=== PATIENT | male | born 1955 | race Caucasian/White ===

== ENCOUNTER 2025-07-25 21:00 | Inpatient (IN) | payer MEDICARE, OTHER, SELFPAY ==
[2025-07-25 21:04] VITALS: BP 123/77
[2025-07-25 21:05] VITALS: BMI 39.0
[2025-07-25 21:11] VITALS: BP 135/66
[2025-07-25 21:14] VITALS: BP 136/77
[2025-07-25 21:27] LABS: Hematocrit 45.7 % (39.0-52.0); Hemoglobin 15.5 g/dL (13.0-18.0); Mean Corp Hgb Conc. 33.9 g/dL (33.0-37.0); Mean Corpuscular Volume 82.6 fL (80.0-94.0); Platelet Count 151 10^3/uL (130-400); Red Cell Dist. Width 13.0 % (11.5-14.5)
[2025-07-25 21:40] LABS: APTT 65.7 Sec (23.4-35.0)
[2025-07-25 21:47] LABS: Blood Urea Nitrogen 17 mg/dl (9-20); Calcium 9.0 mg/dl (8.4-10.2); Carbon Dioxide 25 mmol/L (22-30); Chloride 108 mmol/L (98-107); Estimated Creatinine Clearance 87 ml/min; Glucose 95 mg/dl (70-99); Magnesium 1.8 mg/dl (1.6-2.3); Potassium 3.9 mmol/L (3.5-5.1); Sodium 139 mmol/L (135-145); eGFR > 60.00
--- NOTE | 2025-07-25 22:12 | PTCARENOTE ---
received patient from [facility] via transport. pleasant. oriented x3. Slovak speaking. stenciler line used for communication. Bartolo BOYLE CREDIT COLLECTIONS ANALYST at the bedside. labs sent. awaiting new orders.
patient complains of left side chest pain- 12/09. non radiating. improved at the end of conversation. Bartolo MCINTYRE aware- will give tylenol for now per CREDIT COLLECTIONS ANALYST. Afib on tele- 40s-60s. denies any palps. bp stable. history of stroke- L facial droop/LUE weakness
noted. steady on his feet oob. educated patient to inform RN with any changes. oriented to room/call breen. IS provided per respiratory. answered all questions.
--- NOTE | 2025-07-25 22:13 | HPS.HSE ---
Family Physician
-
Family Physician: Jose G Curry
Chief Complaint
-
Chest pain
History of Present Illness
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
the morning of presentation. He reported the chest pain was a 'tightness' that was substernal and developed suddenly but then resolved after a nitro patch was applied. His HsTnl returned at 29 ng/L and EKG showing non-specific ST-T wave changes in
the lateral leads. PCXR report states there was no acute cardiopulmonary process. He was placed on a heparin infusion and ultimately went for a LHC which showed eccentric distal left main lesion, significant ostial and proximal LAD lesion,
significant OM1, OM2, and OM3 lesions, significant proximal RCA and 2 proximal RPL lesions. He was then transferred to [facility] for consideration of CABG. At the time of his arrival he is in a slow afib with rates between 30 and 60 b/min
with BP in the 130/70s without supplemental oxygen. He was interviewed with Gambian electric motors salesperson [id number]. He currently reports 2/10 pain across his back and to his chest which was worse after he laid on the union laborer table and is reproducible to
palpation. He denies any SOB, FIELDS, orthopnea, or weight gain but reports increased lower extremity edema. He reports being a ~10 pack/yr smoker but quit 35 years ago and stopped drinking alcohol 3 years ago after his stroke. He is not aware of
any family history of cardiac disease.
Medical History
Past Medical History
Past Medical History: Reports Arrhythmia, CAD, CVA, GERD, HTN and Hypercholesterolemia
Past Surgical History: Reports Cholecystectomy
Social History
Tobacco: Former Smoker
Alcohol: Former
Drug: None
Personal:
Living: With Family
Employment: Retired ( )
Family History
Family History: Other
Allergies / Home Medications
Allergies reflects when Allergies were last updated in [employer].
Home Medications with original date entered in [employer]
Allergy/Medication List:
Amlodpine 10 mg daily
Apixaban 5 mg BID
ASA 81 mg daily
clopidogrel 75 mg daily
doxazosin 2 mg BID
furosemide 20 mg daily
losartan 100 mg daily
nortriptyline 10 mg bedtime
pantoprazole 40 mg daily
Review of Systems
-
History Source: Patient
A 12 point ROS was completed and negative except as noted: Yes
Physical Exam
Vital Signs
Vital Signs
Pulse BP
48 135/66
07/25/25 21:11 07/25/25 21:11
Physical Exam
General: Well Developed, Well Nourished, Comfortable, Conversant and Slurred Speech
HEENT: Moist mucous membranes, PERRLA, Nose Appears Normal, Ears Appear Normal and Neck Nontender
Respiratory: Clear and Non Labored Respirations
Cardiac: Irregular Rhythm, Bradycardia and Peripheral Edema
Breast: Deferred by me
GI: Soft, Non Tender, Distended and No Hepatosplenomegaly
Rectal: Deferred by Provider
Genito-urinary: Deferred by me
Musculoskeletal: Edema, Left Lower Extremity and Edema, Right Lower Extremity
Skin: Warm and Dry
Neuro: Awake, Alert, Oriented, AO x 3, Slurred Speech, Facial Droop and Other (LUE 4+/5, LLE 5/5, RUE 5/5, RLE 5/5)
Hematologic/Lymphatic: No Lymphadenopathy
Psych: Intact Judgment/Insight
Laboratory Results
-
07/25/25 21:18
07/25/25 21:18
Laboratory Results
APTT 65.7 Sec (23.4-35.0) H 07/25/25 21:18
Data Reviewed
-
Medical Tests (Nuc Med, Echo, EKG etc): Report Reviewed by me (NST 04/30/25: negative for ischemia, TTE 09/2022: LVEF 70-75%, G1DD, mild LVH, normal RV with RVSP 13 mmHg, normal LA/RA size, calcified AV with MG 7 mmHg)
Impression/Plan
-
IMPRESSION/PLAN:
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
have a NSTEMI. He was placed on a heparin infusion and ultimately went for a LHC which showed eccentric distal left main lesion, significant ostial and proximal LAD lesion, significant OM1, OM2, and OM3 lesions, significant proximal RCA and 2
proximal RPL lesions. He was then transferred to [facility] for consideration of CABG.
# NSTEMI
# MVCAD
# HLD
-CABG evaluation
-Heparin infusion
-Continue ASA/statin
-Plavix washout, last dose was ~9am on 07/25
-If he develops worsening CP will start nitro drip, will try APAP first, current pain may be musculoskeletal
-Holding Lasix for now s/p C, on RA, follow renal function
-Unsure he had an echo while at [facility], will need to verify but may need one here
# Permanent Afib on Eliquis
# Bradycardia
# HTN
-Hold BB with afib and slow ventricular response, currently 38-60 b/min, no emergent need for pacing, rate reported to be worse after sedation during C
-Heparin infusion, holding Eliquis
-Hold losartan for now, BP currently at goal, will need to hold ARB 2 days before surgery regardless
# GERD
# Hx CVA
-Continue nortriptyline and PPI
Case to be evaluated and discussed further with attending surgeon Dr. Merritt
[2025-07-25] MEDS: HEPARIN 25000 UNITS/250 ML IV (22:29)
[2025-07-25] MEDS: TYLENOL 650 MG PO (22:30)
[2025-07-25 22:40] VITALS: BMI 39.0
[2025-07-25] MEDS: KCL 40 MEQ PO (23:27)
[2025-07-26 04:27] VITALS: BP 117/97
[2025-07-26 04:48] LABS: Hematocrit 43.5 % (39.0-52.0); Hemoglobin 14.7 g/dL (13.0-18.0); Mean Corp Hgb Conc. 33.8 g/dL (33.0-37.0); Mean Corpuscular Volume 82.5 fL (80.0-94.0); Nucleated Red Blood Cells % 0 % (-); Platelet Count 143 10^3/uL (130-400); Red Cell Dist. Width 12.9 % (11.5-14.5)
[2025-07-26 05:03] LABS: INR 1.09; PT 14.4 Sec (11.4-14.6)
[2025-07-26 05:04] LABS: APTT 48.7 Sec (23.4-35.0)
[2025-07-26 05:13] LABS: ALT (SGPT) 29 U/L (0-50); AST (SGOT) 22 U/L (17-59); Albumin 3.6 g/dl (3.5-5.0); Alkaline Phosphatase 84 U/L (38-126); Blood Urea Nitrogen 14 mg/dl (9-20); Calcium 8.6 mg/dl (8.4-10.2); Carbon Dioxide 25 mmol/L (22-30); Chloride 110 mmol/L (98-107); Estimated Creatinine Clearance 98 ml/min; Glucose 95 mg/dl (70-99); HDL Cholesterol 44 mg/dl; LDL Cholesterol, Calculated 66 mg/dl; Magnesium 1.7 mg/dl (1.6-2.3); Potassium 4.2 mmol/L (3.5-5.1); Sodium 139 mmol/L (135-145); Total Protein 6.1 g/dl (6.3-8.2); Very Low Density Lipoprotein 21 mg/dl (0-30); eGFR > 60.00
--- NOTE | 2025-07-26 05:29 | W.PN.CT ---
Today's Communication / Plan
-
-plavix washout, continue heparin gtt
-follow BP off losartan
-restart lasix?
-holding BB with slow afib
Assessment / Plan
-
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
have a NSTEMI. He was placed on a heparin infusion and ultimately went for a [facility] which showed eccentric distal left main lesion, significant ostial and proximal LAD lesion, significant OM1, OM2, and OM3 lesions, significant proximal RCA and 2
proximal RPL lesions. He was then transferred to [facility] for consideration of CABG.
# NSTEMI
# MVCAD
# HLD
-CABG evaluation
-Heparin infusion
-Continue ASA/statin
-Plavix washout, last dose was ~9am on 07/25
-Holding Lasix for now s/p [facility], on RA, follow renal function
-Unsure he had an echo while at [facility], will need to verify but may need one here
# Permanent Afib on Eliquis
# Bradycardia
# HTN
-Hold BB with afib and slow ventricular response, currently 38-60 b/min, no emergent need for pacing, rate reported to be worse after sedation during LHC
-Heparin infusion, holding Eliquis
-Hold losartan for now, BP currently at goal, will need to hold ARB 2 days before surgery regardless
# GERD
# Hx CVA
-Continue nortriptyline and PPI
Subjective
-
Date of Service: July 26, 2025
Objective Data
-
Lab Results
07/26/25 04:39
07/26/25 04:39
PT 14.4 Sec (11.4-14.6) 07/26/25 04:39
INR 1.09 07/26/25 04:39
APTT 48.7 Sec (23.4-35.0) H 07/26/25 04:39
Vital Signs
Vital Signs
Temp Pulse Resp BP Pulse Ox
98.4 F 48 18 135/66 98
07/26/25 04:54 07/25/25 21:11 07/26/25 04:54 07/25/25 21:11 07/26/25 04:54
SaO2: 98
Physical Exam
-
General: Awake and Oriented
Cardiovascular: Irregular rate & rhythm and No Murmurs
Respiratory: Clear and Equal
Extremities: Edema +1
Data Reviewed
-
Lab Results: Results Reviewed
Medications: Active Meds Reviewed
Chest X-Ray: Report Reviewed
ECG: Report Reviewed
--- NOTE | 2025-07-26 08:26 | CON.CAR ---
Addendum entered and electronically signed by Ketan Wasserman MD 07/26/25 10:52:
I saw and evaluated the patient, and I provided the substantive portion of the medical decision making.
I reviewed and agree with the note by DARRIUS and it accurately reflects our care.
I personally performed the medical decision making of the this encounter and my assessment and plan is below:
70-year-old man with hypertension, hyperlipidemia, stroke, atrial fibrillation on Eliquis who presented to [facility] with chest discomfort on , found to have severe obstructive coronary artery disease as described below. He is
transferred to [facility] for consideration of CABG. He is currently asymptomatic.
Physical exam: Irregular rhythm, no murmurs, clear lungs, no lower extremity edema
NSTEMI with multivessel CAD: Plan for CABG after Plavix washout. Continue heparin drip and aspirin. He is currently chest pain-free. May need echo here pending [facility] records.
Bradycardia: Hold beta-joseluis.
AF: Rate controlled. Heparin drip.
Original Note:
Consultation
Consultation Request
Date/Time Consultation Requested: 07/25/251916
Date/Time Consultation Performed: 07/25/25826
Requesting Provider: Madonna Woodruff
Performing Provider: Miriam RIZO for Dr. Johnson
Reason for Consultation: CAD
Medical History
-
Chief Complaint: chest pain
History of Present Illness:
70 y/o male with HTN, HLD, CVA, AFIB on qu (type not clear), GERD, and obesity who presented to [facility] with chest discomfort.He reports it started AM around 7 and was a chest pressure. In [facility], High sensitivity troponin
was 29ng/L. LHC showed eccentric distal left main lesion, significant ostial and proximal LAD lesion, significant OM1, OM2, and OM3 lesions, significant proximal RCA and 2 proximal RPL lesions (per CT surgery note- I do not have access to the report
at this time). He was transferred to evaluate for CABG. He is Citizen [place]-speaking and I used the geological engineer IPAD to communicate with him effectively. He has no CP at present. He denies any SOB or dizziness. He is in no distress at the time of my
assessment.
Past Medical History
Past Medical History: Arrhythmias, CAD, CVA, GERD, HTN, Hypercholesterolemia and Other (as above)
Social History
Tobacco: Former Smoker (quit 36 years ago)
Family History
Family History: Reviewed & Not Pertinent (patient denies)
Allergies / Home Medications
Allergy/AdvReac Type Severity Reaction Status Date / Time
bee venom protein (honey bee) Allergy Unknown Verified 07/25/25 22:47
diphenhydramine Allergy Unknown Verified 07/25/25 22:[address] surgery note:
Amlodipine 10 mg daily
Apixaban 5 mg BID
ASA 81 mg daily
clopidogrel 75 mg daily
doxazosin 2 mg BID
furosemide 20 mg daily
losartan 100 mg daily
nortriptyline 10 mg bedtime
pantoprazole 40 mg daily
Review of Systems
-
History Source: Patient
All other systems: Negative unless noted
Cardiac: Chest Pain
Physical Exam
Vital Signs
Temp Pulse Resp BP Pulse Ox
98.4 F 51 18 117/97 98
07/26/25 04:54 07/26/25 06:30 07/26/25 04:54 07/26/25 04:27 07/26/25 05:32
Lab Results
07/26/25 04:39
07/26/25 04:39
Physical Exam
General: Well Developed, Well Nourished and No Apparent Distress
HEENT: Normocephalic and Anicteric
Respiratory: Clear and Non Labored Respirations
Cardiac: Irregular Rhythm
Musculoskeletal: Edema (mild BLE edema)
Skin: Warm and Dry
Neuro: AO x 3
Psych: Calm
Impression / Plan
-
NSTEMI, Multivessel CAD:
-this diagnosis is threat to life. Continue heparin drip, which requires intensive monitoring.
-CP free at present
-continue ASA and statin. Per report he received Plavix AM of 07/25. He is now on Plavix washout.
-CT surgery evaluation for CABG
-needs echo if didn't have one at [facility]
-ASA, statin. Was on metoprolol 12.5 mg PO BID at [facility] per report, now off due to bradycardia.
AFIB, type unknown:
-rate-controlled off meds (see below)
-on Eliquis as OP, currently on heparin gtt
Bradycardia:
-Monitor tele, remain off metoprolol
-no dizziness
-should be evaluated for NICOLAS eventually
HTN:
-on meds
-monitor
Hx CVA:
-on Eliquis as OP (heparin drip now) and statin
Data Reviewed
-
EKG: Tracing Personally Visualized and interpreted (AFIB 50 BPM, ST/T abnormality- ST/T abnormalities )
Labs: Labs Reviewed by me
Old Records: Reviewed ([facility] records and CTS note)
[2025-07-26 08:56] VITALS: BP 135/93
[2025-07-26] MEDS: PROTONIX 40 MG PO (08:57)
[2025-07-26] MEDS: LOW STRENGTH ASPIRIN 81 MG PO (08:57)
[2025-07-26] MEDS: NORVASC 10 MG PO (08:57)
[2025-07-26 09:29] LABS: Glycohemoglobin (HgbA1c) 5.9 % (4.0-5.6)
--- NOTE | 2025-07-26 09:46 | PTCARENOTE ---
Received patient at 0700. Assessment performed using construction electrician. Patient AO x3, left facial droop, slight left upper extremity weakness, speaks Micronesian. A-fib, PVC and pauses HR in the 40-50's, trace lower extremity edema, denies pain or shortness
of breath. Right radial dressing dry and soft. Using call breen for bathroom assistance. Heparin gtt at 1220 units/hr. Call breen in reach
[2025-07-26 11:04] VITALS: BP 112/63
[2025-07-26 12:31] LABS: APTT 59.6 Sec (23.4-35.0)
[2025-07-26] MEDS: HEPARIN 25000 UNITS/250 ML IV (16:37)
[2025-07-26 17:24] VITALS: BP 114/64
[2025-07-26] MEDS: LIPITOR 40 MG PO (17:25)
[2025-07-26 18:42] LABS: APTT 60.0 Sec (23.4-35.0)
[2025-07-26 20:18] VITALS: BP 110/59
--- NOTE | 2025-07-26 20:33 | PTCARENOTE ---
assumed care of patient at the change of shift. district branch manager line used for communication-Australian speaking. L facial droop/Left sided weakness-baseline/history of stroke. denies any cp/sob. Afib on tele- 50s-70s. bp 110/59. heparin gtt infusing per
protocol. reviewed plan of care with patient and verbalized understanding. educated patient on the importance of calling Rn with any changes overnight. call breen within reach.
[2025-07-26] MEDS: PAMELOR 10 MG PO (22:10)
[2025-07-26 22:13] VITALS: BP 99/52
[2025-07-27 01:43] LABS: Hematocrit 43.4 % (39.0-52.0); Hemoglobin 14.8 g/dL (13.0-18.0); Mean Corp Hgb Conc. 34.1 g/dL (33.0-37.0); Mean Corpuscular Volume 82.4 fL (80.0-94.0); Platelet Count 140 10^3/uL (130-400); Red Cell Dist. Width 12.9 % (11.5-14.5)
[2025-07-27 01:51] LABS: Blood Urea Nitrogen 12 mg/dl (9-20); Calcium 8.7 mg/dl (8.4-10.2); Carbon Dioxide 21 mmol/L (22-30); Chloride 110 mmol/L (98-107); Estimated Creatinine Clearance 98 ml/min; Glucose 109 mg/dl (70-99); Potassium 4.0 mmol/L (3.5-5.1); Sodium 138 mmol/L (135-145); eGFR > 60.00
[2025-07-27 02:07] LABS: APTT 156.1 Sec (23.4-35.0)
[2025-07-27 04:25] VITALS: BP 95/61
[2025-07-27 04:30] VITALS: BMI 38.4
--- NOTE | 2025-07-27 05:12 | W.PN.CT ---
Today's Communication / Plan
-
-plavix washout, continue heparin gtt, pending discussion with attending surgeon
-follow BP off losartan
-restart lasix today
-holding BB with slow afib
Assessment / Plan
-
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
have a NSTEMI. He was placed on a heparin infusion and ultimately went for a [facility] which showed eccentric distal left main lesion, significant ostial and proximal LAD lesion, significant OM1, OM2, and OM3 lesions, significant proximal RCA and 2
proximal RPL lesions. He was then transferred to [facility] 07/25/25 for consideration of CABG.
# NSTEMI
# MVCAD
# HLD
-CABG evaluation
-Heparin infusion
-Continue ASA/statin
-Plavix washout, last dose was ~9am on 07/25
-restart home lasix
-Unsure he had an echo while at [facility], will need to verify but may need one here
# Permanent Afib on Eliquis
# Bradycardia
# HTN
-Hold BB with afib and slow ventricular response, currently 36-60 b/min, no emergent need for pacing, rate reported to be worse after sedation during LHC
-Heparin infusion, holding Eliquis
-Hold losartan for now, BP currently at goal, will need to hold ARB 2 days before surgery regardless
# GERD
# Hx CVA
-Continue nortriptyline and PPI
-PT/OT
Subjective
-
Date of Service: July 27, 2025
Objective Data
-
Lab Results
07/27/25 01:27
07/27/25 01:27
PT 14.4 Sec (11.4-14.6) 07/26/25 04:39
INR 1.09 07/26/25 04:39
APTT 156.1 Sec (23.4-35.0) H* 07/27/25 01:27
Vital Signs
Vital Signs
Temp Pulse Resp BP Pulse Ox
98.1 F 52 22 95/61 97
07/27/25 04:29 07/27/25 04:30 07/27/25 04:29 07/27/25 04:25 07/27/25 04:[address]
CT Intake/Output/Weight
07/26/25 07/26/25 07/27/25
06:59 18:59 06:59
Intake Total 480 / 480
Output Total 400 / 900 500 / 900
Balance 80 / -420 -500 / -420
SaO2: 97
Physical Exam
-
General: Awake and Oriented
Cardiovascular: Irregular rate & rhythm, No Murmurs and No Rub
Respiratory: Clear and Equal
Extremities: Edema +1 and No Erythema
Data Reviewed
-
Lab Results: Results Reviewed
Medications: Active Meds Reviewed
Chest X-Ray: Report Reviewed
ECG: Report Reviewed
[2025-07-27 07:47] VITALS: BP 116/58
[2025-07-27] MEDS: NORVASC 10 MG PO (08:27)
[2025-07-27] MEDS: LOW STRENGTH ASPIRIN 81 MG PO (08:27)
[2025-07-27] MEDS: LASIX 20 MG PO (08:27)
[2025-07-27] MEDS: PROTONIX 40 MG PO (08:27)
[2025-07-27] MEDS: HEPARIN 25000 UNITS/250 ML IV (09:54)
[2025-07-27 10:14] LABS: APTT 122.7 Sec (23.4-35.0)
[2025-07-27 12:42] VITALS: BP 106/62
[2025-07-27 15:50] VITALS: BP 124/83
--- NOTE | 2025-07-27 15:58 | PTCARENOTE ---
Assumed care at 0700. patient resting comfortable, Lao speaking, using car detailer services for communication, left upper extremity slightly weaker than right and left facial droop from old CVA. A-fib in the 50's with pauses. Denies pain or
shortness of breath, VSS. Walking to the bathroom assisted, gait steady. Heparin per DEC, call breen in reach
[2025-07-27 16:59] LABS: APTT 85.7 Sec (23.4-35.0)
[2025-07-27] MEDS: LIPITOR 40 MG PO (18:03)
[2025-07-27] MEDS: PAMELOR 10 MG PO (21:36)
[2025-07-27 22:55] VITALS: BP 114/62
[2025-07-27 23:06] LABS: APTT 94.2 Sec (23.4-35.0)
[2025-07-28] VITALS (8 sets, daily range): BP systolic 85–120; BP diastolic 64–79; PULSE 44; BMI 38.2
--- NOTE | 2025-07-28 00:09 | PTCARENOTE ---
Received patient at change of shift. Afib on the monitor, HR in the 50s, occaisional 4 second pauses. Heparin running as per protocol, see documentation. Talent Development Director device in room. No complaints from pt at this time, call breen within reach.
[2025-07-28] MEDS: HEPARIN 25000 UNITS/250 ML IV ×2 (04:40→21:38)
[2025-07-28 05:10] LABS: APTT 92.5 Sec (23.4-35.0)
[2025-07-28 06:05] LABS: Blood Urea Nitrogen 8 mg/dl (9-20); Calcium 8.5 mg/dl (8.4-10.2); Carbon Dioxide 21 mmol/L (22-30); Chloride 110 mmol/L (98-107); Estimated Creatinine Clearance 98 ml/min; Glucose 100 mg/dl (70-99); Potassium 3.9 mmol/L (3.5-5.1); Sodium 137 mmol/L (135-145); eGFR > 60.00
--- NOTE | 2025-07-28 08:20 | PTCARENOTE ---
Assumed care of pt from prev nsg shift; Pt is AAOx3, drowsy but easily arousable. Pt is Guyanese speaking but able to communicate easily via debt recovery officer. Pt w/no c/o CP or SOB. Pt's VSS w/HR in the 50's & BP 112/72 this AM. Pt is Afib w/occas 2-3 sec
pauses, which MDs are aware of. Pt w/Heparin IV infusing through patent IV line as ordered. Pt w/call breen within reach & plan of care ongoing.
--- NOTE | 2025-07-28 08:45 | W.PN.CD ---
Today's Communication / Plan
-
Continue heparin and aspirin
CABG this week
Impression / Plan
-
NSTEMI, Multivessel CAD:
-this diagnosis is threat to life. Continue heparin drip, which requires intensive monitoring.
-CP free at present
-continue ASA and statin. Per report he received Plavix AM of 07/25. He is now on Plavix washout.
-CT surgery evaluation for CABG
-follow-up echo
-ASA, statin. Was on metoprolol 12.5 mg PO BID at [facility] per report, now off due to bradycardia.
AFIB, type unknown:
-rate-controlled off meds (see below)
-on Eliquis as OP, currently on heparin gtt
Bradycardia:
-Monitor tele, remain off metoprolol
-should be evaluated for NICOLAS eventually
HTN:
-on meds
-monitor
Hx CVA:
-on Eliquis as OP (heparin drip now) and statin
Subjective: He denies chest pain and shortness of breath. Mild lightheadedness when he sits up.
Physical Exam
Vital Signs/Labs
Vital Signs
Temp Pulse Resp BP Pulse Ox
98.3 F 51 20 112/72 96
07/28/25 06:51 07/28/25 07:45 07/28/25 06:51 07/28/25 06:56 07/28/25 06:51
07/27/25 07/28/25 07/29/25
06:59 06:59 06:59
Actual Weight 238 lb 1.588 oz 236 lb 5.369 oz
07/27/25 01:27
07/28/25 04:48
PT 14.4 Sec (11.4-14.6) 07/26/25 04:39
INR 1.09 07/26/25 04:39
APTT 92.5 Sec (23.4-35.0) H 07/28/25 04:49
Magnesium 1.7 mg/dl (1.6-2.3) 07/26/25 04:39
Triglycerides 105 mg/dl (10-149) 07/26/25 04:39
LDL Cholesterol, Calc 66 mg/dl 07/26/25 04:39
VLDL Cholesterol, Calc 21 mg/dl (0-30) 07/26/25 04:39
HDL Cholesterol 44 mg/dl 07/26/25 04:39
Physical Exam
Constitutional: No acute distress and Comfortable
Cardiovascular: Rhythm & rate is regular, Pedal edema is absent, S1S2 is normal and Murmur/rub/gallop absent
Respiratory: Respiratory effort normal and Lungs clear to auscul.
Neuro/Psych: AO x 3
Data Reviewed
-
Date of Service: July 28, 2025
Medical Decision Making: Reviewed Test Results, Test Interpretation and Review of Case with other Provider
EKG: Tracing Personally Visualized and interpreted
Labs: Labs Reviewed by me
--- NOTE | 2025-07-28 10:05 | CARDSERVLU ---
Echocardiogram with Lumason completed after protocol screening completed. Allergies verified.
Patent IV site: _L hand____
IV site flushed with 0.9% NaCl pre and post administration.
Diluted bolus method utilized to enhance visualization of ventricular jackson.
Total volume given: _2.5___ mL
Patient tolerated all procedures well without complications.
[2025-07-28] MEDS: NORVASC 10 MG PO (10:55)
[2025-07-28] MEDS: PROTONIX 40 MG PO (10:56)
[2025-07-28] MEDS: LASIX 20 MG PO (10:56)
[2025-07-28] MEDS: LOW STRENGTH ASPIRIN 81 MG PO (10:56)
--- NOTE | 2025-07-28 12:09 | CM ---
Chart reviewed. Patient is Ghanaian speaking independent of ADLS, lives with his in a 2nd floor apartment, [address], uses a RW and also has a wheelchair. Patient has a RN come to the house 1x [facility]. Pt will need PT
evaluation after surgery to see functional assessment. Plan is for the patient to return home vs SNF. CM to follow
[2025-07-28] MEDS: LIPITOR 40 MG PO (18:25)
[2025-07-28] MEDS: PAMELOR 10 MG PO (21:38)
--- NOTE | 2025-07-28 23:41 | PTCARENOTE ---
Received patient at change of shift. Aflutter on the monitor, HR in the 50s. Heparin running as per protocol, see documentation. HR dropping to low 30s, with a four second pause, CT surgery PA notified. CPAP ordered. No complaints from pt at this
time, call breen within reach.
[2025-07-29] VITALS (9 sets, daily range): BP systolic 118–138; BP diastolic 64–85; PULSE 57–59
--- NOTE | 2025-07-29 04:36 | PTCARENOTE ---
Pt converted to SB, EKG obtained. CT surgery PA notified.
[2025-07-29 04:45] LABS: Hematocrit 42.9 % (39.0-52.0); Hemoglobin 14.7 g/dL (13.0-18.0); Mean Corp Hgb Conc. 34.3 g/dL (33.0-37.0); Mean Corpuscular Volume 82.2 fL (80.0-94.0); Platelet Count 150 10^3/uL (130-400); Red Cell Dist. Width 13.0 % (11.5-14.5)
[2025-07-29 04:57] LABS: APTT 97.4 Sec (23.4-35.0)
[2025-07-29 05:08] LABS: Blood Urea Nitrogen 10 mg/dl (9-20); Calcium 8.5 mg/dl (8.4-10.2); Carbon Dioxide 25 mmol/L (22-30); Chloride 109 mmol/L (98-107); Estimated Creatinine Clearance 86 ml/min; Glucose 103 mg/dl (70-99); Magnesium 1.9 mg/dl (1.6-2.3); Potassium 3.6 mmol/L (3.5-5.1); Sodium 138 mmol/L (135-145); eGFR > 60.00
--- NOTE | 2025-07-29 06:10 | W.PN.CT ---
Today's Communication / Plan
-
Plan:
-No major issues overnight. Hemodynamically and neurologically intact
-On heparin gtt
-Was noted to be in rate controlled a-fib/flutter last night with pauses, placed on CPAP for suspected NICOLAS, converted to NSR overnight
-Ongoing preop workup
-Cont. current meds (heparin gtt, ASA, Protonix, Nortriptyline
-Hold FADI-I/ARBs/CCB (Losartan on hold, will place Norvasc on hold)
-Plavix washout
-For CABG +/- MAZE +/- ELAA by Dr. Merritt on vs Monday after Plavix washout
Assessment / Plan
-
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
have a NSTEMI. He was placed on a heparin infusion and ultimately went for a LHC which showed eccentric distal left main lesion, significant ostial and proximal LAD lesion, significant OM1, OM2, and OM3 lesions, significant proximal RCA and 2
proximal RPL lesions. He was then transferred to [facility] 07/25/25 for consideration of CABG.
# NSTEMI
# MVCAD
# HLD
# LVEF 60% without significant valvular disease per echo 07/28/25
# A-fib/a-flutter on chronic Eliquis
# Suspected NICOLAS
# Class 2 obesity (BMI 38.1)
# Bradycardia
# HTN
# GERD
# Hx CVA with residual left sided weakness
Discussed patient care with: Cardiology, Nursing, Respiratory Therapy, Pharmacy and Care Team
Subjective
-
Date of Service: July 29, 2025
No issues overnight. Denies CP/SOB
Objective Data
-
Lab Results
07/29/25 04:31
07/29/25 04:31
PT 14.4 Sec (11.4-14.6) 07/26/25 04:39
INR 1.09 07/26/25 04:39
APTT 97.4 Sec (23.4-35.0) H 07/29/25 04:31
Vital Signs
Vital Signs
Temp Pulse Resp BP Pulse Ox
97.8 F 58 18 130/78 98
07/29/25 04:00 07/29/25 04:30 07/29/25 04:00 07/29/25 04:04 07/29/25 04:30
CT Intake/Output/Weight
07/28/25 07/28/25 07/29/25
06:59 18:59 06:59
Intake Total 720 / 720
Output Total 200 / 1175 500 / 500
Balance -200 / -1052 220 / 220
SaO2: 98 (CPAP)
Physical Exam
-
General: Awake, Oriented and AOx3
Cardiovascular: Regular rate & rhythm, No Murmurs, No Rub and No Gallop
Respiratory: Clear
Extremities: No Edema and Other
Data Reviewed
-
Lab Results: Results Reviewed
Medications: Active Meds Reviewed
Chest X-Ray: Report Reviewed and Image Reviewed
ECG: Report Reviewed and Image Reviewed
[2025-07-29] MEDS: KCL 40 MEQ PO (06:23)
--- NOTE | 2025-07-29 08:00 | PTCARENOTE ---
Assumed care of pt from prev nsg shift; Pt is AAOx3, drowsy but easily arousable. Pt is Tristanian speaking but able to communicate easily via armored truck driver. Pt w/no c/o CP or SOB. Pt's VSS w/HR in the 60's & BP 128/75 this AM. Pt is now SR w/occas 2-3
sec pauses, which MDs are aware of. Pt w/Heparin IV infusing through patent IV line as ordered. Pt w/call breen within reach & plan of care ongoing.
--- NOTE | 2025-07-29 08:33 | W.PN.CD ---
Today's Communication / Plan
-
CABG versus Monday
Continue heparin, aspirin, statin, and p.o. Lasix
Impression / Plan
-
NSTEMI, Multivessel CAD:
-this diagnosis is threat to life. Continue heparin drip, which requires intensive monitoring.
-CP free at present
-continue ASA and statin. Per report he received Plavix AM of 07/25. He is now on Plavix washout.
-CT surgery evaluation for CABG; vs Mon
-Was on metoprolol 12.5 mg PO BID at [facility] per report, now off due to bradycardia.
AFIB, type unknown:
-rate-controlled off meds (see below). Back in NSR as of 07/29 AM
-on Eliquis as OP, currently on heparin gtt
Bradycardia:
-Monitor tele, remain off metoprolol
-should be evaluated for NICOLAS eventually
HTN:
-Amlodipine and losartan on hold for surgery
-monitor
Hx CVA:
-on Eliquis as OP (heparin drip now) and statin
Subjective: He has mild SOB today. No chest pain.
Physical Exam
Vital Signs/Labs
Vital Signs
Temp Pulse Resp BP Pulse Ox
98.0 F 62 20 128/75 98
07/29/25 07:03 07/29/25 07:45 07/29/25 07:03 07/29/25 07:05 07/29/25 07:03
07/28/25 07/29/25 07/30/25
06:59 06:59 06:59
Actual Weight 236 lb 5.369 oz
07/29/25 04:31
07/29/25 04:31
PT 14.4 Sec (11.4-14.6) 07/26/25 04:39
INR 1.09 07/26/25 04:39
APTT 97.4 Sec (23.4-35.0) H 07/29/25 04:31
Magnesium 1.9 mg/dl (1.6-2.3) 07/29/25 04:31
Triglycerides 105 mg/dl (10-149) 07/26/25 04:39
LDL Cholesterol, Calc 66 mg/dl 07/26/25 04:39
VLDL Cholesterol, Calc 21 mg/dl (0-30) 07/26/25 04:39
HDL Cholesterol 44 mg/dl 07/26/25 04:39
Physical Exam
Constitutional: No acute distress and Comfortable
Cardiovascular: Rhythm & rate is regular, Pedal edema is absent, S1S2 is normal and Murmur/rub/gallop absent
Respiratory: Respiratory effort normal and Lungs clear to auscul.
Neuro/Psych: AO x 3
Data Reviewed
-
Date of Service: July 29, 2025
Medical Decision Making: Reviewed Test Results, Test Interpretation and Review of Case with other Provider
EKG: Tracing Personally Visualized and interpreted
Echo: Report Reviewed by me
Labs: Labs Reviewed by me
[2025-07-29] MEDS: LASIX 20 MG PO (10:00)
[2025-07-29] MEDS: PROTONIX 40 MG PO (10:00)
[2025-07-29] MEDS: LOW STRENGTH ASPIRIN 81 MG PO (10:00)
--- NOTE | 2025-07-29 14:12 | CM ---
Preoperative and postoperative instructions and restrictions, along with showering guidelines. Gave patient Cardiac Surgery Book. Patient is independent of ADLS, lives with his in a apartment, 2nd floor, [address], ambulates with a RW and also
has a wheelchair. Patient may be outside of the driving radius, plan is for the patient to return home with CT Transitional RN vs VN. CM to follow
--- NOTE | 2025-07-29 14:45 | W.PN.UPDATE ---
Update Note
Progress Note Update
I met with Mr. Goodman and his partner at the bedside. I used a certified [place] Petroleum Refining Firer and reviewed the plan of care and described surgery in detail. All questions were answered to the best of my ability. He understands and wishes to proceed.
Given his outpt plavix use, we plan to give him 7 days of washout, surgery is tentatively on Monday in the morning. He understands that he needs to let us know if he develops angina and that this might expedite his surgery even with the risk of
bleeding.
Petroleum Refining Firer number [id number].
--- NOTE | 2025-07-29 15:51 | W.PN.UPDATE ---
Update Note
Progress Note Update
STS RISK SCORE
Procedure Type:�Isolated CABG
Perioperative Outcome Estimate %
Operative Mortality 2.69%
Morbidity & Mortality 11.2%
Stroke 1.85%
Renal Failure 1.76%
Reoperation 2.07%
Prolonged Ventilation 6.92%
Deep Sternal Wound Infection 0.242%
Long Hospital Stay (>14 days) 6.14%
Short Hospital Stay (<6 days)* 31.1%
Clinical Summary
Planned Surgery: Isolated CABG, Urgent, First cardiovascular surgery
Demographics: 70 year old, male, 110kg, 168cm, BMI: 39 kg/m�
Lab Values: Creatinine: 0.8 mg/dL, Hematocrit: 43.5%, WBC Count: 6.3 10�/�L, Platelet Count: 908526 cells/�L
Substance Abuse: Former smoker
Risk Factors / Comorbidities: Hypertension
Vascular RF: Cerebrovascular Disease: CVA > 30 days
Cardiac Status: NYHA Class II, Ejection Fraction = 60%
Coronary Artery Disease: 3 vessels diseased, Left Main Stenosis >=50%, Proximal LAD Stenosis >=70%, Non-ST Elevation NV, NV: 1 to 7 Days
Valve Disease: Mild AR, Trivial/Trace MR, Trivial/Trace TR
Arrhythmia: Recent A-fib, Persistent
--- NOTE | 2025-07-29 15:57 | PTCARENOTE ---
Report given to Kandace in CVICU; Pt transported to room 2262 w/personal belongings via wheelchair, including cell phone.
--- NOTE | 2025-07-29 16:00 | PTCARENOTE ---
pt received from IVU KESHAWN Ortiz, oriented, Burkinan speaking, structural steel ironworker used. no c/o pain. SB/SR on the monitor, HR 50-60s. SBP 130s. pt on RA, no c/o SOB or cough. pt abdomen s/n, diet tolerated. +BS. pt aware to use urinal to void. R radial site
MARGARITA. PIV x2. heparin gtt running as ordered.
[2025-07-29] MEDS: HEPARIN 25000 UNITS/250 ML IV (16:49)
[2025-07-29] MEDS: LIPITOR 40 MG PO (16:57)
[2025-07-29] MEDS: MAGNESIUM OXIDE 400 MG PO (20:27)
--- NOTE | 2025-07-29 20:53 | PTCARENOTE ---
Patient received form RN @1900. Patient sitting in chair comfortably. AOX3 and Haitian speaking. Chief Investment Officer application utilized. SR w/ first degree block on monitor. BP 126/64 HR 60. Heart sounds audible. Radial and pedal pulses present. +1
bilateral ankle edema noted. Lungs clear bilaterally. POX 95% RA. Ambulates w/ no SOB or cough. Bowel sounds normoactive and tolerating diet. Voids clear yellow urine. Right radial puncture well approximated SOCCER BALL ASSEMBLER. 2x PIV patent and intact.
Patient states he has no chest pain. See worklist for more details.
[2025-07-29] MEDS: PAMELOR 10 MG PO (21:31)
[2025-07-30] VITALS (9 sets, daily range): BP systolic 112–155; BP diastolic 54–81; PULSE 52–58; BMI 38.4
--- NOTE | 2025-07-30 01:31 | PTCARENOTE ---
Patient reassessed. Sinus bradycardia w/ first degree and PAC's on monitor. Patient sleeping and tolerating CPAP mask.
[2025-07-30 03:58] LABS: APTT 87.9 Sec (23.4-35.0)
[2025-07-30 05:04] LABS: Blood Urea Nitrogen 11 mg/dl (9-20); Calcium 8.8 mg/dl (8.4-10.2); Carbon Dioxide 25 mmol/L (22-30); Chloride 107 mmol/L (98-107); Estimated Creatinine Clearance 86 ml/min; Glucose 101 mg/dl (70-99); Magnesium 1.8 mg/dl (1.6-2.3); Potassium 4.0 mmol/L (3.5-5.1); Sodium 137 mmol/L (135-145); eGFR > 60.00
--- NOTE | 2025-07-30 05:06 | W.PN.CT ---
Today's Communication / Plan
-
Plan:
-No major issues overnight. Hemodynamically and neurologically intact
-Denies CP/SOB
-On heparin gtt
-Remains in sinus rhythm since converting the AM of 07/29
-Suspected NICOLAS, cont. CPAP during sleep. Will need workup as an outpt.
-Ongoing preop workup
-Cont. current meds (heparin gtt, ASA, Protonix, Nortriptyline)
-Hold FADI-I/ARBs/CCB (Losartan and Norvasc are on hold)
-Plavix washout
-For CABG +/- MAZE +/- ELAA by Dr. Merritt on Wednesday 08/01 after Plavix washout
Assessment / Plan
-
Brian Goodman is a 70 year old South African speaking (needs educational sign language interpreter) gentleman with a history of HTN, HLD, CVA with residual L sided deficits, permanent AF on Eliquis, GERD, obesity who presented to [facility] with chest pain and found to
have a NSTEMI. He was placed on a heparin infusion and ultimately went for a LHC which showed eccentric distal left main lesion, significant ostial and proximal LAD lesion, significant OM1, OM2, and OM3 lesions, significant proximal RCA and 2
proximal RPL lesions. He was then transferred to [facility] 07/25/25 for consideration of CABG.
# NSTEMI
# MVCAD
# HLD
# LVEF 60% without significant valvular disease per echo 07/28/25
# A-fib/a-flutter on chronic Eliquis
# Suspected NICOLAS
# Class 2 obesity (BMI 38.1)
# Bradycardia
# HTN
# GERD
# Hx CVA with residual left sided weakness
Discussed patient care with: Cardiology, Nursing, Respiratory Therapy, Pharmacy and Care Team
Subjective
-
Date of Service: July 30, 2025
No issues overnight. Denies CP/SOB
Objective Data
-
Lab Results
07/29/25 04:31
07/30/25 03:31
PT 14.4 Sec (11.4-14.6) 07/26/25 04:39
INR 1.09 07/26/25 04:39
APTT 87.9 Sec (23.4-35.0) H 07/30/25 03:31
Vital Signs
Vital Signs
Temp Pulse Resp BP Pulse Ox
99 F 54 16 131/77 99
07/30/25 01:30 07/30/25 02:35 07/30/25 01:30 07/30/25 02:35 07/30/25 02:35
CT Intake/Output/Weight
07/29/25 07/29/25 07/30/25
06:59 18:59 06:59
Intake Total 759 / 759
Output Total 400 / 550 150 / 550
Balance 359 / 209 -150 / 209
SaO2: 99 (CPAP)
Physical Exam
-
General: Awake, Oriented and AOx3
Cardiovascular: Regular rate & rhythm, No Murmurs, No Rub and No Gallop
Respiratory: Clear
Extremities: Other (+trace edema)
Data Reviewed
-
Lab Results: Results Reviewed
Medications: Active Meds Reviewed
Chest X-Ray: Report Reviewed and Image Reviewed
ECG: Report Reviewed and Image Reviewed
--- NOTE | 2025-07-30 06:11 | PTCARENOTE ---
Patient reassessed. Patient standing to use urinal. Labs obtained. Sinus bradycardia w/ first degree block. VSS.
--- NOTE | 2025-07-30 08:00 | PTCARENOTE ---
pt received from previous RN, oriented, [place]inean speaking, research investigator used. pt denies CP. SB w/ 1st degree AVB on the monitor, HR 50s. SBP 120s. palpable pulses. pt on RA, 97% POX. lungs clear. pt abdomen round, s/n, denies n/v. diet tolerated well.
voids in urinal. RW in room for use. R radial site RN SCHOOL. PIV x2. heparin gtt running as ordered. see worklist for VS, I&O, and assessment.
--- NOTE | 2025-07-30 08:14 | CM ---
Reviewed chart. Mr. Goodman is in the operating room today. Prior to admission he resides with his spouse in a second floor walk-up apartment with thirteen steps to enter. Prior to admission he ambulates with a walker and independent with ambulation.
He has a walker and wheelchair at home. Will need to see his current functional level to see if he will have any skilled care needs. Medical work-up in progress. The discharge plan is undetermined at this time.
--- NOTE | 2025-07-30 08:42 | W.PN.CD ---
Today's Communication / Plan
-
continue ASA 81mg and heparin drip
CABG Monday
Impression / Plan
-
NSTEMI, Multivessel CAD:
-this diagnosis is threat to life. Continue heparin drip, which requires intensive monitoring.
-echo: EF 60%, mild AR
-CP free today
-continue ASA and statin. Per report he received Plavix AM of 07/25. He is now on Plavix washout.
-CT surgery evaluation for CABG: plan for Monday
-Was on metoprolol 12.5 mg PO BID at [facility] per report, now off due to bradycardia.
AFIB, paroxysmal
-rate-controlled off meds (see below). Back in NSR as of 07/29 AM
-on Eliquis as OP, currently on heparin gtt
Bradycardia:
-Monitor tele, remain off metoprolol
-should be evaluated for NICOLAS eventually
HTN:
-losartan on hold for surgery
-continue amlodipine
Hx CVA:
-on Eliquis as OP (heparin drip now) and statin
Physical Exam
Vital Signs/Labs
Vital Signs
Temp Pulse Resp BP Pulse Ox
98 F 49 18 128/72 97
07/30/25 08:00 07/30/25 08:00 07/30/25 08:00 07/30/25 07:53 07/30/25 08:00
07/29/25 07/30/25 07/31/25
06:59 06:59 06:59
Actual Weight 107.2 kg 107.8 kg
07/29/25 04:31
07/30/25 03:31
PT 14.4 Sec (11.4-14.6) 07/26/25 04:39
INR 1.09 07/26/25 04:39
APTT 87.9 Sec (23.4-35.0) H 07/30/25 03:31
Magnesium 1.8 mg/dl (1.6-2.3) 07/30/25 03:31
Triglycerides 105 mg/dl (10-149) 07/26/25 04:39
LDL Cholesterol, Calc 66 mg/dl 07/26/25 04:39
VLDL Cholesterol, Calc 21 mg/dl (0-30) 07/26/25 04:39
HDL Cholesterol 44 mg/dl 07/26/25 04:39
Physical Exam
Constitutional: No acute distress and Comfortable
EENT: Moist mucous membranes
Cardiovascular: Rhythm & rate is regular, Pedal edema is absent, JVD pressure is normal and Systolic murmur absent
Respiratory: Respiratory effort normal and Lungs clear to auscul.
Neuro/Psych: AO x 3
Data Reviewed
-
Date of Service: July 30, 2025
EKG: Other (Tele: SB 50s, PAC's)
Echo: Report Reviewed by me
Labs: Labs Reviewed by me
[2025-07-30] MEDS: LOW STRENGTH ASPIRIN 81 MG PO (08:47)
[2025-07-30] MEDS: HEPARIN 25000 UNITS/250 ML IV (08:47)
[2025-07-30] MEDS: LASIX 20 MG PO (08:47)
[2025-07-30] MEDS: PROTONIX 40 MG PO (08:47)
[2025-07-30] MEDS: MAGNESIUM OXIDE 400 MG PO ×2 (08:47→21:29)
--- NOTE | 2025-07-30 12:00 | PTCARENOTE ---
pt VSS, no changes in assessment. at bedside. pt voiding in bathroom/urinal. no c/o CP. ambulating in hallway w/ .
--- NOTE | 2025-07-30 15:37 | CM ---
Reviewed chart. Met with and Mrs. Goodman to review discharge plans. He states he is schedule to go to the operating room on Monday. He states prior to admission he resides with his spouse in a second floor walk-up apartment with thirteen steps
to enter. He states prior to admission he was independent with adls and uses a rolling walker for ambulation He has a rolling walker and wheelchair at home. His spouse states she will be home to assist in his care if needed when he goes home. Will
need to see his current functional level to see if he will have any skilled care needs. Medical work-up in progress. The discharge plan is undetermined at this time.
--- NOTE | 2025-07-30 16:00 | PTCARENOTE ---
pt VSS, no changes in assessment. no c/o CP or SOB. OOB in chair. heparin running as ordered.
[2025-07-30] MEDS: LIPITOR 40 MG PO (16:15)
--- NOTE | 2025-07-30 20:00 | PTCARENOTE ---
Patient received form RN @1900. Patient sitting in chair comfortably. AOX3 and Moldovan speaking. Bone Worker used to discuss plan of care and patient goals. Sinus bradycardia w/ first degree block on monitor. BP 155/70 HR 58. Heart sounds
audible. Radial and pedal pulses present. +1 pitting bilateral ankle edema noted. Lungs clear bilaterally. POX 95% RA. Ambulates w/ no SOB or cough. Bowel sounds normoactive and tolerating diet. Confirms BM today. Voids clear yellow urine.
Right radial puncture well approximated STEAM PRESS TENDER. 2x PIV patent and intact. Patient states he has no chest pain. See worklist for more details
--- NOTE | 2025-07-30 20:24 | PTCARENOTE ---
Patient received form RN @ 1900. Patient lying in bed w/ call breen in reach. AOx3. Ambulates independently. A. Flutter on monitor. BP 124/91 HR 97. Heart sounds audible. Radial and pedal pulses present. No edema noted. POX 96% RA. No cough
or SOB noted. Bowel sounds normoactive. Voiding clear yellow urine. PIV patent and intact. Baltazar angioma on chest noted, CT PA aware. Heparin infusing per protocol. See worklist for details.
[2025-07-30] MEDS: PAMELOR 10 MG PO (21:29)
--- NOTE | 2025-07-30 21:54 | PTCARENOTE ---
Patient clipped and washed w/ 4% CHG soap. ABO drawn.
[2025-07-31] VITALS (8 sets, daily range): BP systolic 105–144; BP diastolic 62–77; PULSE 88–95; BMI 38.4
--- NOTE | 2025-07-31 00:19 | PTCARENOTE ---
Patient reassessed. Patient placed on CPAP machine. Sinus bradycardia w/ first degree on monitor. VSS.
[2025-07-31 03:21] LABS: Hematocrit 41.8 % (39.0-52.0); Hemoglobin 14.2 g/dL (13.0-18.0); Mean Corp Hgb Conc. 34.0 g/dL (33.0-37.0); Mean Corpuscular Volume 84.4 fL (80.0-94.0); Platelet Count 143 10^3/uL (130-400); Red Cell Dist. Width 13.1 % (11.5-14.5)
[2025-07-31 03:27] LABS: APTT 98.2 Sec (23.4-35.0)
[2025-07-31] MEDS: HEPARIN 25000 UNITS/250 ML IV (03:50)
[2025-07-31 04:52] LABS: Blood Urea Nitrogen 12 mg/dl (9-20); Calcium 8.5 mg/dl (8.4-10.2); Carbon Dioxide 24 mmol/L (22-30); Chloride 108 mmol/L (98-107); Estimated Creatinine Clearance 98 ml/min; Glucose 102 mg/dl (70-99); Magnesium 1.8 mg/dl (1.6-2.3); Potassium 3.9 mmol/L (3.5-5.1); Sodium 138 mmol/L (135-145); eGFR > 60.00
--- NOTE | 2025-07-31 06:00 | PTCARENOTE ---
Addendum entered by Mic Cha RN 07/31/25 06:49:
Heparin drip stopped upon call from [facility].
Original Note:
Patient washed w/ CHG wipes. Patient medications administered. Vital signs and labs obtained. Awaiting [facility].
[2025-07-31] MEDS: PROTONIX 40 MG PO (06:11)
[2025-07-31] MEDS: MAGNESIUM OXIDE 400 MG PO (06:11)
[2025-07-31] MEDS: KCL 20 MEQ PO (06:11)
[2025-07-31] MEDS: BACTROBAN 2% OINTMENT 1 APPLIC NASAL ×2 (06:11→21:13)
--- NOTE | 2025-07-31 06:18 | W.PN.UPDATE ---
Update Note
Progress Note Update
-Sinus riri high 40s-50s overnight. Preop BB is contraindicated d/t bradycardia (hr <60). Reviewed with Dr. Merritt
--- NOTE | 2025-07-31 06:18 | W.CVOR.SURPR ---
[facility] Surgeon Immed Pre Op
-
I have examined this patient prior to performance of the scheduled procedure.
The patient's condition is unchanged from the time of the dictated/written History and
Physical and the patient is able to undergo the scheduled procedure.
CABG MAZE LAAE
[2025-07-31 07:37] LABS: Urine Character Clear (Clear)
[2025-07-31 07:44] LABS: ACT+ - POC 129 Seconds (82-134)
[2025-07-31 08:21] LABS: Urine Red Blood Cell 0-2 /HPF (0-2); Urine Squamous Cell 0-2 /LPF (Few)
[2025-07-31 08:24] LABS: Urine White Cell 0-2 /HPF (0-5)
--- NOTE | 2025-07-31 08:31 | CON.INTV ---
Consultation
Consultation Request
Date/Time Consultation Requested: 07/31/2025
Date/Time Consultation Performed: 07/31/2025
Medical History
-
Chief Complaint: Chest pain
History of Present Illness:
Patient is a 70-year-old Anguillan-speaking gentleman. He is currently intubated, sedated and mechanically ventilated. History obtained primarily from chart review and discussion with other healthcare providers.
In brief, patient had presented to [facility] with chest pain and noted to have non-ST elevation HI. Patient was taken to [facility] Super[facility] and was noted to have multivessel coronary artery disease. Patient was then transferred to [facility] for consideration of coronary artery bypass graft. He was evaluated by cardiology and CT surgery service and was taken to the OR for surgical revascularization. Postprocedure, patient was admitted to CVICU and women's studies lecturer consultation was
requested for further input.
Past Medical History
Past Medical History: Reports Arrhythmia, CAD, CVA, GERD, HTN and Hypercholesterolemia
Past Surgical History: Reports Cholecystectomy
Social History
Tobacco: Former Smoker
Alcohol: Former
Drug: None
Personal:
Living: With Family
Employment: Retired ( )
Family History
Family History: Other
Allergies / Home Medications
Allergies / Home Medications
Allergies
Allergy/AdvReac Type Severity Reaction Status Date / Time
bee venom protein (honey bee) Allergy Unknown Verified 07/25/25 22:47
diphenhydramine Allergy Unknown Verified 07/25/25 22:47
Home Medications
�Medication �Instructions �Recorded �Confirmed �Last Taken �Type
amlodipine 10 mg tablet (Norvasc) 10 mg PO DAILY 07/26/25 07/26/25 Unknown History
apixaban 5 mg tablet (Eliquis) 5 mg PO BID 07/26/25 07/26/25 Unknown History
aspirin 81 mg tablet 81 mg PO DAILY 07/26/25 07/26/25 Unknown History
clopidogrel 75 mg tablet (Plavix) 75 mg PO DAILY 07/26/25 07/26/25 07/25/25 08:00 History
doxazosin 2 mg tablet 2 mg PO BID 07/26/25 07/26/25 Unknown History
furosemide 20 mg tablet (Lasix) 20 mg PO DAILY 07/26/25 07/26/25 Unknown History
losartan 100 mg tablet 100 mg PO DAILY 07/26/25 07/26/25 Unknown History
nortriptyline 10 mg capsule 10 mg PO HS 07/26/25 07/26/25 Unknown History
pantoprazole 40 mg tablet,delayed 40 mg PO DAILY 07/26/25 07/26/25 Unknown History
release (Protonix)
Review of Systems
-
Unable to Obtain full review of systems at this time due to: Patient Intubation
Vitals / Labs / Diagnostic Testing
Vital Signs
Temp Pulse Resp BP Pulse Ox
98.5 F 48 16 133/74 98
07/31/25 04:55 07/31/25 04:30 07/31/25 04:55 07/31/25 03:49 07/31/25 04:55
Lab Data
07/31/25 02:59
07/31/25 03:44
Laboratory Results
07/31/25
02:59
APTT 98.2 H
Diagnostic Testing:
Physical Exam
-
HEENT: Normocephalic
Cardiovascular: S1/S2
Respiratory: Clear and Non-Labored Respirations
GI: Soft and Non Distended
Neurology: Other (Sedated)
Skin: Warm
General: Comfortable
Assessment
-
70-year-old gentleman with non-ST elevation HI, noted to have coronary artery disease, s/p POD # 0
Titrate off pressors per protocol, currently Dobutamine @ 2, MAP 89
ECHO reviewed with normal function
Management of chest tubes per primary service
Intubated/sedated, initiate SAT when able, Precedex infusing
Pain control
RASS goal of 0 to -1
Intubated for procedure, SBT trial when patient able to spontaneously breath
Current vent settings: SIMV 600/12/60%/5. Switch to 550/14/50%/8. PS 5
AB.37/44/76
CXR with bibasilar atelectatic changes, low lung volumes, ETT in good position, lines/tubes in place (PEEP increased to 8)
Extubate per protocol
Maintain supplement oxygen as needed
No prior known history of pulmonary disease
No prior PFTs reviewed
Can add nebulizers if needed
Aspiration precautions
Encourage incentive spirometry, OOB/ambulation/early mobility
Advance diet as tolerated following extubation
GI prophylaxis: Protonix
Monitor critical I/O's
Aguilar/chest tube output
Hb/platelets postoperatively, mild drift
Trend CBC for now
Can transfuse if indicated for Hb <7, plt <50 in surgical patients
DVT prophylaxis including SCDs
Insulin protocol initiated and ongoing
Transition to SQ/off as indicated per team
Other medical diagnoses:
- Minimal basilar pulmonary interstitial changes. Suspect scarring or minimal fibrotic changes. Out patient PFTs including DLCO assessment, avelino volumes and 6 min walk test. F/u information added to the d/c section.
- HTN
- HLD
- H/o CVA with residual left hemiparesis
- Chronic A Fib on Eliquis
- GERD
- Obesity, BMI 38.4. At high risk of underlying sleep disordered breathing. Out patient Pulmonary/Sleep follow up.
Critical Care time [61] mins -- The patient is admitted for acute critical illness for the treatment of vital organ failure and/or prevention of further life-threatening conditions. Total care includes time spent in review of history, physical exam,
medications, hemodynamic/ventilator parameters, laboratory data, imaging and discussion with house staff, pharmacy, respiratory therapy, carder blankets, and nursing
Data:
EKG 06/2025: Sinus bradycardia with first degree heart block
ECHO 06/2025: 1. Normal left ventricular size, normal systolic function, and no wall motion abnormalities.
2. Moderate concentric LVH.
3. Dilated right ventricle with normal systolic function.
4. Aortic valve sclerosis with mild aortic regurgitation. No significant aortic stenosis.
5. Trace TR, PA pressure could not be calculated
CT Chest 06/2025: Mild to moderate calcification of the aortic arch. No evidence for thoracic aortic aneurysm.
Coronary artery calcifications are present.
Moderate calcification in the region of the aortic valve.
Increased interstitial markings within both lung bases, which is likely mild interstitial fibrosis.
Status post cholecystectomy. Fatty infiltration of the liver.
[facility] 06/2025: Eccentric distal left main lesion, significant ostial and proximal LAD lesion, significant OM1, OM2, and OM3 lesions, significant proximal RCA and 2 proximal RPL lesions.
--- NOTE | 2025-07-31 08:43 | W.PN.CD ---
Today's Communication / Plan
-
CABG today
Impression / Plan
-
NSTEMI, Multivessel CAD:
-echo: EF 60%, mild AR
-plan for CABG today
AFIB, paroxysmal
-rate-controlled off meds (see below). Back in NSR as of 07/29 AM
-on Eliquis as OP, currently on heparin gtt
Bradycardia:
-Monitor tele, remain off metoprolol
-should be evaluated for NICOLAS eventually
HTN:
-home losartan and amlodipine held for OR
Hx CVA:
-on Eliquis as OP and statin
Physical Exam
Vital Signs/Labs
Vital Signs
Temp Pulse Resp BP Pulse Ox
98.5 F 48 16 133/74 98
07/31/25 04:55 07/31/25 04:30 07/31/25 04:55 07/31/25 03:49 07/31/25 04:55
07/30/25 07/31/25 08/01/25
06:59 06:59 06:59
Actual Weight 107.8 kg 107.8 kg
07/31/25 02:59
07/31/25 03:44
PT 14.4 Sec (11.4-14.6) 07/26/25 04:39
INR 1.09 07/26/25 04:39
APTT 98.2 Sec (23.4-35.0) H 07/31/25 02:59
Magnesium 1.8 mg/dl (1.6-2.3) 07/31/25 03:44
Triglycerides 105 mg/dl (10-149) 07/26/25 04:39
LDL Cholesterol, Calc 66 mg/dl 07/26/25 04:39
VLDL Cholesterol, Calc 21 mg/dl (0-30) 07/26/25 04:39
HDL Cholesterol 44 mg/dl 07/26/25 04:39
Physical Exam
Constitutional: No acute distress
Cardiovascular: Rhythm & rate is regular
Data Reviewed
-
Date of Service: July 31, 2025
Labs: Labs Reviewed by me
[2025-07-31 09:34] LABS: ACT+ - POC 564 Seconds (82-134)
[2025-07-31 09:52] LABS: B.E. - POC 0.7 mmol/L; Glucose - POC 105 mg/dl (70-99); HCO3 - POC 25 mmol/L (21-28); Hematocrit - POC 34 % PCV (42-52); Hemodilution- POC No; Hemoglobin Calculated - POC 11.5; Ionized Calcium - POC 1.13 mmol/L (1.15-1.33); Lactate - POC 0.71 mmol/L (0.36-0.75); O2 Saturation %Calculated-POC 99.8 % (94-98); PCO2 - POC 40 mmHg (35-48); PO2 - POC 246 mmHg (83-108); Potassium - POC 3.5 mmol/L (3.5-5.1); Sodium - POC 137 mmol/L (136-145); Specimen Type - POC Arterial; pH - POC 7.41 (7.35-7.45)
[2025-07-31 10:03] LABS: ACT+ - POC 560 Seconds (82-134)
[2025-07-31 10:44] LABS: ACT+ - POC 506 Seconds (82-134)
[2025-07-31 11:20] LABS: ACT+ - POC 431 Seconds (82-134)
--- NOTE | 2025-07-31 11:26 | CM ---
Reviewed chart. Mr. Goodman is in the operating room today. Prior to admission he resides with his spouse in a second floor walk-up apartment with thirteen steps to enter. Prior to admission he was independent with adls and uses a rolling walker for
ambulation He has a rolling walker and wheelchair at home. His spouse will be home to assist in his care if needed when he goes home. Will need to see his current functional level to see if he will have any skilled care needs. Medical work-up in
progress. The discharge plan is to return home with his spouse and a home visit by the Transitional Care Nurse when medically stable.
[2025-07-31 11:39] LABS: ACT+ - POC 529 Seconds (82-134)
[2025-07-31 12:12] LABS: B.E. - POC 3.2 mmol/L; Glucose - POC 152 mg/dl (70-99); HCO3 - POC 28 mmol/L (21-28); Hematocrit - POC 32 % PCV (42-52); Hemodilution- POC Yes; Hemoglobin Calculated - POC 10.7; Ionized Calcium - POC 1.07 mmol/L (1.15-1.33); Lactate - POC 0.75 mmol/L (0.36-0.75); O2 Saturation %Calculated-POC 99.9 % (94-98); PCO2 - POC 40 mmHg (35-48); PO2 - POC 300 mmHg (83-108); Potassium - POC 4.2 mmol/L (3.5-5.1); Sodium - POC 141 mmol/L (136-145); Specimen Type - POC Arterial; pH - POC 7.45 (7.35-7.45)
[2025-07-31 12:21] LABS: ACT+ - POC 443 Seconds (82-134)
[2025-07-31] MEDS: LOW STRENGTH ASPIRIN PO (12:41)
[2025-07-31] MEDS: MAGNESIUM OXIDE PO (12:41)
[2025-07-31] MEDS: PROTONIX PO (12:41)
[2025-07-31] MEDS: LASIX PO (12:41)
[2025-07-31 12:44] LABS: B.E. - POC 4.5 mmol/L; Glucose - POC 106 mg/dl (70-99); HCO3 - POC 29 mmol/L (21-28); Hematocrit - POC 32 % PCV (42-52); Hemodilution- POC Yes; Hemoglobin Calculated - POC 10.7; Ionized Calcium - POC 1.09 mmol/L (1.15-1.33); Lactate - POC < 0.30 mmol/L (0.36-0.75); O2 Saturation %Calculated-POC 100.0 % (94-98); PCO2 - POC 39 mmHg (35-48); PO2 - POC 441 mmHg (83-108); Potassium - POC 4.0 mmol/L (3.5-5.1); Sodium - POC 141 mmol/L (136-145); Specimen Type - POC Arterial; pH - POC 7.47 (7.35-7.45)
[2025-07-31 12:44] LABS: B.E. - POC 3.0 mmol/L; Glucose - POC 132 mg/dl (70-99); HCO3 - POC 26 mmol/L (21-28); Hematocrit - POC 32 % PCV (42-52); Hemodilution- POC Yes; Hemoglobin Calculated - POC 10.8; Ionized Calcium - POC 1.03 mmol/L (1.15-1.33); Lactate - POC < 0.30 mmol/L (0.36-0.75); O2 Saturation %Calculated-POC 99.9 % (94-98); PCO2 - POC 35 mmHg (35-48); PO2 - POC 295 mmHg (83-108); Potassium - POC 4.3 mmol/L (3.5-5.1); Sodium - POC 139 mmol/L (136-145); Specimen Type - POC Arterial; pH - POC 7.48 (7.35-7.45)
[2025-07-31] MEDS: ANCEF 10 IV ×2 (12:50→15:59)
[2025-07-31 12:57] LABS: B.E. - POC 2.0 mmol/L; Glucose - POC 131 mg/dl (70-99); HCO3 - POC 27 mmol/L (21-28); Hematocrit - POC 30 % PCV (42-52); Hemodilution- POC Yes; Hemoglobin Calculated - POC 10.3; Ionized Calcium - POC 1.09 mmol/L (1.15-1.33); Lactate - POC 1.23 mmol/L (0.36-0.75); O2 Saturation %Calculated-POC 99.9 % (94-98); PCO2 - POC 43 mmHg (35-48); PO2 - POC 256 mmHg (83-108); Potassium - POC 4.2 mmol/L (3.5-5.1); Sodium - POC 144 mmol/L (136-145); Specimen Type - POC Arterial; pH - POC 7.41 (7.35-7.45)
[2025-07-31 13:00] LABS: ACT+ - POC 145 Seconds (82-134)
[2025-07-31 13:50] LABS: B.E. - POC -0.9 mmol/L; Glucose - POC 103 mg/dl (70-99); HCO3 - POC 24 mmol/L (21-28); Hematocrit - POC 26 % PCV (42-52); Hemodilution- POC Yes; Hemoglobin Calculated - POC 8.7; Ionized Calcium - POC 1.10 mmol/L (1.15-1.33); Lactate - POC 1.95 mmol/L (0.36-0.75); O2 Saturation %Calculated-POC 99.9 % (94-98); PCO2 - POC 37 mmHg (35-48); PO2 - POC 268 mmHg (83-108); Potassium - POC 3.7 mmol/L (3.5-5.1); Sodium - POC 140 mmol/L (136-145); Specimen Type - POC Arterial; pH - POC 7.41 (7.35-7.45)
[2025-07-31] MEDS: NEURONTIN PO ×2 (14:11→14:12)
[2025-07-31] MEDS: PACERONE PO (14:12)
--- NOTE | 2025-07-31 14:17 | W.PN.CT.SURG ---
CT Surgery Operative Note
-
CARDIAC SURGERY OPERATIVE REPORT
Preoperative Diagnosis: Multivessel Coronary Artery Disease with NSTEMI, normal EF and paroxysmal A-fib rate controlled. History of prior CVA with left-sided weakness
Postoperative Diagnosis: Same
Procedure(s) Performed:
1. Standard Sternotomy with Aortic and Right Atrial Cannulation
2. Internal Mammary Artery Harvesting, Left
3. Coronary artery bypass grafting x 4 (In situ DAMON to LAD, Ao to RSVG to OM 1 and OM 3 in sequence, Ao to RSVG to RPDA)
4. Endoscopic vein harvesting of left saphenous vein
5. Transesophageal echocardiography
6. Placement of Temporary Ventricular Pacing Wires
7. Left atrial appendage ligation with 40 mm Atriclip
8. Modified left atrial maze procedure with Atricure Encompass device
Date of Surgery: 07/31/2025
Comorbidities:
1. Hypertension
2. Hyperlipidemia
3. Paroxysmal A-fib
4. History of CVA
Attending Surgeon: America Sanchez MD, MPH
Assistants: Daniel Roberts PA-C (present and necessary to cutting table operator first, endoscopic vein harvest, retraction, suction, exposure, suture management, and wound closure under my direction), Jimmy Hein PA-C, Daniel Merritt MD, MS assisted with
identification and dissection of distal targets, was readily available throughout the duration of the case.
Anesthesiology: Justo Bishop MD and Addis Talavera CRNA
Scrub and Circulating RNs: Trip Clifford, RN, Jordi Gonzalez, KESHAWN
Labor Relations Teacher: Dot Hawkins CCP
Anesthesia: GETA
EBL: per perfusion records
Products: 2 units of platelets and 450 cc Cell Saver. 1 unit FFP started in OR with plans to transfuse an additional 1 unit once in ICU.
CPB Time: 180 minutes
Aortic Cross Clamp Time: 139 minutes
Indication(s) for Procedures: Mr. Goodman is a 70-year-old male with HTN, HLD, CVA with residual left-sided deficits and A-fib on Eliquis who presented to [facility] with chest pain and NSTEMI. A left heart cath was performed which showed significant
multivessel coronary disease including distal left main disease, ostial and proximal LAD lesion, lesions in multiple OM branches, and proximal RCA lesion. He was started on heparin drip and transferred to [facility] for CABG evaluation. Given his
history of CVA related to A-fib he will additionally have left atrial appendage ligation and modified left-sided maze procedure.
Conduit(s) Quality:
DAMON -excellent vessel of good caliber and robust flow.
RSVG -this is very good vessel though notably diminished in size towards the lower leg, no significant sclerosis or varicosities noted.
Target(s) Quality:
PDA -this was a good-sized vessel, easily passes 1.5 mm probe. Unfortunately we could not find RPL branch that appeared of decent size on cath. Flow probe evaluation did note good flow 19 cc a minute with a pulse index of 6.7.
OM -we were able to find an intramyocardial large OM on the lateral wall likely coincides with OM 3 territory, there is also a large quite proximal OM1 that we decided to anastomose in sequence using vein. Both OM branches were of good size and
could easily pass and 1.5 mm probe. Flow probe of the sequential graft indicates 22 cc/min with pulse index of 1.9.
LAD -this was a challenging vessel with fine as it was intramyocardial through much of its course. However, we were able to identify the vessel quite distally near the apex. We had plenty of mammary length to reach at this site so opted to open
here as the vessel is of good caliber. Could easily pass 1.5mm probe proximally, and not surprisingly the very distal end would pass a 1 mm probe. Flow probe evaluation noted 21 cc/min with pulse index of 4.4.
Findings: In preoperative MARILEE was performed showing normal EF greater than 50% without significant regional wall motion abnormalities though left ventricle is notably moderately hypertrophied. There is some sclerosis/calcification of the
noncoronary cusp of the aortic valve without significant stenosis and very mild AI. There is additionally trace to mild MR consistent with functional etiology. Postoperatively his echo is largely stable and he is noted to be in sinus rhythm though
notably slow rate in the 40s to 50s. Throughout the case we noticed tissue to be incredibly friable with multiple areas over the fatty tissue of the heart easily tearing with manipulation, there is additionally a few areas along the LAD that we
attempted to dissect and uncover the LAD resulting in significant bleeding at the end of the case. We were able to control all the fragile tissue that was bleeding using a combination of Evarrest and CoSeal in addition to multiple areas ligated or
tissue reapproximated using Prolene and vein pledgeted sutures. Were ultimately able to obtain good hemostasis of all areas of the heart. The DAMON was harvested in a skeletonized fashion. Following bypass grafting, test dose cardioplegia was given
down each distal and confirmed patency and hemostasis. Each distal was probed both proximally and distally to confirm disease and patency, respectively.
Description of Procedure: The patient was taken to the operating room. Their identity and procedure to be performed were verified and they were positioned supine on the operating table. Induction via general anesthesia with endotracheal intubation
was performed and central venous access and arterial monitoring were inserted. A preoperative transesophageal echocardiogram was performed to assess cardiac function and valvular function. The patient was then prepped and draped from chin to feet in
a sterile fashion. A preoperative time-out was performed with all members of the team present. A midline chest incision was performed along with median sternotomy. Simultaneous endoscopic access of the left lower extremity for saphenous vein harvest
was obtained along with administration of an initial 5,000 units of IV heparin. A RulTract sternal retractor was positioned to exposure the left internal mammary bed. The mammary was harvested and found to have good flow. A bulldog clamp was applied
to the distal end of the mammary after dividing it. It was wrapped in a papaverine soaked RayTec and replaced back into the left hemithorax. The RulTract was exchanged for a median sternal retractor. The innominate vein was isolated. Full
heparinization was given (a total of 55,000 units). We created a pericardial well. The aortic cannulation site was chosen where it was soft, pliable, and free of calcium. Cannulation was performed with an arterial cannula in the ascending aorta and
a triple-stage venous cannula through the right atrial appendage. The arterial cannula line had an appropriate bounce and correlating pressures with test dosing. Next, a root vent/antegrade cannula was inserted into the ascending aorta. The ACT was
confirmed to be over 400 and retrograde autologous priming was performed before commencing cardiopulmonary bypass. The pulmonary artery was away from the aorta to facilitate a clamp site. We then proceeded to dissect out the oblique sinus
and separate the SVC from right pulmonary artery to create connection and passage through transverse sinus. The red rubber for the AtriCure Encompass device was passed under the SVC through the transverse sinus behind the left atrium and around the
apex of the heart, then passed through the oblique sinus. The encompass device was then attached to the magnetic ends and carefully passed behind the heart to the oblique and transverse sinuses to fully surround the pulmonary veins. There was a
significant amount of bulky left atrial tissue, however we were able to successfully clamp the device and satisfactorily burn 3 times releasing and reclamping in between each burn to complete modified maze with pulmonary vein isolation and posterior
box lesion. The aortic cross-clamp was placed after decreasing the flow on the bypass and mean arterial pressure. A total of 1.2L initial dose of antegrade Del-Nido cardioplegia solution was given and planned for re-dosing every 75 minutes as
necessary. There was rapid electro-mechanical arrest of the heart at 300 cc of cardioplegia. The left ventricle was observed for distention on echocardiogram and manual palpation. Cold slush was placed into a sponge and topically on the RV while we
systemically cooled to 34 degrees centigrade.
After completion of antegrade cardioplegia while the was nicely empty, we proceeded to expose left atrial appendage and place a 40 mm AtriClip across the base of the left atrial appendage. I positioned the heart to expose the lateral wall for OM
branches. We were easily able to identify a high/proximal OM1 branch in addition an intramyocardial OM 3 on the more lateral wall. These were positioned in such way that a sequential graft would be favorable so we proceeded with this plan. We
began with the distal anastomosis at OM3. A angoon blade was used to expose the coronary and perform the arteriotomy. Coronary Diaz scissors were used to enlarge the incision. The saphenous vein was trimmed and beveled to an appropriate size. The
distal anastomosis was performed using 7-0 prolene in an end-to-side fashion. Antegrade cardioplegia was administered into the graft. Appropriate hemostasis and flow were confirmed. We then measured the graft for appropriate site for the sequential
to OM1. We dissected and prepared the distal target for OM1 in similar fashion. A mkyd-ce-kgjy anastomosis was created with a 7-0 Prolene. Antegrade cardioplegia was administered into the graft. Appropriate hemostasis and flow were confirmed.
The graft was measured for length to the aorta and cut. A suitable site on the right PDA was chosen. We dissected and prepared the distal target in a similar fashion. An end-to-side anastomosis was created with a 7-0 prolene. Antegrade cardioplegia
was administered into the graft. Appropriate hemostasis and flow were confirmed. The graft was measured for length to the aorta and cut. A suitable target on the distal left anterior descending was identified. This was quite challenging, and we
attempted exposure in various sites though were unable to expose given deep intramyocardial course. Ultimately, a very distal portion of the LAD was confirmed so we dissected and prepared the distal target in a similar fashion.We retrieved the DAMON
from the chest and created a pericardial opening while being cognizant of the phrenic nerve to facilitate the course of the mammary. The distal end of the mammary was prepped and beveled to size. We verified orientation and length of the YARI and
found brisk flow. An end-to-side anastomosis was created with a 7-0 prolene. We temporarily released the bulldog clamp on the mammary to inspect flow. Perfusion to the LAD territory was visualized and hemostasis was confirmed. There was significant
bleeding from sites where we dissected attempting to find the LAD so we took the time to try and ligate and oversew these areas then covered with Evarrest to achieve hemostasis. The bull clamp was replaced on the mammary. The heart was filled and
the root was distended with antegrade cardioplegia to make final assessment of graft length and orientation. We created 2 aortotomies using a #11 blade then a 4.0mm aortic punch. The proximal anastomoses were created in an end-to-side fashion using
6-0 prolene. At the the same time, we re-warmed to 36.5 degrees centigrade. The bulldog clamp was removed from the mammary. Temporary bipolar ventricular pacing wires were placed on the base of the right ventricle. The patient was placed in a
Trendelenburg position and flows on bypass were lowered. The aortic cross clamp was removed and flows were slowly brought back up. All bypass grafts were inspected and were free from kinking or twisting. The distal and proximal anastomoses appeared
hemostatic. Once transesophageal echocardiography appeared satisfactory for de-airing, the flows were temporarily lowered for root vent removal. After verifying acceptable parameters, we initiated weaning from cardiopulmonary bypass. Once we were
off cardiopulmonary bypass, the venous cannula was clamped and removed. A test dose of protamine was administered and the patient was monitored for any adverse reaction before resuming protamine. Once half of the protamine dose was delivered, pump
suckers were turned off and the systolic blood pressure was lowered for aortic decannulation. The aortic cannula was removed and pursestrings were tied down. All cannulation sites were oversewn with a 4-0 prolene. The mammary bed was inspected and
hemostasis was confirmed. Once the mediastinum was hemostatic, 19Fr Grady drain was placed in the left pleural cavity and two 24Fr Grady drains were placed within the pericardium. The sternum was approximated with 4 #7 single and 3 #8 double
stainless steel wires. Fascia was approximated with #1 vicryl suture. The subcutaneous, dermis and epidermis were closed in layers in a running fashion. The skin wound was cleansed and dressed.
All instrument, sponge, and needle counts were confirmed to be correct x 2 at the end of the operation. The patient was transferred to the cardiac intensive care unit in critical but stable condition.
I, Dr. America Sanchez, was present, scrubbed for, and performed all critical elements of this procedure.
America Sanchez MD, MPH
Cardiothoracic Surgeon
[facility]
This operative dictation was created using the [employer] dictation system. Please excuse any grammatical, typographical, or 'sound alike' errors
[2025-07-31 14:48] LABS: Glucose - Point of Care 126 mg/dl (70-99)
[2025-07-31 14:59] LABS: B.E. -0.1 mmol/L; HCO3 25.4 mmol/L (21-28); O2 Saturation % 95.2 % (94-98); PCO2 44 mmHg (35-48); PO2 76 mmHg (83-108); Potassium 4.0 mMOL/L (3.5-5.1); Sodium 137 mMOL/L (136-145)
--- NOTE | 2025-07-31 15:00 | PTCARENOTE ---
out from cvor with usual lines, no swan. CTx3 placed to -20 wall suction. no air leaks/crepitus. draining red. plt infusing and additional unit brought over to infuse afterwards. NSR HR 70s. temp pacer with V wire present and set to 40/20.#8 ETT @23
R lip. SIMV 14/550/5/+8 50%. Pulse ox 96%. Blood tinged secretions suctioned. pulses palpable. trace edema. 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 approximated. L groin puncture and left leg with FADI. Abd round obese and belly breathing. seo draining clear yellow urine. out on
levo insulin and precedex. to keep sys 90-120. will continue ot monitor.
--- NOTE | 2025-07-31 15:01 | W.PN.UPDATE ---
Update Note
Progress Note Update
70 year old Afghan speaking male initially admitted to [facility] with substernal chest pain, R/I for NSTEMI. [facility] reported left main/3VCAD. Transferred to [facility] on 07/25/25 for consideration of CABG. At the time of his arrival he is in
a slow afib with rates between 30-60 b/min with BP in the 130/70s without supplemental oxygen. Surgery scheduled for 07/31 due to need for Plavix washout.
IV fluids: 1300
U.O.:� 800
Cell Saver:� 300
Blood:� 2plts +2FFP on arrival to CVICU
Wires:� Bipolar V wire
Drips: Dobut @ 2, Precedex @ 0.5, Insulin
�
NEURO: sedated, pupils +2mm B/L
RESP: #8OT @24cm> 500/60%//5. Lungs clear B/L. 2 mediastinal (120cc on arrival) and L pleural (45cc on arrival) chest tubes to -20cm suction. Sanguineous drainage
CV: RRR +S1, S2, no S3, no�rub, no murmur. Dermabond to median sternotomy. RIJ w/Slik
ABD: obese, round, soft, no BS
EXT: no edema, +2/4 DP pulses B/L, no femoral bruit, LLE FADI wrap intact; left radial A-line intact
: Aguilar with clear yellow urine
�
A/P: POD #0 s/p CABG x 4 DAMON-LAD, SVG-OM1 & OM3, SVG-RPL, MAZE, Left atrial appendage #40mm clip
MARILEE: report pending
- wean and extubate
- goal SBP: 90-120mmHg
# NSTEMI/CAD
- will require ASA, Plavix, statin
- resume beta-joseluis when off Dobutamine
# AF/Hx CVA
- currently SR w/first degree AV block
- on Eliquis @ home>timing to resume to be determined
�
# acute surgical blood loss anemia-expected
- trend CBC
�
# PreDM (A1C 5.9)
- insulin infusion x 24h
- may benefit from SGLT2i
# Class II Obesity (BMI 38.4)
- cardiac, calorie/carb controlled diet
�
# Hypertension
- resume�losartan, amlodipine, doxazosin as BP warrants
[2025-07-31 15:06] LABS: Hematocrit 35.9 % (39.0-52.0); Hemoglobin 12.4 g/dL (13.0-18.0); Platelet Count 111 10^3/uL (130-400)
[2025-07-31 15:09] LABS: INR 1.33; PT 17.0 Sec (11.4-14.6)
[2025-07-31 15:10] LABS: APTT 29.8 Sec (23.4-35.0)
[2025-07-31 15:20] LABS: Blood Urea Nitrogen 9 mg/dl (9-20); Estimated Creatinine Clearance 98 ml/min; Glucose 117 mg/dl (70-99); Magnesium 2.5 mg/dl (1.6-2.3)
[2025-07-31] MEDS: CALCIUM GLUCONATE 100 IV ×2 (15:56→18:38)
[2025-07-31] MEDS: NSS 500 IV (15:56)
[2025-07-31 16:17] LABS: Glucose - Point of Care 171 mg/dl (70-99)
[2025-07-31 17:20] LABS: Glucose - Point of Care 173 mg/dl (70-99)
[2025-07-31 18:22] LABS: B.E. -1.7 mmol/L; HCO3 23.7 mmol/L (21-28); O2 Saturation % 97.6 % (94-98); PCO2 42 mmHg (35-48); PO2 99 mmHg (83-108); Potassium 3.7 mMOL/L (3.5-5.1)
[2025-07-31 18:33] LABS: Hematocrit 31.9 % (39.0-52.0); Hemoglobin 10.9 g/dL (13.0-18.0); Platelet Count 116 10^3/uL (130-400)
[2025-07-31] MEDS: KCL 50 IV ×2 (18:36→22:10)
--- NOTE | 2025-07-31 18:40 | PTCARENOTE ---
extubated to 6L nc. pulse ox dropping to 85%. placed on BiPap per orders. pulse ox 92%. will continue to monitor.
[2025-07-31 19:01] LABS: Glucose - Point of Care 131 mg/dl (70-99)
[2025-07-31] MEDS: LIPITOR PO (19:07)
--- NOTE | 2025-07-31 20:00 | PTCARENOTE ---
Assumed care of the patient at 1900. Patient in bed, drowsy, AOx3, answering questions appropriately. SR with a 1st deg AVB on CM, rates 80-90's, pulses palpable, rub heard on auscultation, +1 LE edema. Lungs coarse, IS encouraged, 6LNC and switched
to BiPAP for desatting, productive cough intermittently. Abdomen round, obese/distended, hypoactive BS. Aguilar draining clear, yellow urine. All surgical sites CDI, stable. RIJ Cordis with slic, L radial melissa, PIV x2; all applicable lines leveled,
zeroed and flushed. On Dobutamine, cardene, and insulin. Call breen within reach, assessment of needs ongoing.
[2025-07-31 21:06] LABS: Glucose - Point of Care 112 mg/dl (70-99)
[2025-07-31] MEDS: LOW STRENGTH ASPIRIN 81 MG PO (21:13)
[2025-07-31] MEDS: SENOKOT 8.6 MG PO (21:13)
[2025-07-31] MEDS: ANCEF 5 IV (21:13)
[2025-07-31 22:08] LABS: Glucose - Point of Care 120 mg/dl (70-99)
[2025-07-31] MEDS: CARDENE 200 IV (22:54)
[2025-07-31] MEDS: TYLENOL 975 MG PO (22:55)
[2025-07-31] MEDS: PAMELOR 10 MG PO (22:55)
[2025-07-31] MEDS: PACERONE 200 MG PO (22:55)
[2025-07-31] MEDS: NEURONTIN 100 MG PO (22:55)
[2025-07-31 23:07] LABS: Glucose - Point of Care 114 mg/dl (70-99)
[2025-08-01] VITALS (29 sets, daily range): BP systolic 95–160; BP diastolic 50–75; PULSE 89–98; BMI 40.0
[2025-08-01] LABS: Glucose - Point of Care 123 mg/dl (70-99)
--- NOTE | 2025-08-01 | PTCARENOTE ---
Pt started on nitro concurrently for BP outside of desired parameters on max Cardene. See work list. Patient denies pain at this time. Tolerating sips of water. O2 sat 94% on 6LNC. Sleeping between care, awake to voice.
[2025-08-01 01:15] LABS: Glucose - Point of Care 106 mg/dl (70-99)
[2025-08-01 03:21] LABS: Glucose - Point of Care 121 mg/dl (70-99)
[2025-08-01] MEDS: LR 250 ML IV (03:30)
[2025-08-01 03:36] LABS: Hematocrit 31.1 % (39.0-52.0); Hemoglobin 10.8 g/dL (13.0-18.0); Mean Corp Hgb Conc. 34.7 g/dL (33.0-37.0); Mean Corpuscular Volume 83.8 fL (80.0-94.0); Platelet Count 124 10^3/uL (130-400); Red Cell Dist. Width 13.1 % (11.5-14.5)
[2025-08-01 03:51] LABS: Blood Urea Nitrogen 12 mg/dl (9-20); Calcium 8.4 mg/dl (8.4-10.2); Carbon Dioxide 23 mmol/L (22-30); Chloride 112 mmol/L (98-107); Estimated Creatinine Clearance 87 ml/min; Glucose 127 mg/dl (70-99); Magnesium 2.0 mg/dl (1.6-2.3); Potassium 4.5 mmol/L (3.5-5.1); Sodium 139 mmol/L (135-145); eGFR > 60.00
--- NOTE | 2025-08-01 03:59 | W.PN.CT ---
Today's Communication / Plan
-
-pod #1
-no issues overnight
-CI 57.8 this am. Drips: Dobut increased to 3, Nitro 40, Cardene 2.5, Insulin
-CT outputs: 2 meds 180/475, L pleur 55/225 in 12/24 hrs
-maintain Cordis, pw, CTs, Aguilar
-current meds (ASA, Plavix, Lipitor, Amio, Protonix, Mg, Pamelor). Holding BB while on Dobut
-encourage IS, OOB
Assessment / Plan
-
# s/p CABG x4 (In situ DAMON to LAD, Ao to RSVG to OM 1 and OM 3 in sequence, Ao to RSVG to RPDA); Left atrial appendage ligation with 40 mm Atriclip; Modified left atrial maze procedure with Atricure Encompass device by Dr. Sanchez on 07/31/25, pod #1
# Intraop MARILEE: In preoperative MARILEE was performed showing normal EF greater than 50% without significant regional wall motion abnormalities though left ventricle is notably moderately hypertrophied. There is some sclerosis/calcification of the
noncoronary cusp of the aortic valve without significant stenosis and very mild AI. There is additionally trace to mild MR consistent with functional etiology. Postoperatively his echo is largely stable and he is noted to be in sinus rhythm though
notably slow rate in the 40s to 50s.
# Transferred from [facility] on 07/25/25 for CABG eval
# NSTEMI
# MVCAD
# HLD
# LVEF 60% without significant valvular disease per echo 07/28/25
# Paroxysmal A-fib/a-flutter on chronic Eliquis
# Chronic 1st degree AVB
# Suspected NICOLAS
# Class 2 obesity (BMI 38.1)
# HTN
# GERD
# Hx CVA with residual left sided weakness
# Bradycardia preop high 40s-mid 50s
# Acute postop blood loss anemia -s/p 450 cc Cell Saver
# Acute postop coagulopathy/ thrombocytopenia - s/p 2 FFPs, 2 unit platelets
# Acute postop atelectasis
# Acute postop hypovolemia with subsequent hypervolemia
Discussed patient care with: Nursing and Care Team
Subjective
-
Date of Service: August 01, 2025
Objective Data
-
Lab Results
08/01/25 03:17
08/01/25 03:17
PT 17.0 Sec (11.4-14.6) H 07/31/25 14:46
INR 1.33 07/31/25 14:46
APTT 29.8 Sec (23.4-35.0) 07/31/25 14:46
Vital Signs
Vital Signs
Temp Pulse Resp BP Pulse Ox
97.5 F 88 15 101/63 92
08/01/25 03:00 08/01/25 03:15 08/01/25 03:15 08/01/25 03:00 08/01/25 03:15
CT Intake/Output/Weight
07/31/25 07/31/25 08/01/25
06:59 18:59 06:59
Intake Total 13 / 143 921.3 / 1753.9 832.6 / 1753.9
Output Total 450 / 1050 1365 / 2105 740 / 2105
Balance -437 / -907 -443.7 / -351.1 92.6 / -351.1
SaO2: 92
Physical Exam
-
General: Awake and AOx3
Cardiovascular: Regular rate & rhythm, No Murmurs and Rub
Respiratory: Decreased Breath Sounds
Sternum: Stable
Incision: Clean, Dry and Intact
Extremities: Other (trace edema, 2+ DPs b/l)
Abdomen: soft, nondistended, + decreased bowel sounds
Data Reviewed
-
Lab Results: Results Reviewed
Medications: Active Meds Reviewed
Chest X-Ray: Report Reviewed and Image Reviewed
ECG: Report Reviewed and Image Reviewed
--- NOTE | 2025-08-01 04:00 | PTCARENOTE ---
VSS, patient denies pain, sleeping between care, on nitro, dobut, cardene, and insulin. See work list. Patient to remain lined.
[2025-08-01 05:01] LABS: Glucose - Point of Care 121 mg/dl (70-99)
[2025-08-01] MEDS: TYLENOL 975 MG PO ×3 (05:12→21:05)
[2025-08-01] MEDS: ANCEF 5 IV ×2 (05:12→13:21)
[2025-08-01] MEDS: NOVOLIN R INSULIN INFUSION 100 IV (05:44)
[2025-08-01] MEDS: ROXICODONE 5 MG PO (05:44)
[2025-08-01 07:16] LABS: Glucose - Point of Care 150 mg/dl (70-99)
[2025-08-01] MEDS: CARDENE 200 IV (07:45)
--- NOTE | 2025-08-01 08:52 | W.PN.INTV ---
Today's Communication / Plan
Recommendations
- Incentive spirometry, sit as tolerated
- Wean supplemental oxygen and dobutamine as tolerated
Assessment
-
70-year-old gentleman with non-ST elevation RI, noted to have coronary artery disease, s/p coronary artery bypass graft, left atrial appendage ligation and modified left atrial maze procedure, POD # 1
Titrate off pressors per protocol, currently Dobutamine @ 2, Cardene infusion at 5, MAP of 71. CVP around 5.
ECHO reviewed with normal function
Management of chest tubes per primary service
Patient extubated now, currently on 6 L nasal cannula, saturating 94%. No respiratory distress noted.
CXR improving atelectasis, particularly in the right lower lobe, improved lung volumes
Maintain supplement oxygen as needed
No prior known history of pulmonary disease
No prior PFTs reviewed
Can add nebulizers if needed
Aspiration precautions
Encourage incentive spirometry, OOB/ambulation/early mobility
Advance diet as tolerated following extubation
GI prophylaxis: Protonix
Monitor critical I/O's
Aguilar/chest tube output
Hb/platelets postoperatively, mild drift
Trend CBC for now
Can transfuse if indicated for Hb <7, plt <50 in surgical patients
DVT prophylaxis including SCDs
Insulin protocol initiated and ongoing
Transition to SQ/off as indicated per team
Other medical diagnoses:
- Minimal basilar pulmonary interstitial changes. Suspect scarring or minimal fibrotic changes. Out patient PFTs including DLCO assessment, avelino volumes and 6 min walk test. F/u information added to the d/c section.
- HTN
- HLD
- H/o CVA with residual left hemiparesis
- Chronic A Fib on Eliquis
- GERD
- Obesity, BMI 38.4. At high risk of underlying sleep disordered breathing. Out patient Pulmonary/Sleep follow up.
Critical Care time [41] mins -- The patient is admitted for acute critical illness for the treatment of vital organ failure and/or prevention of further life-threatening conditions. Total care includes time spent in review of history, physical exam,
medications, hemodynamic/ventilator parameters, laboratory data, imaging and discussion with house staff, pharmacy, respiratory therapy, picked edge sewing machine operator, and nursing
Data:
EKG 06/2025: Sinus bradycardia with first degree heart block
ECHO 06/2025: 1. Normal left ventricular size, normal systolic function, and no wall motion abnormalities.
2. Moderate concentric LVH.
3. Dilated right ventricle with normal systolic function.
4. Aortic valve sclerosis with mild aortic regurgitation. No significant aortic stenosis.
5. Trace TR, PA pressure could not be calculated
CT Chest 06/2025: Mild to moderate calcification of the aortic arch. No evidence for thoracic aortic aneurysm.
Coronary artery calcifications are present.
Moderate calcification in the region of the aortic valve.
Increased interstitial markings within both lung bases, which is likely mild interstitial fibrosis.
Status post cholecystectomy. Fatty infiltration of the liver.
LHC 06/2025: Eccentric distal left main lesion, significant ostial and proximal LAD lesion, significant OM1, OM2, and OM3 lesions, significant proximal RCA and 2 proximal RPL lesions.
Subjective Dataa
Subjective Data
Date of Service:
Date of Service: August 01, 2025
Subjective:
Patient comfortably lying in bed in no acute distress.
Review of Systems
Genitourinary: Other (Appears comfortable, no acute distress.)
Objective Data
Data Reviewed
Vital Signs / I&O / Oxygen:
Vital Signs
Temp Pulse Resp BP Pulse Ox
97.7 F 92 13 97/53 94
08/01/25 07:00 08/01/25 07:15 08/01/25 07:15 08/01/25 07:00 08/01/25 07:15
Intake and Output
07/31/25 08/01/25 08/02/25
06:59 06:59 06:59
Intake Total 143 / 143 2210.9 / 2293.4 82.5 / 82.5
Output Total 1050 / 1050 2230 / 2265 35 / 35
Balance -907 / -907 -19.1 / 28.4 47.5 / 47.5
SaO2 [P-SIMV] 93
SaO2 94
Nasal Cannula flow liters per 6
minute
Physical Exam
General: Comfortable
HEENT: Normocephalic
Cardiovascular: S1-S2 and Peripheral Edema
Respiratory: Clear and Non-Labored Respirations
GI: Soft and Non Distended
Neurology: Awake and Alert
Skin: Warm
Labs/Micro/Reports
Lab Data
08/01/25 03:17
08/01/25 03:17
Laboratory Results
07/31/25 07/31/25
14:46 18:09
PT 17.0 H
INR 1.33
APTT 29.8
pH 7.37 7.36
pCO2 44 42
pO2 76 L 99
HCO3 25.4 23.7
O2 Delivery Level
[2025-08-01 09:11] LABS: Glucose - Point of Care 129 mg/dl (70-99)
--- NOTE | 2025-08-01 09:41 | PTCARENOTE ---
assumed care of pt from previous shift RN, sinus rhythm on tele w HR 80's, + peripheral pulses, epicardial pacing wire insulated. Lungs diminished, pox 96% on 4L NC. Coughing and deep breathing encouraged. +bs, tolerating PO intake. Aguilar draining
kiki urine. CTx3 draining red. Right IJ cordis w slick, PIV flushes easily. Surgical sites stable. Pt denies pain. Plan of care reviewed w the pt using language line, questions encouraged.
[2025-08-01] MEDS: NORVASC 10 MG PO (10:18)
[2025-08-01] MEDS: MAGNESIUM OXIDE 400 MG PO ×2 (10:18→21:05)
[2025-08-01] MEDS: PACERONE 200 MG PO ×3 (10:18→21:05)
[2025-08-01] MEDS: LIDOCAINE 4% PATCH 1 PATCH TOPICAL (10:18)
[2025-08-01] MEDS: PROTONIX 40 MG PO (10:18)
[2025-08-01] MEDS: NEURONTIN 100 MG PO ×3 (10:18→21:05)
[2025-08-01] MEDS: COZAAR 50 MG PO ×2 (10:18→11:16)
[2025-08-01] MEDS: PLAVIX 75 MG PO (10:18)
[2025-08-01] MEDS: SENOKOT 8.6 MG PO ×2 (10:18→21:05)
[2025-08-01] MEDS: LOW STRENGTH ASPIRIN 81 MG PO (10:18)
[2025-08-01] MEDS: BACTROBAN 2% OINTMENT 1 APPLIC NASAL ×2 (10:19→21:05)
[2025-08-01 11:04] LABS: Glucose - Point of Care 122 mg/dl (70-99)
--- NOTE | 2025-08-01 11:28 | PTCARENOTE ---
LP CT removed, pt assisted OOB to chair, tolerated well.
[2025-08-01 12:21] LABS: Glucose - Point of Care 129 mg/dl (70-99)
[2025-08-01 13:14] LABS: Glucose - Point of Care 116 mg/dl (70-99)
[2025-08-01] MEDS: NSS IV (13:22)
--- NOTE | 2025-08-01 14:24 | W.PN.ANS.POP ---
Anesthesia Post Operative
- Anesthesia Post Op Note
Vital Signs Stable-See Nursing Note: Yes
Airway Patent: Yes
Adequate Pain Control: Yes
Change in Mental Status: No
Current Postoperative Nausea & Vomiting: No
Anesthesia Complications: No
General Anesthetic Recall: No
Unplanned Admission: No
Post Op Hydration Adequate: Yes
- -
Pt awake and alert, resting comfortably with no anesthesia related c/o at time of post op visit. VSS
[2025-08-01] MEDS: FERRLECIT 110 MG IV (14:33)
[2025-08-01 14:56] LABS: Glucose - Point of Care 125 mg/dl (70-99)
--- NOTE | 2025-08-01 15:36 | CM ---
Reviewed chart. Met with and Mrs. Goodman to review discharge plans. Mr. Goodman was asleep. Mrs. Goodman states he is doing well. Prior to admission he resides with his spouse in a second floor walk-up apartment with thirteen steps to enter. Prior to
admission he was independent with adls and uses a rolling walker for ambulation He has a rolling walker and wheelchair at home. His spouse will be home to assist in his care if needed when he goes home. Will need to see his current functional level
to see if he will have any skilled care needs. Medical work-up in progress. The discharge plan is to return home with his spouse and a home visit by the Transitional Care Nurse when medically stable.
--- NOTE | 2025-08-01 16:13 | PTCARENOTE ---
VSS, cardene weaned off, dobutamine decreased from 2-1mcg. Minimal output from mediastinal CTs.
[2025-08-01] MEDS: LIPITOR 40 MG PO (16:18)
[2025-08-01 16:22] LABS: Glucose - Point of Care 106 mg/dl (70-99)
--- NOTE | 2025-08-01 16:25 | W.PN.CD ---
Today's Communication / Plan
-
DAPT, plan for eventual OAC+SAPT
wean dobutamine
incentive spirometry
Impression / Plan
-
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 Sanchez).
Did well overnight
Off pressors, dobutamine at 1
mild pulmonary edema on CXR
CAD s/p CABG
-echo: EF 60%, mild AR
-DAPT + AC currently; likely does not need triple therapy, consider Plavix + AC
-statin
-BB once of dobutamine
AFIB, paroxysmal
-rate-controlled off meds (see below). Back in NSR as of 07/29 AM
-on Eliquis as OP, s/p heparin, when able to restart AC would drop to single antiplatelet
-amio per CTS
Bradycardia:
-Monitor tele, remain off metoprolol
-should be evaluated for NICOLAS eventually
HTN:
-home losartan and amlodipine held for OR, restart as able
Hx CVA:
-on Eliquis as OP and statin
Physical Exam
Vital Signs/Labs
Vital Signs
Temp Pulse Resp BP Pulse Ox
36.8 C 68 17 98/61 99
08/01/25 09:00 08/01/25 16:00 08/01/25 16:00 08/01/25 16:00 08/01/25 16:00
07/31/25 08/01/25 08/02/25
06:59 06:59 06:59
Actual Weight 107.8 kg 112.3 kg
08/01/25 03:17
08/01/25 03:17
PT 17.0 Sec (11.4-14.6) H 07/31/25 14:46
INR 1.33 07/31/25 14:46
APTT 29.8 Sec (23.4-35.0) 07/31/25 14:46
Magnesium 2.0 mg/dl (1.6-2.3) 08/01/25 03:17
Triglycerides 105 mg/dl (10-149) 07/26/25 04:39
LDL Cholesterol, Calc 66 mg/dl 07/26/25 04:39
VLDL Cholesterol, Calc 21 mg/dl (0-30) 07/26/25 04:39
HDL Cholesterol 44 mg/dl 07/26/25 04:39
Physical Exam
Constitutional: Comfortable
Cardiovascular: Rhythm & rate is regular
Respiratory: Respiratory effort normal
Neuro/Psych: AO x 3
Data Reviewed
-
Date of Service: August 01, 2025
Medical Decision Making: Reviewed Test Results
EKG: Tracing Personally Visualized and interpreted
Labs: Labs Reviewed by me
[2025-08-01 18:09] LABS: Glucose - Point of Care 103 mg/dl (70-99)
--- NOTE | 2025-08-01 20:00 | PTCARENOTE ---
Resumed care of the patient at 1900. Patient still drowsy, AOx3, primarily Swazi speaking. SR 1st deg AVB on CM, rates 70-80's, pulses palpable, heart tones audible, +1 LE edema, v wire insulated. Lungs dim at the bases, on 4LNC, IS encouraged.
Abdomen obese/distended, hypoactive BS, no n/v. Aguilar draining clear, yellow urine. All surgical sites stable. RIJ Cordis positional, L radial melissa, PIV x2; melissa leveled, zeroed and flushed. On Dobutamine and insulin. See nursing work list for
additional intervention details.
--- NOTE | 2025-08-01 20:00 | PTCARENOTE ---
Resumed care of the patient at 1900. Patient still drowsy, AOx3, primarily [place] African speaking. SR 1st deg AVB on CM, rates 70-80's, pulses palpable, hear tones audible, +1 LE edema. Lungs dim at the bases, on 4LNC, IS encouraged. Abdomen
obese/distended, hypoactive BS, no n/v. Aguilar draining clear, yellow urine. All surgical sites stable. RIJ Cordis positional, L radial melissa, PIV x2; melissa leveled, zeroed and flushed. On Dobutamine and insulin. See nursing work list for additional
intervention details.
[2025-08-01 20:07] LABS: Glucose - Point of Care 108 mg/dl (70-99)
[2025-08-01] MEDS: PAMELOR 10 MG PO (21:05)
[2025-08-01] MEDS: REMOVE LIDOCAINE PATCH REMOVE (21:06)
[2025-08-01] MEDS: APRESOLINE 5 MG IV (21:53)
[2025-08-01 22:03] LABS: Glucose - Point of Care 108 mg/dl (70-99)
[2025-08-02] VITALS (28 sets, daily range): BP systolic 86–160; BP diastolic 60–77; PULSE 84–99; O2SAT 95; BMI 40.8
--- NOTE | 2025-08-02 | PTCARENOTE ---
Patient hypertensive, CVPA aware, given Hydralazine IV. Pt subsequently still systolic 130-140's on melissa and cuff pressures, no additional orders at this time, advised to continue to monitor BPs. Patient sleeping between care.
[2025-08-02 00:01] LABS: Glucose - Point of Care 98 mg/dl (70-99)
[2025-08-02 02:05] LABS: Glucose - Point of Care 105 mg/dl (70-99)
[2025-08-02 03:10] LABS: Glucose - Point of Care 106 mg/dl (70-99)
[2025-08-02 04:10] LABS: Glucose - Point of Care 104 mg/dl (70-99)
--- NOTE | 2025-08-02 04:11 | PTCARENOTE ---
No acute changes. See VS flow sheet for current data. Patient continues sleeping between care. No needs assessed at this time, call breen within reach.
[2025-08-02 04:44] LABS: Hematocrit 29.9 % (39.0-52.0); Hemoglobin 10.1 g/dL (13.0-18.0); Mean Corp Hgb Conc. 33.8 g/dL (33.0-37.0); Mean Corpuscular Volume 83.8 fL (80.0-94.0); Platelet Count 128 10^3/uL (130-400); Red Cell Dist. Width 14.0 % (11.5-14.5)
[2025-08-02 05:01] LABS: Glucose - Point of Care 95 mg/dl (70-99)
[2025-08-02 05:04] LABS: Blood Urea Nitrogen 17 mg/dl (9-20); Calcium 8.2 mg/dl (8.4-10.2); Carbon Dioxide 27 mmol/L (22-30); Chloride 107 mmol/L (98-107); Estimated Creatinine Clearance 100 ml/min; Glucose 101 mg/dl (70-99); Magnesium 2.1 mg/dl (1.6-2.3); Potassium 4.2 mmol/L (3.5-5.1); Sodium 137 mmol/L (135-145); eGFR > 60.00
[2025-08-02] MEDS: TYLENOL 975 MG PO ×2 (06:40→21:05)
[2025-08-02 07:06] LABS: Glucose - Point of Care 101 mg/dl (70-99)
--- NOTE | 2025-08-02 09:12 | PTCARENOTE ---
assumed care of pt from previous shift RN, sinus rhythm on tele w HR 80's, + peripheral pulses, epicardial pacing wire pulled by CT ADRIEN. Lungs diminished, pox 96% on 4L NC. Coughing and deep breathing encouraged. +bs, tolerating PO intake. Aguilar
draining kiki urine. CTx2 draining red. Right IJ cordis w KVO infusing, PIV flushes easily. Surgical sites stable. Pt denies pain. Plan of care reviewed w the pt using language line, questions encouraged.
--- NOTE | 2025-08-02 09:37 | W.PN.INTV ---
Addendum entered and electronically signed by Jadon Pierre MD 08/03/25 09:47:
08/03
Patient transferred to Telemetry service
Computer System Specialist service will sign off, please call as needed.
Original Note:
Today's Communication / Plan
Recommendations
- Incentive spirometry
- Wean oxygen as tolerated
- Outpatient follow-up with [facility] pulmonary clinic for PFTs and sleep study
- Computer System Specialist service will sign off once patient is transferred out of CVICU
Assessment
-
70-year-old gentleman with non-ST elevation CT, noted to have coronary artery disease, s/p coronary artery bypass graft, left atrial appendage ligation and modified left atrial maze procedure, POD # 2
Titrated off pressors per protocol, currently Cardene infusion at 5/h, MAP of 82. Heart rate 80/min.
ECHO reviewed with normal function
Management of chest tubes per primary service
Patient extubated now, currently on 4 L nasal cannula, saturating 95%. No respiratory distress noted.
CXR improving atelectasis, particularly in the right lower lobe, improved lung volumes. Left lower lobe atelectasis persists
Maintain supplement oxygen as needed
No prior known history of pulmonary disease
No prior PFTs available for review
Can add nebulizers if needed
Aspiration precautions
Encourage incentive spirometry, OOB/ambulation/early mobility
Advance diet as tolerated following extubation
GI prophylaxis: Protonix
Monitor critical I/O's
Aguilar/chest tube output
Hb/platelets postoperatively, mild drift
Trend CBC for now
Can transfuse if indicated for Hb <7, plt <50 in surgical patients
DVT prophylaxis including SCDs
Insulin protocol initiated and ongoing
Transition to SQ/off as indicated per team
Other medical diagnoses:
- Minimal basilar pulmonary interstitial changes. Suspect scarring or minimal fibrotic changes. Out patient PFTs including DLCO assessment, avelino volumes and 6 min walk test. F/u information added to the d/c section.
- HTN
- HLD
- H/o CVA with residual left hemiparesis
- Chronic A Fib on Eliquis
- GERD
- Obesity, BMI 38.4. At high risk of underlying sleep disordered breathing. Out patient Pulmonary/Sleep follow up.
Critical Care time [38] mins -- The patient is admitted for acute critical illness for the treatment of vital organ failure and/or prevention of further life-threatening conditions. Total care includes time spent in review of history, physical exam,
medications, hemodynamic/ventilator parameters, laboratory data, imaging and discussion with house staff, pharmacy, respiratory therapy, public address system installer, and nursing
Data:
EKG 06/2025: Sinus bradycardia with first degree heart block
ECHO 06/2025: 1. Normal left ventricular size, normal systolic function, and no wall motion abnormalities.
2. Moderate concentric LVH.
3. Dilated right ventricle with normal systolic function.
4. Aortic valve sclerosis with mild aortic regurgitation. No significant aortic stenosis.
5. Trace TR, PA pressure could not be calculated
CT Chest 06/2025: Mild to moderate calcification of the aortic arch. No evidence for thoracic aortic aneurysm.
Coronary artery calcifications are present.
Moderate calcification in the region of the aortic valve.
Increased interstitial markings within both lung bases, which is likely mild interstitial fibrosis.
Status post cholecystectomy. Fatty infiltration of the liver.
LHC 06/2025: Eccentric distal left main lesion, significant ostial and proximal LAD lesion, significant OM1, OM2, and OM3 lesions, significant proximal RCA and 2 proximal RPL lesions.
Subjective Dataa
Subjective Data
Date of Service:
Date of Service: August 02, 2025
Subjective:
Patient comfortably sitting in bed in no acute distress.
Review of Systems
Genitourinary: Other (Comfortable, no new symptoms reported)
Objective Data
Data Reviewed
Vital Signs / I&O / Oxygen:
Vital Signs
Temp Pulse Resp BP Pulse Ox
99 F 80 18 130/61 95
08/02/25 09:00 08/02/25 09:00 08/02/25 09:00 08/02/25 09:00 08/02/25 09:00
Intake and Output
08/01/25 08/02/25 08/03/25
06:59 06:59 06:59
Intake Total 2210.9 / 2293.4 1062.7 / 1090.6 64.5 / 64.5
Output Total 2230 / 2265 1115 / 1175 140 / 140
Balance -19.1 / 28.4 -52.3 / -84.4 -75.5 / -75.5
SaO2 [P-SIMV] 93
SaO2 95
Nasal Cannula flow liters per 4
minute
Physical Exam
General: Comfortable
HEENT: Normocephalic
Cardiovascular: S1-S2 and Peripheral Edema
Respiratory: Clear and Non-Labored Respirations
GI: Soft and Non Distended
Neurology: Awake and Alert
Skin: Warm
Labs/Micro/Reports
Lab Data
08/02/25 04:08
08/02/25 04:08
--- NOTE | 2025-08-02 09:43 | W.PN.CT ---
Today's Communication / Plan
-
-pod #2
-no significant issues overnight. Gave iv Hydralazine x1 for HTN last night
-drips: Dobut 1, Cardene 2.5
-CT output: 2 meds 185/270 in 12/24 hrs
-wean off Dobut as tolerated
-d/c Aguilar
-started on Norvasc and Losartan for BP control. Holding BB while on Dobut
-encourage IS, OOB, ambulate
Assessment / Plan
-
# s/p CABG x4 (In situ DAMON to LAD, Ao to RSVG to OM 1 and OM 3 in sequence, Ao to RSVG to RPDA); Left atrial appendage ligation with 40 mm Atriclip; Modified left atrial maze procedure with Atricure Encompass device by Dr. Sanchez on 07/31/25, pod #2
# Intraop MARILEE: In preoperative MARILEE was performed showing normal EF greater than 50% without significant regional wall motion abnormalities though left ventricle is notably moderately hypertrophied. There is some sclerosis/calcification of the
noncoronary cusp of the aortic valve without significant stenosis and very mild AI. There is additionally trace to mild MR consistent with functional etiology. Postoperatively his echo is largely stable and he is noted to be in sinus rhythm though
notably slow rate in the 40s to 50s.
# Transferred from [facility] on 07/25/25 for CABG eval
# NSTEMI
# MVCAD
# HLD
# LVEF 60% without significant valvular disease per echo 07/28/25
# Paroxysmal A-fib/a-flutter on chronic Eliquis
# Chronic 1st degree AVB
# Suspected NICOLAS
# Class 2 obesity (BMI 38.1)
# HTN
# GERD
# Hx CVA with residual left sided weakness
# Bradycardia preop high 40s-mid 50s
# Acute postop blood loss anemia -s/p 450 cc Cell Saver
# Acute postop coagulopathy/ thrombocytopenia - s/p 2 FFPs, 2 unit platelets
# Acute postop atelectasis
# Acute postop hypovolemia with subsequent hypervolemia
Discussed patient care with: Nursing and Care Team
Subjective
-
Date of Service: August 02, 2025
Objective Data
-
Lab Results
08/02/25 04:08
08/02/25 04:08
PT 17.0 Sec (11.4-14.6) H 07/31/25 14:46
INR 1.33 07/31/25 14:46
APTT 29.8 Sec (23.4-35.0) 07/31/25 14:46
Vital Signs
Vital Signs
Temp Pulse Resp BP Pulse Ox
99 F 80 18 130/61 95
08/02/25 09:00 08/02/25 09:00 08/02/25 09:00 08/02/25 09:00 08/02/25 09:00
CT Intake/Output/Weight
08/01/25 08/02/25 08/02/25
18:59 06:59 18:59
Intake Total 568.5 / 1090.6 494.2 / 1090.6 64.5 / 64.5
Output Total 410 / 1175 705 / 1175 140 / 140
Balance 158.5 / -84.4 -210.8 / -84.4 -75.5 / -75.5
SaO2: 95
Physical Exam
-
General: Awake and AOx3
Cardiovascular: Regular rate & rhythm, No Murmurs and Rub
Respiratory: Decreased Breath Sounds
Sternum: Stable
Incision: Clean, Dry and Intact
Abdomen: soft, nondistended, + decreased bowel sounds
Extremities: Other (trace edema, 2+ DPs b/l)
Data Reviewed
-
Lab Results: Results Reviewed
Medications: Active Meds Reviewed
Chest X-Ray: Report Reviewed and Image Reviewed
ECG: Report Reviewed and Image Reviewed
[2025-08-02 09:56] LABS: Glucose - Point of Care 102 mg/dl (70-99)
[2025-08-02] MEDS: NEURONTIN 100 MG PO ×3 (10:07→21:05)
[2025-08-02] MEDS: MAGNESIUM OXIDE 400 MG PO ×2 (10:07→21:05)
[2025-08-02] MEDS: COZAAR 100 MG PO (10:07)
[2025-08-02] MEDS: LOW STRENGTH ASPIRIN 81 MG PO (10:07)
[2025-08-02] MEDS: BACTROBAN 2% OINTMENT 1 APPLIC NASAL ×2 (10:08→21:06)
[2025-08-02] MEDS: NORVASC 10 MG PO (10:08)
[2025-08-02] MEDS: PLAVIX 75 MG PO (10:08)
[2025-08-02] MEDS: PROTONIX 40 MG PO (10:08)
[2025-08-02] MEDS: LIDOCAINE 4% PATCH 1 PATCH TOPICAL (10:08)
[2025-08-02] MEDS: SENOKOT 8.6 MG PO ×2 (10:08→21:05)
[2025-08-02] MEDS: PACERONE 200 MG PO ×3 (10:08→21:05)
[2025-08-02] MEDS: NSS 500 IV (10:09)
[2025-08-02] MEDS: LASIX 40 MG IV ×2 (10:53→15:59)
--- NOTE | 2025-08-02 11:04 | PTCARENOTE ---
CTs removed as ordered. MV02 result reported to CT ADRIEN. Pt assisted oob to chair. Tolerated PT/OT.
[2025-08-02 11:59] LABS: Glucose - Point of Care 141 mg/dl (70-99)
--- NOTE | 2025-08-02 13:21 | W.PN.CD ---
Today's Communication / Plan
-
- Continue ASA / Plavix.
- Continue diuresis.
Impression / Plan
-
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 Sanchez).
Did well overnight
Off pressors, dobutamine at 1
mild pulmonary edema on CXR
CAD s/p CABG
-echo: EF 60%, mild AR
-DAPT + AC currently; likely does not need triple therapy, consider Plavix + AC
-statin
-BB once of dobutamine
AFIB, paroxysmal
-rate-controlled off meds (see below). Back in NSR as of 930 AM
-on Eliquis as OP, s/p heparin, when able to restart AC would drop to single antiplatelet
-amio per CTS
Bradycardia:
-Monitor tele, remain off metoprolol
-should be evaluated for NICOLAS eventually
HTN:
-home losartan and amlodipine held for OR, restart as able
Hx CVA:
-on Eliquis as OP and statin
Physical Exam
Vital Signs/Labs
Vital Signs
Temp Pulse Resp BP Pulse Ox
99 F 82 18 109/68 94
08/02/25 12:00 08/02/25 12:00 08/02/25 12:00 08/02/25 12:00 08/02/25 12:00
08/01/25 08/02/25 08/03/25
06:59 06:59 06:59
Actual Weight 112.3 kg 114.6 kg
08/02/25 04:08
08/02/25 04:08
PT 17.0 Sec (11.4-14.6) H 07/31/25 14:46
INR 1.33 07/31/25 14:46
APTT 29.8 Sec (23.4-35.0) 07/31/25 14:46
Magnesium 2.1 mg/dl (1.6-2.3) 08/02/25 04:08
Triglycerides 105 mg/dl (10-149) 07/26/25 04:39
LDL Cholesterol, Calc 66 mg/dl 07/26/25 04:39
VLDL Cholesterol, Calc 21 mg/dl (0-30) 07/26/25 04:39
HDL Cholesterol 44 mg/dl 07/26/25 04:39
Physical Exam
Constitutional: No acute distress and Comfortable
EENT: Anicteric and Moist mucous membranes
Cardiovascular: Rhythm & rate is regular, Pedal edema is absent and JVD pressure is normal
Respiratory: Respiratory effort normal, Lungs clear to auscul. and Wheeze Absent
GI: Soft, Non tender and Normal bowel sounds
Neuro/Psych: Alert, Oriented, AO x 3 and Motor deficits absent
Data Reviewed
-
Date of Service: August 02, 2025
Medical Decision Making: Reviewed Test Results, Test Interpretation and Review of Case with other Provider
EKG: Tracing Personally Visualized and interpreted
Echo: Report Reviewed by me
Labs: Labs Reviewed by me
Old Records: Reviewed
[2025-08-02] MEDS: FERRLECIT 110 MG IV (14:13)
[2025-08-02] MEDS: TYLENOL PO (14:14)
[2025-08-02] MEDS: LIPITOR 40 MG PO (15:58)
[2025-08-02 16:05] LABS: Glucose - Point of Care 137 mg/dl (70-99)
[2025-08-02] MEDS: NOVOLOG FLEXPEN-LOW RESISTANCE SC (16:05)
[2025-08-02] MEDS: MILK OF MAGNESIA 30 ML PO (16:08)
--- NOTE | 2025-08-02 16:44 | PTCARENOTE ---
VSS, sinus rhythm maintained on tele.
--- NOTE | 2025-08-02 18:34 | PTCARENOTE ---
pt bladder scanned for 68ml
--- NOTE | 2025-08-02 20:00 | PTCARENOTE ---
Assume care of patient at 1900. Patient found resting in bed at time of assessment. Patient is AOx4, primarily mongolian speaking, follows all commands appropriately, moves all extremities. Lung sounds are diminished at the bases, saO2 97% on 2L.
Heart sounds are audible, patient is in first deg AV block with occasional PACs. Normal palpable pulses throughout and +1 BLE. Patient has hyperactive BS throughout round obese abdomen and is voiding in urinal. There is a sternal incision approx
with surg adhesive ELEMENTARY SCHOOL LIBRARIAN, L groin puncture approx with surg adhesive ELEMENTARY SCHOOL LIBRARIAN, and LLE incision approx with surg adhesive ELEMENTARY SCHOOL LIBRARIAN. Patient has R IJ corids receiving KVO and 20G R AC as well as L hand PIV. VSS. Call breen within reach.
[2025-08-02] MEDS: PAMELOR 10 MG PO (21:05)
[2025-08-02] MEDS: REMOVE LIDOCAINE PATCH REMOVE (21:06)
[2025-08-02 23:07] LABS: Glucose - Point of Care 149 mg/dl (70-99)
[2025-08-03] VITALS (17 sets, daily range): BP systolic 73–147; BP diastolic 52–82; PULSE 88; BMI 40.0
--- NOTE | 2025-08-03 | PTCARENOTE ---
Patient reassessed. VSS. Remains 1st deg AV block with PACs on the monitor. Patient refused CPAP when offered by RT will remain on 2L via NC. Call breen within reach.
[2025-08-03] MEDS: ZOFRAN 4 MG IV ×2 (02:16→20:14)
[2025-08-03] MEDS: TYLENOL 650 MG PO (02:30)
[2025-08-03 03:23] LABS: Hematocrit 33.9 % (39.0-52.0); Hemoglobin 11.2 g/dL (13.0-18.0); Mean Corp Hgb Conc. 33.0 g/dL (33.0-37.0); Mean Corpuscular Volume 85.2 fL (80.0-94.0); Platelet Count 181 10^3/uL (130-400); Red Cell Dist. Width 14.3 % (11.5-14.5)
--- NOTE | 2025-08-03 03:27 | PTCARENOTE ---
At ~0210 patient rang call breen c/o nausea. Produced 5mL of dark green emesis. Given zofran. Patient moved oob to chair was incontinent of urine and stool during transfer. Utilized validation specialist to assess patient. On assessment, patient's nausea had
resolved, reports headache, and some remaining constipation pain. Patient given tylenol for headache. All patient questions answered. AM hygiene care provided. Linens exchanged. Patient returned to bed.
[2025-08-03 03:30] LABS: Blood Urea Nitrogen 31 mg/dl (9-20); Calcium 7.9 mg/dl (8.4-10.2); Carbon Dioxide 27 mmol/L (22-30); Chloride 103 mmol/L (98-107); Estimated Creatinine Clearance 73 ml/min; Glucose 175 mg/dl (70-99); Magnesium 2.2 mg/dl (1.6-2.3); Potassium 4.2 mmol/L (3.5-5.1); Sodium 136 mmol/L (135-145); eGFR > 60.00
--- NOTE | 2025-08-03 05:28 | W.PN.CT ---
Addendum entered and electronically signed by Daniel Merritt MD 08/03/25 08:58:
I saw and examined the patient.
The PA's note was reviewed and I agree with the note.
Comment:
Continues in sinus rhythm looks fine sitting in chair, still complains of some lightheadedness when standing. Blood pressures have been appropriate. Continue gentle diuresis. Continue aspirin and Plavix for now, will transition to Eliquis and
Plavix once closer to discharge. Mobilize as best we can.
Original Note:
Today's Communication / Plan
-
-pod #3
-no significant issues overnight
-off dobutamine and cardene
-CTs DCd
-started on Norvasc and Losartan for BP control
-tolerating 12.5 mg BB so far
-encourage IS, OOB, ambulate
Assessment / Plan
-
# s/p CABG x4 (In situ DAMON to LAD, Ao to RSVG to OM 1 and OM 3 in sequence, Ao to RSVG to RPDA); Left atrial appendage ligation with 40 mm Atriclip; Modified left atrial maze procedure with Atricure Encompass device by Dr. Sanchez on 07/31/25, pod #3
# Intraop MARILEE: In preoperative MARILEE was performed showing normal EF greater than 50% without significant regional wall motion abnormalities though left ventricle is notably moderately hypertrophied. There is some sclerosis/calcification of the
noncoronary cusp of the aortic valve without significant stenosis and very mild AI. There is additionally trace to mild MR consistent with functional etiology. Postoperatively his echo is largely stable and he is noted to be in sinus rhythm though
notably slow rate in the 40s to 50s.
# Transferred from [facility] on 07/25/25 for CABG eval
# NSTEMI
# MVCAD
# HLD
# LVEF 60% without significant valvular disease per echo 07/28/25
# Paroxysmal A-fib/a-flutter on chronic Eliquis
# Chronic 1st degree AVB
# Suspected NICOLAS
# Class 2 obesity (BMI 38.1)
# HTN
# GERD
# Hx CVA with residual left sided weakness
# Bradycardia preop high 40s-mid 50s
# Acute postop blood loss anemia -s/p 450 cc Cell Saver
# Acute postop coagulopathy/ thrombocytopenia - s/p 2 FFPs, 2 unit platelets
# Acute postop atelectasis
# Acute postop hypovolemia with subsequent hypervolemia
Subjective
-
Date of Service: August 03, 2025
Objective Data
-
Lab Results
08/03/25 02:59
08/03/25 02:59
PT 17.0 Sec (11.4-14.6) H 07/31/25 14:46
INR 1.33 07/31/25 14:46
APTT 29.8 Sec (23.4-35.0) 07/31/25 14:46
Vital Signs
Vital Signs
Temp Pulse Resp BP Pulse Ox
98.8 F 85 20 112/71 93
08/03/25 03:00 08/03/25 03:00 08/03/25 03:00 08/03/25 03:00 08/03/25 03:00
CT Intake/Output/Weight
08/02/25 08/02/25 08/03/25
06:59 18:59 06:59
Intake Total 494.2 / 1090.6 95.8 / 175.8 80 / 175.8
Output Total 705 / 1175 440 / 440
Balance -210.8 / -84.4 -344.2 / -264.2 80 / -264.2
SaO2: 93
Physical Exam
-
General: Awake and Oriented
Cardiovascular: Regular rate & rhythm
Respiratory: Clear and Equal
Sternum: Stable
Incision: Clean, Dry and Intact
Extremities: No Edema and No Erythema
Data Reviewed
-
Lab Results: Results Reviewed
Medications: Active Meds Reviewed
Chest X-Ray: Report Reviewed
ECG: Report Reviewed
--- NOTE | 2025-08-03 05:41 | PTCARENOTE ---
Cordis appears kinked unable to flush. CT GRANULATING MACHINE OPERATOR notified. Advised to discontinue cordis.
[2025-08-03] MEDS: TYLENOL 975 MG PO ×3 (06:42→21:42)
--- NOTE | 2025-08-03 08:00 | PTCARENOTE ---
assumed care of pt from previous shift RN, oob in chair at time of assessment. SR on monitor. HR 80's, + pulses +2 lower extrem edema. Lungs diminished on 2L NC. Pulse ox 95%. IS encouraged. +bs, BM in toilet. reports nausea. minimal appetite.
urinal and BRP. PIV patent. Surgical sites stable. will continue to monitor.
[2025-08-03] MEDS: LOPRESSOR 12.5 MG PO ×2 (08:33→21:43)
[2025-08-03] MEDS: LIDOCAINE 4% PATCH 1 PATCH TOPICAL (08:33)
[2025-08-03] MEDS: MAGNESIUM OXIDE 400 MG PO ×2 (08:33→21:44)
[2025-08-03] MEDS: COZAAR 100 MG PO (08:33)
[2025-08-03] MEDS: PROTONIX 40 MG PO (08:33)
[2025-08-03] MEDS: NEURONTIN 100 MG PO ×2 (08:33→21:43)
[2025-08-03] MEDS: PACERONE 200 MG PO ×2 (08:34→15:00)
[2025-08-03] MEDS: NORVASC 10 MG PO (08:34)
[2025-08-03] MEDS: LOW STRENGTH ASPIRIN 81 MG PO (08:34)
[2025-08-03] MEDS: LASIX 40 MG IV ×2 (08:34→15:00)
[2025-08-03] MEDS: SENOKOT 8.6 MG PO (08:34)
[2025-08-03] MEDS: BACTROBAN 2% OINTMENT 1 APPLIC NASAL ×2 (08:35→21:53)
[2025-08-03] MEDS: NSS IV (08:35)
[2025-08-03] MEDS: PLAVIX 75 MG PO (08:53)
[2025-08-03 08:58] LABS: Glucose - Point of Care 164 mg/dl (70-99)
[2025-08-03] MEDS: NOVOLOG FLEXPEN-LOW RESISTANCE SC ×3 (11:07→18:14)
[2025-08-03] MEDS: FERRLECIT 110 MG IV (13:25)
--- NOTE | 2025-08-03 14:13 | PTCARENOTE ---
bladder scanned for 445. Patient then urinated in toilet but also all over the ground. unable to measure. will reassess
[2025-08-03 14:57] LABS: Glucose - Point of Care 134 mg/dl (70-99)
[2025-08-03] MEDS: NEURONTIN PO (14:57)
--- NOTE | 2025-08-03 16:12 | PTCARENOTE ---
Patient reassessed. VSS. When laying down pt requires 3Lnc. Call breen within reach. will continue to monitor.
[2025-08-03] MEDS: LIPITOR 40 MG PO (16:47)
[2025-08-03] MEDS: ROXICODONE 5 MG PO (16:51)
[2025-08-03 20:01] LABS: Glucose - Point of Care 131 mg/dl (70-99)
[2025-08-03] MEDS: SENOKOT PO (20:07)
[2025-08-03] MEDS: REMOVE LIDOCAINE PATCH 1 PATCH REMOVE (20:07)
[2025-08-03] MEDS: PAMELOR 10 MG PO (21:48)
[2025-08-03 22:13] LABS: Glucose - Point of Care 127 mg/dl (70-99)
--- NOTE | 2025-08-03 23:32 | PTCARENOTE ---
Assumed care at 1900. Patient B[place]an speaking only. Process Checker used for assessment. Upon assessment patient noted to be diaphoretic. Patient's blood sugar taken and noted to be 131. Blood pressure 98/66. Patient denies any chest pain. Reports
dizziness that patient states has been ongoing all day. Also reports ongoing hiccups. Abdomen noted to be distended. Bartolo Granados N.P. made aware. Metoprolol dose decreased to 12.5. Abdominal xray ordered to be done in AM. Repeat blood pressure at
2312 75/55. Repeat blood pressure 83/65 (map of 71). Bartolo Granados made aware. Instructed to hold off on Amiodarone dose for now and continue to monitor.
[2025-08-04] VITALS (62 sets, daily range): BP systolic 69–116; BP diastolic 42–66; PULSE 76–78; O2SAT 94; BMI 40.8
[2025-08-04] MEDS: ALBUMIN 5% 250 IV ×3 (00:35→03:45)
--- NOTE | 2025-08-04 00:44 | PTCARENOTE ---
Systolic blood pressure continues to be in the 70s-80s. Bartolo Granados made aware. Albumin ordered and started. Patient sleeping. Appears comfortable.
[2025-08-04 01:45] LABS: Hematocrit 31.3 % (39.0-52.0); Hemoglobin 10.5 g/dL (13.0-18.0); Mean Corp Hgb Conc. 33.5 g/dL (33.0-37.0); Mean Corpuscular Volume 84.8 fL (80.0-94.0); Platelet Count 207 10^3/uL (130-400); Red Cell Dist. Width 14.4 % (11.5-14.5)
[2025-08-04 02:06] LABS: Blood Urea Nitrogen 53 mg/dl (9-20); Calcium 8.3 mg/dl (8.4-10.2); Carbon Dioxide 27 mmol/L (22-30); Chloride 99 mmol/L (98-107); Estimated Creatinine Clearance 32 ml/min; Glucose 134 mg/dl (70-99); Magnesium 2.9 mg/dl (1.6-2.3); Potassium 4.8 mmol/L (3.5-5.1); Sodium 132 mmol/L (135-145); eGFR 26.80
--- NOTE | 2025-08-04 02:23 | PTCARENOTE ---
Pt. has not voided since he was transferred to unit at beginning of shift. Bladder scan at 2130 showing 290 ml. CV-TOOL ROOM LATHE OPERATOR Bartolo notified and order to st. cath prn > 350 ml obtained. Still no spontaneous void, pt. states he doesn't have to go; bladder
scan at 0220 showing 323 ml. Bartolo notified; instructed to hold on st. cath for now. 2 new peripheral IV sites started and labs drawn. BMP results reported to Bartolo. Second bag albumin infusing, SBP 80's. Pt. resting sleeping, awakens without
difficulty and answers questions appropriately.
[2025-08-04] MEDS: PACERONE PO ×3 (03:39→22:43)
--- NOTE | 2025-08-04 04:08 | PTCARENOTE ---
Patient with no urine output this shift. Patient bladder scanned last at 0220 for 323ml. Patient bladder scanned again at 0400 showing 317 ml. Patient denies the urge to void. Denies any bladder discomfort. Bartolo RIZO aware that patient with
no urine output this shift. Ordered to straight cath for bladder scan of >350ml.
--- NOTE | 2025-08-04 05:51 | W.PN.CT ---
Addendum entered and electronically signed by Ebony Wakefield PA-C 08/04/25 12:46:
Response to query: post operative CAROL
Original Note:
Today's Communication / Plan
-
-pod #4, needs [place] call center professional
-BP soft yesterday with increased BB and diuresis, reported ongoing dizziness x2 days, intermittent orthostasis
-low UOP, not recorded but reported less frequent urination with bladder scans <350 cc. Jump in SCr to 2.5 today from 1.1 yesterday
-given 500 cc of albumin last night, BP responded and improved, may need midodrine if BP remains low and may need additional intravascular expansion
-holding BB, Lasix, losartan, amlodipine. can continue amio for now
-check abd xr for ileus this morning, having BMs yesterday, reporting frequent belching. need to mobilize and may advance bowel regimen
-continue atorvastatin, nortriptyline, ASA, Plavix, PPI, insulin. Tentative plan for Eliquis and Plavix on DC
-encourage IS, OOB, ambulate
Assessment / Plan
-
# s/p CABG x4 (In situ DAMON to LAD, Ao to RSVG to OM 1 and OM 3 in sequence, Ao to RSVG to RPDA); Left atrial appendage ligation with 40 mm Atriclip; Modified left atrial maze procedure with Atricure Encompass device by Dr. Sanchez on 07/31/25, pod #4
# Intraop MARILEE: In preoperative MARILEE was performed showing normal EF greater than 50% without significant regional wall motion abnormalities though left ventricle is notably moderately hypertrophied. There is some sclerosis/calcification of the
noncoronary cusp of the aortic valve without significant stenosis and very mild AI. There is additionally trace to mild MR consistent with functional etiology. Postoperatively his echo is largely stable and he is noted to be in sinus rhythm though
notably slow rate in the 40s to 50s.
# Transferred from [facility] on 07/25/25 for CABG eval
# NSTEMI
# MVCAD
# HLD
# LVEF 60% without significant valvular disease per echo 07/28/25
# Paroxysmal A-fib/a-flutter on chronic Eliquis
# Chronic 1st degree AVB
# Suspected NICOLAS
# Class 2 obesity (BMI 38.1)
# HTN
# GERD
# Hx CVA with residual left sided weakness
# Bradycardia preop high 40s-mid 50s
# Acute postop blood loss anemia -s/p 450 cc Cell Saver
# Acute postop coagulopathy/ thrombocytopenia - s/p 2 FFPs, 2 unit platelets
# Acute postop atelectasis
# Acute postop hypovolemia with subsequent hypervolemia
Subjective
-
Date of Service: August 04, 2025
Objective Data
-
Lab Results
08/04/25 01:20
08/04/25 01:20
PT 17.0 Sec (11.4-14.6) H 07/31/25 14:46
INR 1.33 07/31/25 14:46
APTT 29.8 Sec (23.4-35.0) 07/31/25 14:46
Vital Signs
Vital Signs
Temp Pulse Resp BP Pulse Ox
97.6 F 72 20 90/54 95
08/03/25 22:09 08/04/25 05:15 08/03/25 22:09 08/04/25 05:15 08/03/25 23:30
CT Intake/Output/Weight
08/03/25 08/03/25 08/04/25
06:59 18:59 06:59
Intake Total 120 / 215.8 240 / 1110 870 / 1110
Output Total 5 / 445
Balance 115 / -229.2 240 / 1110 870 / 1110
SaO2: 95
Physical Exam
-
General: Awake and Oriented
Cardiovascular: Regular rate & rhythm, No Murmurs and No Rub
Respiratory: Equal and Decreased Breath Sounds
Sternum: Stable
Incision: Clean, Dry and Intact
Extremities: No Edema and No Erythema
Abdomen distended, soft, non-tender, loudly tympanic
Data Reviewed
-
Lab Results: Results Reviewed
Medications: Active Meds Reviewed
Chest X-Ray: Report Reviewed and Image Reviewed
CT Scan: Report Reviewed
ECG: Report Reviewed
[2025-08-04] MEDS: ZOFRAN 4 MG IV (06:25)
[2025-08-04] MEDS: TYLENOL PO ×3 (07:15→22:43)
--- NOTE | 2025-08-04 07:15 | PTCARENOTE ---
While turning pt. to change linens beneath him after straight cathing (drained 475 ml kiki urine) , he complained of nausea then started to spit up brown emesis that become increasingly voluminous. Suctioned with Efren Myles given. Dr. Sanchez
and Bartolo Granados notified and came to bedside, NGT ordered. 18F [place] Sump NGT inserted into left nare without difficulty, immediately drained 1300 ml brown fluid; placed to low intermittent suction. Abdominal Xray completed. Pt. expressed relief.
[place] catering truck driver used to explain procedure to patient during insertion. Report given to effie RN.
[2025-08-04 07:44] LABS: Glucose - Point of Care 134 mg/dl (70-99)
[2025-08-04] MEDS: NOVOLOG FLEXPEN-LOW RESISTANCE SC ×3 (07:50→17:03)
[2025-08-04 08:07] LABS: INR 1.10; PT 14.5 Sec (11.4-14.6)
[2025-08-04 08:18] LABS: ALT (SGPT) 44 U/L (0-50); AST (SGOT) 42 U/L (17-59); Albumin 3.5 g/dl (3.5-5.0); Alkaline Phosphatase 86 U/L (38-126); Total Protein 6.1 g/dl (6.3-8.2)
[2025-08-04] MEDS: PROTONIX PO (09:45)
[2025-08-04] MEDS: SENOKOT PO ×2 (09:46→20:39)
[2025-08-04] MEDS: NSS (PRESERVATIVE FREE) 10 ML IV (09:50)
[2025-08-04] MEDS: PROTONIX IV 40 MG IV (09:50)
[2025-08-04] MEDS: PACERONE 200 MG PO (10:04)
[2025-08-04] MEDS: MAGNESIUM OXIDE PO ×2 (10:06→20:39)
[2025-08-04] MEDS: TYLENOL 650 MG PO (10:06)
[2025-08-04] MEDS: LOW STRENGTH ASPIRIN 81 MG PO (10:06)
[2025-08-04] MEDS: NEURONTIN PO ×3 (10:06→22:43)
[2025-08-04] MEDS: PLAVIX 75 MG PO (10:06)
[2025-08-04] MEDS: BACTROBAN 2% OINTMENT 1 APPLIC NASAL (10:09)
--- NOTE | 2025-08-04 10:20 | PTCARENOTE ---
Assumed care of pt from night RN. Pt primarily Gambian speaking, brazer resistance service used at bedside to complete assessment. AAOx3. NSR on tele, HR 70s. Spo2 93% on 4L. BP 98/66 MAP 76. NGT remains at 60cm in L nare. Brown/green fluid in collection
container. NGT currently clamped for med administration, will resume low intermittent suction one hour post meds. Procedural sites CDI. Continuing bladder scans per protocol. Repeat CMP ordered for 1200. Assessment documented. Pt resting in bed,
call breen in reach. at bedside.
--- NOTE | 2025-08-04 11:22 | PTCARENOTE ---
NGT returned to low intermittent suction per order. Assessment unchanged.
--- NOTE | 2025-08-04 12:09 | PN.CDI ---
CDI
- -
CDI:
Physician Documentation Request
Admit Date: 07/25/25 21:00
Dear Doctor Merritt
08/04 cardiothoracic progress note states 'Jump in SCr to 2.5 today from 1.1 yesterday '
Could you please provide a diagnosis that supports the above lab abnormalities and additional evaluation/ monitoring :
CAROL
abnormal lab value clinically insignificant
Other
Criteria for CAROL*
1 Increase in serum creatinine by > or = to 0.3 mg/dL (> or = to 26.5 micromol/L) within 48 hours, OR
2 Increase in serum creatinine to > or = to 1.5 times baseline, which is known or presumed to have occurred within 7 days, OR
3 Urine volume < 0.5 nL/kg/hour for six hours
Use of terms such as suspected, likely, concern for, or probable (associated with a specific diagnosis that is being evaluated, monitored, or treated as if it exists) are acceptable and can be coded in the inpatient setting, when documented at the
time of discharge.
Thank you,
Elena Andrea RN, BSN
CDI Specialist
tiger text
Please use your independent medical judgment in providing your response.
--- NOTE | 2025-08-04 12:09 | W.PN.CD ---
Addendum entered and electronically signed by Miles Roper MD 08/04/25 17:06:
Creatinine continues to uptrend despite fluid resuscitation. Consider nephrology consult. Consider RHC if creatinine not improving tomorrow though have low suspicion for low output given exam and echo findings.
Original Note:
Today's Communication / Plan
-
hold diuresis and antihypertensives
trend CMP s/p fluids
Impression / Plan
-
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 Sanchez).
Significant CAROL overnight in setting of decreased UOP. Given fluids. TTE checked and unchanged with normal EF.
CAROL
-suspect hypovolemia rather than low output
-TTE stable
-examines warm
-trend repeat labs this afternoon
-hold diuresis and HTN meds for today
CAD s/p CABG
-echo: EF 60%, mild AR
-DAPT currently, consider Plavix+Eliquis on discharge
-statin
-BB once BP recovers and CAROL resolves
AFIB, paroxysmal
-rate-controlled off meds (see below). Back in NSR as of 930 AM
-on Eliquis as OP, s/p heparin, when able to restart AC would drop to single antiplatelet
-amio per CTS
Bradycardia:
-metop once able
-should be evaluated for NICOLAS eventually
HTN:
-home losartan and amlodipine held for CAROL, restart as able
Hx CVA:
-on Eliquis as OP and statin
Physical Exam
Vital Signs/Labs
Vital Signs
Temp Pulse Resp BP Pulse Ox
36.4 C 77 16 103/62 94
08/04/25 07:52 08/04/25 11:23 08/04/25 11:23 08/04/25 11:00 08/04/25 11:23
08/03/25 08/04/25 08/05/25
06:59 06:59 06:59
Actual Weight 112.3 kg 114.6 kg
08/04/25 01:20
PT 14.5 Sec (11.4-14.6) 08/04/25 07:36
INR 1.10 08/04/25 07:36
APTT 29.8 Sec (23.4-35.0) 07/31/25 14:46
Magnesium 2.9 mg/dl (1.6-2.3) H 08/04/25 01:20
Triglycerides 105 mg/dl (10-149) 07/26/25 04:39
LDL Cholesterol, Calc 66 mg/dl 07/26/25 04:39
VLDL Cholesterol, Calc 21 mg/dl (0-30) 07/26/25 04:39
HDL Cholesterol 44 mg/dl 07/26/25 04:39
Physical Exam
Constitutional: Comfortable
Cardiovascular: Rhythm & rate is regular and Other (radial pulses 2+)
Respiratory: Respiratory effort normal
Other: Skin (warm)
Data Reviewed
-
Date of Service: August 04, 2025
Medical Decision Making: Reviewed Test Results
Echo: Tracing Personally Visualized and interpreted
Labs: Labs Reviewed by me
[2025-08-04 12:11] LABS: Glucose - Point of Care 92 mg/dl (70-99)
[2025-08-04] MEDS: NSS IV (12:22)
[2025-08-04] MEDS: LIDOCAINE 4% PATCH TOPICAL (12:24)
[2025-08-04] MEDS: FLEXBUMIN 100 IV ×2 (12:24→20:46)
[2025-08-04] MEDS: CALCIUM GLUCONATE 100 IV (15:33)
[2025-08-04 15:44] LABS: ALT (SGPT) 41 U/L (0-50); AST (SGOT) 38 U/L (17-59); Albumin 4.0 g/dl (3.5-5.0); Alkaline Phosphatase 105 U/L (38-126); Blood Urea Nitrogen 65 mg/dl (9-20); Calcium 8.0 mg/dl (8.4-10.2); Carbon Dioxide 26 mmol/L (22-30); Chloride 96 mmol/L (98-107); Estimated Creatinine Clearance 26 ml/min; Glucose 121 mg/dl (70-99); Potassium 4.4 mmol/L (3.5-5.1); Sodium 134 mmol/L (135-145); Total Protein 6.3 g/dl (6.3-8.2); eGFR 20.70
--- NOTE | 2025-08-04 15:45 | PTCARENOTE ---
16 Fr seo placed for acute retention per order. 125mL of kiki urine for initial output. Repeat CMP drawn and sent to lab. Creat now 3.[address] surgery LANDFILL GRADER aware. Pt BPs have been labile. Current BP 87/52 MAP 63. Started on midodrine 10mg.
Midodrine administered via NGT and NGT clamped s/p administration. Pt for transfer to CVICU when bed available. 1600 amio dose held per order. remains at bedside.
[2025-08-04 17:03] LABS: Glucose - Point of Care 123 mg/dl (70-99)
--- NOTE | 2025-08-04 17:30 | PTCARENOTE ---
Pt transferred from IVU to CVICU. Received patient. Pt assessed while in bed. Pt alert and oriented x4. Denies pain. C/o intermittent shortness of breath and nausea. Slight left facial droop noted from previous CVA. Hand grasps equal. NSR on tele
with 1st degree AVB with rates in the 70s. BP 106/53. Bilateral radial and DP pulses palpable. Bilateral lower extremity with +1 edema. POX 92% on 6L NC. Lungs diminished throughout. No cough noted. Abdomen round, obese, distended, soft. Hypoactive
BS. NGT intact to LIS draining brown liquid. Aguilar catheter intact draining clear kiki urine, CT MEAT MANAGER notified of output. Sternal incision approximated, PRECISION LATHE OPERATOR. old chest tube sites approximated, MARGARITA. Left groin puncture site approximated, PRECISION LATHE OPERATOR. Left SVG
harvest approximated with skin glue, MARGARITA. PIV x3 intact. VAT team at bedside to place PICC. Pt's at bedside and updated on plan of care. Pt in agreement.
[2025-08-04] MEDS: LIPITOR 40 MG PO (18:10)
[2025-08-04] MEDS: REMOVE LIDOCAINE PATCH REMOVE (20:39)
[2025-08-04 21:42] LABS: Blood Urea Nitrogen 76 mg/dl (9-20); Calcium 8.2 mg/dl (8.4-10.2); Carbon Dioxide 28 mmol/L (22-30); Chloride 95 mmol/L (98-107); Estimated Creatinine Clearance 25 ml/min; Glucose 117 mg/dl (70-99); Magnesium 3.3 mg/dl (1.6-2.3); Potassium 4.3 mmol/L (3.5-5.1); Sodium 132 mmol/L (135-145); eGFR 19.93
--- NOTE | 2025-08-04 22:40 | PTCARENOTE ---
Patient received from RN @ 1900. Patient lying in bed comfortable w/ call breen in reach. [place] speaking. Community Service Manager used. Patient states he has no pain or discomfort. Patient denies indigestion. AOx3 SR on monitor. BP 110/57 HR 73. Radial
and pedal pulses present. Heart sounds audible but distant. +1 bilateral lower leg edema. POX 92% 10L midflow. No cough noted. Shallow respirations and diminished in bases bilaterally. Bowel sounds hypoactive. Abdomen distended but soft. NG
tube in left nare @ 60cm set to low intermittent suction draining greenish brown gastric content. Aguilar draining kiki urine. Right hand and Right AC PIV removed per IV team. Right PICC line patent and intact. Left wrist PIV patent and intact.
Sternal incision well approximated INSTALLATION AND REPAIR TECHNICIAN. Left knee incision and left groin puncture well approximated INSTALLATION AND REPAIR TECHNICIAN. Hold all PO medications per CT PA Ed. Patient washed w/ CHG and gown changed. See worklist for more details.
[2025-08-04] MEDS: PAMELOR PO (22:43)
[2025-08-04] MEDS: CALCIUM GLUCONATE 130 MG IV (23:34)
[2025-08-05] VITALS (24 sets, daily range): BP systolic 88–134; BP diastolic 46–87; BMI 39.9
--- NOTE | 2025-08-05 00:14 | PTCARENOTE ---
Patient POX 88-90% on 15L midflow. CT PA Ed aware. Patient went into A. Fib @ 2351 and had 3 second pause @ 2354. CT PA Ed aware. Patient AOx3 and comfortable. BP 113/57. Temp 98.1.
--- NOTE | 2025-08-05 00:51 | PTCARENOTE ---
Addendum entered by Mic Cha RN 08/05/25 01:00:
A. Flutter on EKG, CT PA Ed aware.
Original Note:
Patient POX 92% on high flow 55L 100% FiO2.
[2025-08-05] MEDS: PROTONIX IV 40 MG IV ×2 (01:34→08:28)
[2025-08-05] MEDS: NSS (PRESERVATIVE FREE) 10 ML IV ×2 (01:48→08:27)
[2025-08-05] MEDS: FLEXBUMIN 100 IV (03:54)
[2025-08-05 04:09] LABS: B.E. 3.0 mmol/L; HCO3 27.1 mmol/L (21-28); O2 Saturation % 94.2 % (94-98); PCO2 39 mmHg (35-48); PO2 69 mmHg (83-108)
[2025-08-05 04:13] LABS: Hematocrit 26.2 % (39.0-52.0); Hemoglobin 8.9 g/dL (13.0-18.0); Mean Corp Hgb Conc. 34.0 g/dL (33.0-37.0); Mean Corpuscular Volume 86.2 fL (80.0-94.0); Platelet Count 160 10^3/uL (130-400); Red Cell Dist. Width 14.4 % (11.5-14.5)
--- NOTE | 2025-08-05 04:26 | PTCARENOTE ---
Patient reassessed. A. Flutter on monitor. BP 134/62 HR 77 POX 93% on high flow 55L FIO2 100%. Labs obtained.
[2025-08-05 04:28] LABS: Blood Urea Nitrogen 84 mg/dl (9-20); Calcium 8.5 mg/dl (8.4-10.2); Carbon Dioxide 29 mmol/L (22-30); Chloride 96 mmol/L (98-107); Estimated Creatinine Clearance 26 ml/min; Glucose 116 mg/dl (70-99); Magnesium 3.4 mg/dl (1.6-2.3); Potassium 4.4 mmol/L (3.5-5.1); Sodium 134 mmol/L (135-145); eGFR 20.70
--- NOTE | 2025-08-05 05:29 | W.PN.CT ---
Today's Communication / Plan
-
Plan:
-Pt's O2 sats noted to be dropping, and back in rate controlled afib/flutter overnight
-Required increased O2 to High Flow of 55L, 100% FiO2; ABG on current settin.45/39/69%/27.1/94.2%
-CXR this AM concerning for aspiration pneumonia and left pleural effusion on my assessment. F/U official report
-Consider chest CT, assessment for left thoracentesis, sputum culture. TM 99.5, wbc 8.0. R/O PE
-Encourage use of IS (max 1250 mL, mostly 1L overnight), had productive cough but swallowed
-Abdomen: mildly distended, NG tube to intermittent suction, diminished BS, N/T, questionable +BM 2 days ago
-Has NG tube to intermittent suction with 3.5L of gastric content drained/24hrs. Maintain NPO
-Monitor creatinine, 3.1 today, 2.5/3.2 yesterday, was 0.8-0.9 preop. Consider Nephrology consult
-Hypotensive postop after resumption of antihypertensive meds, currently on hold and receiving fluid resuscitation. On Midodrine
-Required seo reinsertion for CAROL/oliguria. U/O 450 mL
-Will discuss Eliquis given hx afib/flutter
-OOB into chair/Ambulate as tolerated
Assessment / Plan
-
# s/p CABG x4 (In situ DAMON to LAD, Ao to RSVG to OM 1 and OM 3 in sequence, Ao to RSVG to RPDA); Left atrial appendage ligation with 40 mm Atriclip; Modified left atrial maze procedure with Atricure Encompass device by Dr. Sanchez on 07/31/25, pod #5
# Intraop MARILEE: In preoperative MARILEE was performed showing normal EF greater than 50% without significant regional wall motion abnormalities though left ventricle is notably moderately hypertrophied. There is some sclerosis/calcification of the
noncoronary cusp of the aortic valve without significant stenosis and very mild AI. There is additionally trace to mild MR consistent with functional etiology. Postoperatively his echo is largely stable and he is noted to be in sinus rhythm though
notably slow rate in the 40s to 50s.
# Transferred from [facility] on 07/25/25 for CABG eval
# NSTEMI
# MVCAD
# HLD
# LVEF 60% without significant valvular disease per echo 07/28/25
# Paroxysmal A-fib/a-flutter on chronic Eliquis
# Chronic 1st degree AVB
# Suspected NICOLAS
# Class 2 obesity (BMI 38.1)
# HTN
# GERD
# Hx CVA with residual left sided weakness
# Bradycardia preop high 40s-mid 50s
# Acute postop blood loss anemia -s/p 450 cc Cell Saver
# Acute postop coagulopathy/ thrombocytopenia - s/p 2 FFPs, 2 unit platelets
# Acute postop atelectasis/Left pleural effusion
# Acute postop hypovolemia with subsequent hypervolemia
-Acute postop ileus
-Acute postop pulmonary insufficiency
-Acute postop hypoxemia
-Acute postop CAROL
-Acute postop urinary retention
Discussed patient care with: Cardiology, Nursing, Respiratory Therapy, Pharmacy and Care Team
Subjective
-
Date of Service: August 05, 2025
Pt c/o indigestion
Objective Data
-
Lab Results
08/05/25 03:45
08/05/25 03:45
PT 14.5 Sec (11.4-14.6) 08/04/25 07:36
INR 1.10 08/04/25 07:36
APTT 29.8 Sec (23.4-35.0) 07/31/25 14:46
Vital Signs
Vital Signs
Temp Pulse Resp BP Pulse Ox
98.7 F 77 22 114/54 94
08/05/25 04:00 08/05/25 03:40 08/05/25 04:00 08/05/25 03:00 08/05/25 04:05
CT Intake/Output/Weight
08/04/25 08/04/25 08/05/25
06:59 18:59 06:59
Intake Total 870 / 1110 100 / 100
Output Total 1775 / 1775 1665 / 2600 935 / 2600
Balance -905 / -665 -1565 / -2500 -935 / -2500
SaO2: 94 (high flow O2, 55L, 100% fio2)
Physical Exam
-
General: Awake, Oriented and AOx3
Cardiovascular: Regular rate & rhythm, No Murmurs and No Gallop
Respiratory: Decreased Breath Sounds (at bases, otherwise clear)
Sternum: Stable
Incision: Clean, Dry, Intact and Dressing Intact
Extremities: Other (+trace edema)
Abdomen: mildly distended, NG tube to intermittent suction, diminished BS, N/T
Data Reviewed
-
Lab Results: Results Reviewed
Medications: Active Meds Reviewed
Chest X-Ray: Report Reviewed and Image Reviewed
ECG: Report Reviewed and Image Reviewed
[2025-08-05] MEDS: CALCIUM GLUCONATE 130 MG IV (05:42)
[2025-08-05] MEDS: TYLENOL PO (05:53)
--- NOTE | 2025-08-05 06:39 | PTCARENOTE ---
Patient desat. to 86%. CT PA Ed aware. Patient placed on non rebreather mask POX 89-90%.
--- NOTE | 2025-08-05 08:00 | PTCARENOTE ---
Assumed care of patient from evening or night nurse supervisor RN. AAO x 3, Laying in the bed. Pt very distraught over 'not getting better', Using the care management assistant line, pt c/o nausea, headache, and 'pain all over'. Plan discussed with CT team. Dulcolax supp
administered and scopolamine patch applied. Assist x 2 oob to chair. Afib on monitor. Received on high flow and 15 L NRB, once sitting able to remove NRB mask. Lungs decreased bilaterally t/o left greater than right. Abdomen very distended and
tympanic with hypoactive bowel sounds noted in 4/4 quadrants. Aguilar draining kiki urine. Plus 2 lower extremity edema appreciated. Pulses palpable. Family at bedside.
[2025-08-05] MEDS: SENOKOT PO ×2 (08:03→20:47)
[2025-08-05] MEDS: PROTONIX PO (08:03)
[2025-08-05] MEDS: PLAVIX PO (08:04)
[2025-08-05] MEDS: LOW STRENGTH ASPIRIN PO (08:05)
[2025-08-05] MEDS: PACERONE PO ×3 (08:05→22:23)
[2025-08-05] MEDS: NSS IV (08:05)
[2025-08-05] MEDS: MAGNESIUM OXIDE PO (08:05)
[2025-08-05] MEDS: LIDOCAINE 4% PATCH TOPICAL (08:05)
[2025-08-05] MEDS: NEURONTIN PO ×3 (08:05→22:24)
--- NOTE | 2025-08-05 08:26 | W.PN.CD ---
Today's Communication / Plan
-
Concerning increasein O2 requirements and now on high flow
- would favor addtional diuresis and input form pulmonary
- would also consider RHC.will review with interventional andCt surgery
transient asymptomatic riri - monitor on telemetry
- Creatinine trended up to 3.2. may be at plateau, today 3.1
- patient with lower BPs 08/04/24. Now improved. Continue to optimize hemodynamics
Impression / Plan
-
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 Sanchez).
Significant CAROL overnight in setting of decreased UOP. Given fluids. TTE checked and unchanged with normal EF.
assessed with neonatal nurse practitioner
resp insuff.
=- patientt with increased O2 requirements ovenight and on high flow O2. CXR with increased opacityon right, pneumonia vs pseudotumor and patient with left effusion.
- would favor diuresis and additional input from pulmonary
- possible RHC will review with interventional cardiololgy
CAROL
- trended up to 3.2. may be at plateau, today 3.1
- patient with lower BPs 08/04/24. Now improved. Contineueto optimize hemodynamics
-TTE stable
- continue to monitor closley
CAD s/p CABG
-echo: EF 60%, mild AR
-DAPT currently, consider Plavix+Eliquis on discharge
-statin
-BB once BP recovers and CAROL resolves
AFIB, paroxysmal
-rate-controlled off meds (see below). Back in NSR as of 9/30 AM
-on Eliquis as OP, s/p heparin, when able to restart AC would drop to single antiplatelet
-amio per CTS
Bradycardia:
- trasnient bradycardai afib to junctional for 6 beats. Continue to montior
post op anemia
HTN:
-home losartan and amlodipine held for CAROL, restart as able
Hx CVA:
-on Eliquis as OP and statin
echo 08/04/25
1. Normal left ventricular size and systolic function without regional wall motion abnormality. LVEF 60-65%.
2. No pericardial effusion.
3. No change compared to prior echocardiogram on 07/28/2025.
Physical Exam
Vital Signs/Labs
Vital Signs
Temp Pulse Resp BP Pulse Ox
98.9 F 68 27 114/54 90
08/05/25 08:00 08/05/25 08:00 08/05/25 08:00 08/05/25 03:00 08/05/25 08:19
08/04/25 08/05/25 08/06/25
06:59 06:59 06:59
Actual Weight 114.6 kg 112 kg
08/05/25 03:45
08/05/25 03:45
PT 14.5 Sec (11.4-14.6) 08/04/25 07:36
INR 1.10 08/04/25 07:36
APTT 29.8 Sec (23.4-35.0) 07/31/25 14:46
Magnesium 3.4 mg/dl (1.6-2.3) H 08/05/25 03:45
Triglycerides 105 mg/dl (10-149) 07/26/25 04:39
LDL Cholesterol, Calc 66 mg/dl 07/26/25 04:39
VLDL Cholesterol, Calc 21 mg/dl (0-30) 07/26/25 04:39
HDL Cholesterol 44 mg/dl 07/26/25 04:39
08/04/25
21:10
Nbf-H-Sndlgwwodei Pept 4070
Physical Exam
Constitutional: No acute distress
Cardiovascular: Rhythm/rate is irregular
Respiratory: Wheeze Absent and Rhonchi Absent
GI: Soft and Non tender
Neuro/Psych: Alert
Data Reviewed
-
Date of Service: August 05, 2025
Medical Decision Making: Reviewed Test Results
X-Ray/CT/US/MRI/NUC/PET: Discussed with Physician
Medical Tests (PFT, Pathology etc): Discussed with Physician
Labs: Labs Reviewed by me
[2025-08-05] MEDS: DULCOLAX 10 MG RECTAL (08:27)
[2025-08-05] MEDS: TRANSDERM-SCOP 1 PATCH TRANSDERM (09:04)
[2025-08-05] MEDS: LASIX 40 MG IV ×2 (09:06→15:21)
[2025-08-05] MEDS: NOVOLOG FLEXPEN-LOW RESISTANCE SC ×3 (09:11→17:12)
[2025-08-05 09:12] LABS: Glucose - Point of Care 123 mg/dl (70-99)
--- NOTE | 2025-08-05 09:23 | W.PN.PUL3 ---
Today's Communication / Plan
-
Aspiration suspected following vomiting, obtain CT Chest
HFNC noted, can wean as tolerated
Encourage IS/PT, rehab
Diuresis per team, CAROL noted-renal consulted
Outpatient pulmonary FU recommended
Assessment
-
70-year-old gentleman with non-ST elevation NM, noted to have coronary artery disease, s/p coronary artery bypass graft, left atrial appendage ligation and modified left atrial maze procedure, POD # 2
CAD s/p Cabg
Acute pulmonary insufficiency, postop
Minimal basilar pulmonary interstitial changes--suspect scarring or minimal fibrotic changes
CAROL, baseline creat 1.1 now 3.1
New RUL opacity, suspect aspiration PNA given vomiting episode
Bibasilar atelectasis noted L>R
Minimal bilateral pleural effusions
Other medical diagnoses:
- HTN
- HLD
- H/o CVA with residual left hemiparesis
- Chronic A Fib on Eliquis
- GERD
- Obesity, BMI 38.4
Plan
Patient extubated to 4 L nasal cannula, saturating 95%. No respiratory distress was noted.
Progressive hypoxemia noted, now on HFNC
No prior known history of lung disease, former smoker quit >40 years ago
Titrated off pressors per protocol, currently Cardene infusion at 5/h, MAP of 82. Heart rate 80/min.
ECHO reviewed with normal function
Lasix is recommended given some volume overload
CXR improving atelectasis, particularly in the right lower lobe, improved lung volumes.
Left lower lobe atelectasis persists--needs aggressive IS/PT/rehab
BMI likely contributing
CT chest today--aspiration likely
No prior known history of pulmonary disease--will need OP FU, suspect underlying NICOLAS
Son states he snores/gasps
No prior PFTs available for review
Can add nebulizers if needed
Aspiration precautions
Encourage incentive spirometry, OOB/ambulation/early mobility
Advance diet as tolerated following extubation
GI prophylaxis: Protonix
Monitor critical I/O's
Aguilar/chest tube output
Hb/platelets postoperatively, mild drift
Trend CBC for now
Can transfuse if indicated for Hb <7, plt <50 in surgical patients
DVT prophylaxis including SCDs
Insulin protocol initiated and ongoing
Transition to SQ/off as indicated per team
Data:
EKG 06/2025: Sinus bradycardia with first degree heart block
ECHO 06/2025: 1. Normal left ventricular size, normal systolic function, and no wall motion abnormalities.
2. Moderate concentric LVH.
3. Dilated right ventricle with normal systolic function.
4. Aortic valve sclerosis with mild aortic regurgitation. No significant aortic stenosis.
5. Trace TR, PA pressure could not be calculated
CT Chest 06/2025: Mild to moderate calcification of the aortic arch. No evidence for thoracic aortic aneurysm.
Coronary artery calcifications are present.
Moderate calcification in the region of the aortic valve.
Increased interstitial markings within both lung bases, which is likely mild interstitial fibrosis.
Status post cholecystectomy. Fatty infiltration of the liver.
[facility] 06/2025: Eccentric distal left main lesion, significant ostial and proximal LAD lesion, significant OM1, OM2, and OM3 lesions, significant proximal RCA and 2 proximal RPL lesions.
Total time spent on this consultation/encounter __51__ minutes which includes review of history, physical exam, medications, laboratory data, personal review of imaging, extensive review of outpatient records, discussion with care team and
respiratory therapy.
Subjective Data
-
Date of Service:
Date of Service: August 05, 2025
Chief Complaint: Pulmonary Follow Up
Subjective:
Asked for re-eval due to worsening hypoxemia
Son at bedside to translate
Had episode of vomiting which preceeded hypoxemia
Sitting in chair, no new complaints
Objective Data
Data Reviewed
Vital Signs / I&O / Oxygen:
Vital Signs
Temp Pulse Resp BP Pulse Ox
98.9 F 68 27 114/54 90
08/05/25 08:00 08/05/25 08:00 08/05/25 08:00 08/05/25 03:00 08/05/25 08:19
Intake and Output
08/04/25 08/05/25 08/06/25
06:59 06:59 06:59
Intake Total 1110 / 1110 100 / 100 0 / 0
Output Total 1775 / 1775 2600 / 2600 150 / 150
Balance -665 / -665 -2500 / -2500 -150 / -150
SaO2 [P-SIMV] 93
SaO2 90
Nasal Cannula flow liters per 55
minute
Physical Exam
General: Comfortable and Other (NAD)
HEENT: Normocephalic, Anicteric and Moist Mucous Membranes
Cardiovascular: S1-S2 and Regular Rhythm
Respiratory: Clear (overall diminished) and Non-Labored Respirations
GI: Soft, Non Distended and Non Tender
Neurology: Awake, Alert, Oriented and No Motor Deficits
Skin: Warm and Dry
Labs/Micro/Reports
Lab Data
08/05/25 03:45
08/05/25 03:45
Laboratory Results
08/05/25
03:56
pH 7.45
pCO2 39
pO2 69 L
HCO3 27.1
O2 Delivery Level
Microbiology
08/05/25 06:30 Sputum Gram Stain - Preliminary
[2025-08-05] MEDS: OFIRMEV 100 IV ×2 (09:40→20:38)
--- NOTE | 2025-08-05 10:30 | PTCARENOTE ---
Pt incontinent of a very very large amount of unmeasurable liquid BM. Full CHG bath given. Pt states nausea some what improved after BM.
--- NOTE | 2025-08-05 10:57 | W.CON.NEPH ---
Consultation
-
Date/Time Consultation Requested: 08/05/2025 9 AM
Date/Time Consultation Performed: 08/05/2025 10 AM
Requesting Provider: Dr. Merritt
Performing Provider: Dr. Callahan
Reason for Consultation: CAROL
Medical History
-
Chief Complaint: CAROL
History of Present Illness:
This is a 70-year-old [place]ander-speaking gentleman. History was taken from the son who translates. Patient has atrial fibrillation on anticoagulation therapy. He also has hypertension on a multidrug regimen. He also has reflux on proton pump and
never therapy. He was admitted at [facility] with chest pain and a non-ST elevation MD. He was taken to the [facility] and noted to have multivessel disease and subsequently transferred to [facility] for bypass surgery. He
underwent bypass grafting x4 on July 31, 2025. Postprocedure was complicated by developed ileus and CAROL. On August 04 postvoid residual was greater than 400 cc and given rising creatinine a Aguilar catheter was placed. He then had episodes of
vomiting and a subsequent large diarrhea episode. He is not wearing high flow oxygen to maintain oxygen saturations. We are asked to assist in management of the CAROL.
Past Medical History
A-fib
CAD
GERD
CVA
Hypertension
Hyperlipidemia
Cholecystectomy
CABG x 4
Social History
Tobacco: Former Smoker
Alcohol: Former
Family History
Family History: Not Pertinent
Allergies / Home Medications
Allergy/AdvReac Type Severity Reaction Status Date / Time
bee venom protein (honey bee) Allergy Unknown Verified 07/25/25 22:47
diphenhydramine Allergy Unknown Verified 07/25/25 22:47
�Medication �Instructions �Recorded �Confirmed �Type
amlodipine 10 mg tablet (Norvasc) 10 mg PO DAILY Blood Pressure 07/26/25 07/26/25 History
apixaban 5 mg tablet (Eliquis) 5 mg PO BID Blood Clot 07/26/25 07/26/25 History
Prevention/Tx
aspirin 81 mg tablet 81 mg PO DAILY Blood Clot 07/26/25 07/26/25 History
Prevention/Tx
clopidogrel 75 mg tablet (Plavix) 75 mg PO DAILY Blood Clot 07/26/25 07/26/25 History
Prevention/Tx
doxazosin 2 mg tablet 2 mg PO BID Blood Pressure 07/26/25 07/26/25 History
furosemide 20 mg tablet (Lasix) 20 mg PO DAILY Fluid 07/26/25 07/26/25 History
Retention/Swelling
losartan 100 mg tablet 100 mg PO DAILY Blood Pressure 07/26/25 07/26/25 History
nortriptyline 10 mg capsule 10 mg PO HS Mental Health/Anxiety 07/26/25 07/26/25 History
pantoprazole 40 mg tablet,delayed 40 mg PO DAILY Gastrointestinal 07/26/25 07/26/25 History
release (Protonix) Issue
Review of Systems
-
No chest pain
Mild shortness of breath
diarrhea
All other systems: Negative unless noted
Physical Exam
Vital Signs
Vital Signs
Temp Pulse Resp BP Pulse Ox
98.9 F 68 27 114/54 90
08/05/25 08:00 08/05/25 08:00 08/05/25 08:00 08/05/25 03:00 08/05/25 08:19
Lab Results
WBC 8.0 10^3/uL (4.8-10.8) 08/05/25 03:45
RBC 3.04 10^6/uL (4.70-6.10) L 08/05/25 03:45
Hgb 8.9 g/dL (13.0-18.0) L 08/05/25 03:45
Hct 26.2 % (39.0-52.0) L 08/05/25 03:45
Plt Count 160 10^3/uL (130-400) D 08/05/25 03:45
Sodium 134 mmol/L (135-145) L 08/05/25 03:45
Potassium 4.4 mmol/L (3.5-5.1) 08/05/25 03:45
Chloride 96 mmol/L (98-107) L 08/05/25 03:45
Carbon Dioxide 29 mmol/L (22-30) 08/05/25 03:45
BUN 84 mg/dl (9-20) H 08/05/25 03:45
Creatinine 3.1 mg/dL (0.7-1.3) H 08/05/25 03:45
eGFR 20.70 08/05/25 03:45
Glucose 116 mg/dl (70-99) H 08/05/25 03:45
Calcium 8.5 mg/dl (8.4-10.2) 08/05/25 03:45
Cxt-K-Dewcvuampdi Pept 4070 pg/ml 08/04/25 21:10
Albumin 4.0 g/dl (3.5-5.0) 08/04/25 14:36
Laboratory Tests
07/25/25
21:18
Creatinine 0.9
Physical Exam
Patient is awake alert oriented and in no distress. Mood and affect were pleasant, insight and judgment were good. Pupils are equal round and reactive to light, extraocular movements are intact, sclera were anicteric. Hearing was normal, ears and
nose are intact. Oropharynx was clear. Neck was supple with trachea midline and no thyromegaly. Heart was regular rate and rhythm without rubs. Lower extremities with trace edema. Lungs were rales on the left and decreased on the right to
auscultation and with normal excursion. Abdomen was soft, nontender, with normal active bowel sounds, and no hepatosplenomegaly. Skin was without rash and with normal turgor.
Data Reviewed
-
Radiology: Image Personally Visualized and interpreted (Chest x-ray 08/05/2025 by my reading right side opacity)
Medical Tests (Nuc Med, Echo etc): Image Personally Visualized and interpreted (EKG 08/05/2025 by my reading a flutter nonspecific T wave abnormality) and Report Reviewed by me (Echocardiogram 08/04/2025 EF 60%, LVH)
Labs: Labs Reviewed by me
Old Records: Reviewed
Assessment/Plan
-
Assessment
CAD status post CABG x 4
CAROL
Urinary retention
Ileus
Respiratory insufficiency
Paroxysmal atrial fibrillation
Hypotension
History of stroke
Plan
Maintain Aguilar
Check urine studies
Check renal ultrasound
Follow BMP I suspect the curve is improving
I suspect CAROL is likely related mostly to retention issues with minor contribution from ARB now held
Okay for additional Lasix if desired though he may not have significant volume given right-sided opacity and vomiting with likely aspiration
Further workup will be ordered if creatinine does not begin to improve further
Continue midodrine, maintain mean arterial pressure greater than 65 given CAROL
Discussed with son
--- NOTE | 2025-08-05 11:40 | PTCARENOTE ---
Transported to CT scan in bed on 15 L midflow, pulse ox 92%. Once laid flat in CT scan pt pulse ox quickly dropped to 75%, Head elevated and NRB applied at 15 L along with Midflow to obtain pulse ox of 93%. Pt then tolerated CT scan w/o issue.
However after transferring back into the bed, with laying flat again pt pulse ox abruptly dropped back down to 70%. Respiratory therapist called to assist with transport. Pt transported back to unit on 15 L NRB along with 15 L midflow. Once back
in CVICU pt placed back on his high flow oxygen while sitting in the chair. Pulse ox 100 % at present. Family at bedside.
[2025-08-05 12:24] LABS: Glucose - Point of Care 125 mg/dl (70-99)
--- NOTE | 2025-08-05 12:50 | W.PN.INTV ---
Today's Communication / Plan
Recommendations
Start antibiotics for possible aspiration pneumonia/pneumonitis.
Continue high flow oxygen
Incentive spirometer
N.p.o. for now
Follow renal function
Assessment
-
70-year-old gentleman with non-ST elevation [place], noted to have coronary artery disease, s/p coronary artery bypass graft, left atrial appendage ligation and modified left atrial maze procedure, POD # 5
Critical care reconsulted 08/05/2025 as the patient has developed worsening hypoxemic respiratory failure-possibly due to aspiration.
Developed postoperative ileus.
Acute hypoxemic respiratory failure: Likely due to aspiration.
Vomiting due to postoperative adynamic ileus.
CT chest: Reviewed 08/05/2025-left lower lobe dense consolidation. Small pleural effusion.
Right upper lobe consolidation with air bronchograms.
Above suggest aspiration pneumonia/pneumonitis
Will start antibiotics Unasyn
Sputum culture
-
Continue oxygen supplementation: Currently on high flow oxygen
Maintain pulse ox above 90%
Incentive spirometry
Acapella device if able
Not bronchospastic on exam-nebulizers as needed
-
Adynamic ileus,
Abdominal exam remains distended: NG tube in place to intermittent suction
N.p.o.
Head of the bed elevation.
-
Postoperative anemia: Likely blood loss
Continue to follow
Transfuse as necessary.
-
Acute kidney injury
Nephrology will follow
Patient did had urinary retention-Aguilar in
Workup ongoing, kidney ultrasound has been ordered.
-
No prior known history of pulmonary disease
Former smoker
No prior PFTs available for review
Advance diet as tolerated following extubation
GI prophylaxis: Protonix
DVT prophylaxis including SCDs
DVT prophy-SCD
Other medical diagnoses:
- Minimal basilar pulmonary interstitial changes. Suspect scarring or minimal fibrotic changes. Out patient PFTs including DLCO assessment, avelino volumes and 6 min walk test. F/u information added to the d/c section.
- HTN
- HLD
- H/o CVA with residual left hemiparesis
- Chronic A Fib on Eliquis
- GERD
- Obesity, BMI 38.4. At high risk of underlying sleep disordered breathing. Out patient Pulmonary/Sleep follow up.
Critical Care time [38] mins -- The patient is admitted for acute critical illness for the treatment of vital organ failure and/or prevention of further life-threatening conditions. Total care includes time spent in review of history, physical exam,
medications, hemodynamic/ventilator parameters, laboratory data, imaging and discussion with house staff, pharmacy, respiratory therapy, inspector rubber stamp die, and nursing
Data:
EKG 06/2025: Sinus bradycardia with first degree heart block
ECHO 06/2025: 1. Normal left ventricular size, normal systolic function, and no wall motion abnormalities.
2. Moderate concentric LVH.
3. Dilated right ventricle with normal systolic function.
4. Aortic valve sclerosis with mild aortic regurgitation. No significant aortic stenosis.
5. Trace TR, PA pressure could not be calculated
CT Chest 06/2025: Mild to moderate calcification of the aortic arch. No evidence for thoracic aortic aneurysm.
Coronary artery calcifications are present.
Moderate calcification in the region of the aortic valve.
Increased interstitial markings within both lung bases, which is likely mild interstitial fibrosis.
Status post cholecystectomy. Fatty infiltration of the liver.
LHC 06/2025: Eccentric distal left main lesion, significant ostial and proximal LAD lesion, significant OM1, OM2, and OM3 lesions, significant proximal RCA and 2 proximal RPL lesions.
Subjective Dataa
Subjective Data
Date of Service:
Date of Service: August 05, 2025
Chief Complaint: Enrichment Director Follow Up (Hypoxemic respiratory failure)
Subjective:
Back on ICU level due to will hypoxemia on high flow oxygen
Vomiting due to ileus
Review of Systems
Cardiopulmonary: Dyspnea and Dyspnea on Exertion
GI: Nausea
Objective Data
Data Reviewed
Vital Signs / I&O / Oxygen:
Vital Signs
Temp Pulse Resp BP Pulse Ox
99.1 F 62 21 97/49 98
08/05/25 11:49 08/05/25 11:49 08/05/25 11:49 08/05/25 11:02 08/05/25 11:59
Intake and Output
08/04/25 08/05/25 08/06/25
06:59 06:59 06:59
Intake Total 1110 / 1110 100 / 100 0 / 0
Output Total 1775 / 1775 2600 / 2600 250 / 250
Balance -665 / -665 -2500 / -2500 -250 / -250
SaO2 [P-SIMV] 93
SaO2 98
Nasal Cannula flow liters per 55
minute
Physical Exam
General: Comfortable
HEENT: Normocephalic
Cardiovascular: S1-S2 and Peripheral Edema
Respiratory: Clear and Non-Labored Respirations
GI: Soft and Distended (Tympanic)
Neurology: Awake and Alert
Skin: Warm
Labs/Micro/Reports
Lab Data
08/05/25 03:45
08/05/25 03:45
Laboratory Results
08/05/25
03:56
pH 7.45
pCO2 39
pO2 69 L
HCO3 27.1
O2 Delivery Level
Microbiology
08/05/25 06:30 Sputum Gram Stain - Preliminary
--- NOTE | 2025-08-05 13:47 | CM ---
Reviewed chart. Mr. Goodman was transferred to CVICU. Met with Mr. Goodman and his son to review discharge plans. We reviewed inpatient rehab. prior to going home. We reviewed acute Rehab. at [facility]. [facility] to
review when therapies restart. Prior to admission he was independent with adls and uses a rolling walker for ambulation He has a rolling walker and wheelchair at home. His spouse will be home to assist in his care if needed when he goes home. Will
need to see his current functional level to see if he will have any skilled care needs. Medical work-up in progress. The discharge plan is to go to some level [facility]hab[facility] when medically [facility]. .
[2025-08-05] MEDS: UNASYN IV (13:56)
[2025-08-05 14:00] LABS: Urine Character Slightly Cloudy (Clear)
[2025-08-05 15:55] LABS: Blood Urea Nitrogen 93 mg/dl (9-20); Calcium 8.7 mg/dl (8.4-10.2); Carbon Dioxide 27 mmol/L (22-30); Chloride 96 mmol/L (98-107); Estimated Creatinine Clearance 29 ml/min; Glucose 116 mg/dl (70-99); Potassium 4.1 mmol/L (3.5-5.1); Sodium 135 mmol/L (135-145); eGFR 24.43
[2025-08-05] MEDS: LIPITOR PO (16:13)
--- NOTE | 2025-08-05 16:25 | PTCARENOTE ---
Oxygen weaned by Respiratory therapist as tolerated. Pt incontinent of liquid brown BM. NGT flushed and patient. VSS. Assessment otherwise unchanged from prior
[2025-08-05 17:04] LABS: Glucose - Point of Care 117 mg/dl (70-99)
--- NOTE | 2025-08-05 20:00 | PTCARENOTE ---
Assumed care of patient at 1900 from prior shift RN after report given. Patient Alert and oriented, Uzbek speaking, assessment completed with aid of bike mechanic #[id number], Vital sign s stable, OOB in chair, denies chest pain,4/10 headache resolved IV
Tylenol. sinus rhythm and afib on monitor, BP stable, pulses pressent, +1 edema in lower extremities, Dual lumen PICC line in Right upper arm, patent, PIV #22 in L hand. Lung sounds diminished course on left.On hiFlow NC, 50L 75%, 97% o2 sat, NG
tube in Left nare, resecured @ 60 cc, on LIS minimal output, light green. Abdomen rounds, and distended, mild nausea noted at start of shift, but resolved.
[2025-08-05] MEDS: REMOVE LIDOCAINE PATCH REMOVE (20:47)
[2025-08-05] MEDS: PAMELOR PO (22:23)
--- NOTE | 2025-08-05 22:26 | PTCARENOTE ---
Assumed care of patient at 1900.
[2025-08-06] VITALS (28 sets, daily range): BP systolic 106–157; BP diastolic 60–81; PULSE 72–88; O2SAT 95–99; BMI 38.6
[2025-08-06] MEDS: UNASYN IV ×4 (01:54→22:58)
--- NOTE | 2025-08-06 03:06 | W.PN.CT ---
Today's Communication / Plan
-
-pod #6
-no significant issues overnight
-pOx 91-94% on high flow NC @ 75% fiO2, 50L -wean as tolerated
-on Unasyn for suspected PNA. Follow CXRs
-Chest CT on 08/05 with new small L pleural effusion, new opacification with air bronchograms in the right upper lobe and right lower lobes most likely representing pneumonia with tiny right pleural effusion. Mild pericardial thickening and/for tiny
pericardial effusion.
-postop ileus- currently NPO.
-Renal US on 08/06 pending
-diuresed with 40 iv bid Lasix on 08/05 - UO 800/1550 in 1224 hrs- continue
-Cr is improving - peak Cr 3.2 on 08/04 and 2.0 today (0.9 preop)
-maintain Aguilar
-encourage OOB
-encourage IS, acapella
-appreciate everyone's input
Assessment / Plan
-
# s/p CABG x4 (In situ DAMON to LAD, Ao to RSVG to OM 1 and OM 3 in sequence, Ao to RSVG to RPDA); Left atrial appendage ligation with 40 mm Atriclip; Modified left atrial maze procedure with Atricure Encompass device by Dr. Sanchez on 07/31/25, pod #6
# Intraop MARILEE: In preoperative MARILEE was performed showing normal EF greater than 50% without significant regional wall motion abnormalities though left ventricle is notably moderately hypertrophied. There is some sclerosis/calcification of the
noncoronary cusp of the aortic valve without significant stenosis and very mild AI. There is additionally trace to mild MR consistent with functional etiology. Postoperatively his echo is largely stable and he is noted to be in sinus rhythm though
notably slow rate in the 40s to 50s.
# Transferred from [facility] on 07/25/25 for CABG eval
# NSTEMI
# MVCAD
# HLD
# LVEF 60% without significant valvular disease per echo 07/28/25
# Paroxysmal A-fib/a-flutter on chronic Eliquis
# Chronic 1st degree AVB
# Suspected NICOLAS
# Class 2 obesity (BMI 38.1)
# HTN
# GERD
# Hx CVA with residual left sided weakness
# Bradycardia preop high 40s-mid 50s
# Acute postop blood loss anemia -s/p 450 cc Cell Saver
# Acute postop coagulopathy/ thrombocytopenia - s/p 2 FFPs, 2 unit platelets
# Acute postop atelectasis/Left pleural effusion
# Acute postop hypovolemia with subsequent hypervolemia
-Acute postop ileus
-Acute postop pulmonary insufficiency
-Acute postop hypoxemia
-Acute postop CAROL- Aguilar was reinserted
-Acute postop urinary retention
-Acute postop ileus causing emesis and likely aspiration
-Acute postop respiratory failure, suspected PNA/pneumonitis- started on Unasyn 08/05
Echo 08/04:
1. Normal left ventricular size and systolic function without regional wall motion abnormality. LVEF 60-65%.
2. No pericardial effusion.
3. No change compared to prior echocardiogram on 07/28/2025.
Chest CT 08/05:
-There is a new dense left lower lobe consolidation with air bronchograms and new small left pleural effusion.
-There is no opacification in the right upper lobe with air bronchograms and also the right lower lobe with air bronchograms suspicious for pneumonia. Tiny right pleural effusion is seen.
-Evaluation of the taz are markedly limited without intravenous contrast and with extension of opacification in the lungs centrally. There is no significant mediastinal or bilateral axillary lymphadenopathy. --There is mild pericardial thickening
and/for tiny pericardial effusion. Coronary artery calcifications are noted. There is a left atrial appendage closure device. Sternal wires are new in the interval since prior study.
-There is no pneumothorax.
-Nasogastric tube extends through the thoracic esophagus into the stomach.
-Degenerative changes are seen within the thoracic spine.
Discussed patient care with: Nursing and Care Team
Subjective
-
Date of Service: August 06, 2025
Objective Data
-
PT 14.5 Sec (11.4-14.6) 08/04/25 07:36
INR 1.10 08/04/25 07:36
APTT 29.8 Sec (23.4-35.0) 07/31/25 14:46
Vital Signs
Vital Signs
Temp Pulse Resp BP Pulse Ox
97.6 F 68 19 140/70 91
08/05/25 19:59 08/06/25 02:00 08/06/25 02:00 08/06/25 02:00 08/06/25 02:00
CT Intake/Output/Weight
08/05/25 08/05/25 08/06/25
06:59 18:59 06:59
Intake Total 210 / 310 100 / 310
Output Total 935 / 2600 1050 / 1410 360 / 1410
Balance -935 / -2500 -840 / -1100 -260 / -1100
SaO2: 91
Data Reviewed
-
Lab Results: Results Reviewed
Medications: Active Meds Reviewed
Chest X-Ray: Report Reviewed and Image Reviewed
ECG: Report Reviewed and Image Reviewed
[2025-08-06 03:11] LABS: Hematocrit 27.5 % (39.0-52.0); Hemoglobin 9.3 g/dL (13.0-18.0); Mean Corp Hgb Conc. 33.8 g/dL (33.0-37.0); Mean Corpuscular Volume 85.9 fL (80.0-94.0); Platelet Count 191 10^3/uL (130-400); Red Cell Dist. Width 14.5 % (11.5-14.5)
[2025-08-06 03:34] LABS: Blood Urea Nitrogen 91 mg/dl (9-20); Calcium 8.6 mg/dl (8.4-10.2); Carbon Dioxide 27 mmol/L (22-30); Chloride 99 mmol/L (98-107); Estimated Creatinine Clearance 40 ml/min; Glucose 111 mg/dl (70-99); Magnesium 3.5 mg/dl (1.6-2.3); Potassium 3.8 mmol/L (3.5-5.1); Sodium 137 mmol/L (135-145); eGFR 35.02
[2025-08-06] MEDS: ZOFRAN 4 MG IV (06:15)
--- NOTE | 2025-08-06 08:00 | PTCARENOTE ---
report received from previous RN at change of shift. science interpreter used for assessment. pt AAOX3- denies pain at this time. resting OOB in chair. SR with 1st degree block vs afib heart rate 60-70s. pulses palpable. +1 pitting edema in lower
extremities. Pt on high flow nasal cannula 50L, 70%. lung sounds diminished. pt educated on use of IS. active bowel sounds, abdomen obese round. NG tube left nare, 60 cm with green bilious output. seo draining yellow urine. surgical sites intact
TONAL REGULATOR. see worklist for full nursing assessment and interventions.
--- NOTE | 2025-08-06 08:17 | W.PN.CD ---
Today's Communication / Plan
-
- NPO for now
- Aspiration precautions
- Ileus and CAROL treatment
- Lasix and antibiotics.
Impression / Plan
-
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 Sanchez).
- CAROL - peaked Cr at 3.2 on 08/04. Now 2.0. TTE checked and unchanged with normal EF.
- OOB and IS
- Complicated post op course due to aspiration, CAROL and ileus.
Acute hypoxic resp failure
- patientt with increased O2 requirements ovenight and on high flow O2. CXR with increased opacity on right, pneumonia vs pseudotumor and patient with left effusion.
- Possible aspiration.
- Difficult to assess diuresis vs fluid for pulm edema v aspiration. Lasix for pulm edema and Antibiotics for now for PNA.
CAROL
- trended up to 3.2. may be at plateau, today 3.1
- patient with lower BPs 08/04/24. Now improved. Contineueto optimize hemodynamics
-TTE stable
- continue to monitor closley
Post Op Ileus
- OOB to chair.
- NPO for now.
CAD s/p CABG
-echo: EF 60%, mild AR
-DAPT currently, consider Plavix+Eliquis on discharge
-statin
-BB once BP recovers and CAROL resolves
AFIB, paroxysmal
-rate-controlled off meds (see below). Back in NSR as of 9/30 AM
-on Eliquis as OP, s/p heparin, when able to restart AC would drop to single antiplatelet
-amio per CTS
Bradycardia:
- trasnient bradycardai afib to junctional for 6 beats. Continue to montior
post op anemia
HTN:
-home losartan and amlodipine held for CAROL, restart as able
Hx CVA:
-on Eliquis as OP and statin
echo 08/04/25
1. Normal left ventricular size and systolic function without regional wall motion abnormality. LVEF 60-65%.
2. No pericardial effusion.
3. No change compared to prior echocardiogram on 07/28/2025.
Physical Exam
Vital Signs/Labs
Vital Signs
Temp Pulse Resp BP Pulse Ox
97.4 F 76 20 145/74 97
08/06/25 06:30 08/06/25 08:00 08/06/25 06:00 08/06/25 08:00 08/06/25 08:00
08/05/25 08/06/25 08/07/25
06:59 06:59 06:59
Actual Weight 112 kg 108.3 kg
08/06/25 03:01
08/06/25 02:56
PT 14.5 Sec (11.4-14.6) 08/04/25 07:36
INR 1.10 08/04/25 07:36
APTT 29.8 Sec (23.4-35.0) 07/31/25 14:46
Magnesium 3.5 mg/dl (1.6-2.3) H 08/06/25 02:56
Triglycerides 105 mg/dl (10-149) 07/26/25 04:39
LDL Cholesterol, Calc 66 mg/dl 07/26/25 04:39
VLDL Cholesterol, Calc 21 mg/dl (0-30) 07/26/25 04:39
HDL Cholesterol 44 mg/dl 07/26/25 04:39
08/04/25
21:10
Lqb-W-Sqmggxqotum Pept 4070
Physical Exam
Constitutional: No acute distress and Comfortable
EENT: Anicteric and Moist mucous membranes
Cardiovascular: Rhythm/rate is irregular, Pedal edema present, JVD present and Systolic murmur present
Respiratory: Respiratory effort normal and Crackles Present
GI: Soft, Non tender and Normal bowel sounds
Data Reviewed
-
Date of Service: August 06, 2025
Medical Decision Making: Reviewed Test Results, Test Interpretation and Review of Case with other Provider
EKG: Tracing Personally Visualized and interpreted
Echo: Report Reviewed by me
X-Ray/CT/US/MRI/NUC/PET: Report Reviewed by me
Medical Tests (PFT, Pathology etc): Discussed with Physician and Discussed with Nurse
Labs: Labs Reviewed by me
Old Records: Reviewed
Critical Care Time (in minutes): 35
[2025-08-06] MEDS: LIDOCAINE 4% PATCH TOPICAL (08:31)
[2025-08-06] MEDS: PROTONIX PO (08:32)
[2025-08-06] MEDS: SENOKOT PO ×2 (08:32→21:14)
[2025-08-06] MEDS: NEURONTIN PO ×2 (08:49→22:59)
[2025-08-06] MEDS: PLAVIX 75 MG PO (08:50)
[2025-08-06] MEDS: LOW STRENGTH ASPIRIN 81 MG PO (08:50)
[2025-08-06] MEDS: PACERONE PO (08:50)
[2025-08-06] MEDS: PROTONIX IV 40 MG IV (08:50)
[2025-08-06] MEDS: NSS (PRESERVATIVE FREE) 10 ML IV (08:50)
[2025-08-06 09:03] LABS: Glucose - Point of Care 103 mg/dl (70-99)
[2025-08-06] MEDS: NOVOLOG FLEXPEN-LOW RESISTANCE SC ×3 (09:09→18:08)
--- NOTE | 2025-08-06 09:21 | W.PN.PUL3 ---
Today's Communication / Plan
-
Remains on HFNC but weaning down, transition to midflow as tolerated
Encouraged OOB, IS--reviewed with son/team
Agree with IV abx, no need for thora, diurese as tolerated
Repeat CXR improving
Outpatient FU to be recommended for sleep study, but can hold off on PAP while inpatient due to Ileus and vomiting
PT/OT
Assessment
-
70-year-old gentleman with non-ST elevation VA, noted to have coronary artery disease, s/p coronary artery bypass graft, left atrial appendage ligation and modified left atrial maze procedure, POD # 2
CAD s/p Cabg
Acute pulmonary insufficiency, postop
Minimal basilar pulmonary interstitial changes--suspect scarring or minimal fibrotic changes
CAROL, baseline creat 1.1 now 3.1
New RUL opacity, suspect aspiration PNA given vomiting episode
Bibasilar atelectasis noted L>R
Minimal bilateral pleural effusions
Ileus s/p NGT placement
Other medical diagnoses:
- HTN
- HLD
- H/o CVA with residual left hemiparesis
- Chronic A Fib on Eliquis
- GERD
- Obesity, BMI 38.4
Plan
Patient extubated to 4 L nasal cannula, saturating 95%. No respiratory distress was noted.
Progressive hypoxemia noted, now on HFNC --transition back to midflow as able today
No prior known history of lung disease, former smoker quit >40 years ago
Reviewed with son importance of IS
Titrated off pressors per protocol
ECHO reviewed with normal function
Lasix is recommended given some volume overload
CXR improving atelectasis, particularly in the right lower lobe, improved lung volumes.
Left lower lobe atelectasis persists--needs aggressive IS/PT/rehab
BMI likely contributing
CT chest today--aspiration and atelectasis, no need for thoracentesis as fluid is very minimal
Lasix, IS and adding IV abx
Repeat CXR this AM improving
No prior known history of pulmonary disease--will need OP FU, suspect underlying NICOLAS
Son states he snores/gasps--using CPAP while inpatient but can hold for ileus and vomiting
No prior PFTs available for review
Can add nebulizers if needed
Aspiration precautions
Encourage incentive spirometry, OOB/ambulation/early mobility
Advance diet as tolerated following extubation
GI prophylaxis: Protonix
Monitor critical I/O's
Aguilar/chest tube output
Hb/platelets postoperatively, mild drift
Trend CBC for now
Can transfuse if indicated for Hb <7, plt <50 in surgical patients
DVT prophylaxis including SCDs
Insulin protocol initiated and ongoing
Transition to SQ/off as indicated per team
Outpatient FU for sleep study recommended
Data:
EKG 06/2025: Sinus bradycardia with first degree heart block
ECHO 06/2025: 1. Normal left ventricular size, normal systolic function, and no wall motion abnormalities.
2. Moderate concentric LVH.
3. Dilated right ventricle with normal systolic function.
4. Aortic valve sclerosis with mild aortic regurgitation. No significant aortic stenosis.
5. Trace TR, PA pressure could not be calculated
CT Chest 06/2025: Mild to moderate calcification of the aortic arch. No evidence for thoracic aortic aneurysm.
Coronary artery calcifications are present.
Moderate calcification in the region of the aortic valve.
Increased interstitial markings within both lung bases, which is likely mild interstitial fibrosis.
Status post cholecystectomy. Fatty infiltration of the liver.
LHC 06/2025: Eccentric distal left main lesion, significant ostial and proximal LAD lesion, significant OM1, OM2, and OM3 lesions, significant proximal RCA and 2 proximal RPL lesions.
Total time spent on this consultation/encounter __51__ minutes which includes review of history, physical exam, medications, laboratory data, personal review of imaging, extensive review of outpatient records, discussion with care team and
respiratory therapy.
Subjective Data
-
Date of Service:
Date of Service: August 06, 2025
Chief Complaint: Pulmonary Follow Up
Subjective:
Doing well, remains on HFNC but weaning down
No new complaints
Objective Data
Data Reviewed
Vital Signs / I&O / Oxygen:
Vital Signs
Temp Pulse Resp BP Pulse Ox
97.5 F 79 20 145/74 97
08/06/25 08:00 08/06/25 08:40 08/06/25 06:00 08/06/25 08:00 08/06/25 08:40
Intake and Output
08/05/25 08/06/25 08/07/25
06:59 06:59 06:59
Intake Total 100 / 100 600 / 600 220 / 220
Output Total 2600 / 2600 2235 / 2235 550 / 550
Balance -2500 / -2500 -1635 / -1635 -330 / -330
SaO2 [P-SIMV] 93
SaO2 97
Nasal Cannula flow liters per 50
minute
Physical Exam
General: Comfortable and Other (NAD)
HEENT: Normocephalic, Anicteric and Moist Mucous Membranes
Cardiovascular: S1-S2 and Regular Rhythm
Respiratory: Clear (overall diminished) and Non-Labored Respirations
GI: Soft, Non Distended and Non Tender
Neurology: Awake, Alert, Oriented and No Motor Deficits
Skin: Warm and Dry
Labs/Micro/Reports
Lab Data
08/06/25 03:01
08/06/25 02:56
Microbiology
08/05/25 06:30 Sputum Respiratory Culture - Preliminary
Gram negative bacilli
08/05/25 06:30 Sputum Gram Stain - Preliminary
[2025-08-06] MEDS: DULCOLAX 10 MG RECTAL (10:05)
--- NOTE | 2025-08-06 11:57 | W.PN.NEPH.PH ---
Today's Communication / Plan
-
keep seo and follow labs
Assessment/Plan
-
Assessment
CAD status post CABG x 4
CAROL
Urinary retention
Ileus
Respiratory insufficiency
Paroxysmal atrial fibrillation
Hypotension
History of stroke
Plan
CAROL-suspect retention and prerenal U na low
keep seo for now , UA microhematuria but seo sample
cr improving, pending renal US
holding ARB and avoid nephrotoxins
BP improving with out midodrine
while NPO lasix prn only, CXR noted and weaning O2
Discussed with son
-
-
Date of Service: August 06, 2025
CC / HPI / ROS
-
Chief Complaint:
CAROL
History of Present Illness:
cr improving to 2, k normal
wt is down
BP stable
Review of Systems:
remains NPO on NGT
no sob at rest
abd remains distended
Labs
-
Labs:
WBC 9.4 10^3/uL (4.8-10.8) 08/06/25 03:01
RBC 3.20 10^6/uL (4.70-6.10) L 08/06/25 03:01
Hgb 9.3 g/dL (13.0-18.0) L 08/06/25 03:01
Hct 27.5 % (39.0-52.0) L 08/06/25 03:01
Plt Count 191 10^3/uL (130-400) 08/06/25 03:01
Sodium 137 mmol/L (135-145) 08/06/25 02:56
Potassium 3.8 mmol/L (3.5-5.1) 08/06/25 02:56
Chloride 99 mmol/L (98-107) 08/06/25 02:56
Carbon Dioxide 27 mmol/L (22-30) 08/06/25 02:56
BUN 91 mg/dl (9-20) H 08/06/25 02:56
Creatinine 2.0 mg/dL (0.7-1.3) H 08/06/25 02:56
eGFR 35.02 08/06/25 02:56
Glucose 111 mg/dl (70-99) H 08/06/25 02:56
Calcium 8.6 mg/dl (8.4-10.2) 08/06/25 02:56
Evl-J-Snlncodaubf Pept 4070 pg/ml 08/04/25 21:10
Albumin 4.0 g/dl (3.5-5.0) 08/04/25 14:36
Physical Exam
-
Vital Signs:
Vital Signs
Temp Pulse Resp BP Pulse Ox
97.5 F 78 20 148/73 97
08/06/25 08:00 08/06/25 10:40 08/06/25 06:00 08/06/25 10:00 08/06/25 10:55
Cardiovascular:: Regular rate and rhythm
Respiratory:: Bilateral: CTA (decreased BS)
Lung Excursion:: Normal
Abdomen:: Distended, Nontender and Soft
Extremity Edema:: +1: Bilateral:
Seo Catheter: Yes
--- NOTE | 2025-08-06 12:00 | PTCARENOTE ---
pt resting comfortably OOB in chair. weaned off high flow to midflow nasal cannula. pt tolerating well. no further changes in assessment noted.
--- NOTE | 2025-08-06 13:37 | VATNOTE ---
PCN contacted via [employer] to assess clinical indication for PICC line, requesting D/C order if no needs. Awaiting response, will continue to follow.
[2025-08-06] MEDS: NSS IV (13:45)
[2025-08-06 13:50] LABS: Glucose - Point of Care 121 mg/dl (70-99)
--- NOTE | 2025-08-06 15:40 | CM ---
Reviewed chart. Met with Mr. Goodman and his son to review discharge plans. He states he spoke with his spouse and Mr. Goodman and they have selected to go to [facility] at [place] if approved for admission. Telephone call to [facility] Liaison
to make the referral. Referral sent to [facility] Prior to admission he was independent with adls and uses a rolling walker for ambulation He has a rolling walker and wheelchair at home. His spouse will be home to assist in his care if needed
when he goes home. Will need to see his current functional level to see if he will have any skilled care needs. Medical work-up in progress. The discharge plan is to go to some level of rehab. hopefully [facility] when medically stable. .
--- NOTE | 2025-08-06 16:00 | PTCARENOTE ---
vitals stable. pt ambulated in room with 1 assist and rolling walker. 6L midflow nasal cannula, sat 94%. NG tube currently clamped for clamp trial.
[2025-08-06] MEDS: PACERONE 200 MG PO ×2 (16:15→22:58)
[2025-08-06] MEDS: NEURONTIN 100 MG PO (16:15)
[2025-08-06] MEDS: LIPITOR 40 MG PO (16:15)
[2025-08-06] MEDS: TYLENOL 650 MG PO (16:50)
[2025-08-06 18:07] LABS: Glucose - Point of Care 104 mg/dl (70-99)
--- NOTE | 2025-08-06 18:25 | PTCARENOTE ---
minimal output (about 50 ml) from NG after clamp trial- order received to dc NG tube
[2025-08-06] MEDS: LOPRESSOR 12.5 MG PO (21:14)
[2025-08-06] MEDS: FLEXERIL 5 MG PO (21:14)
[2025-08-06] MEDS: REMOVE LIDOCAINE PATCH REMOVE (21:14)
--- NOTE | 2025-08-06 21:25 | PTCARENOTE ---
Assumed care of pt from effie RN. Pt Thai speaking. Strike Off Machine Operator Ipad used at bedside. Pt oriented to person, place, and time. A-fib on the tele monitor. HR 70s. BP stable. Palpable pulses throughout. +1 B/L LE edema. Trace B/L UE edema. Pt on
8L midflow NC. POX 94-96%. Lung sounds diminished in B/L bases. Deep breathing and IS encouraged. Denies SOB or trouble breathing. Abdomen round/obese/slightly distended. Pt denies nausea at this time. Pt NPO s/p NG tube removal. Per CT ADRIEN - okay
to give ice chips and beta joseluis/amiodarone w/ small sip of water. +BS x4. Aguilar catheter intact and draining yellow urine. All surgical sites stable. L hand 22 intact. Pt updated w/ plan of care for night. Questions encouraged and answered via
country director. See worklist for full nursing assessment and interventions. Call breen within reach.
[2025-08-06] MEDS: PAMELOR PO (22:58)
[2025-08-07] VITALS (27 sets, daily range): BP systolic 107–160; BP diastolic 51–119; PULSE 77–78; O2SAT 95–97; BMI 37.6
--- NOTE | 2025-08-07 00:33 | PTCARENOTE ---
No acute changes in assessment. Pt remains a-fib on the tele monitor. HR 70s. BP stable. 95% on 8 L midflow NC. Aguilar catheter intact and draining yellow urine. Pt denies nausea at this time. No c/o pain. Call breen within reach.
--- NOTE | 2025-08-07 04:00 | PTCARENOTE ---
Pt reassessed. A-fib on the tele monitor. HR 70-80s. BP stable. 8 L midflow. POX 93-94%. Pt w/ productive cough. Thick bloody sputum. PA aware. Mucinex ordered. Denies SOB or trouble breathing. Aguilar catheter intact and draining yellow urine. No
nausea at this time. Labs drawn and sent. Repositioned as needed. Tolerating ice chips. Call breen within reach.
[2025-08-07 04:07] LABS: Hematocrit 32.7 % (39.0-52.0); Hemoglobin 10.9 g/dL (13.0-18.0); Mean Corp Hgb Conc. 33.3 g/dL (33.0-37.0); Mean Corpuscular Volume 86.7 fL (80.0-94.0); Platelet Count 234 10^3/uL (130-400); Red Cell Dist. Width 14.6 % (11.5-14.5)
[2025-08-07 04:25] LABS: Blood Urea Nitrogen 65 mg/dl (9-20); Calcium 8.0 mg/dl (8.4-10.2); Carbon Dioxide 29 mmol/L (22-30); Chloride 106 mmol/L (98-107); Estimated Creatinine Clearance 65 ml/min; Glucose 110 mg/dl (70-99); Magnesium 3.2 mg/dl (1.6-2.3); Potassium 3.9 mmol/L (3.5-5.1); Sodium 141 mmol/L (135-145); eGFR > 60.00
[2025-08-07] MEDS: UNASYN IV ×4 (04:29→21:32)
--- NOTE | 2025-08-07 07:43 | W.PN.CT ---
Today's Communication / Plan
-
-pod #7
-no significant issues overnight, improving
-pOx 95% on 8L mid-flow
-had several BMs, NG tube was dcd 08/06
-on Unasyn for suspected PNA. Follow CXRs
-Cr is improving- peak Cr 3.2 on 08/04 and 1.2 today (0.9 preop)
-maintain Aguilar
-encourage OOB
-encourage IS (upto 1500 so far), acapella, chest PT, started Robitussin for thick secretions
-appreciate everyone's input
Assessment / Plan
-
# s/p CABG x4 (In situ DAMON to LAD, Ao to RSVG to OM 1 and OM 3 in sequence, Ao to RSVG to RPDA); Left atrial appendage ligation with 40 mm Atriclip; Modified left atrial maze procedure with Atricure Encompass device by Dr. Sanchez on 07/31/25, pod #7
# Intraop MARILEE: In preoperative MARILEE was performed showing normal EF greater than 50% without significant regional wall motion abnormalities though left ventricle is notably moderately hypertrophied. There is some sclerosis/calcification of the
noncoronary cusp of the aortic valve without significant stenosis and very mild AI. There is additionally trace to mild MR consistent with functional etiology. Postoperatively his echo is largely stable and he is noted to be in sinus rhythm though
notably slow rate in the 40s to 50s.
# Transferred from [facility] on 07/25/25 for CABG eval
# NSTEMI
# MVCAD
# HLD
# LVEF 60% without significant valvular disease per echo 07/28/25
# Paroxysmal A-fib/a-flutter on chronic Eliquis
# Chronic 1st degree AVB
# Suspected NICOLAS
# Class 2 obesity (BMI 38.1)
# HTN
# GERD
# Hx CVA with residual left sided weakness
# Bradycardia preop high 40s-mid 50s
# Acute postop blood loss anemia -s/p 450 cc Cell Saver
# Acute postop coagulopathy/ thrombocytopenia - s/p 2 FFPs, 2 unit platelets
# Acute postop atelectasis/Left pleural effusion
# Acute postop hypovolemia with subsequent hypervolemia
-Acute postop ileus
-Acute postop pulmonary insufficiency
-Acute postop hypoxemia
-Acute postop CAROL- Aguilar was reinserted
-Acute postop urinary retention
-Acute postop ileus causing emesis and likely aspiration
-Acute postop respiratory failure, suspected PNA/pneumonitis- started on Unasyn 08/05
Echo 08/04:
1. Normal left ventricular size and systolic function without regional wall motion abnormality. LVEF 60-65%.
2. No pericardial effusion.
3. No change compared to prior echocardiogram on 07/28/2025.
Chest CT 08/05:
-There is a new dense left lower lobe consolidation with air bronchograms and new small left pleural effusion.
-There is no opacification in the right upper lobe with air bronchograms and also the right lower lobe with air bronchograms suspicious for pneumonia. Tiny right pleural effusion is seen.
-Evaluation of the taz are markedly limited without intravenous contrast and with extension of opacification in the lungs centrally. There is no significant mediastinal or bilateral axillary lymphadenopathy. --There is mild pericardial thickening
and/for tiny pericardial effusion. Coronary artery calcifications are noted. There is a left atrial appendage closure device. Sternal wires are new in the interval since prior study.
-There is no pneumothorax.
-Nasogastric tube extends through the thoracic esophagus into the stomach.
-Degenerative changes are seen within the thoracic spine.
Discussed patient care with: Nursing and Care Team
Subjective
-
Date of Service: August 07, 2025
Objective Data
-
Lab Results
08/07/25 03:49
08/07/25 03:49
PT 14.5 Sec (11.4-14.6) 08/04/25 07:36
INR 1.10 08/04/25 07:36
APTT 29.8 Sec (23.4-35.0) 07/31/25 14:46
Vital Signs
Vital Signs
Temp Pulse Resp BP Pulse Ox
98.3 F 86 18 135/76 96
08/07/25 04:02 08/07/25 07:00 08/07/25 04:02 08/07/25 06:00 08/07/25 06:20
CT Intake/Output/Weight
08/06/25 08/07/25 08/07/25
18:59 06:59 18:59
Intake Total 620 / 620
Output Total 1750 / 2900 1150 / 2900
Balance -1130 / -2280 -1150 / -2280
SaO2: 96
Physical Exam
-
General: Awake and AOx3
Cardiovascular: Irregular rate & rhythm, No Murmurs and No Rub
Respiratory: Decreased Breath Sounds
Sternum: Stable
Incision: Clean, Dry and Intact
Extremities: Edema +1
Abdomen: softer, mildly distended, + bowel sounds, nontender
Data Reviewed
-
Lab Results: Results Reviewed
Medications: Active Meds Reviewed
Chest X-Ray: Report Reviewed and Image Reviewed
ECG: Report Reviewed and Image Reviewed
[2025-08-07 08:30] LABS: Glucose - Point of Care 118 mg/dl (70-99)
[2025-08-07] MEDS: NOVOLOG FLEXPEN-LOW RESISTANCE SC ×2 (08:31→15:40)
[2025-08-07] MEDS: PROTONIX 40 MG PO (08:44)
[2025-08-07] MEDS: SENOKOT 8.6 MG PO ×2 (08:44→19:17)
[2025-08-07] MEDS: LIDOCAINE 4% PATCH 1 PATCH TOPICAL (08:44)
[2025-08-07] MEDS: PACERONE 200 MG PO ×3 (08:44→21:26)
[2025-08-07] MEDS: LOW STRENGTH ASPIRIN 81 MG PO (08:44)
[2025-08-07] MEDS: ROBITUSSIN 200 MG PO ×3 (08:45→21:26)
[2025-08-07] MEDS: LOPRESSOR 12.5 MG PO ×2 (08:45→19:17)
[2025-08-07] MEDS: NEURONTIN 100 MG PO ×3 (08:45→21:26)
[2025-08-07] MEDS: PLAVIX 75 MG PO (08:45)
[2025-08-07] MEDS: FLUSH (NSS) 1 FLUSH IV (08:48)
[2025-08-07] MEDS: PROTONIX IV IV (08:58)
[2025-08-07] MEDS: NSS (PRESERVATIVE FREE) IV (08:58)
--- NOTE | 2025-08-07 09:31 | W.PN.PUL3 ---
Today's Communication / Plan
-
Doing well, off HFNC now on 8L NC
Continue OOB, PT, IS
Continue IV diuresis
Can stop abx after total of 5 days, reviewed with team
Update at bedside (and son on phone)
Assessment
-
70-year-old gentleman with non-ST elevation [place], noted to have coronary artery disease, s/p coronary artery bypass graft, left atrial appendage ligation and modified left atrial maze procedure, POD # 2
CAD s/p Cabg
Acute pulmonary insufficiency, postop
Minimal basilar pulmonary interstitial changes--suspect scarring or minimal fibrotic changes
CAROL, baseline creat 1.1 now 3.1
New RUL opacity, suspect aspiration PNA given vomiting episode
Bibasilar atelectasis noted L>R
Minimal bilateral pleural effusions
Ileus s/p NGT placement
Other medical diagnoses:
- HTN
- HLD
- H/o CVA with residual left hemiparesis
- Chronic A Fib on Eliquis
- GERD
- Obesity, BMI 38.4
Plan
Patient extubated to 4 L nasal cannula, saturating 95%. No respiratory distress was noted.
Progressive hypoxemia noted, now on HFNC --transitioned back to midflow, now on 8L
Wean further as tolerated
No prior known history of lung disease, former smoker quit >40 years ago
Reviewed with son importance of IS
Titrated off pressors per protocol
ECHO reviewed with normal function
Lasix is recommended given some volume overload
CXR improving atelectasis, particularly in the right lower lobe, improved lung volumes.
Left lower lobe atelectasis persists--needs aggressive IS/PT/rehab
BMI likely contributing
CT chest today--aspiration and atelectasis, no need for thoracentesis as fluid is very minimal
Lasix, IS and adding IV abx
Repeat CXR this AM improving
Can complete abx x 5 days
No prior known history of pulmonary disease--will need OP FU, suspect underlying NICOLAS
Son states he snores/gasps--using CPAP while inpatient but can hold for ileus and vomiting
No prior PFTs available for review
Can add nebulizers if needed
Aspiration precautions
Encourage incentive spirometry, OOB/ambulation/early mobility
Advance diet as tolerated following extubation
GI prophylaxis: Protonix
Monitor critical I/O's
Aguilar/chest tube output
Hb/platelets postoperatively, mild drift
Trend CBC for now
Can transfuse if indicated for Hb <7, plt <50 in surgical patients
DVT prophylaxis including SCDs
Outpatient FU for sleep study recommended
Data:
EKG 06/2025: Sinus bradycardia with first degree heart block
ECHO 06/2025: 1. Normal left ventricular size, normal systolic function, and no wall motion abnormalities.
2. Moderate concentric LVH.
3. Dilated right ventricle with normal systolic function.
4. Aortic valve sclerosis with mild aortic regurgitation. No significant aortic stenosis.
5. Trace TR, PA pressure could not be calculated
CT Chest 06/2025: Mild to moderate calcification of the aortic arch. No evidence for thoracic aortic aneurysm.
Coronary artery calcifications are present.
Moderate calcification in the region of the aortic valve.
Increased interstitial markings within both lung bases, which is likely mild interstitial fibrosis.
Status post cholecystectomy. Fatty infiltration of the liver.
C 06/2025: Eccentric distal left main lesion, significant ostial and proximal LAD lesion, significant OM1, OM2, and OM3 lesions, significant proximal RCA and 2 proximal RPL lesions.
Total time spent on this consultation/encounter __51__ minutes which includes review of history, physical exam, medications, laboratory data, personal review of imaging, extensive review of outpatient records, discussion with care team and
respiratory therapy.
Subjective Data
-
Date of Service:
Date of Service: August 07, 2025
Chief Complaint: Pulmonary Follow Up
Subjective:
No new complaints
Transitioned to midflow 8L
at bedside
Objective Data
Data Reviewed
Vital Signs / I&O / Oxygen:
Vital Signs
Temp Pulse Resp BP Pulse Ox
98.3 F 85 20 152/81 98
08/07/25 08:00 08/07/25 08:44 08/07/25 08:00 08/07/25 08:44 08/07/25 08:20
Intake and Output
08/06/25 08/07/25 08/08/25
06:59 06:59 06:59
Intake Total 600 / 600 620 / 620
Output Total 2235 / 2235 2900 / 2900
Balance -1635 / -1635 -2280 / -2280
SaO2 [P-SIMV] 93
SaO2 98
Nasal Cannula flow liters per 8
minute
Physical Exam
General: Comfortable and Other (NAD)
HEENT: Normocephalic, Anicteric and Moist Mucous Membranes
Cardiovascular: S1-S2 and Regular Rhythm
Respiratory: Clear (overall diminished) and Non-Labored Respirations
GI: Soft, Non Distended and Non Tender
Neurology: Awake, Alert, Oriented and No Motor Deficits
Skin: Warm and Dry
Labs/Micro/Reports
Lab Data
08/07/25 03:49
08/07/25 03:49
Microbiology
08/05/25 06:30 Sputum Respiratory Culture - Final
Escherichia coli
08/05/25 06:30 Sputum Gram Stain - Final
[2025-08-07] MEDS: KCL 10 MEQ PO (10:01)
[2025-08-07] MEDS: LASIX 40 MG IV (10:02)
--- NOTE | 2025-08-07 10:11 | PTCARENOTE ---
Pt AAOx3 pt was a x2 assist to chair he moved great, worked with PT OT, X2 BM's
[2025-08-07 11:13] LABS: Glucose - Point of Care 171 mg/dl (70-99)
[2025-08-07] MEDS: NOVOLOG FLEXPEN-LOW RESISTANCE 1 UNITS SC (11:16)
--- NOTE | 2025-08-07 12:00 | PTCARENOTE ---
Pt AAOx3 in chair, Aguilar out, 4LNC vital signs stable
--- NOTE | 2025-08-07 12:01 | W.PN.NEPH.PH ---
Today's Communication / Plan
-
VT and cont lasix
labs in am
Assessment/Plan
-
Assessment
CAD status post CABG x 4
CAROL
Urinary retention
Ileus
Respiratory insufficiency
Paroxysmal atrial fibrillation
Hypotension
History of stroke
Plan
CAROL-suspect retention and prerenal U na low
UA microhematuria but seo sample
cr improving to 1.2, non acute renal US, ok for VT
holding ARB and avoid nephrotoxins
BP improving with out midodrine
cont lasix , wean O2 as able
Discussed with son on phone
-
-
Date of Service: August 07, 2025
CC / HPI / ROS
-
Chief Complaint:
CAROL
History of Present Illness:
cr improving to 1.2, k normal
wt is down
BP stable
Review of Systems:
eating today
no sob at rest
on 8lit mid flow O2
Labs
-
Labs:
WBC 12.2 10^3/uL (4.8-10.8) H 08/07/25 03:49
RBC 3.77 10^6/uL (4.70-6.10) L 08/07/25 03:49
Hgb 10.9 g/dL (13.0-18.0) L 08/07/25 03:49
Hct 32.7 % (39.0-52.0) L 08/07/25 03:49
Plt Count 234 10^3/uL (130-400) D 08/07/25 03:49
Sodium 141 mmol/L (135-145) 08/07/25 03:49
Potassium 3.9 mmol/L (3.5-5.1) 08/07/25 03:49
Chloride 106 mmol/L (98-107) 08/07/25 03:49
Carbon Dioxide 29 mmol/L (22-30) 08/07/25 03:49
BUN 65 mg/dl (9-20) H 08/07/25 03:49
Creatinine 1.2 mg/dL (0.7-1.3) 08/07/25 03:49
eGFR > 60.00 08/07/25 03:49
Glucose 110 mg/dl (70-99) H 08/07/25 03:49
Calcium 8.0 mg/dl (8.4-10.2) L 08/07/25 03:49
Qka-W-Qkyaoiyxpvr Pept 4070 pg/ml 08/04/25 21:10
Albumin 4.0 g/dl (3.5-5.0) 08/04/25 14:36
Physical Exam
-
Vital Signs:
Vital Signs
Temp Pulse Resp BP Pulse Ox
98.2 F 73 20 116/81 97
08/07/25 11:24 08/07/25 11:20 08/07/25 08:00 08/07/25 11:00 08/07/25 11:20
Cardiovascular:: Regular rate and rhythm
Respiratory:: Bilateral: Coarse
Lung Excursion:: Normal
Abdomen:: Distended, Nontender and Soft
Extremity Edema:: +1: Bilateral:
Seo Catheter: Yes
[2025-08-07] MEDS: NSS IV (13:17)
[2025-08-07] MEDS: ROBITUSSIN PO (13:17)
--- NOTE | 2025-08-07 14:58 | CM ---
Reviewed chart. Met with and Mrs. Goodamn to review discharge plans. We reviewed rehab at [facility], at [place]. [facility] to updated her with tentative discharge date. Prior to admission he was independent with
adls and uses a rolling walker for ambulation He has a rolling walker and wheelchair at home. His spouse will be home to assist in his care if needed when he goes home. Will need to see his current functional level to see if he will have any
skilled care needs. Medical work-up in progress. The discharge plan is [facility] some level [facility] [place] [facility] medically [facility]. .
Initialized on 08/06/25 15:40 - END OF NOTE
--- NOTE | 2025-08-07 15:09 | W.PN.CD ---
Today's Communication / Plan
-
- ADAT
- Aspiration precautions
- Ileus and CAROL treatment
- Lasix and antibiotics.
Impression / Plan
-
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 Sanchez).
- CAROL - peaked Cr at 3.2 on 08/04. Now normalized. TTE checked and unchanged with normal EF.
- OOB and IS
- Complicated post op course due to aspiration, CAROL and ileus.
Acute hypoxic resp failure, imporved
- patient with increased O2 requirements ovenight and on high flow O2. CXR with increased opacity on right, pneumonia vs pseudotumor and patient with left effusion.
- Possible aspiration.
- Difficult to assess diuresis vs fluid for pulm edema v aspiration. Lasix for pulm edema and Antibiotics for now for PNA.
CAROL, resolved
- trended up to 3.2. may be at plateau, now normalized
- patient with lower BPs 08/04/24, possible what caused CAROL.
- TTE stable
- continue to monitor closley
Post Op Ileus
- OOB to chair.
- ADAT
CAD s/p CABG
-echo: EF 60%, mild AR
-DAPT currently, consider Plavix+Eliquis on discharge
-statin
-BB once BP recovers and CAROL resolves
AFIB, paroxysmal
-rate-controlled off meds (see below). Back in NSR as of 9/30 AM
-on Eliquis as OP, s/p heparin, when able to restart AC would drop to single antiplatelet
-amio per CTS
Bradycardia:
- trasnient bradycardai afib to junctional for 6 beats. Continue to montior
post op anemia
HTN:
-home losartan and amlodipine held for CAROL, restart as able
Hx CVA:
-on Eliquis as OP and statin
echo 08/04/25
1. Normal left ventricular size and systolic function without regional wall motion abnormality. LVEF 60-65%.
2. No pericardial effusion.
3. No change compared to prior echocardiogram on 07/28/2025.
Physical Exam
Vital Signs/Labs
Vital Signs
Temp Pulse Resp BP Pulse Ox
36.8 C 75 20 128/79 94
08/07/25 11:24 08/07/25 15:00 08/07/25 08:00 08/07/25 15:00 08/07/25 15:00
08/06/25 08/07/25 08/08/25
06:59 06:59 06:59
Actual Weight 108.3 kg 105.6 kg
08/07/25 03:49
08/07/25 03:49
PT 14.5 Sec (11.4-14.6) 08/04/25 07:36
INR 1.10 08/04/25 07:36
APTT 29.8 Sec (23.4-35.0) 07/31/25 14:46
Magnesium 3.2 mg/dl (1.6-2.3) H 08/07/25 03:49
Triglycerides 105 mg/dl (10-149) 07/26/25 04:39
LDL Cholesterol, Calc 66 mg/dl 07/26/25 04:39
VLDL Cholesterol, Calc 21 mg/dl (0-30) 07/26/25 04:39
HDL Cholesterol 44 mg/dl 07/26/25 04:39
08/04/25
21:10
Dsa-R-Vjrytsdbefr Pept 4070
Physical Exam
Constitutional: Comfortable
Cardiovascular: Rhythm & rate is regular
Respiratory: Respiratory effort normal
Neuro/Psych: AO x 3
Data Reviewed
-
Date of Service: August 07, 2025
Medical Decision Making: Reviewed Test Results
Labs: Labs Reviewed by me
[2025-08-07 15:39] LABS: Glucose - Point of Care 134 mg/dl (70-99)
--- NOTE | 2025-08-07 16:13 | PTCARENOTE ---
Pt was OOB to Chair most of today just now went back to bed, Pt recent bladder scan was 343ml not complaining of discomfort or pain, Pt Now on 2LNC Vital signs are stable.
[2025-08-07] MEDS: LIPITOR 40 MG PO (17:04)
[2025-08-07] MEDS: REMOVE LIDOCAINE PATCH REMOVE (19:17)
[2025-08-07 20:58] LABS: Glucose - Point of Care 116 mg/dl (70-99)
[2025-08-07] MEDS: PAMELOR 10 MG PO ×2 (21:26)
--- NOTE | 2025-08-07 23:05 | PTCARENOTE ---
ax4 lungs diminsihed0 4 liters to maintain sats- voiding urine both urinal and incontinent. afib afebrile bp wnl. all incisions intact see worklist
[2025-08-08] VITALS (25 sets, daily range): BP systolic 102–153; BP diastolic 61–128; PULSE 63; O2SAT 94; BMI 38.0
--- NOTE | 2025-08-08 00:43 | PTCARENOTE ---
weaned to 2 liters- ambulated to br w as of one. pt had large bm and voiding 250 urine- was dyspneic on exertion to br with desats to 80's but recovered quickly
--- NOTE | 2025-08-08 01:10 | W.PN.CT ---
Today's Communication / Plan
-
No issues�overnight�
Ileus�and aspiration PNA�(resolving)�=�weaned o2�for O2 sat > 90; Held CPAP overnight for�mild�epistaxis from�NGT�tube,� continue Unasyn��
Current meds�(Amiodarone, ASA, Lipitor, Plavix, Lasix, Gabapentin, metoprolol,�protonix)�
Continue�Diuresis�/ (Lasix 40 mg)�
Encourage IS, OOB�
Assessment / Plan
-
# s/p CABG x4 (In situ DAMON to LAD, Ao to RSVG to OM 1 and OM 3 in sequence, Ao to RSVG to RPDA); Left atrial appendage ligation with 40 mm Atriclip; Modified left atrial maze procedure with Atricure Encompass device by Dr. Sanchez on 07/31/25, pod #8
# Intraop MARILEE: In preoperative MARILEE was performed showing normal EF greater than 50% without significant regional wall motion abnormalities though left ventricle is notably moderately hypertrophied. There is some sclerosis/calcification of the
noncoronary cusp of the aortic valve without significant stenosis and very mild AI. There is additionally trace to mild MR consistent with functional etiology. Postoperatively his echo is largely stable and he is noted to be in sinus rhythm though
notably slow rate in the 40s to 50s.
# Transferred from [facility] on 07/25/25 for CABG eval
# NSTEMI
# MVCAD
# HLD
# LVEF 60% without significant valvular disease per echo 07/28/25
# Paroxysmal A-fib/a-flutter on chronic Eliquis
# Chronic 1st degree AVB
# Suspected NICOLAS
# Class 2 obesity (BMI 38.1)
# HTN
# GERD
# Hx CVA with residual left sided weakness
# Bradycardia preop high 40s-mid 50s
# Acute postop blood loss anemia -s/p 450 cc Cell Saver
# Acute postop coagulopathy/ thrombocytopenia - s/p 2 FFPs, 2 unit platelets
# Acute postop atelectasis/Left pleural effusion
# Acute postop hypovolemia with subsequent hypervolemia
-Acute postop ileus
-Acute postop pulmonary insufficiency
-Acute postop hypoxemia
-Acute postop CAROL- Aguilar was reinserted
-Acute postop urinary retention
-Acute postop ileus causing emesis and likely aspiration
-Acute postop respiratory failure, suspected PNA/pneumonitis- started on Unasyn 08/05
Echo 08/04:
1. Normal left ventricular size and systolic function without regional wall motion abnormality. LVEF 60-65%.
2. No pericardial effusion.
3. No change compared to prior echocardiogram on 07/28/2025.
Chest CT 08/05:
-There is a new dense left lower lobe consolidation with air bronchograms and new small left pleural effusion.
-There is no opacification in the right upper lobe with air bronchograms and also the right lower lobe with air bronchograms suspicious for pneumonia. Tiny right pleural effusion is seen.
-Evaluation of the taz are markedly limited without intravenous contrast and with extension of opacification in the lungs centrally. There is no significant mediastinal or bilateral axillary lymphadenopathy. --There is mild pericardial thickening
and/for tiny pericardial effusion. Coronary artery calcifications are noted. There is a left atrial appendage closure device. Sternal wires are new in the interval since prior study.
-There is no pneumothorax.
-Nasogastric tube extends through the thoracic esophagus into the stomach.
-Degenerative changes are seen within the thoracic spine.
Subjective
-
Date of Service: August 08, 2025
Objective Data
-
Lab Results
08/07/25 03:49
PT 14.5 Sec (11.4-14.6) 08/04/25 07:36
INR 1.10 08/04/25 07:36
APTT 29.8 Sec (23.4-35.0) 07/31/25 14:46
Vital Signs
Vital Signs
Temp Pulse Resp BP Pulse Ox
98.1 F 69 20 112/78 95
08/07/25 23:16 08/08/25 00:00 08/07/25 08:00 08/08/25 00:00 08/08/25 00:00
CT Intake/Output/Weight
08/07/25 08/07/25 08/08/25
06:59 18:59 06:59
Intake Total 10 / 470 460 / 470
Output Total 1150 / 2900 550 / 1000 450 / 1000
Balance -1150 / -2280 -540 / -530 10 / -530
SaO2: 95
Physical Exam
-
General: Awake
Cardiovascular: Regular rate & rhythm
Respiratory: Clear and Equal
Sternum: Stable
Incision: Clean, Dry and Intact
Extremities: Edema +1
[2025-08-08] MEDS: UNASYN IV ×4 (03:13→22:09)
[2025-08-08 04:41] LABS: Blood Urea Nitrogen 51 mg/dl (9-20); Calcium 8.0 mg/dl (8.4-10.2); Carbon Dioxide 30 mmol/L (22-30); Chloride 101 mmol/L (98-107); Estimated Creatinine Clearance 71 ml/min; Glucose 122 mg/dl (70-99); Magnesium 2.7 mg/dl (1.6-2.3); Potassium 3.9 mmol/L (3.5-5.1); Sodium 139 mmol/L (135-145); eGFR > 60.00
--- NOTE | 2025-08-08 08:00 | PTCARENOTE ---
pt received from previous RN, oriented, Turkish speaking. Afib on the monitor, HR 70s. SBP 120s. weakly palpable pulses, +1 generalized edema. pt on RA, 95-98% POX. lungs diminished. FIELDS. pt abdomen round, +BS, +flatus. poor appetite, encouraged to
eat breakfast. voids/incontinent at times. pt ambulates w/ RW and assist. surgical sites intact. PIV x2. see worklist for VS, I&O, and assessment.
--- NOTE | 2025-08-08 08:50 | W.PN.NEPH.PH ---
Today's Communication / Plan
-
diurese
Assessment/Plan
-
Assessment
CAD status post CABG x 4
CAROL
Urinary retention
Ileus
Respiratory insufficiency
Paroxysmal atrial fibrillation
Hypotension
History of stroke
Plan
follow BMP
follow bladder scan
diurese
can restart ARB when desired
will sign off, call with questions
-
-
Date of Service: August 08, 2025
CC / HPI / ROS
-
Chief Complaint:
CAROL
History of Present Illness:
cr improving to 1.1
k normal
Aguilar out
BP stable
Review of Systems:
eating today
no sob at rest
on supplemental O2
Labs
-
Labs:
WBC 12.2 10^3/uL (4.8-10.8) H 08/07/25 03:49
RBC 3.77 10^6/uL (4.70-6.10) L 08/07/25 03:49
Hgb 10.9 g/dL (13.0-18.0) L 08/07/25 03:49
Hct 32.7 % (39.0-52.0) L 08/07/25 03:49
Plt Count 234 10^3/uL (130-400) D 08/07/25 03:49
Sodium 139 mmol/L (135-145) 08/08/25 03:56
Potassium 3.9 mmol/L (3.5-5.1) 08/08/25 03:56
Chloride 101 mmol/L (98-107) 08/08/25 03:56
Carbon Dioxide 30 mmol/L (22-30) 08/08/25 03:56
BUN 51 mg/dl (9-20) H 08/08/25 03:56
Creatinine 1.1 mg/dL (0.7-1.3) 08/08/25 03:56
eGFR > 60.00 08/08/25 03:56
Glucose 122 mg/dl (70-99) H 08/08/25 03:56
Calcium 8.0 mg/dl (8.4-10.2) L 08/08/25 03:56
Ueg-B-Jzyzomlqgea Pept 4070 pg/ml 08/04/25 21:10
Albumin 4.0 g/dl (3.5-5.0) 08/04/25 14:36
Physical Exam
-
Vital Signs:
Vital Signs
Temp Pulse Resp BP Pulse Ox
98.8 F 68 20 133/70 95
08/08/25 07:32 08/08/25 06:00 08/08/25 07:32 08/08/25 04:00 08/08/25 07:32
Cardiovascular:: Regular rate and rhythm
Respiratory:: Bilateral: Coarse
Lung Excursion:: Normal
Abdomen:: Nontender and Soft
Bowel Sounds:: Normal
Extremity Edema:: +3: Bilateral:
[2025-08-08] MEDS: LOPRESSOR 12.5 MG PO ×2 (08:57→20:16)
[2025-08-08] MEDS: ROBITUSSIN 200 MG PO ×4 (08:57→22:10)
[2025-08-08] MEDS: LOW STRENGTH ASPIRIN 81 MG PO (08:57)
[2025-08-08] MEDS: SENOKOT 8.6 MG PO ×2 (08:57→20:16)
[2025-08-08] MEDS: PACERONE 200 MG PO ×3 (08:58→22:11)
[2025-08-08] MEDS: NSS (PRESERVATIVE FREE) 10 ML IV (08:58)
[2025-08-08] MEDS: NEURONTIN 100 MG PO ×3 (08:58→22:11)
[2025-08-08] MEDS: KCL 20 MEQ PO ×2 (08:58→20:16)
[2025-08-08] MEDS: PLAVIX 75 MG PO (08:58)
[2025-08-08] MEDS: TYLENOL 650 MG PO ×3 (08:58→20:16)
[2025-08-08] MEDS: PROTONIX IV 40 MG IV (08:59)
--- NOTE | 2025-08-08 09:04 | W.PN.PUL3 ---
Today's Communication / Plan
-
Doing well, now down to 2L which can likely be discontinued
Continue IV diuresis, abx x 5 days
CXRs improving
Continue rehab per team
He is transferred to IVU, OP FU recommended for sleep study
We will sign off at this time, please call with questions
Assessment
-
70-year-old gentleman with non-ST elevation [place], noted to have coronary artery disease, s/p coronary artery bypass graft, left atrial appendage ligation and modified left atrial maze procedure, POD # 2
CAD s/p Cabg
Acute pulmonary insufficiency, postop
Minimal basilar pulmonary interstitial changes--suspect scarring or minimal fibrotic changes
CAROL, baseline creat 1.1 now 3.1
New RUL opacity, suspect aspiration PNA given vomiting episode
Bibasilar atelectasis noted L>R
Minimal bilateral pleural effusions
Ileus s/p NGT placement
Other medical diagnoses:
- HTN
- HLD
- H/o CVA with residual left hemiparesis
- Chronic A Fib on Eliquis
- GERD
- Obesity, BMI 38.4
Plan
Patient extubated to 4 L nasal cannula, saturating 95%. No respiratory distress was noted.
Progressive hypoxemia noted, now on HFNC --transitioned back to midflow, now on 2L--can likely wean to off
Wean further as tolerated
No prior known history of lung disease, former smoker quit >40 years ago
Reviewed with son importance of IS
Titrated off pressors per protocol
ECHO reviewed with normal function
Lasix is recommended given some volume overload
CXR improving atelectasis, particularly in the right lower lobe, improved lung volumes.
Left lower lobe atelectasis persists--needs aggressive IS/PT/rehab
BMI likely contributing
CT chest today--aspiration and atelectasis, no need for thoracentesis as fluid is very minimal
Lasix, IS and IV abx
Repeat CXR this AM improving
Can complete abx x 5 days
No prior known history of pulmonary disease--will need OP FU, suspect underlying NICOLAS
Son states he snores/gasps--using CPAP while inpatient but can hold for ileus and vomiting
No prior PFTs available for review
Can add nebulizers if needed
Aspiration precautions
Encourage incentive spirometry, OOB/ambulation/early mobility
Advance diet as tolerated following extubation
GI prophylaxis: Protonix
Monitor critical I/O's
Aguilar/chest tube output
Hb/platelets postoperatively, mild drift
Trend CBC for now
Can transfuse if indicated for Hb <7, plt <50 in surgical patients
DVT prophylaxis including SCDs
Outpatient FU for sleep study recommended
Data:
EKG 06/2025: Sinus bradycardia with first degree heart block
ECHO 06/2025: 1. Normal left ventricular size, normal systolic function, and no wall motion abnormalities.
2. Moderate concentric LVH.
3. Dilated right ventricle with normal systolic function.
4. Aortic valve sclerosis with mild aortic regurgitation. No significant aortic stenosis.
5. Trace TR, PA pressure could not be calculated
CT Chest 06/2025: Mild to moderate calcification of the aortic arch. No evidence for thoracic aortic aneurysm.
Coronary artery calcifications are present.
Moderate calcification in the region of the aortic valve.
Increased interstitial markings within both lung bases, which is likely mild interstitial fibrosis.
Status post cholecystectomy. Fatty infiltration of the liver.
LHC 06/2025: Eccentric distal left main lesion, significant ostial and proximal LAD lesion, significant OM1, OM2, and OM3 lesions, significant proximal RCA and 2 proximal RPL lesions.
Total time spent on this consultation/encounter __45__ minutes which includes review of history, physical exam, medications, laboratory data, personal review of imaging, extensive review of outpatient records, discussion with care team and
respiratory therapy.
Subjective Data
-
Date of Service:
Date of Service: August 08, 2025
Chief Complaint: Pulmonary Follow Up
Subjective:
Significantly improved following rehab/diuresis
Now on 2L NC
Objective Data
Data Reviewed
Vital Signs / I&O / Oxygen:
Vital Signs
Temp Pulse Resp BP Pulse Ox
98.8 F 75 20 124/86 95
08/08/25 07:32 08/08/25 08:57 08/08/25 07:32 08/08/25 08:57 08/08/25 07:32
Intake and Output
08/07/25 08/08/25 08/09/25
06:59 06:59 06:59
Intake Total 620 / 620 650 / 650
Output Total 2900 / 2900 1000 / 1000
Balance -2280 / -2280 -350 / -350
SaO2 [P-SIMV] 93
SaO2 95
Nasal Cannula flow liters per 4
minute
Physical Exam
General: Comfortable and Other (NAD)
HEENT: Normocephalic, Anicteric and Moist Mucous Membranes
Cardiovascular: S1-S2 and Regular Rhythm
Respiratory: Clear (overall diminished) and Non-Labored Respirations
GI: Soft, Non Distended and Non Tender
Neurology: Awake, Alert, Oriented and No Motor Deficits
Skin: Warm and Dry
Labs/Micro/Reports
Lab Data
08/07/25 03:49
08/08/25 03:56
Microbiology
08/05/25 06:30 Sputum Respiratory Culture - Final
Escherichia coli
08/05/25 06:30 Sputum Gram Stain - Final
[2025-08-08] MEDS: LIDOCAINE 4% PATCH 1 PATCH TOPICAL (09:11)
[2025-08-08] MEDS: NOVOLOG FLEXPEN-LOW RESISTANCE SC ×2 (09:19→18:37)
[2025-08-08 09:20] LABS: Glucose - Point of Care 132 mg/dl (70-99)
[2025-08-08] MEDS: LASIX 40 MG IV (09:36)
--- NOTE | 2025-08-08 11:55 | PTCARENOTE ---
Pt received to IVU. Tristanian speaking. Pt assessed with aid of bilingual interpreter. Denying pain at this point. Residual left sided weakness with history of CVA. SaO2 94 - 98% on room air. Diminished bases. Incentive spirometer and acapella use reviewed with
patient. 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 +2 LE edema. Lasix 40mg IV X1 administered. Voiding into urinal with assistance. 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 Legs appear mottled. Round obese abdomen. (+) bowel movement. Pt upgraded to low
residue diet. Small breakfast of water ice and tea. Denying nausea. Assist x1 with rolling walker.
--- NOTE | 2025-08-08 12:09 | PTCARENOTE ---
pt VSS, no changes in assessment. ECHO completed, JANET chiu dc'd. pt completed stairs w/ CR and ambulated in hallway. 2VCXR completed. no c/o pain or SOB.
[2025-08-08 13:09] LABS: Glucose - Point of Care 154 mg/dl (70-99)
[2025-08-08] MEDS: NOVOLOG FLEXPEN-LOW RESISTANCE 1 UNITS SC (13:55)
--- NOTE | 2025-08-08 14:38 | CM ---
Addendum entered by Debbie Briceno RN 08/08/25 15:34:
Patient to go to room 311 at [facility]
Original Note:
Reviewed chat. [facility] [place] [facility] and they will have a bed tomorrow if medically stable. Met with Mr. and Mrs. Goodman and telephone his son to review
discharge plans. They are agreeable to [facility] to [facility] [place]. The telephone number for reprot is [phone]. [facility] chart copy, just the discharge instructions and continuum of care. Updated medical team.
Medical work-up in progress. The [facility] [place] when medically [facility].
[2025-08-08] MEDS: NSS IV (15:01)
[2025-08-08] MEDS: LASIX 40 MG PO (15:17)
--- NOTE | 2025-08-08 17:15 | W.PN.CD ---
Today's Communication / Plan
-
cont. to wean O2
diuresis
restart home BP meds as needed now that CAROL resolved
transition to eliquis/SAPT on discharge
Impression / Plan
-
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 Sanchez).
- Complicated post op course due to aspiration, CAROL and ileus.
- no further chest pain, EF normal on post-op echo
Acute hypoxic resp failure, improved
- patient with increased O2 requirements overnight and on high flow O2. CXR with increased opacity on right, pneumonia vs pseudotumor and patient with left effusion.
- Possible aspiration in combination with volume overload
- cont. abx and diuresis, pulm toilet
- wean O2
CAROL, resolved
Post Op Ileus
- OOB to chair.
- ADAT
CAD s/p CABG
-echo: EF 60%, mild AR
-DAPT currently, consider Plavix+Eliquis on discharge give Afib
-statin
-cont. beta joseluis
AFIB, paroxysmal
-rate-controlled off meds (see below). Back in NSR as of 07/29 AM
-on Eliquis as OP, s/p heparin, when able to restart AC would drop to single antiplatelet
-amio per CTS
Bradycardia:
- transient bradycardia afib to junctional for 6 beats. Continue to monitor with BB
HTN:
-home losartan and amlodipine held for CAROL, restart as able
Hx CVA:
-on Eliquis as OP and statin
echo 08/04/25
1. Normal left ventricular size and systolic function without regional wall motion abnormality. LVEF 60-65%.
2. No pericardial effusion.
3. No change compared to prior echocardiogram on 07/28/2025.
Physical Exam
Vital Signs/Labs
Vital Signs
Temp Pulse Resp BP Pulse Ox
36.9 C 65 24 107/78 95
08/08/25 15:24 08/08/25 12:00 08/08/25 15:24 08/08/25 12:00 08/08/25 15:24
08/07/25 08/08/25 08/09/25
06:59 06:59 06:59
Actual Weight 106.8 kg
08/07/25 03:49
08/08/25 03:56
PT 14.5 Sec (11.4-14.6) 08/04/25 07:36
INR 1.10 08/04/25 07:36
APTT 29.8 Sec (23.4-35.0) 07/31/25 14:46
Magnesium 2.7 mg/dl (1.6-2.3) H 08/08/25 03:56
Triglycerides 105 mg/dl (10-149) 07/26/25 04:39
LDL Cholesterol, Calc 66 mg/dl 07/26/25 04:39
VLDL Cholesterol, Calc 21 mg/dl (0-30) 07/26/25 04:39
HDL Cholesterol 44 mg/dl 07/26/25 04:39
08/04/25
21:10
Kmr-W-Daakcjojazt Pept 4070
Physical Exam
Constitutional: Comfortable
Cardiovascular: Rhythm & rate is regular
Respiratory: Respiratory effort normal
Neuro/Psych: AO x 3
Data Reviewed
-
Date of Service: August 08, 2025
Medical Decision Making: Reviewed Test Results
Labs: Labs Reviewed by me
[2025-08-08] MEDS: LIPITOR 40 MG PO (18:31)
[2025-08-08 18:37] LABS: Glucose - Point of Care 120 mg/dl (70-99)
[2025-08-08] MEDS: ELIQUIS 5 MG PO (20:16)
[2025-08-08] MEDS: REMOVE LIDOCAINE PATCH 1 PATCH REMOVE (21:08)
[2025-08-08 22:15] LABS: Glucose - Point of Care 125 mg/dl (70-99)
--- NOTE | 2025-08-09 00:44 | PTCARENOTE ---
assumed care of patient at the change of shift. Peruvian speaking. neuro urologist line used for communication/assessment. Afib on tele, controlled [id number]. bp stable. patient states having shortness of breath. patient states it is the same and it
not getting worse. tachypneic. RR 30s-40s with activity. lungs clear/diminished at the bases. patient requested 2L NC for comfort- 96%. previously on RA 93-95%. + moist cough. patient states poor appetite. +1 LE edema noted, L>R. LLE red/warm to
touch. updated Laurence ZHENG on assessment. 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 educated patient to inform RN with any changes/assistance overnight. incontinent at times. yellow urine in the urinal as well. call breen within reach. makes needs known.
[2025-08-09 02:28] VITALS: BP 148/80
[2025-08-09 03:22] LABS: Hematocrit 27.5 % (39.0-52.0); Hemoglobin 9.5 g/dL (13.0-18.0); Mean Corp Hgb Conc. 34.5 g/dL (33.0-37.0); Mean Corpuscular Volume 84.9 fL (80.0-94.0); Platelet Count 280 10^3/uL (130-400); Red Cell Dist. Width 14.2 % (11.5-14.5)
--- NOTE | 2025-08-09 03:34 | PTCARENOTE ---
patient ambulated to the bathroom this morning. when he got back into bed, sp02 low 80s on RA. tachypneic. oxygen level did not cover on RA. placed patient back on 2L NC- 98%. updated Laurence CV PA. per PA- completed oxygen level with sitting and
walking. will obtain next time patient get up. okay with PA.
[2025-08-09 03:44] LABS: Blood Urea Nitrogen 42 mg/dl (9-20); Calcium 7.9 mg/dl (8.4-10.2); Carbon Dioxide 27 mmol/L (22-30); Chloride 101 mmol/L (98-107); Estimated Creatinine Clearance 71 ml/min; Glucose 131 mg/dl (70-99); Magnesium 2.3 mg/dl (1.6-2.3); Potassium 4.1 mmol/L (3.5-5.1); Sodium 137 mmol/L (135-145); eGFR > 60.00
[2025-08-09] MEDS: UNASYN IV ×2 (06:00→09:58)
--- NOTE | 2025-08-09 06:08 | PTCARENOTE ---
patient tells RN this AM that he feels like he has to pee but cannot. bladder scan 820cc. updated Laurence ZHENG. UA being ordered. straight cath for 800 cc, yellow urine. tolerated.
[2025-08-09 06:38] LABS: Urine Character Clear (Clear)
[2025-08-09 06:59] LABS: Urine Squamous Cell 0-2 /LPF (Few)
[2025-08-09 07:00] LABS: Urine Red Blood Cell 0-2 /HPF (0-2); Urine White Cell 0-2 /HPF (0-5)
[2025-08-09 07:03] VITALS: BP 136/72
[2025-08-09 07:07] LABS: Glucose - Point of Care 110 mg/dl (70-99)
[2025-08-09] MEDS: NOVOLOG FLEXPEN-LOW RESISTANCE SC ×2 (07:31→13:13)
[2025-08-09 08:33] VITALS: BP 125/65
[2025-08-09 08:43] VITALS: BP 135/62
[2025-08-09 08:45] VITALS: BP 125/65; BP 135/62; PULSE 66; PULSE 67; O2SAT 95
[2025-08-09] MEDS: KCL 20 MEQ PO (08:48)
[2025-08-09] MEDS: LASIX 40 MG PO (08:48)
[2025-08-09] MEDS: NEURONTIN 100 MG PO (08:48)
[2025-08-09] MEDS: TOPROL XL 25 MG PO (08:48)
[2025-08-09] MEDS: ROBITUSSIN 200 MG PO ×2 (08:48→13:13)
[2025-08-09] MEDS: ELIQUIS 5 MG PO (08:48)
[2025-08-09] MEDS: NSS (PRESERVATIVE FREE) 10 ML IV (08:49)
[2025-08-09] MEDS: LIDOCAINE 4% PATCH 1 PATCH TOPICAL (08:49)
[2025-08-09] MEDS: PACERONE 200 MG PO (08:49)
[2025-08-09] MEDS: PROTONIX IV 40 MG IV (08:49)
[2025-08-09] MEDS: LOW STRENGTH ASPIRIN 81 MG PO (08:49)
[2025-08-09] MEDS: FLUSH (NSS) 1 FLUSH IV (08:50)
[2025-08-09] MEDS: SENOKOT PO (08:54)
[2025-08-09] MEDS: FLOMAX 0.8 MG PO (09:57)
--- NOTE | 2025-08-09 09:59 | W.PN.CT ---
Today's Communication / Plan
-
-pod#9
-pt had some incontinence yesterday and was straight cathed for 800 cc this am. Elevated wbc although afebrile. Will check UA
-Eliquis restarted on 08/08 for a-fib
-CXR 08/08: Improving right upper lobe pneumonia. Small left basilar opacity compatible with small effusion and adjacent airspace consolidation/atelectasis.
-noted Pulmonary recommendation to continue ABX and diuresis x 5 days
-pt's weight is actually 2 lbs lower than preop weight
-wean off O2 as tolerated
-plans for possible d/c to [facility] (bed available today)
-encourage IS, ambulate
-appreciate everyone's input
Assessment / Plan
-
# s/p CABG x4 (In situ DAMON to LAD, Ao to RSVG to OM 1 and OM 3 in sequence, Ao to RSVG to RPDA); Left atrial appendage ligation with 40 mm Atriclip; Modified left atrial maze procedure with Atricure Encompass device by Dr. Sanchez on 07/31/25, pod #9
# Intraop MARILEE: In preoperative MARILEE was performed showing normal EF greater than 50% without significant regional wall motion abnormalities though left ventricle is notably moderately hypertrophied. There is some sclerosis/calcification of the
noncoronary cusp of the aortic valve without significant stenosis and very mild AI. There is additionally trace to mild MR consistent with functional etiology. Postoperatively his echo is largely stable and he is noted to be in sinus rhythm though
notably slow rate in the 40s to 50s.
# Transferred from [facility] on 07/25/25 for CABG eval
# NSTEMI
# MVCAD
# HLD
# LVEF 60% without significant valvular disease per echo 07/28/25
# Paroxysmal A-fib/a-flutter on chronic Eliquis
# Chronic 1st degree AVB
# Suspected NICOLAS
# Class 2 obesity (BMI 38.1)
# HTN
# GERD
# Hx CVA with residual left sided weakness
# Bradycardia preop high 40s-mid 50s
# Acute postop blood loss anemia -s/p 450 cc Cell Saver
# Acute postop coagulopathy/ thrombocytopenia - s/p 2 FFPs, 2 unit platelets
# Acute postop atelectasis/Left pleural effusion
# Acute postop hypovolemia with subsequent hypervolemia
-Acute postop ileus
-Acute postop pulmonary insufficiency
-Acute postop hypoxemia
-Acute postop CAROL- Aguilar was reinserted
-Acute postop urinary retention
-Acute postop ileus causing emesis and likely aspiration
-Acute postop respiratory failure, suspected PNA/pneumonitis- started on Unasyn 08/05
Echo 08/04:
1. Normal left ventricular size and systolic function without regional wall motion abnormality. LVEF 60-65%.
2. No pericardial effusion.
3. No change compared to prior echocardiogram on 07/28/2025.
Chest CT 08/05:
-There is a new dense left lower lobe consolidation with air bronchograms and new small left pleural effusion.
-There is no opacification in the right upper lobe with air bronchograms and also the right lower lobe with air bronchograms suspicious for pneumonia. Tiny right pleural effusion is seen.
-Evaluation of the taz are markedly limited without intravenous contrast and with extension of opacification in the lungs centrally. There is no significant mediastinal or bilateral axillary lymphadenopathy. --There is mild pericardial thickening
and/for tiny pericardial effusion. Coronary artery calcifications are noted. There is a left atrial appendage closure device. Sternal wires are new in the interval since prior study.
-There is no pneumothorax.
-Nasogastric tube extends through the thoracic esophagus into the stomach.
-Degenerative changes are seen within the thoracic spine.
Discussed patient care with: Nursing and Care Team
Subjective
-
Date of Service: August 09, 2025
Objective Data
-
Lab Results
08/09/25 02:45
08/09/25 02:45
PT 14.5 Sec (11.4-14.6) 08/04/25 07:36
INR 1.10 08/04/25 07:36
APTT 29.8 Sec (23.4-35.0) 07/31/25 14:46
Vital Signs
Vital Signs
Temp Pulse Resp BP Pulse Ox
97.7 F 71 20 136/72 93
08/09/25 08:00 08/09/25 08:48 08/09/25 07:12 08/09/25 08:48 08/09/25 09:50
CT Intake/Output/Weight
08/08/25 08/09/25 08/09/25
18:59 06:59 18:59
Intake Total 480 / 1080 600 / 1080 240 / 240
Output Total 725 / 1775 1050 / 1775
Balance -245 / -695 -450 / -695 240 / 240
SaO2: 93
--- NOTE | 2025-08-09 10:06 | PTCARENOTE ---
Assumed care of patient at the change of shift. Pt AAOX3. Pox: 93% 2L NC. Afib on library monitor. Pt denies chest pain. Call breen within reach. Plan of care ongoing.
[2025-08-09] MEDS: NSS IV (10:57)
[2025-08-09 11:11] VITALS: BP 108/76
--- NOTE | 2025-08-09 12:40 | W.DCSUMMARY ---
Discharge Summary
Discharge Data
Date of Admission: 07/25/25
Date of Discharge: 08/09/25
-
Pending Results: No
Hospital Course
Primary care physician:
Dr. Jose G Curry
Outpatient zinc plate grainer:
Dr. Collado
Inpatient consultants:
pulmonary, driver's license examiner, interventional radiology, anesthesia, nephrology, CBC
Procedures:
1. CABG x4 (In situ DAMON to LAD, Ao to RSVG to OM 1 and OM 3 in sequence, Ao to RSVG to RPDA); Left atrial appendage ligation with 40 mm Atriclip; Modified left atrial maze procedure with Atricure Encompass device by Dr. Sanchez on 07/31/25
Primary Diagnosis:
1. NSTEMI
Secondary Diagnoses:
1. multivessel CAD
2. HLD
3. Paroxysmal A-fib/a-flutter on chronic Eliquis
4. Chronic 1st degree AVB
5. Suspected NICOLAS
6. Class 2 obesity (BMI 38.1)
7. HTN
8. GERD
9. Hx CVA with residual left sided weakness
10. Acute postop urinary retention
11. Acute postop ileus causing emesis and likely aspiration
12. Acute postop respiratory failure, suspected PNA/pneumonitis- started on Unasyn 08/05
HPI:
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 He
was placed on a heparin infusion and ultimately went for a [facility] which showed eccentric distal left main lesion, significant ostial and proximal LAD lesion, significant OM1, OM2, and OM3 lesions, significant proximal RCA and 2 proximal RPL lesions.
He was then transferred to [facility] 07/25/25 for consideration of CABG.
Hospital course:
Patient was transferred from [facility] on 07/25 for a CABG evaluation. He was given Plavix at [facility] so he was not taken until 07/31 for a Plavix washout. On 07/31 he underwent a CABG x [address] Sanchez and returned to the CVICU
on dobutamine, Precedex, insulin, Levophed, and as needed Cardene infusions. Patient was weaned off Precedex and extubated by 1840. On 08/01 postoperative day 1, patient was hypertensive and was transitioned from a nitroglycerin infusion to p.o.
amlodipine, and losartan. Dobutamine was maintained at 2 due to a mixed venous of 55.6. Left pleural chest tube was removed. On 08/02 postoperative day 2, dobutamine was weaned off. Cardene was temporarily used until oral medications were
uptitrated. Arterial line, Aguilar catheter, and insulin infusions were discontinued. Temporary pacing wires were removed along with mediastinal chest tubes. Patient was then started on a low-dose beta-joseluis. On 08/03 postoperative day 3
patient's Cordis catheter was removed and beta-blockers were increased. He was diuresed with IV IV Lasix. On 08/04 postoperative day 4 patient was complaining of nausea and vomiting abdominal x-ray showed an ileus but no SBO so an NG tube was
placed with immediate 1.7 L drainage. Patient was also noted to have a CAROL with creatinine of 2.5 losartan and Norvasc were discontinued and repeat echocardiogram showed an LVEF of 60-65%. Patient was also given some fluid resuscitation and a
Aguilar was replaced for accurate I's and O's. On 08/05 postoperative day 5 patient's creatinine increased to 3.1. He was diuresed with 40 mg of IV Lasix. Patient was started on IV Unasyn for questionable aspiration pneumonia. Patient was also
given a suppository and he had a large bowel movement. Patient was mildly hypoxic and was started on high flow nasal cannula 60 L / 90% FiO2. On 08/06 postoperative day 6, ileus improved. He had another large bowel movement. High flow nasal
cannula was transition to regular nasal cannula. A clamp trial on NG tube was performed which he tolerated well and the NG tube was removed later that evening. On 08/07 postoperative day 7 clear liquid diet was resumed and he tolerated well so was
advanced to a low residual diet. Patient's was started on Lasix IV twice daily and Aguilar catheter was removed and he was voiding well. On 08/08 postoperative day 8, patient was resumed on Eliquis he was transition down to room air and 2 L nasal
cannula when ambulating. On 08/09 patient's Unasyn was transition to p.o. Augmentin. He was also started on p.o. Flomax for some urinary retention due to being straight cathed overnight. He was transitioned to plavix and eliquis for
anticoagulation per cardiology recommendations. Patient was deemed hemodynamically stable for discharge to acute rehab at [place].
Home medication changes:
see below
Discharge Plan
-
Patient Disposition: Acute Rehab Facility
Discharge Diagnosis/Procedures: CABG x4 (In situ DAMON to LAD, Ao to RSVG to OM 1 and OM 3 in sequence, Ao to RSVG to RPDA); Left atrial appendage ligation with 40 mm Atriclip; Modified left atrial maze procedure with Atricure Encompass device by .
Daniel on 07/31/25
Condition: Good
Diet: Low Cholesterol, 2 Gram Sodium and Restrict fluids to 64 oz
Activity: No strenuous activity
Driving Restrictions: Not until seen by your Dr
Bathing Restrictions: OK to Shower
Blood Work: repeat BMP q2 days while on lasix
Other Services: Cardiac Rehab
Specialty Instructions: Weigh Daily- Call MD for wt gain/loss 3 lbs overnight/5 lbs in 1 week
Activity Restrictions/Additional Instructions:
Please call to make appointments for Phase II Cardiac Rehab
1) [facility] (7 min from home)
2) [facility] (10 min from home)
3) [facility] (12 min from home)
ACTIVITY:
-No strenuous activity: no heavy lifting, pushing, pulling anything over 15 pounds for one month
-continue to use stairs as tolerated
DRIVING RESTRICTIONS:
-No driving for one month or until approved by your surgeon
WOUND CARE:
-Shower daily. Use soap & water.
-No lotions, creams or powders on incision area.
DIET:
-continue a low fat/low cholesterol diet.
-IF you are diabetic, continue carb controlled diet.
CARDIAC REHAB:
-Please make appointment to start in 5-6 weeks with your local hospital program. (See Cardiac Rehabilitation Discharge Booklet).
SPECIALTY INSTRUCTIONS:
-Weigh yourself daily. Call your physician for any weight gain/loss of 3 lbs overnight or 5 lbs in one week.
-REPORT any clicking noise or uneven appearance of your sternum to your surgeon immediately.
-If you smoke, you are instructed to quit. The [place] smoking hotline phone number is [phone]
Referrals:
[facility] at [place] [Other]
Jadon Pierre MD [Active, Pulmonary Medicine] - in six weeks
Referral Note: sleep study, PFT
Jose G Curry MD [Family Provider, Internal Medicine] - in four to six weeks
Referral Note: Please make an appointment in four to six weeks.
Rizwan Collado MD [Active, Cardiology] - 09/04/25 12:20 pm
Daniel Merritt MD [Active, Cardiac Surgery] - 08/25/25 2:15 pm
Additional Discharge Medication Instructions: please continue Augmentin for 5 days for pneumonia
you were started on Flomax to help your urinary retention
please continue Eliquis and plavix
Prescriptions:
New
cyclobenzaprine 10 mg Tablet
5 mg PO Q8HPRN PRN (Reason: muscle spasm) Qty: 0 0RF
atorvastatin 40 mg Tablet
40 mg PO QPM Qty: 0 0RF
metoprolol succinate 25 mg Tablet Extended Release 24 Hr
25 mg PO DAILY Qty: 0 0RF
tamsulosin 0.4 mg Capsule
0.8 mg PO DAILY Qty: 0 0RF
potassium chloride 20 mEq Tablet,Er Particles/Crystals
20 meq PO BID Qty: 0 0RF
furosemide 40 mg Tablet
40 mg PO BID AT 0800,1600 Qty: 0 0RF
sennosides [[place]-naveed] 8.6 mg Tablet
8.6 mg PO Q12 Qty: 0 0RF
guaifenesin 100 mg/5 mL Liquid
200 mg PO QID Qty: 0 0RF
amoxicillin-pot clavulanate 875-125 mg Tablet
1 tab PO Q12 Qty: 10 0RF
Rx Instructions:
please continue for 5 days
clopidogrel [Plavix] 75 mg tablet
75 mg PO DAILY Qty: 30 0RF
Continued
pantoprazole [Protonix] 40 mg Tablet,Delayed Release (Dr/Ec)
40 mg PO DAILY
nortriptyline 10 mg Capsule
10 mg PO HS
Eliquis 5 mg Tablet
5 mg PO BID
Held
amlodipine [Norvasc] 10 mg Tablet
10 mg PO DAILY
Hold Instructions: hold until directed to resume
Rx Instructions:
Hold until directed to resume
Discontinued
clopidogrel [Plavix] 75 mg Tablet
75 mg PO DAILY
aspirin 81 mg Tablet
81 mg PO DAILY
furosemide [Lasix] 20 mg Tablet
20 mg PO DAILY
losartan 100 mg Tablet
100 mg PO DAILY
doxazosin 2 mg Tablet
2 mg PO BID
Discharge Orders:
Discharge Patient (As Directed); Ordered 08/09/25
Ordered By: Madonna Woodruff
Care Plan Goals
Care Plan Goals:
Problem: Readiness for enhanced knowledge related to diagnosis and treatment plan
Goal: Understand your diagnosis and treatment plan needs, including medications if applicable.
Instructions: Know your diagnosis, underlying causes and treatment plan options, including medications if applicable. Consult with your health care team to learn about your diagnosis and treatment plan, including medications if applicable.
Discharge Date and Time
Discharge Date/Time: 08/09/25 14:31
Print Language: MONGOLIAN
[2025-08-09 12:58] LABS: Nucleated Red Blood Cells % 0 % (-)
[2025-08-09 13:13] LABS: Glucose - Point of Care 127 mg/dl (70-99)
== END 2025-08-09 14:31 | DRG 317 ==
LOC: IVU 21:00
PROVIDERS: Anesthesiology; Clinical Nurse Specialist Acute Care; Nurse Practitioner; Physician Assistant; Physician Assistant Medical; ADMITTING PHYSICIAN Thoracic Surgery (Cardiothoracic Vascular Surgery); ATTENDING PHYSICIAN Student in an Organized Health Care Education/Training Program; CONSULT PHYSICIAN Internal Medicine; CONSULT PHYSICIAN Specialist; CONSULT PHYSICIAN Student in an Organized Health Care Education/Training Program; FAMILY PHYSICIAN Internal Medicine
PROC: 5A09357 Assistance with Respiratory Ventilation, Less than 24 Consecutive Hours, Continuous Positive Airway Pressure (ICD-10-PCS; 2025-07-28)
PROC: 02580ZZ Destruction of Conduction Mechanism, Open Approach (ICD-10-PCS; 2025-07-31)
PROC: 30233R1 Transfusion of Nonautologous Platelets into Peripheral Vein, Percutaneous Approach (ICD-10-PCS; 2025-07-31)
PROC: 02L70CK Occlusion of Left Atrial Appendage with Extraluminal Device, Open Approach (ICD-10-PCS; 2025-07-31)
PROC: 5A1221Z Performance of Cardiac Output, Continuous (ICD-10-PCS; 2025-07-31)
PROC: B24BZZ4 Ultrasonography of Heart with Aorta, Transesophageal (ICD-10-PCS; 2025-07-31)
PROC: 30233K1 Transfusion of Nonautologous Frozen Plasma into Peripheral Vein, Percutaneous Approach (ICD-10-PCS; 2025-07-31)
PROC: 06BQ4ZZ Excision of Left Saphenous Vein, Percutaneous Endoscopic Approach (ICD-10-PCS; 2025-07-31)
PROC: 021209W Bypass Coronary Artery, Three Arteries from Aorta with Autologous Venous Tissue, Open Approach (ICD-10-PCS; 2025-07-31)
PROC: 02100Z9 Bypass Coronary Artery, One Artery from Left Internal Mammary, Open Approach (ICD-10-PCS; 2025-07-31)
PROC: 02HV33Z Insertion of Infusion Device into Superior Vena Cava, Percutaneous Approach (ICD-10-PCS; 2025-08-04)
DX: I21.4 Non-ST elevation (NSTEMI) myocardial infarction (principal); J69.0 Pneumonitis due to inhalation of food and vomit; J95.821 Acute postprocedural respiratory failure; J95.1 Acute pulmonary insufficiency following thoracic surgery; I48.92 Unspecified atrial flutter; I69.354 Hemiplegia and hemiparesis following cerebral infarction affecting left non-dominant side; K56.0 Paralytic ileus; K91.89 Other postprocedural complications and disorders of digestive system; D62 Acute posthemorrhagic anemia; I97.411 Intraoperative hemorrhage and hematoma of a circulatory system organ or structure complicating a cardiac bypass; N17.9 Acute kidney failure, unspecified; J98.11 Atelectasis; D68.8 Other specified coagulation defects; J90 Pleural effusion, not elsewhere classified; I25.10 Atherosclerotic heart disease of native coronary artery without angina pectoris; I48.0 Paroxysmal atrial fibrillation; I44.0 Atrioventricular block, first degree; Y83.2 Surgical operation with anastomosis, bypass or graft as the cause of abnormal reaction of the patient, or of later complication, without mention of misadventure at the time of the procedure; I95.9 Hypotension, unspecified; E87.70 Fluid overload, unspecified; D69.59 Other secondary thrombocytopenia; E86.1 Hypovolemia; I10 Essential (primary) hypertension; E78.00 Pure hypercholesterolemia, unspecified; G47.33 Obstructive sleep apnea (adult) (pediatric); K21.9 Gastro-esophageal reflux disease without esophagitis; R33.8 Other retention of urine; R00.1 Bradycardia, unspecified; R73.03 Prediabetes; E66.812 Obesity, class 2; Z68.38 Body mass index [BMI] 38.0-38.9, adult; Z87.891 Personal history of nicotine dependence; Z79.01 Long term (current) use of anticoagulants; Z79.82 Long term (current) use of aspirin; Z79.02 Long term (current) use of antithrombotics/antiplatelets
CPT/HCPCS: 36600; 71045; 71046; 71250; 74018; 76775; 80048; 80053; 80061; 80076; 81003; 81015; 82248; 82330; 82565; 82570; 82805; 82810; 82947; 82962; 83036; 83605; 83735; 83880; 84132; 84300; 84302; 84520; 85014; 85018; 85025; 85027; 85049; 85610; 85730; 86850; 86900; 86901; 86920; 87070; 87077; 87186; 87205; 93005; 93308; 93312; 93320; 93321; 93325; 93650; 93880; 93923; 93930; 94002; 94660; 97110; 97116; 97163; 97167; 97530; 97535; J2916; P9045; P9047; P9059; P9073; Q9950

== ENCOUNTER 2025-08-10 05:38 | Inpatient (IN) | payer MEDICARE, OTHER, SELFPAY ==
[2025-08-10] VITALS (43 sets, daily range): BP systolic 80–138; BP diastolic 36–88; PULSE 74; O2SAT 96
[2025-08-10 01:33] LABS: Hematocrit 26.2 % (39.0-52.0); Hemoglobin 8.7 g/dL (13.0-18.0); Mean Corp Hgb Conc. 33.2 g/dL (33.0-37.0); Mean Corpuscular Volume 85.1 fL (80.0-94.0); Nucleated Red Blood Cells % 0 % (-); Platelet Count 292 10^3/uL (130-400); Red Cell Dist. Width 14.6 % (11.5-14.5)
[2025-08-10 01:47] LABS: ALT (SGPT) 42 U/L (0-50); AST (SGOT) 34 U/L (17-59); Albumin 3.1 g/dl (3.5-5.0); Alkaline Phosphatase 180 U/L (38-126); Blood Urea Nitrogen 32 mg/dl (9-20); Calcium 7.7 mg/dl (8.4-10.2); Carbon Dioxide 30 mmol/L (22-30); Chloride 100 mmol/L (98-107); Estimated Creatinine Clearance 72 ml/min; Glucose 150 mg/dl (70-99); Potassium 4.2 mmol/L (3.5-5.1); Sodium 136 mmol/L (135-145); Total Protein 5.9 g/dl (6.3-8.2); eGFR > 60.00
[2025-08-10 02:05] LABS: Troponin I 0.375 ng/ml
--- NOTE | 2025-08-10 03:33 | ED.GENMED ---
History of Present Illness
General
Chief Complaint: Abdominal Pain
Source: patient
Exam Limitations: none
Time Seen by Provider: 08/10/25 01:06
Nursing documentation reviewed up to this point in time: agreed with
History of Present Illness
History of Present Illness:
Note:
CHIEF COMPLAINT(S)
Ileus development post Coronary Artery Bypass Grafting (CABG)
HISTORY OF PRESENT ILLNESS
The patient is a 70-year-old male with a recent medical history significant for undergoing Coronary Artery Bypass Grafting (CABG) on the 2nd of this month. Since the procedure, the patient has developed an ileus, as observed on X-ray imaging. He has
been experiencing fluctuations in fluid status, with periods requiring diuresis and instances of fluid retention. The translation services were required as the patient communicates primarily in Malagasy, but no oil recovery unit operator was present at the time of
this interaction. The patient will undergo a computed tomography (CAT) scan and will likely be admitted to the hospital for further evaluation and management.
PAST MEDICAL AND SURGICAL HISTORY
Coronary Artery Bypass Grafting (CABG) on the 2nd of this month.
PHYSICAL EXAM
General: Alert, no acute distress.
Skin: Warm, dry.
Head: Normocephalic, atraumatic.
Neck: Supple, trachea midline.
Eye, Ears, Nose, Mouth and Throat: Oral mucosa moist.
Cardiovascular: Normal peripheral perfusion, No edema.
Respiratory: Respirations are non-labored.
Gastrointestinal: Abdomen nondistended.
Back: Normal range of motion, Normal alignment.
Musculoskeletal: Normal ROM, normal strength.
Neurological: Alert and oriented to person, place, time, and situation, No focal neurological deficit observed.
Psychiatric: Cooperative, appropriate mood & affect.
PLAN
- Initiate intravenous fluid therapy.
- Obtain a computed tomography (CAT) scan to evaluate the current gastrointestinal status.
- Prepare for potential hospital admission based on CAT scan results and clinical findings.
DIFFERENTIAL DIAGNOSIS
The Differential Diagnosis includes, in no particular order and is not limited to:
1. Post-operative ileus
2. Small bowel obstruction
3. Gastrointestinal perforation
4. Paralytic ileus secondary to anesthesia
5. Mesenteric ischemia
6. Adhesive bowel obstruction
7. Colonic pseudo-obstruction (Ogilvies syndrome)
8. Gastroenteritis
9. Bowel ischemia
10. Electrolyte imbalances affecting gut motility
Disposition:
SUMMARY OF ENCOUNTER
The patient, a 70-year-old male primarily Malagasy-speaking, presented with abdominal pain and severe distension approximately 10 days post-Coronary Artery Bypass Grafting (CABG). Translation services were utilized for communication. Troponin levels
were found to be elevated, although the patient did not report any chest pain. A computed tomography (CT) scan revealed an adynamic ileus with no signs of obstruction. Due to significant distension, a nasogastric tube will be placed. The patient is
to be admitted for further management.
DISPOSITION
Admit to hospital service.
ASSESSMENT
Adynamic ileus status post-CABG with associated abdominal pain and distension.
PLAN
- Placement of a nasogastric tube to decompress the distended abdomen.
- Admit to hospital service for further evaluation and management.
INDEPENDENT REVIEW OF LABS AND INTERPRETATION OF TESTS
My independent review of the CT scan interpretation indicates an adynamic ileus with no signs of obstruction.
MEDICATION RECONCILIATION
Troponin level was found to be elevated.
MEDICAL DECISION MAKING
-Complexity of Data Reviewed: Chronic conditions affecting care [Recent CABG] Adynamic ileus status post-CABG with abdominal distension.
-Data:
Category 1
My independent interpretation of the CT scan suggests an adynamic ileus without obstruction.
Category 2
Clinical information obtained via translation services for a non-South Sudanese speaking patient.
-Risk:
The patient requires hospitalization for potential escalation of care due to post-operative complications and elevated troponin levels.
DIAGNOSIS
Adynamic ileus (ICD-10: K56.0)
Elevated troponin, unspecified (ICD-10: R97.2)
Phy Exam
Physical Exam
Physical Exam:
.
Course
Orders/Labs/Results
Orders:
Orders
08/10/25 00:48
EKG [Electrocardiogram (*1)] Urgent
Reason for Study: Abdominal Pain
EKG- Treatment ONCE
08/10/25 01:12
Complete Blood Count/With Diff Urgent
Comprehensive Metabolic Panel Urgent
Lipase Urgent
Comment: ADD ON
Troponin I Urgent
08/10/25 01:17
Cardiac Monitoring- Treatment ONCE
IV Insert/Care/Rem.- Treatment PRN
O2 Therapy [RESP] Urgent
Titrate/Wean O2 to maintain O2 sat greater than (%): 93
Special Instructions: TO MAINTAIN CONTINUOUS O2 SATS > OR = 93%
08/10/25 01:18
CT Abd/pelvis W Iv Cont Urgent
Comment:
Reason For Exam: abdominal pain
08/10/25 01:42
Lactic Acid Q4H
Comment: ON ICE, CANCEL 2ND ORDER IF FIRST LACTIC ACID LEVEL <2
Blood Culture Q20M
JUDY Source: Blood/Venous
Specimen Description:
Comment: Urgent from separate sites. If patient screens positive for possible sepsis
Blood Culture Q20M
JUDY Source: Blood/Venous
Specimen Description:
Comment: Urgent from separate sites. If patient screens positive for possible sepsis
08/10/25 03:36
NG Tube [GI tube insertion- Treatment] ONCE
08/10/25 04:29
Chest X-ray Portable [CR Chest Portable - 1 View] Stat
Comment: NG tube placement confirmation
Reason For Exam: other
Reason Study Needs to be Portable: Other
If Reason is Other, explain: NG tube placement
08/10/25 04:37
Add On- LAB Stat
Tests Added?: lipase
08/10/25 04:42
Admit/Transfer Patient As Directed
Co-Sign Provider:
Level of Care: Inpatient admission
Assign to:: Telemetry
Physician / Group: Hazel
Diagnosis: ileus
Reason for Telemetry: Post Cardiac Surgery
Date to Stop Telemetry: 08/13/25
Time to Stop Telemetry: 11:00
Reason for Hospitalization: ileus
Expected length of stay greater than two midnights?: Yes
ELOS- Estimated Length of Stay in days: 2
I certify the patient meets the requirements for IP care: Yes
PRN Pain Medication Management As Directed
May give lesser potent ordered pain med per pt: Yes
preference::
Protocol:: Medication orders for pain may be administered in a
manner that supports deferring to patient preference
when the pt is:
- Requesting an ordered lesser potent pain medication.
Least to most potent pain medications are defined
as: acetaminophen < NSAID < tramadol < opioids
(morphine, oxycodone, hydromorphone).
- Requesting a lesser dose of the same medication IF
ORDERED.
- Requesting a less intrusive route of administration
if both routes are prescribed by the provider (PO <
IV).
08/10/25 04:44
Code Status As Directed
Resuscitation Status: Full Code
08/10/25 10:42
Acetaminophen [Tylenol/Feverall] 650 mg RECTAL Q6HPRN PRN
Clopidogrel Bisulfate [Plavix] 75 mg PO DAILY
Cyclobenzaprine HCl [Flexeril] 5 mg PO Q8HPRN PRN muscle spasm
Ipratropium/Albuterol Sulfate [Duoneb] 3 ml INH R Q4HPRN PRN
Metoprolol Xl [Toprol Xl] 25 mg PO DAILY
Ondansetron Injectable [Zofran] 4 mg IV Q6HPRN PRN
Pantoprazole [Protonix IV] 40 mg IV DAILY
Tamsulosin [Flomax] 0.8 mg PO DAILY
08/10/25 10:42
CARDIOLOGY CONSULT Routine
Consulting Provider: Jose David Irby
Was physician already notified: No
Reason for consult: postop s/p cabg here with adynamic ileus, ongoing chf
Consult Notification Routine
Specialty to Notify: Cardiology
Consult Notification Routine
Specialty to Notify: Gastroenterology
GASTROINTESTINAL CONSULT Routine
Consulting Provider: Reuben Cabezas
Was physician already notified: No
Reason for consult: adynamic ileus s/p cabg
HF DIETARY CONSULT Routine
HF EDUCATOR CONSULT Routine
Comment:
VTE Contraindication Routine
VTE Mechanical Device Contraindication: Medical Contraindication
Pharmocologic Contraindication: Medical Contraindication
Activity As Directed
Activity Level: With Assistance
Gastrointestinal Tubes As Directed
Type: [place] sump
To suction?: Yes
Type of suction: Low intermittent
Irrigate tube?: No
Intake/ Output As Directed
Frequency: Per unit guidelines
Patient Education As Directed
Type: CHF folder
Comment: give on admission. Document in Interdisciplinary Education record
Sleep Apnea Assessment by RN As Directed
Comment:
Physician Instructions:
Vital Signs As Directed
Frequency: Other
Additional Instructions:: Q12 or per unit guidelines if more frequent.
Weight As Directed
Frequency: Daily
Type of Scale: Standing Scale
Comment: Daily morning weight. If unable to stand, use balanced bed scale.
Weight As Directed
Frequency: Once
Type of Scale: Standing Scale
Comment: Upon Admission. If unable to stand, use balanced bed scale.
Pulse Ox/cont/shift [RESP] Routine
Quantity: 1
Special Instructions: Daily pulse oximetry at rest. If greater than 92% at rest also obtain pulse oximetry
while ambulating as tolerated.
Pt Eval And Treat Routine
Activity Level: With Assistance
08/10/25 10:46
Troponin I Q6H
Comment: at admission & every 6 hours x 2 (3 total), ECG to be done with each level
08/10/25 12:00
Ampicillin/Sulbactam 3 G [Unasyn] 3 gm 0.9% Sodium Chloride 100 ml [Nss] 100 ml IV Q6H
08/10/25 16:33
Troponin I Q6H
Comment: at admission & every 6 hours x 2 (3 total), ECG to be done with each level
08/11/25 06:00
Basic Metabolic Panel IN AM
Complete Blood Count/No Diff IN AM
Magnesium IN AM
08/12/25 06:00
Basic Metabolic Panel IN AM
08/13/25 06:00
Basic Metabolic Panel IN AM
08/13/25 11:00
DC Protocol for Telemetry ONCE
Abnormal Lab Results
08/10/25
01:12
WBC 13.1 H 10^3/uL
(4.8-10.8)
RBC 3.08 L 10^6/uL
(4.70-6.10)
Hgb 8.7 L g/dL
(13.0-18.0)
Hct 26.2 L %
(39.0-52.0)
RDW 14.6 H %
(11.5-14.5)
Abs Immat Gran (auto) 0.3 H 10^3/uL
(0-0.05)
Absolute Neuts (auto) 10.4 H 10^3/uL
(1.4-6.5)
Absolute Monos (auto) 0.8 H 10^3/uL
(0.1-0.6)
Immature Gran % 2.3 H %
(0-0.5)
Neutrophils % 79.0 H %
(42.2-75.2)
Lymphocytes % 12.1 L %
(20.5-51.1)
BUN 32 H mg/dl
(9-20)
Glucose 150 H mg/dl
(70-99)
Calcium 7.7 L mg/dl
(8.4-10.2)
Alkaline Phosphatase 180 H U/L
(38-126)
Troponin I 0.375 H* ng/ml
Total Protein 5.9 L g/dl
(6.3-8.2)
Albumin 3.1 L g/dl
(3.5-5.0)
Lipase 305 H U/L
(23-300)
08/10/25 01:12
08/10/25 01:12
Vital Signs
Initial and Last Documented VS:
Initial Vital Signs
BP
102/57
08/10/25 00:28
Last Documented Vital Signs
Temp Pulse Resp BP Pulse Ox
97.5 F 64 18 132/70 97
08/10/25 20:03 08/10/25 22:00 08/10/25 20:03 08/10/25 21:01 08/10/25 22:00
*Pulse Oximetry
SaO2: 95
Nasal Cannula flow liters per minute: 2
Patient hypoxic: no
*Critical Care Note
Total Time (30-74mins, 75-104mins- exclusive of procedures): Not Applicable
Update Note
Update Note:
NAME: MIKEL JADE
DATE OF EXAM: 08/10/2025
Patient No: [id number]
Physician: SYL^Nataly
Date of : 1955
Past Medical History (entered by Technologist):
Reason For Exam (entered by Technologist): recent CABG, possible SBO
Other Notes (entered by Technologist): no prior.
Additional Information (per Vision Radiologist):
CT abdomen and pelvis with contrast
IMPRESSION:
No signs of bowel obstruction as clinically queried
Diffuse distention of small and large bowel with air-fluid levels without discrete transition
Findings suggest adynamic ileus
Small left pleural effusion with probable left lower lobe atelectasis
Postsurgical changes related to recent CABG(partially visualized)
Cholecystectomy
Atherosclerotic calcifications abdominal aorta and iliofemoral vessels
Degenerative changes in the spine, pelvis, and hips
Case finalized on 08/10/25 03:22 EDT
Jayme Bonds M.D.
This report has been electronically signed and verified by the Radiologist whose name is printed above.
ED Attending Note
-
Portions of this chart may have been created with voice recognition software.� Occasional wrong word or��sound alike� substitutions may have occurred due to the inherent limitations of voice recognition software.
Discharge Plan
Departure
Patient Disposition: Admit
Date of Disposition: 08/10/25
Time of Disposition: 03:46
Admit to: IVU
Presentation/result/management discussed w/ accepting MD/DO: Hospitalist
Condition: Fair
Discharge Problem:
Abdominal pain, Adynamic ileus, Status post coronary artery bypass graft
Interventions
Interventions:
*Risk Screen - Suicide Last Done: 08/10/25 00:38
*General Assessment Last Done: 08/10/25 00:38
*Neglect/Abuse Screening Last Done: 08/10/25 00:38
*ED- Fall Risk Assessment Last Done: 08/10/25 00:38
*ED COVID-19 Vaccine History Last Done: 08/10/25 00:38
*ED Influenza Vaccine History Last Done: 08/10/25 00:38
*Nursing Disposition Last Done: 08/10/25 13:39
DD-Xewrgx-Xgirgyydce Assessment Last Done: 08/10/25 08:42
Discharge Date and Time
Discharge Date/Time: 08/10/25 13:39
--- NOTE | 2025-08-10 04:22 | HPS.HSE ---
Family Physician
-
Family Physician: NOT KNOW UNKNOWN - PT DOES
Chief Complaint
-
Abdominal pain/distention
History of Present Illness
This is a 70-year-old Lao-speaking male with past medical history significant for atrial fibrillation on anticoagulation, hypertension, hyperlipidemia, GERD, obesity CAD who is recently status post surgery coming to the emergency department
after discharge to rehab with severe abdominal pain and distention.
Seafood Clerk service not available at this time and hx obtained from chart.
Briefly, patient is status post CABG x4 (In situ DAMON to LAD, Ao to RSVG to OM 1 and OM 3 in sequence, Ao to RSVG to RPDA); Left atrial appendage ligation with 40 mm Atriclip; Modified left atrial maze procedure with Atricure Encompass device by
Daniel on 07/31/25.
The hospital course was complicated by postoperative ileus without SBO on postop day #4 requiring NG tube placement with drainage of 1.7 L of bilious fluid. He also developed CAROL with a peak creatinine of 3.1 and volume overload requiring diuresis,
possible aspiration pneumonia status post Unasyn and. He was ultimately found to have resolution of his adynamic ileus after given suppository and he had a light bowel movement. He had a clamp trial on postop day #6 and he tolerated well so NG
tube was discontinued later that evening. By day 7 he was tolerating liquid diet and his diet was advanced. He was on Lasix. Eliquis was resumed. He was weaned off oxygen and was transition from Unasyn to Augmentin and started on Flomax.
Urinary retention. He was ultimately placed on Plavix and Eliquis for anticoagulation for now and discharged in hemodynamically stable state to rehab yesterday. After arrival at rehab patient had worsening abdominal pain and distention. There was
concern for bowel obstruction and was sent to the emergency department for evaluation.
In the Emergency Department the patient was afebrile, blood pressure was 110/55 with a pulse of 68 and he was satting 91% on room air.
White count was 13.1, hemoglobin 8.7 and plate count 292. ECG showed atrial flutter at a rate of 68 with a troponin of 0.37. His electrolytes were normal. BUN and creatinine withdrawn 1.1 with a glucose of 150. LFTs were normal.
CT of the abdomen and pelvis showed diffuse distention of small and large bowel with air-fluid levels without discrete transition suggestive of adynamic ileus.
Medical History
Past Medical History
Past Medical History: Reports Arrhythmia, CAD, CVA, GERD, HTN and Hypercholesterolemia
Past Surgical History: Reports Cholecystectomy
Social History
Tobacco: Former Smoker
Alcohol: Former
Drug: None
Personal:
Living: With Family
Employment: Retired ( )
Family History
Family History: Other
Allergies / Home Medications
Allergies reflects when Allergies were last updated in [facility].
Home Medications with original date entered in [facility]
Allergy/Medication List:
Amlodpine 10 mg daily
Apixaban 5 mg BID
ASA 81 mg daily
clopidogrel 75 mg daily
doxazosin 2 mg BID
furosemide 20 mg daily
losartan 100 mg daily
nortriptyline 10 mg bedtime
pantoprazole 40 mg daily
Review of Systems
-
Constitutional: Reports No Symptoms
EENT: Reports No Symptoms
Respiratory: Reports No Symptoms
Cardiac: Reports No Symptoms
Abdomen/GI: Reports Abdominal Pain and Constipated
: Reports No Symptoms
Musculoskeletal: Reports No Symptoms
Skin: Reports No Symptoms
Neurological: Reports Headache
Endocrine: Reports No Symptoms
Hematologic/Lymphatic: Reports No Symptoms
Psych: Reports No Symptoms
Physical Exam
Vital Signs
Vital Signs
Temp Pulse Resp BP Pulse Ox
97.9 F 68 24 110/55 91
08/10/25 00:38 08/10/25 04:00 08/10/25 04:00 08/10/25 04:00 08/10/25 04:00
Physical Exam
General: Well Developed and Appears in Distress
HEENT: NormoCephalic, Moist mucous membranes, PERRLA, Nose Appears Normal, Ears Appear Normal, Neck Nontender and Oxygen
Respiratory: Clear and Non Labored Respirations
Cardiac: S1/S2 and Regular Rhythm
Breast: Deferred by me
GI: Normal Bowel Sounds (Positive bowel sounds more prominent over the left quadrants.), Tender, Distended and No Hepatosplenomegaly
Rectal: Deferred by Provider
Genito-urinary: Deferred by me
Musculoskeletal: Edema, Left Lower Extremity and Edema, Right Lower Extremity
Skin: Warm and Dry
Neuro: Awake, Alert, Oriented and AO x 3
Hematologic/Lymphatic: No Lymphadenopathy
Psych: Calm
Laboratory Results
-
08/10/25 01:12
08/10/25 01:12
Laboratory Results
Lactic Acid 1.4 mmol/L (0.7-2.0) 08/10/25 01:42
Total Bilirubin 0.8 mg/dl (0.2-1.3) 08/10/25 01:12
AST 34 U/L (17-59) 08/10/25 01:12
ALT 42 U/L (0-50) 08/10/25 01:12
Alkaline Phosphatase 180 U/L (38-126) H 08/10/25 01:12
Troponin I 0.375 ng/ml H* 08/10/25 01:12
Data Reviewed
-
CT Scan: Report Reviewed by me
Medical Tests (Nuc Med, Echo, EKG etc): Image Personally Visualized and interpreted
Lab Data: Labs Reviewed by me
Old Records: Reviewed
Impression/Plan
-
IMPRESSION:
70-year-old with history of atrial fibrillation on anticoagulation, CAD who is recently status post CABG and atrial appendage ligation complicated by CAROL and adynamic ileus presents to the emergency department ambulate for discharge from this
procedure with abdominal pain and distention concerning for recurrence of ileus or small bowel obstruction. Labs in the Emergency Department were unremarkable. CT abdomen and pelvis negative for any ischemic bowel but did show worsening ileus
without evidence of focal obstruction. G-tube has been placed in the emergency department.
PLAN:
Ileus without focal obstruction
- Admit to telemetry for now
- Status post NG tube drainage, monitor for now over the next 24 hours
- Pain control and antiemetics
- N.p.o. except medications
- GI consultation
CAD status post CABG -patient still with some fluid overload with bilateral lower extremity edema more prominent over the left lower extremity, mild oxygen requirement with mild pulmonary edema. Troponin 0.37
-Repeat Trope x 1 to ensure trending down, no current chest pain and ECG is nonischemic
- Continue Lasix 40 mg IV twice daily for now
- Daily weights and ins and outs
- Holding the Norvasc
- Continue metoprolol with hold parameters
- Continue Plavix
- cardiology consult
Atrial fibrillation -currently rate controlled atrial flutter rate of 68
- Continue metoprolol 25 daily
- Continue Eliquis 5 twice daily for now, patient is status post left atrial appendage ligation 07/31.
Aspiration pna
- continue abx with unasyn while npo to complete course 08/14
Urinary retention
- Continue tamsulosin
DVT prophylaxis�on Eliquis
CODE STATUS�full code
[2025-08-10 05:08] LABS: Lipase 305 U/L (23-300)
--- NOTE | 2025-08-10 09:32 | W.PN.HOSP.TC ---
Today's Communication/Plan
-
see PN
Assessment / Plan
Assessment / Plan
70yo [place] speaking M with PMHX of HTN, HLD, Afib, insomnia, GERD, BPH, CAD s/p CABG x4 on 07/31/25 with postOP course compliacted by pneumonia, atelectasis with hypoxiemia, suspected new diagnosis of NICOLAS that required prolonged intubation,
discharged to acute rehab and sent back same day with worsening abdominal distention with concern for recurrent ileus and enterocolitis on CT
A/P:
#Recurrent adynamic ileus
#Enterocolitis
no diarrhea
NG tube to low intermittent suction
GEnSx eval
check TSH and follow and replete electrolytes
#Acute hypoxic respiratory failure
#NCIOLAS
cont NC O2
cont previously ordered Abx - sitch to unasyn since NPO
CPAP at HS
#mild leukocytosis
most likely 2/2 ileus
follow CBC
no fever on admission
already on Abx for pneumonia
#BPH
watch for retention
serial bladder scan
#CAD s/p OH and CABG x4 on 07/31/25
#Troponin elevation most likely 2/2 recent OH
Cardio cobnsult
telemetry
cont DAPT
#Mild lipase elevation
2/2 ileus
#Hypocalcemia
replete
follow
#Afib, unspecified
on ELiquis- switch to Lovenox while NPO
#Acute on chronic anemia
developed after Sx due to periOP blood loss
follow CBC
#chronic HFpEF
hold lasix as patient is NPO
DVT ppx lovenox
Full code
I have spent at least 59min reviewing chart, test results, communication with consultants and providing direct patient care
Anticipated Discharge: > 48 hours
Subjective/Interval History
-
Date of Service: August 10, 2025
Objective Data
-
Labs:
Laboratory Results
08/10/25
01:12
WBC 13.1 H
Hgb 8.7 L
Hct 26.2 L
Plt Count 292
Sodium 136
Potassium 4.2
Chloride 100
Carbon Dioxide 30
BUN 32 H
Creatinine 1.1
Glucose 150 H
Calcium 7.7 L
Total Bilirubin 0.8
AST 34
ALT 42
Alkaline Phosphatase 180 H
Vital Signs:
Vital Signs
Temp Pulse Resp BP Pulse Ox
97.9 F 77 13 123/56 93
08/10/25 00:38 08/10/25 08:05 08/10/25 08:05 08/10/25 07:45 08/10/25 07:45
Review of Systems
-
History Source: Patient
All other systems: Reviewed and negative
Abdomen/GI: Reports Bloated
Physical Exam
-
General: No Apparent Distress
HEENT: Normocephalic
Respiratory: Clear to Auscultation
Cardiac: Regular Rhythm
GI: Tender and Distended
Musculoskeletal: No Clubbing, No Cyanosis, Edema, Right Lower Extrem and Edema, Left Lower Extrem
Skin: Warm
Neuro: Awake, Alert, Oriented and AO x 3
Psych: Calm
--- NOTE | 2025-08-10 10:16 | CM ---
Patient seen at bedside with grenadian video sheetmetal worker. Patient is Slovak speaking independent of ADLS, lives with his in a 2nd floor apartment, [address], uses a RW and also has a wheelchair. Patient has a RN come to the house [facility]x [facility] unable to clarify which agency as patient complaining of pain. Patient to come in shortly. Patient plan is for discharge home. Patient unable to clarify name of the PCP or name of pharmacy at this time. CM will continue
to follow for discharge planning needs.
Plan; home with ; watch for VN needs; clarify name of agency previously using.
[2025-08-10 11:22] LABS: Troponin I 0.301 ng/ml
[2025-08-10] MEDS: DUONEB 3 ML INH (11:41)
[2025-08-10] MEDS: FLOMAX 0.8 MG PO (11:43)
[2025-08-10] MEDS: PLAVIX 75 MG PO (11:43)
[2025-08-10] MEDS: TOPROL XL 25 MG PO (11:43)
[2025-08-10] MEDS: UNASYN IV ×2 (11:52→20:43)
[2025-08-10] MEDS: NSS (PRESERVATIVE FREE) IV (11:53)
[2025-08-10] MEDS: LOVENOX 110 MG SC ×2 (11:54→23:15)
[2025-08-10] MEDS: PROTONIX IV 40 MG IV (11:54)
--- NOTE | 2025-08-10 13:02 | CON.GS ---
Consultation
-
Date/Time Consultation Performed: 08/10/25 1220
Medical History
-
Chief Complaint: abdominal pain/distention
History of Present Illness:
Mr Goodman is a 70 yo Eritrean speaking male with a h/o CVA, AFib on Eliquis, CAD and recent NSTEMI s/p CABG on 07/31 with discharge to rehab yesterday. His course of stay was complicated by ileus with NGT placement with subsequent removal and dietary
advancements. He was also treated for aspiration pneumonia during his course of stay d/t ?aspiration while vomiting. He notes that he was initially tolerating a solid diet but then pain and distention returned after about one day. An NGT was placed
in the ED with bilious outputs noted. He denies active nausea and is requesting something to drink. He last passed flatus at 4am this morning. No BM today. Abdominal distention present without tenderness, tympany noted. Family acting as patient relations specialist
at his request.
Past Medical History
Past Medical History: Arrhythmias (Afib), CAD, CHF, CVA (left weakness), GERD, HTN, Hypercholesterolemia, VT and Other (BPH with retention)
Past Surgical History: Cardiac (CABG 07/31/25) and Cholecystectomy
Social History
Tobacco: Former Smoker
Alcohol: None
Family History
Family History: Reviewed & Not Pertinent
Allergies / Home Medications
Allergy/AdvReac Type Severity Reaction Status Date / Time
bee venom protein (honey bee) Allergy Unknown Verified 07/25/25 22:47
diphenhydramine Allergy Unknown Verified 07/25/25 22:47
�Medication �Instructions �Recorded �Confirmed �Type
amlodipine 10 mg tablet (Norvasc) 10 mg PO DAILY Blood Pressure 07/26/25 08/09/25 History
Held on 08/09/25.
Instructions: hold until
directed to resume
apixaban 5 mg tablet (Eliquis) 5 mg PO BID Blood Clot 07/26/25 08/09/25 History
Prevention/Tx
nortriptyline 10 mg capsule 10 mg PO HS Mental Health/Anxiety 07/26/25 08/09/25 History
pantoprazole 40 mg tablet,delayed 40 mg PO DAILY Gastrointestinal 07/26/25 08/09/25 History
release (Protonix) Issue
atorvastatin 40 mg tablet 40 mg PO QPM High cholesterol #0 08/08/25 08/09/25 Rx
tabs
cyclobenzaprine 10 mg tablet 5 mg (1/2 x 10 mg) PO Q8HPRN PRN 08/08/25 08/09/25 Rx
muscle spasm #0 tabs
metoprolol succinate 25 mg 25 mg PO DAILY Blood pressure #0 08/08/25 08/09/25 Rx
tablet,extended release 24 hr tabs
amoxicillin 875 mg-potassium 1 tab PO Q12 pneumonia #10 tabs 08/09/25 08/09/25 Rx
clavulanate 125 mg tablet
clopidogrel 75 mg tablet (Plavix) 75 mg PO DAILY Blood clot 08/09/25 08/09/25 Rx
prevention/tx #30 tabs
furosemide 40 mg tablet 40 mg PO BID AT 0800,1600 #0 tabs 08/09/25 08/09/25 Rx
guaifenesin 100 mg/5 mL oral liquid 200 mg (10 mL) PO QID Cough #0 mL 08/09/25 08/09/25 Rx
potassium chloride 20 mEq 20 meq PO BID #0 tabs 08/09/25 08/09/25 Rx
tablet,extended release(part/cryst)
sennosides 8.6 mg tablet (Tennille-naveed) 8.6 mg PO Q12 Constipation #0 tabs 08/09/25 08/09/25 Rx
tamsulosin 0.4 mg capsule 0.8 mg (2 x 0.4 mg) PO DAILY 08/09/25 08/09/25 Rx
Urinary issue #0 caps
Review of Systems
-
History Source: Patient and Family
All other systems: Negative unless noted
A 10 point review of systems was completed, and was negative except as per HPI.
Physical Exam
Vital Signs
Temp Pulse Resp BP Pulse Ox
97.9 F 74 24 113/61 97
08/10/25 00:38 08/10/25 11:43 08/10/25 11:00 08/10/25 11:43 08/10/25 11:00
08/09/25 08/10/25 08/11/25
06:59 06:59 06:59
Actual Weight 110 kg
Lab Results
08/10/25 01:12
08/10/25 01:12
WBC 13.1 10^3/uL (4.8-10.8) H 08/10/25 01:12
Hgb 8.7 g/dL (13.0-18.0) L 08/10/25 01:12
Hct 26.2 % (39.0-52.0) L 08/10/25 01:12
Plt Count 292 10^3/uL (130-400) 08/10/25 01:12
Abs Immat Gran (auto) 0.3 10^3/uL (0-0.05) H 08/10/25 01:12
Neutrophils % 79.0 % (42.2-75.2) H 08/10/25 01:12
Physical Exam
General: Well Developed and Well Nourished
HEENT: Normocephalic and Moist Mucous Membranes
Respiratory: Non Labored Respirations
GI: Soft, Non Tender, Distended (tympany present), Obese and Other (NGT bilious)
Skin: Warm and Dry
Neuro: Awake, Alert and AO x 3
Data Reviewed
-
CT Scan: Image Personally Visualized and interpreted, Report Reviewed by me, Discussed with Physician, Discussed with Nurse, Discussed with Patient and Discussed with Family
Labs: Labs Reviewed by me, Discussed with Physician, Discussed with Patient and Discussed with Family
Old Records: Reviewed
Assessment / Plan
-
Mr Goodman is a 70 yo Eritrean speaking male with a h/o CVA, AFib on Eliquis, CAD and recent NSTEMI s/p CABG on 07/31 with discharge to rehab yesterday. His course of stay was complicated by ileus with NGT placement with subsequent removal and dietary
advancements. He was also treated for aspiration pneumonia during his course of stay d/t ?aspiration while vomiting. He notes that he was initially tolerating a solid diet but then pain and distention returned after about one day. An NGT was placed
in the ED with bilious outputs noted. Leukocytosis, but trended down slightly from prior admission 13.[address] imaging with small and large bowel distention suggesting continued ileus, less likely Olgovie's. Distended on exam with tympany,
no current pain. Afebrile. stable vitals.
Plan:
NPO with ice chips for comfort
On PO meds, may need essential meds changed to IV given risk of poor absorption
NGT for decompression
Will consult nutrition to follow given prolonged poor PO intake/npo
May need additional imaging with oral/rectal contrast pending patient progress, will follow for now with NGT in place for improvement
No plans for surgery
--- NOTE | 2025-08-10 14:59 | W.PN.CD ---
Today's Communication / Plan
-
stop clopidogrel
start rectal asa
monitor i/o
Impression / Plan
-
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 Sanchez).
- Complicated post op course due to aspiration, CAROL and ileus.
-returned on the same day of D/c with ileus
-will hold clopidogrel and use rectal aspirin
Post Op Ileus, initially thought to have resolved, returned the same day of discharge with acute abdominal pain and CT showing diffuse distention of small and large bowel with air-fluid levels without discrete transition suggestive of adynamic
ileus.
-NGT in place surgery following
Acute hypoxic resp failure
-CXR with RUL PNA, worsening left basilar pleural effusion with atelectasis vs pna
-abx started
-given ileus would hold off aggressive diuresis, he is lying flat comfortably
- patient with increased O2 requirements overnight and on high flow O2. CXR with increased opacity on right, pneumonia vs pseudotumor and patient with left effusion.
-oxygen via nasal canula
AFIB, paroxysmal
-npo started on lovenox
-rate controlled
HTN: bb iv given npo
Hx CVA:
-on Eliquis as OP and statin
echo 08/04/25
1. Normal left ventricular size and systolic function without regional wall motion abnormality. LVEF 60-65%.
2. No pericardial effusion.
3. No change compared to prior echocardiogram on 07/28/2025
Physical Exam
Vital Signs/Labs
Vital Signs
Temp Pulse Resp BP Pulse Ox
97.4 F 72 18 137/66 100
08/10/25 14:30 08/10/25 14:30 08/10/25 14:30 08/10/25 14:30 08/10/25 14:30
08/09/25 08/10/25 08/11/25
06:59 06:59 06:59
Actual Weight 242 lb 8.136 oz
08/10/25 01:12
08/10/25 01:12
LAB Results
08/10/25 08/10/25
01:12 10:46
Troponin I 0.375 H* 0.301 H*
Physical Exam
Constitutional: No acute distress
Cardiovascular: Rhythm & rate is regular, Rhythm/rate is irregular and Pedal edema present (1-pitting edema personally okay. Again I am safe everything great okay I have an air conditioner)
Respiratory: Respiratory effort normal, Lungs clear to auscul. and Other (poor effort)
GI: Soft
Neuro/Psych: AO x 3
Data Reviewed
-
Date of Service: August 10, 2025
Medical Decision Making: Review of Case with other Provider (Dr Bowser, start asa stop clopidogrel)
--- NOTE | 2025-08-10 15:45 | CONSULT.CT ---
Consultation
-
Date/Time Consultation Requested: 08/10/251544
Date/Time Consultation Performed: 08/10/251544
Requesting Provider: Niels PASTOR
Performing Provider: Ranjan RIZO for Dr. Sanchez
Reason for Consultation: s/p CT surgery
Patient History
Physicians
Family Physician: Dr. Jose G Curry
Outpatient Cut File Clerk: Dr. Collado
Inpatient Cut File Clerk: ARJUN
History of Present Illness
70-year-old male with recent CABG x 4 left atrial appendage ligation with #40 mm clip, maze with Dr. Sanchez presents to [facility] emergency department with complaints of abdominal pain. Patient was recently discharged to [place] [facility] for rehabilitation
after his surgery. However after arrival to rehab he had worsening abdominal pain and distention. While in the emergency department he was noted to be hemodynamically stable and labs were stable. Patient was discharged on Augmentin for aspiration
pneumonia and white count was noted to be trending down. CT of the abdomen and pelvis showed distention suggestive of adynamic ileus. CT surgery was consulted due to recent CABG.
Past Medical History
Past Medical History: Other
1. NSTEMI multivessel CAD
2. HLD
3. Paroxysmal A-fib/a-flutter on chronic Eliquis
4. Chronic 1st degree AVB
5. Suspected NICOLAS
6. Class 2 obesity (BMI 38.1)
7. HTN
8. GERD
9. Hx CVA with residual left sided weakness
10. Acute postop urinary retention
11. Acute postop ileus causing emesis and likely aspiration
12. Acute postop respiratory failure, suspected PNA/pneumonitis- started on Unasyn 08/05
Past Surgical History
Past Surgical History: CABG
Social History
Alcohol: Former
Drug: None
Tobacco: Former Smoker
Personal:
Living: With Spouse
Employment: Not Employed
Allergies
Allergy/AdvReac Type Severity Reaction Status Date / Time
bee venom protein (honey bee) Allergy Unknown Verified 07/25/25 22:47
diphenhydramine Allergy Unknown Verified 07/25/25 22:47
Home Medications
�Medication �Instructions �Recorded �Confirmed �Type
amlodipine 10 mg tablet (Norvasc) 10 mg PO DAILY Blood Pressure 07/26/25 08/09/25 History
Held on 08/09/25.
Instructions: hold until
directed to resume
apixaban 5 mg tablet (Eliquis) 5 mg PO BID Blood Clot 07/26/25 08/09/25 History
Prevention/Tx
nortriptyline 10 mg capsule 10 mg PO HS Mental Health/Anxiety 07/26/25 08/09/25 History
pantoprazole 40 mg tablet,delayed 40 mg PO DAILY Gastrointestinal 07/26/25 08/09/25 History
release (Protonix) Issue
atorvastatin 40 mg tablet 40 mg PO QPM High cholesterol #0 08/08/25 08/09/25 Rx
tabs
cyclobenzaprine 10 mg tablet 5 mg (1/2 x 10 mg) PO Q8HPRN PRN 08/08/25 08/09/25 Rx
muscle spasm #0 tabs
metoprolol succinate 25 mg 25 mg PO DAILY Blood pressure #0 08/08/25 08/09/25 Rx
tablet,extended release 24 hr tabs
amoxicillin 875 mg-potassium 1 tab PO Q12 pneumonia #10 tabs 08/09/25 08/09/25 Rx
clavulanate 125 mg tablet
clopidogrel 75 mg tablet (Plavix) 75 mg PO DAILY Blood clot 08/09/25 08/09/25 Rx
prevention/tx #30 tabs
furosemide 40 mg tablet 40 mg PO BID AT 0800,1600 #0 tabs 08/09/25 08/09/25 Rx
guaifenesin 100 mg/5 mL oral liquid 200 mg (10 mL) PO QID Cough #0 mL 08/09/25 08/09/25 Rx
potassium chloride 20 mEq 20 meq PO BID #0 tabs 08/09/25 08/09/25 Rx
tablet,extended release(part/cryst)
sennosides 8.6 mg tablet (Tennille-naveed) 8.6 mg PO Q12 Constipation #0 tabs 08/09/25 08/09/25 Rx
tamsulosin 0.4 mg capsule 0.8 mg (2 x 0.4 mg) PO DAILY 08/09/25 08/09/25 Rx
Urinary issue #0 caps
Review of Systems
-
Unable to obtain full review of systems at this time due to: Language Barrier
History Source: Patient
General: Reports No Symptoms
HEENT: Reports No Symptoms
Respiratory: Reports No Symptoms
Cardiac: Reports No Symptoms
Abdomen/GI: Reports Abdominal Pain
: Reports No Symptoms
Musculoskeletal: Reports No Symptoms
Skin: Reports No Symptoms
Neurological: Reports No Symptoms
Vascular: Reports No Symptoms
Physical Exam
Vital Signs
Temp 97.4 F 08/10/25 14:30
Temp route: Oral 08/10/25 14:30
Pulse 72 08/10/25 14:30
Rhythm: Atrial fibrillation 08/10/25 15:00
Resp Rate 18 08/10/25 14:30
Blood pressure 137/66 08/10/25 14:30
Blood pressure extremity used: Left upper arm 08/10/25 14:30
Position: Lying 08/10/25 14:30
MAP (cuff-Shay Monitor) 78 08/10/25 13:00
SaO2 100 08/10/25 14:30
Nasal Cannula flow liters per minute 4 08/10/25 15:00
Pulse Ox at Rest 96 08/10/25 13:21
Can the patient verbally communicate their pain? Yes 08/10/25 15:00
Actual Weight 110 kg 08/10/25 00:38
Supine- Blood Pressure 121/60 08/10/25 13:21
Supine- Pulse 74 08/10/25 13:21
Labs
08/10/25 01:12
08/10/25 01:12
Troponin I 0.301 ng/ml H* 08/10/25 10:46
Exam
General: Well Developed and Well Nourished
HEENT: Normocephalic
Respiratory: Clear
Cardiac: Irregular Rhythm
GI: Soft and Non Tender
Rectal: Deferred by Provider
Skin: Warm
Neuro: AO x 3
Extremities: Lower Level Edema
Lymph: No Lymphadenopathy
Psych: Calm
Assessment / Plan
-
70-year-old male with recent CABG x 4 left atrial appendage ligation with #40 mm clip, maze with Dr. Sanchez presents to [facility] emergency department with complaints of abdominal pain.
#CABG
#PAF
- continue plavix and eliquis
- Continue lopressor as tolerated
#ASP PNA
- Continue unasyn
- Monitor for fevers
#BPH
#Urinary retention
- Continue flomax
- Check PVR
- I&Os
# GERD
# Hx CVA
-Continue nortriptyline and PPI
[2025-08-10] MEDS: LOPRESSOR 5 MG IV ×2 (16:03→23:16)
[2025-08-10] MEDS: MORPHINE SULFATE 1 MG IV (16:04)
[2025-08-10] MEDS: OFIRMEV 100 IV ×2 (16:41→23:19)
[2025-08-10 17:27] LABS: Troponin I 0.291 ng/ml
[2025-08-10] MEDS: DILAUDID 0.25 MG IV (21:15)
[2025-08-10] MEDS: ZOFRAN 4 MG IV (21:20)
--- NOTE | 2025-08-10 23:45 | PTCARENOTE ---
Patient received at change of shift resting in the bed. Right nare NGT set to intermittent suction, brown output. The patient reported feeling nauseous but denied vomiting, one time order of Zofran given, see MAR. Patient reported moderate headache,
PRN Dilaudid given later followed by PRN Ofirmev for continued headache. Patient is primarily Omani speaking, language line utilized (Production Posting Clerk No. [id number]). The patient denies abd pain. Bowel sounds present. Abd is round, distended, and firm to
palpation. Afib on the monitor. Oxygen saturation on 3L NC 96% (was on 4L prev). Patient voided 200cc kiki urine, assist of two to stand. Plan of care discussed. Call breen within reach. Care ongoing.
[2025-08-11] VITALS (13 sets, daily range): BP systolic 93–135; BP diastolic 51–68; PULSE 65–76; O2SAT 93–96; BMI 39.1
[2025-08-11] MEDS: UNASYN IV ×5 (00:19→23:13)
[2025-08-11 04:46] LABS: Hematocrit 26.0 % (39.0-52.0); Hemoglobin 8.5 g/dL (13.0-18.0); Mean Corp Hgb Conc. 32.7 g/dL (33.0-37.0); Mean Corpuscular Volume 88.4 fL (80.0-94.0); Nucleated Red Blood Cells % 0 % (-); Platelet Count 300 10^3/uL (130-400); Red Cell Dist. Width 14.6 % (11.5-14.5)
[2025-08-11 05:03] LABS: ALT (SGPT) 36 U/L (0-50); AST (SGOT) 30 U/L (17-59); Albumin 2.8 g/dl (3.5-5.0); Alkaline Phosphatase 172 U/L (38-126); Blood Urea Nitrogen 25 mg/dl (9-20); Calcium 7.6 mg/dl (8.4-10.2); Carbon Dioxide 28 mmol/L (22-30); Chloride 105 mmol/L (98-107); Estimated Creatinine Clearance 88 ml/min; Glucose 100 mg/dl (70-99); Magnesium 2.2 mg/dl (1.6-2.3); Potassium 4.7 mmol/L (3.5-5.1); Sodium 137 mmol/L (135-145); Total Protein 5.8 g/dl (6.3-8.2); eGFR > 60.00
--- NOTE | 2025-08-11 07:59 | W.PN.CT ---
Today's Communication / Plan
-
-c/o continuous nausea, has NG tube. NPO. Ileus tx as per primary team
-continue ASA, iv Lopressor
-on Unasyn postop for suspected PNA
-in a-fib - on sq Lovenox
-follow warm L echevarria rash (SVG from R)
Assessment / Plan
-
HPI: 70-year-old male with recent CABG x 4 left atrial appendage ligation with #40 mm clip, maze with Dr. Sanchez presents to [facility] emergency department with complaints of abdominal pain. Patient was recently discharged to [facility] for
rehabilitation after his surgery. However after arrival to rehab he had worsening abdominal pain and distention. While in the emergency department he was noted to be hemodynamically stable and labs were stable. Patient was discharged on Augmentin
for aspiration pneumonia and white count was noted to be trending down. CT of the abdomen and pelvis showed distention suggestive of adynamic ileus. CT surgery was consulted due to recent CABG.
Impression:
-Ileus
- NSTEMI multivessel CAD- s/p s/p CABG x4 (In situ DAMON to LAD, Ao to RSVG to OM 1 and OM 3 in sequence, Ao to RSVG to RPDA); LAAE with 40 mm Atriclip; Modified left atrial maze procedure with Atricure Encompass device by Dr. Sanchez on 07/31/25, pod
#11
- HLD
- Paroxysmal A-fib/a-flutter on chronic Eliquis
- Chronic 1st degree AVB
- Suspected NICOLAS
- Class 2 obesity (BMI 38.1)
- HTN
- GERD
- Hx CVA with residual left sided weakness
- Acute postop urinary retention
- Acute postop ileus causing emesis and likely aspiration
- Acute postop respiratory failure, suspected PNA/pneumonitis- started on Unasyn 08/05
Discussed patient care with: Nursing and Care Team
Subjective
-
Date of Service: August 11, 2025
Objective Data
-
Lab Results
08/11/25 04:35
08/11/25 04:35
Vital Signs
Vital Signs
Temp Pulse Resp BP Pulse Ox
98.1 F 66 20 135/65 93
08/11/25 07:29 08/11/25 07:27 08/11/25 07:29 08/11/25 07:27 08/11/25 07:29
CT Intake/Output/Weight
08/10/25 08/11/25 08/11/25
18:59 06:59 18:59
Intake Total 360 / 360
Output Total 800 / 1300 500 / 1300
Balance -800 / -940 -140 / -940
SaO2: 93
Physical Exam
-
General: Awake and AOx3
Cardiovascular: Regular rate & rhythm, No Murmurs and Rub
Respiratory: Decreased Breath Sounds
Sternum: Stable
Incision: Clean, Dry and Intact
Extremities: Edema +1 (L distal echevarria with warm, erythematous rash)
Data Reviewed
-
Lab Results: Results Reviewed
Medications: Active Meds Reviewed
Chest X-Ray: Report Reviewed and Image Reviewed
ECG: Report Reviewed and Image Reviewed
[2025-08-11] MEDS: NSS (PRESERVATIVE FREE) 10 ML IV (08:41)
[2025-08-11] MEDS: LOPRESSOR 5 MG IV ×3 (08:41→23:12)
[2025-08-11] MEDS: PROTONIX IV 40 MG IV (08:41)
[2025-08-11] MEDS: OFIRMEV 100 IV (08:41)
--- NOTE | 2025-08-11 08:41 | W.PN.CD ---
Today's Communication / Plan
-
NGT for ileus, surgery following
Continue rectal ASA and SQ Lovenox while NPO
Diuresis once he is able to take PO
Continue abx for possible pna
Impression / Plan
-
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 Sanchez).
- Complicated post op course due to aspiration, CAROL and ileus.
- returned on the same day of D/c with ileus
- hold clopidogrel and use rectal aspirin
Post Op Ileus
- initially thought to have resolved, returned the same day of discharge with acute abdominal pain and CT showing diffuse distention of small and large bowel with air-fluid levels without discrete transition suggestive of adynamic ileus.
- NGT in place surgery following
Acute hypoxic resp failure
- CXR with RUL PNA, worsening left basilar pleural effusion with atelectasis vs pna
- abx started
- given ileus would hold off aggressive diuresis, he is breathing comfortably
- patient with increased O2 requirements overnight and on high flow O2. CXR with increased opacity on right, pneumonia vs pseudotumor and patient with left effusion.
- oxygen via nasal canula
AFIB, paroxysmal
- npo started on lovenox
- rate controlled
HTN: bb iv given npo
Hx CVA:
- on Eliquis as OP and statin
Subjective: Complains of nausea SOB but no chest pain. Decreased sensation on L side of body due to old stroke.
echo 08/04/25
1. Normal left ventricular size and systolic function without regional wall motion abnormality. LVEF 60-65%.
2. No pericardial effusion.
3. No change compared to prior echocardiogram on 07/28/2025
Physical Exam
Vital Signs/Labs
Vital Signs
Temp Pulse Resp BP Pulse Ox
98.1 F 66 20 135/65 93
08/11/25 07:29 08/11/25 07:27 08/11/25 07:29 08/11/25 07:27 08/11/25 08:01
08/10/25 08/11/25 08/12/25
06:59 06:59 06:59
Actual Weight 242 lb 8.136 oz 242 lb 1.081 oz
08/11/25 04:35
08/11/25 04:35
Magnesium 2.2 mg/dl (1.6-2.3) 08/11/25 04:35
LAB Results
08/10/25 08/10/25 08/10/25
01:12 10:46 16:33
Troponin I 0.375 H* 0.301 H* 0.291 H*
Physical Exam
Constitutional: No acute distress
Cardiovascular: Rhythm/rate is irregular, Pedal edema present (LLE erythematous but not warm), S1S2 is normal and Murmur/rub/gallop absent
Respiratory: Respiratory effort normal and Other (decreased breath sounds at bilateral bases)
Neuro/Psych: AO x 3
Data Reviewed
-
Date of Service: August 11, 2025
Medical Decision Making: Reviewed Test Results, Test Interpretation and Review of Case with other Provider
EKG: Tracing Personally Visualized and interpreted
Echo: Report Reviewed by me
X-Ray/CT/US/MRI/NUC/PET: Report Reviewed by me
Labs: Labs Reviewed by me
[2025-08-11] MEDS: ASPIRIN 300 MG RECTAL (08:45)
--- NOTE | 2025-08-11 09:05 | PTCARENOTE ---
The patient is aaox3. His vital signs are stable. He is 93% on 3L and complains of sob. His lungs sounds are shallow and decreased in the left base. I encouraged deep breathing with him. His rt nare NGT is draining brown fluid. He has bowel sounds
in all 4 quadrants. He has a scab on his left inner buttock and a skin tear on his right inner buttock. Sacral foam applied for protection. His left lower leg is red. 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
--- NOTE | 2025-08-11 09:45 | PTCARENOTE ---
Addendum entered by Uzma Oswald RN 08/11/25 11:41:
Aguilar catheter place per order for urinary retention.
Original Note:
The patient had a moderate soft formed BM. I bladder scanned him for 597.
--- NOTE | 2025-08-11 09:53 | W.PN.HOSP.TC ---
Today's Communication/Plan
-
await resolution of ileus
Assessment / Plan
Assessment / Plan
70yo Liberian speaking M with PMHX of HTN, HLD, Afib, insomnia, GERD, BPH, CAD s/p CABG x4 on 07/31/25 with postOP course compliacted by pneumonia, atelectasis with hypoxemia, suspected new diagnosis of NICOLAS that required prolonged intubation,
discharged to acute rehab and sent back same day with worsening abdominal distention with concern for recurrent ileus and enterocolitis on CT
A/P:
#Recurrent adynamic ileus
#Enterocolitis
no diarrhea
NG tube to low intermittent suction
GEnSx eval
TSH WNL
follow and replete electrolytes
#Acute hypoxic respiratory failure
#NICOLAS
cont NC O2
cont previously ordered Abx - switch to unasyn since NPO
CPAP at HS
#mild leukocytosis
most likely 2/2 ileus
follow CBC
no fever on admission
already on Abx for pneumonia
#BPH
watch for retention
serial bladder scan
#CAD s/p AR and CABG x4 on 07/31/25
#Troponin elevation most likely 2/2 recent AR
CardiothoracicCx
Cardio consult: no further mgmt changes
telemetry
cont DAPT when possible, while NPO - rectal ASA
#Mild lipase elevation
2/2 ileus
#Hypocalcemia
replete
follow
#Afib, unspecified
on Eliquis- switch to Lovenox while NPO
#Acute on chronic anemia
developed after Sx due to periOP blood loss
follow CBC
#chronic HFpEF
hold lasix as patient is NPO
DVT ppx lovenox
Full code
I have spent at least 59min reviewing chart, test results, communication with consultants and providing direct patient care
Anticipated Discharge: > 48 hours
Subjective/Interval History
-
Date of Service: August 11, 2025
Objective Data
-
Labs:
Laboratory Results
08/11/25
04:35
WBC 9.7
Hgb 8.5 L
Hct 26.0 L
Plt Count 300
Sodium 137
Potassium 4.7
Chloride 105
Carbon Dioxide 28
BUN 25 H
Creatinine 0.9
Glucose 100 H
Calcium 7.6 L
Total Bilirubin 1.0
AST 30
ALT 36
Alkaline Phosphatase 172 H
Vital Signs:
Vital Signs
Temp Pulse Resp BP Pulse Ox
98.1 F 66 20 135/65 93
08/11/25 07:29 08/11/25 07:27 08/11/25 07:29 08/11/25 07:27 08/11/25 08:01
I&O
08/10/25 08/11/25 08/12/25
06:59 06:59 06:59
Intake Total 360 / 360 100 / 100
Output Total 1300 / 1300
Balance -940 / -940 100 / 100
Review of Systems
-
History Source: Patient
All other systems: Reviewed and negative
Cardiac: Reports Chest Pain
Physical Exam
-
General: No Apparent Distress
HEENT: Normocephalic
Cardiac: Regular Rhythm
GI: Soft, Nontender and Nondistended
Musculoskeletal: No Clubbing, No Cyanosis, Edema, Right Lower Extrem and Edema, Left Lower Extrem
Neuro: Awake, Alert, Oriented and AO x 3
Psych: Calm
[2025-08-11] MEDS: FLUSH (NSS) 2 FLUSH IV (11:51)
[2025-08-11] MEDS: LOVENOX 110 MG SC ×2 (11:52→21:32)
[2025-08-11] MEDS: DULCOLAX RECTAL (11:52)
--- NOTE | 2025-08-11 12:47 | W.PN.CRS1 ---
Today's Communication / Plan
-
maintain ngt
no plans for OR
2 view xray
Assessment/Plan
-
Mr Goodman is a 70 yo Grenadian speaking male with a h/o CVA, AFib on Eliquis, CAD and recent NSTEMI s/p CABG on 07/31 with discharge to rehab yesterday. His course of stay was complicated by ileus with NGT placement with subsequent removal and dietary
advancements. He was also treated for aspiration pneumonia during his course of stay d/t ?aspiration while vomiting. He notes that he was initially tolerating a solid diet but then pain and distention returned after about one day. An NGT was placed
in the ED with bilious outputs noted. Leukocytosis, but trended down slightly from prior admission 13.[address] CT imaging with small and large bowel distention suggesting continued ileus, less likely Olgovie's. Distended on exam with tympany,
no current pain. Afebrile. stable vitals.
Plan:
-NPO with ice chips for comfort
-On PO meds, may need essential meds changed to IV given risk of poor absorption
-NGT for decompression
-Appreciate nutrition to follow given prolonged poor PO intake/npo - may need TPN at some point if continues NPO for another few days
-If worsens, he will require a decompressive colonoscopy (no plans at this time)
-Continue to hold Eliquis
-Okay for plavix
-2 view xray ordered to track ileus progression
-No plans for surgery
Subjective Data
Subjective Data
Date of Service: August 11, 2025
Grenadian video boiler attendant: [id number]
Patient states he has no pain. He feels much better today. He is having flatus and bowel movements.
Objective Data
-
Vital Signs
Temp Pulse Resp BP Pulse Ox
97.6 F 63 18 117/68 97
08/11/25 11:48 10/13/25 11:48 08/11/25 11:48 08/11/25 11:48 08/11/25 11:48
Intake & Output
08/10/25 08/11/25 08/12/25
06:59 06:59 06:59
Intake Total 360 / 360 100 / 100
Output Total 1300 / 1300
Balance -940 / -940 100 / 100
Intake:
IV fluids (Total) 100 / 100
tylenol 100 / 100
IV piggybacks 360 / 360
Amount instilled into GI Tube ( 0 / 0
Total)
[place] Sump 0 / 0
Output:
Gastrointestinal tube output ( 350 / 350
Total)
[place] Sump 100 / 100
Urine, Voided 400 / 400
Straight cath output 550 / 550
Other:
How many times incontinent 1
MODERATE amount urine
Lab Results
08/11/25 04:35
08/11/25 04:35
Physical Exam
-
General: No Acute Distress and AOx3
Abdomen: Soft, Distended (mild, improving) and Non Tender
Skin: Warm and Dry
--- NOTE | 2025-08-11 13:16 | PTCARENOTE ---
Addendum entered by Uzma Oswald RN 08/11/25 13:20:
per [facility]
Original Note:
NGT advanced 10cm per Dr. Bowser request. NGT flushed with 30ml of tap water per order.
--- NOTE | 2025-08-11 13:40 | CON.GI ---
Addendum entered and electronically signed by Reuben Cabezas MD 08/11/25 14:40:
I saw and examined the patient.
The LOSS CONTROL ENGINEER's note was reviewed and I agree with the note.
70-year-old Mauritian-speaking male past medical history of A-fib on Eliquis, CVA with left-sided weakness, hyperlipidemia, GERD, recent non-STEMI status post CABGx 4 07/31/2025 with recent postop ileus requiring NG tube (08/04/2025-08/06/25),
aspiration pneumonia, remote history of gastric ulcer (30 years ago treated at [facility]) patient was discharged to [facility] on 08/09/2025. The patient presented to the emergency room on 08/10/2025 with abdominal distention. Asked to
evaluate for ileus. CT on 08/10/2025 showing prominent air and fluid filled small and large bowel loops throughout the abdomen without discrete transition point. No evidence of obstruction or adjacent inflammatory changes. NG tube was placed.
Patient now passing flatus. Had moderate-sized brown formed bowel movement this morning
-- ileus (small bowel/large bowel)
-- post CABG 07/31/2025 ( developed post op ileus 08/04-08/06)
plan
Clinically getting better this am . Colorectal surgical team following
Continue NG decompression
Serial abdominal examination/x-rays
Avoid opioids
Diet as per surgical team
Would recommend continued follow-up with colorectal surgical recommendation/ intervention .
No other specific recommendation from GI. will s/o
Original Note:
Consultation
-
Date/Time Consultation Requested: 08/10/25 1100
Date/Time Consultation Performed: 08/11/25 1300
Requesting Provider: Dr. Oliva
Performing Provider: Dr. Cabezas/DARRIUS Sultana
Reason for Consultation: ileus
Medical History
Chief Complaint / HPI
Chief Complaint: abd pain/distention
History of Present Illness:
70-year-old Mauritian-speaking male (assistance of Mauritian corporate administrative assistant Cheryl# [id number]) past medical history of A-fib on Eliquis, CVA with left-sided weakness, hyperlipidemia, GERD, recent non-STEMI status post CABGx 4 07/31/2025 with recent postop ileus
requiring NG tube (08/04/2025-08/06/25), aspiration pneumonia, remote history of gastric ulcer (30 years ago treated at [facility]) patient was discharged to [facility] on 08/09/2025. The patient presented to the emergency room on 08/10/2025
with abdominal distention. Asked to evaluate for ileus. CT of the abdomen and pelvis with IV contrast showed diffuse distended small and large bowel with no transition point. Cecum measured 7 cm. No pneumatosis. NG tube was placed. He did
state that he started passing flatus last night. He also started having bowel movements this morning. He has some mild nausea. He denies any abdominal pain. Repeat imaging via x-ray this morning shows tip of NG tube at the GE junction. [place]
likely at level of GE junction. This was advanced 10 cm. Patient is going back down to confirm repositioning. Small bowel dilatation slightly improved compared with previous exam however given the volume of air within the large bowel partial
obstruction is considered less likely. No free air. Left small pleural effusion and adjacent atelectasis/consolidation. At the present time the patient denies any fevers, chills, vomiting, melena, hematochezia, dysphagia or dyne aphasia. He
denies any early satiety or unintended weight loss. Prior to the hospitalization he states that his bowel movements were soft, formed, regular and daily. He denies any signs of GI bleeding. He has never had a colonoscopy before. He denies any
family history of gastrointestinal malignancy or IBD. Patient with documented brown soft formed BM this am.
Past Medical History
Past Medical History: Other (A-fib, CVA left-sided weakness, hyperlipidemia, GERD, NSTEMI, ileus, gastric ulcer, aspiration pneumonia)
Past Surgical History: Other (CABG x 4, CCY)
Social History
Tobacco: Former Smoker
Alcohol: Former
Drug: None
Personal:
Living: With Family
Employment: Retired
Family History
Family History: Other (No family history of gastrointestinal malignancy or IBD)
Allergies / Home Medications
Allergy/AdvReac Type Severity Reaction Status Date / Time
bee venom protein (honey bee) Allergy Unknown Verified 07/25/25 22:47
diphenhydramine Allergy Unknown Verified 07/25/25 22:47
�Medication �Instructions �Recorded
amlodipine 10 mg tablet (Norvasc) 10 mg PO DAILY Blood Pressure 07/26/25
Held on 08/09/25.
Instructions: hold until
directed to resume
apixaban 5 mg tablet (Eliquis) 5 mg PO BID Blood Clot 07/26/25
Prevention/Tx
nortriptyline 10 mg capsule 10 mg PO HS Mental Health/Anxiety 07/26/25
pantoprazole 40 mg tablet,delayed 40 mg PO DAILY Gastrointestinal 07/26/25
release (Protonix) Issue
atorvastatin 40 mg tablet 40 mg PO QPM High cholesterol #0 08/08/25
tabs
cyclobenzaprine 10 mg tablet 5 mg (1/2 x 10 mg) PO Q8HPRN PRN 08/08/25
muscle spasm #0 tabs
metoprolol succinate 25 mg 25 mg PO DAILY Blood pressure #0 08/08/25
tablet,extended release 24 hr tabs
amoxicillin 875 mg-potassium 1 tab PO Q12 pneumonia #10 tabs 08/09/25
clavulanate 125 mg tablet
clopidogrel 75 mg tablet (Plavix) 75 mg PO DAILY Blood clot 08/09/25
prevention/tx #30 tabs
furosemide 40 mg tablet 40 mg PO BID AT 0800,1600 #0 tabs 08/09/25
guaifenesin 100 mg/5 mL oral liquid 200 mg (10 mL) PO QID Cough #0 mL 08/09/25
potassium chloride 20 mEq 20 meq PO BID #0 tabs 08/09/25
tablet,extended release(part/cryst)
sennosides 8.6 mg tablet (Tennille-naveed) 8.6 mg PO Q12 Constipation #0 tabs 08/09/25
tamsulosin 0.4 mg capsule 0.8 mg (2 x 0.4 mg) PO DAILY 08/09/25
Urinary issue #0 caps
Review of Systems
-
All other systems: A 12 pt ROS was Negative except as stated above in HPI
Vital Signs
Temp Pulse Resp BP Pulse Ox
97.6 F 63 18 117/68 97
08/11/25 11:48 08/11/25 11:48 08/11/25 11:48 08/11/25 11:48 08/11/25 11:48
Physical Exam
Exam
General: No Apparent Distress
HEENT: Other (NGT in place)
Respiratory: Clear (anterior)
Cardiac: Irregular Rhythm
GI: Soft, Non Tender, Distended and Other (hypoactive BS, distant)
Skin: Warm and Dry
Psych: Calm
Results
WBC 9.7 10^3/uL (4.8-10.8) 08/11/25 04:35
Hgb 8.5 g/dL (13.0-18.0) L 08/11/25 04:35
Hct 26.0 % (39.0-52.0) L 08/11/25 04:35
MCV 88.4 fL (80.0-94.0) 08/11/25 04:35
Plt Count 300 10^3/uL (130-400) 08/11/25 04:35
Absolute Neuts (auto) 6.9 10^3/uL (1.4-6.5) H 08/11/25 04:35
Sodium 137 mmol/L (135-145) 08/11/25 04:35
Potassium 4.7 mmol/L (3.5-5.1) 08/11/25 04:35
Chloride 105 mmol/L (98-107) 08/11/25 04:35
Carbon Dioxide 28 mmol/L (22-30) 08/11/25 04:35
BUN 25 mg/dl (9-20) H 08/11/25 04:35
Creatinine 0.9 mg/dL (0.7-1.3) 08/11/25 04:35
Calcium 7.6 mg/dl (8.4-10.2) L 08/11/25 04:35
Total Bilirubin 1.0 mg/dl (0.2-1.3) 08/11/25 04:35
AST 30 U/L (17-59) 08/11/25 04:35
ALT 36 U/L (0-50) 08/11/25 04:35
Alkaline Phosphatase 172 U/L (38-126) H 08/11/25 04:35
Lipase 305 U/L (23-300) H 08/10/25 01:12
Diagnostic Image Results:
CT abdomen and pelvis with IV contrast 08/10/2025:
1. Findings suggesting adynamic ileus and enterocolitis.
2. Small left and trace right pleural effusions. Left lower lobe probable atelectasis.
Abd Xray 08/11/25 AM:
IMPRESSION:
1. Tip of the enteric catheter is near the level of the gastroesophageal junction. The side-port is likely above the level of the gastroesophageal junction.
2. Findings as above which are most consistent with marked ileus. There is small bowel dilation which is slightly improved as compared with previous exam, however given the volume of air within the large bowel partial obstruction is considered
less likely. No free air.
3. Small left pleural effusion and adjacent atelectasis/consolidation.
Prior GI Procedures:
EGD: '30 years ago [facility], ulcer'
Colonoscopy: never
Assessment / Plan
-
70-year-old Mauritian-speaking male (assistance of Mauritian corporate administrative assistant Cheryl# [id number]) past medical history of A-fib on Eliquis, CVA with left-sided weakness, hyperlipidemia, GERD, recent non-STEMI status post CABGx 4 07/31/2025 with recent postop ileus
requiring NG tube (08/04/2025-08/06/25), aspiration pneumonia, remote history of gastric ulcer (30 years ago treated at [facility]) patient was discharged to [facility] on 08/09/2025. The patient presented to the emergency room on 08/10/2025
with abdominal distention. Asked to evaluate for ileus. CT on 08/10/2025 showing prominent air and fluid filled small and large bowel loops throughout the abdomen without discrete transition point. No evidence of obstruction or adjacent
inflammatory changes. NG tube was placed. Patient now passing flatus. Had moderate-sized brown formed bowel movement this morning. Repeat x-ray this morning showing tip of catheter near the level of the GE junction. This was advanced 10 cm and
repeat imaging pending. Findings of small bowel dilatation slightly improved compared to previous exam. Most consistent with marked ileus. Given the volume of air within the large bowel partial obstruction is considered less likely. Patient was
just sent down for repeat abdominal x-ray.
Impression:
Abd distention, most likely ileus
Remote hx 'ulcer' while at [facility]
Plan:
-Continue NGT decompression
-Await pending XR and continue to follow serial XR
-Continue Pantoprazole
-
-
Thank you for consultation and allowing me to participate in the patient's care. Please call the recreation therapy aides teacher GI physician during the after hours with any questions or concerns.
[2025-08-11] MEDS: DULCOLAX 10 MG RECTAL (15:37)
--- NOTE | 2025-08-11 16:14 | CM ---
Reviewed chart. Mr Goodman was transferred to [facility]. at [place] on 08/09/15 and re-admitted on 08/10/25 with an ileus . Will need to re-dahlia to [facility]. at [place] to see if they will accept back when medically stable. Medical work-up in
progress. The discharge plan is acute rehab. when medically stable.
[2025-08-11] MEDS: FLUSH (NSS) 3 FLUSH IV (16:59)
--- NOTE | 2025-08-11 18:01 | CONS.URO ---
Consultation
-
Date/Time Consultation Performed: 08/11/25 at 1215
Performing Provider: Peffer
Reason for Consultation: Urinary retention
Medical History
History of Present Illness
70M readmitted with ileus s/p recent CABG
Urologic hx of BPH on tamsulosin
During initial admission he had some urinary retention which resolved prior time of discharge
He is now readmitted with post op ileus and constipation/possible Ariana's
Also found to have recurrent urinary retention and pain with scan >500cc and unable to void s/p seo placement
Patient states that at baseline he does not have any problems voiding and tamsulosin works well for him
Stream good, no hesitancy, had not had retention problems in the past
Past Medical History
Past Medical History: Reports Arrhythmia, CAD, CVA, GERD, HTN and Hypercholesterolemia
Past Surgical History: Reports Cholecystectomy
Social History
Tobacco: Former Smoker
Family History
Family History: Reviewed & Not Pertinent
Allergies/Home Medications
Allergies
Allergy/AdvReac Type Severity Reaction Status Date / Time
bee venom protein (honey bee) Allergy Unknown Verified 07/25/25 22:47
diphenhydramine Allergy Unknown Verified 07/25/25 22:47
Home Medications
�Medication �Instructions �Recorded �Confirmed �Type
amlodipine 10 mg tablet (Norvasc) 10 mg PO DAILY Blood Pressure 07/26/25 08/11/25 History
Held on 08/09/25.
Instructions: hold until
directed to resume
apixaban 5 mg tablet (Eliquis) 5 mg PO BID Blood Clot 07/26/25 08/11/25 History
Prevention/Tx
nortriptyline 10 mg capsule 10 mg PO HS Mental Health/Anxiety 07/26/25 08/11/25 History
pantoprazole 40 mg tablet,delayed 40 mg PO DAILY Gastrointestinal 07/26/25 08/11/25 History
release (Protonix) Issue
atorvastatin 40 mg tablet 40 mg PO QPM High cholesterol #0 08/08/25 08/11/25 Rx
tabs
cyclobenzaprine 10 mg tablet 5 mg (1/2 x 10 mg) PO Q8HPRN PRN 08/08/25 08/11/25 Rx
muscle spasm #0 tabs
metoprolol succinate 25 mg 25 mg PO DAILY Blood pressure #0 08/08/25 08/11/25 Rx
tablet,extended release 24 hr tabs
amoxicillin 875 mg-potassium 1 tab PO Q12 pneumonia #10 tabs 08/09/25 08/11/25 Rx
clavulanate 125 mg tablet
clopidogrel 75 mg tablet (Plavix) 75 mg PO DAILY Blood clot 08/09/25 08/11/25 Rx
prevention/tx #30 tabs
furosemide 40 mg tablet 40 mg PO BID AT 0800,1600 #0 tabs 08/09/25 08/11/25 Rx
guaifenesin 100 mg/5 mL oral liquid 200 mg (10 mL) PO QID Cough #0 mL 08/09/25 08/11/25 Rx
potassium chloride 20 mEq 20 meq PO BID #0 tabs 08/09/25 08/11/25 Rx
tablet,extended release(part/cryst)
sennosides 8.6 mg tablet (Tennille-naveed) 8.6 mg PO Q12 Constipation #0 tabs 08/09/25 08/11/25 Rx
tamsulosin 0.4 mg capsule 0.8 mg (2 x 0.4 mg) PO DAILY 08/09/25 08/11/25 Rx
Urinary issue #0 caps
Physical Exam
Vital Signs
Vital Signs
Temp Pulse Resp BP Pulse Ox
97.4 F 70 20 127/66 93
08/11/25 16:01 08/11/25 16:00 08/11/25 16:01 08/11/25 15:06 08/11/25 16:01
Lab / Testing Results
Laboratory Results
08/11/25 04:35
08/11/25 04:35
Physical Exam
General: Well Developed, Well Nourished and No Apparent Distress
Respiratory: Non Labored Respirations
GI: Soft, Non Tender, Distended and Other (NGT)
Genito-urinary: No Costovertebral Tend, Clear Urine and Seo Catheter
Neuro: AO x 3
Psych: Calm and Intact Judgement
Assessment / Plan
-
70M with acute urinary retention on readmission with post op ileus s/p CABG
- Urinary retention is common in the acute setting post op and especially with complications like ileus/constipation, decreased functional status, pain medications, etc and will likely return to baseline as functional status improves
- Continue tamsulosin
- maintain seo until near baseline functional status and nearing discharge
- Repeat trial of void with post void bladder scan prior to discharge
[2025-08-11] MEDS: TYLENOL/FEVERALL 650 MG RECTAL (21:41)
[2025-08-12] VITALS (7 sets, daily range): BP systolic 115–139; BP diastolic 53–124; PULSE 66; O2SAT 98; BMI 38.8
[2025-08-12] MEDS: UNASYN IV (05:01)
[2025-08-12 05:40] LABS: Hematocrit 25.7 % (39.0-52.0); Hemoglobin 8.2 g/dL (13.0-18.0); Mean Corp Hgb Conc. 31.9 g/dL (33.0-37.0); Mean Corpuscular Volume 87.1 fL (80.0-94.0); Nucleated Red Blood Cells % 0 % (-); Platelet Count 360 10^3/uL (130-400); Red Cell Dist. Width 14.8 % (11.5-14.5)
--- NOTE | 2025-08-12 06:24 | PTCARENOTE ---
Assumed care on pt at 1900, aaox3, Australian speaking, language line available in pt's room. NG tube to R nare intact and connected to wall LIS, taped at the 56th marking, draining light brown output. NG tube irrigated q4hr with 30cc tap water, pt
denied c/o nausea during shift, abd soft, nontender, hypoactive bowel sound, had 2 large BM's overnight. Afib on the monitor, HR 60-70's, bp stable, IV metoprolol given as scheduled. Tylenol given at HS for c/o headache, + effect. Pt noncompliant
with NPO diet, constantly asking for drinks that family has provided for him. Education provided via language line, pt remains noncompliant. All incisions MARGARITA and well approximated. Call breen within reach.
[2025-08-12 06:41] LABS: Blood Urea Nitrogen 19 mg/dl (9-20); Calcium 8.1 mg/dl (8.4-10.2); Carbon Dioxide 26 mmol/L (22-30); Chloride 104 mmol/L (98-107); Estimated Creatinine Clearance 88 ml/min; Glucose 96 mg/dl (70-99); Potassium 4.2 mmol/L (3.5-5.1); Sodium 140 mmol/L (135-145); eGFR > 60.00
--- NOTE | 2025-08-12 08:16 | PTCARENOTE ---
Assumed care of pt from prev nsg shift; Pt AAOx3 w/no c/o CP but does c/o 'mild SOB'. Pt is [place] speaking but able to make needs known utilizing server service assistant ipad. VSS w/HR in the 70's & BP 122/60 this AM. Pt is Afib at a controlled rate on
telemetry monitoring. Pt OOB to [facility] & this RN assisted pt to BSC. Pt & spouse need freq reminders of NPO status. Pt w/no addtl needs at this time. Plan of care ongoing.
--- NOTE | 2025-08-12 09:21 | PTCARENOTE ---
Pt's NG tube pulled by colorectal surgeon & pt's diet advanced to clear liqs. Advised pt & spouse. Pt sent for bilat LE & KATIE U/S on stretcher w/O2 3L NC.
--- NOTE | 2025-08-12 09:26 | W.PN.CRS1 ---
Today's Communication / Plan
-
NG tube removed
Clears
Assessment/Plan
-
Mr Goodman is a 70 yo Swiss speaking male with a h/o CVA, AFib on Eliquis, CAD and recent NSTEMI s/p CABG on 07/31 with discharge to rehab yesterday. His course of stay was complicated by ileus with NGT placement with subsequent removal and dietary
advancements. He was also treated for aspiration pneumonia during his course of stay d/t ?aspiration while vomiting. He notes that he was initially tolerating a solid diet but then pain and distention returned after about one day. An NGT was placed
in the ED with bilious outputs noted. Leukocytosis, but trended down slightly from prior admission 13.1 [address]). CT imaging with small and large bowel distention suggesting continued ileus, less likely Olgovie's. Distended on exam with tympany,
no current pain. Afebrile. stable vitals.
Plan:
- NG tube removed by PA at bedside. Advance to clears.
- Okay to convert to all oral meds.
- Appreciate GI consult.
-If worsens, he will require a decompressive colonoscopy (no plans at this time)
-Continue to hold Eliquis
-Okay for plavix
-No plans for surgery
Subjective Data
Subjective Data
Date of Service: August 12, 2025
Swiss deputy prosecuting attorney [id number]
Patient states he is very hungry and thirsty. He denies any pain. He feels much less distended. He had many bowel movements yesterday.
Objective Data
-
Vital Signs
Temp Pulse Resp BP Pulse Ox
98.5 F 77 20 122/60 98
08/12/25 07:08 08/12/25 07:06 08/12/25 07:08 08/12/25 07:06 08/12/25 07:08
Intake & Output
08/11/25 08/12/25 08/13/25
06:59 06:59 06:59
Intake Total 360 / 360 730 / 730
Output Total 1300 / 1300 1925 / 192
Balance -940 / -940 -1195 / -1195
Intake:
IV fluids (Total) 580 / 580
Unasyn 480 / 480
tylenol 100 / 100
IV piggybacks 360 / 360
Amount instilled into GI Tube ( 0 / 0 150 / 150
Total)
[place] Sump 0 / 0 150 / 150
Output:
Gastrointestinal tube output ( 350 / 350 350 / 350
Total)
[place] Sump 100 / 100 350 / 350
Urine, Aguilar 1575 / 1575
Urine, Voided 400 / 400
Straight cath output 550 / 550
Other:
How many times incontinent 1
MODERATE amount urine
Lab Results
08/12/25 04:50
08/12/25 06:08
Physical Exam
-
General: No Acute Distress and AOx3
Abdomen: Soft, Distended (Mild, improved) and Non Tender
Skin: Warm and Dry
--- NOTE | 2025-08-12 09:28 | CM ---
Reviewed chart. Met with Mrs. Goodman to review discharge plans. Mr. Goodman was off the floor for a test. We reviewed the medical team recommendation of acute rehab. She is agreeable to having a referral sent to [facility] at [place]. Telephone
call to [facility] Liaison to make the referral. Sent the referral. Medical work-up in progress. The discharge plan is to go to acute rehab. at [facility]. at [place] if approved for admission, and bed available when medically stable.
[2025-08-12] MEDS: NSS (PRESERVATIVE FREE) 10 ML IV (11:09)
[2025-08-12] MEDS: ASPIRIN 300 MG RECTAL (11:09)
[2025-08-12] MEDS: LOPRESSOR 5 MG IV (11:09)
[2025-08-12] MEDS: PROTONIX IV 40 MG IV (11:09)
[2025-08-12] MEDS: FLUSH (NSS) 3 FLUSH IV (11:10)
[2025-08-12] MEDS: LOVENOX 110 MG SC (11:12)
--- NOTE | 2025-08-12 11:27 | W.PN.HOSP.TC ---
Today's Communication/Plan
-
restart DAPT as patient started oral intake
watch LLE redness
US LUE and LLE
Assessment / Plan
Assessment / Plan
70yo Ugandan speaking M with PMHX of HTN, HLD, Afib, insomnia, GERD, BPH, CAD s/p CABG x4 on 07/31/25 with postOP course compliacted by pneumonia, atelectasis with hypoxemia, suspected new diagnosis of NICOLAS that required prolonged intubation,
discharged to acute rehab and sent back same day with worsening abdominal distention with concern for recurrent ileus and enterocolitis on CT
A/P:
#Recurrent adynamic ileus
#Enterocolitis
no diarrhea
NG tube to low intermittent suction
GEnSx eval: NG removed on 08/12/25, since patient with large BM day prior
Encourage ambulation
Advance diet as tolerated
TSH WNL
follow and replete electrolytes
#Acute hypoxic respiratory failure
#NICOLAS
cont NC O2
cont previously ordered Abx - switch to unasyn since NPO, completed on 08/12/25
CPAP at HS
#Acute urinary retention
#BPH
Aguilar placed due to inability to void and pain
Most likely 2/2 poor ambulatory status
Tamsulosin/Finasteride
Urology consult: TOV before d/c if ambulatory status improves
#Chronic LLE redness
#New LUE swelling
US LUE and LLE
#mild leukocytosis
most likely 2/2 ileus
resolved
#CAD s/p NE and CABG x4 on 07/31/25
#Troponin elevation most likely 2/2 recent NE
Cardiothoracic surgery
Cardio consult: no further mgmt changes
telemetry
cont DAPT when possible, while NPO - rectal ASA - restarted DAPT on 08/12/25
#Mild lipase elevation
2/2 ileus
#Hypocalcemia
replete
follow
#Afib, unspecified
on Eliquis- switch to Lovenox while NPO
#Acute on chronic anemia
developed after Sx due to periOP blood loss
follow CBC
#chronic HFpEF
hold lasix as patient is NPO
DVT ppx Lovenox
Full code
I have spent at least 51min reviewing chart, test results, communication with consultants, bedside and providing direct patient care
Anticipated Discharge: > 48 hours
Subjective/Interval History
-
Date of Service: August 12, 2025
Objective Data
-
Labs:
Laboratory Results
08/12/25 08/12/25
04:50 06:08
WBC 8.3
Hgb 8.2 L
Hct 25.7 L
Plt Count 360
Sodium Cancelled 140
Potassium Cancelled 4.2
Chloride Cancelled 104
Carbon Dioxide Cancelled 26
BUN Cancelled 19
Creatinine Cancelled 0.9
Glucose Cancelled 96
Calcium Cancelled 8.1 L
Vital Signs:
Vital Signs
Temp Pulse Resp BP Pulse Ox
98.4 F 75 20 117/67 95
08/12/25 11:13 08/12/25 11:08 08/12/25 11:13 08/12/25 11:08 08/12/25 11:13
I&O
08/11/25 08/12/25 08/13/25
06:59 06:59 06:59
Intake Total 360 / 360 730 / 730
Output Total 1300 / 1300 1925 / 1925
Balance -940 / -940 -1195 / -1195
Review of Systems
-
History Source: Patient
All other systems: Reviewed and negative
Physical Exam
-
General: No Apparent Distress
HEENT: Normocephalic
Respiratory: Clear to Auscultation
Cardiac: Regular Rhythm
GI: Soft, Nontender, Nondistended and Normal Bowel Sounds
Genito-urinary: Clear Urine and Aguilar
Musculoskeletal: Edema, Left Upper Extrem, Edema, Right Lower Extrem and Edema, Left Lower Extrem
Skin: Other (chronic redness on LLE)
Neuro: Awake, Alert, Oriented and AO x 3
Psych: Calm
--- NOTE | 2025-08-12 11:52 | W.PN.CD ---
Today's Communication / Plan
-
Resume Plavix and Eliquis
Gentle IV diuresis now that taking PO
Impression / Plan
-
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 Sanchez).
- Complicated post op course due to aspiration, CAROL and ileus.
- returned on the same day of D/c with ileus
- Plavix resumed now that able to take PO. No ASA due to systemic AC.
Post Op Ileus, resolving
- initially thought to have resolved, returned the same day of discharge with acute abdominal pain and CT showing diffuse distention of small and large bowel with air-fluid levels without discrete transition suggestive of adynamic ileus.
- NGT removed 08/12
- surgery following
Acute hypoxic resp failure
- CXR with RUL PNA, worsening left basilar pleural effusion with atelectasis vs pna
- abx started
- resume gentle IV diuresis now that he is tolerating clears; increase as PO intake increases
AFIB, paroxysmal
- rate controlled
- resume Eliquis now that taking PO
LUE swelling
- US with superficial venous thrombosis; no DVT
HTN: bb
Hx CVA:
- on Eliquis as OP and statin
Subjective: SOB when working with PT. No chest pain. LLE redness improving.
echo 08/04/25
1. Normal left ventricular size and systolic function without regional wall motion abnormality. LVEF 60-65%.
2. No pericardial effusion.
3. No change compared to prior echocardiogram on 07/28/2025
Physical Exam
Vital Signs/Labs
Vital Signs
Temp Pulse Resp BP Pulse Ox
98.4 F 75 20 117/67 95
08/12/25 11:33 08/12/25 11:08 08/12/25 11:13 08/12/25 11:08 08/12/25 11:13
08/11/25 08/12/25 08/13/25
06:59 06:59 06:59
Actual Weight 242 lb 1.081 oz 240 lb 4.862 oz
08/12/25 04:50
08/12/25 06:08
Magnesium 2.2 mg/dl (1.6-2.3) 08/11/25 04:35
LAB Results
08/10/25 08/10/25 08/10/25
01:12 10:46 16:33
Troponin I 0.375 H* 0.301 H* 0.291 H*
Physical Exam
Constitutional: No acute distress and Comfortable
Cardiovascular: Rhythm/rate is irregular, Pedal edema present (LLE erythematous), S1S2 is normal and Murmur/rub/gallop absent
Respiratory: Respiratory effort normal and Other (decreased breath sounds at bilateral bases, up to mid field on L side)
Neuro/Psych: AO x 3
Data Reviewed
-
Date of Service: August 12, 2025
Medical Decision Making: Reviewed Test Results, Independent Historian Assessment, Test Interpretation and Review of Case with other Provider
EKG: Tracing Personally Visualized and interpreted
Echo: Report Reviewed by me
X-Ray/CT/US/MRI/NUC/PET: Image Personally Visualized and interpreted
Labs: Labs Reviewed by me
[2025-08-12] MEDS: FLOMAX 0.8 MG PO (13:17)
[2025-08-12] MEDS: FLUSH (NSS) 2 FLUSH IV (13:17)
[2025-08-12] MEDS: LASIX 40 MG IV (13:17)
--- NOTE | 2025-08-12 15:20 | WOUNDNOTE ---
WO RN note: Patient admitted with abdominal pain, ileus.
See H&P for complete history.
PMH: This is a 70-year-old Uruguayan-speaking male with past medical history significant for atrial fibrillation on anticoagulation, hypertension, hyperlipidemia, GERD, obesity CAD who is recently status post surgery coming to the emergency
department after discharge to rehab with severe abdominal pain and distention.
Wound Location and type/assessment: Patient admitted with: L ear rim healing stage 2 PI, Exuderm thin in use, scant drainage. Used [place] machine molder squeeze to communicate with patient and nurse Fannie assisted. Patient able to stand with minimal assist.
Sacrum is intact, perirectal skin with small open area, suspect due to moisture rather than pressure injury. Residual stool soiled area reports nurse when assessing this morning.
Appetite: NPO
Pressure redistribution devices in place: Sitting in chair with air cushion in use.
Plan: L ear rim dressing changed using small silicone foam. Junior foam pads in use on Oxygen tubing. Sacral silicone foam changed to protect. Recommended to nurse to use Calazime barrier cream to perirectal area daily and prn soilage. Will confirm
orders with hospitalist and updated nurse.
Updated care plan and will follow as needed.
Note to case management of equipment requested for discharge: none
[2025-08-12] MEDS: LIPITOR 40 MG PO (18:00)
[2025-08-12] MEDS: ELIQUIS 5 MG PO (20:32)
[2025-08-13] VITALS (13 sets, daily range): BP systolic 106–136; BP diastolic 26–87; PULSE 82–99; O2SAT 100; BMI 38.8
[2025-08-13] MEDS: MELATONIN 3 MG PO (00:47)
[2025-08-13 04:24] LABS: Hematocrit 25.2 % (39.0-52.0); Hemoglobin 8.5 g/dL (13.0-18.0); Mean Corp Hgb Conc. 33.7 g/dL (33.0-37.0); Mean Corpuscular Volume 86.0 fL (80.0-94.0); Nucleated Red Blood Cells % 0 % (-); Platelet Count 413 10^3/uL (130-400); Red Cell Dist. Width 14.5 % (11.5-14.5)
[2025-08-13 04:45] LABS: ALT (SGPT) 35 U/L (0-50); AST (SGOT) 34 U/L (17-59); Albumin 2.9 g/dl (3.5-5.0); Alkaline Phosphatase 228 U/L (38-126); Blood Urea Nitrogen 16 mg/dl (9-20); Calcium 7.6 mg/dl (8.4-10.2); Carbon Dioxide 25 mmol/L (22-30); Chloride 103 mmol/L (98-107); Estimated Creatinine Clearance 98 ml/min; Glucose 111 mg/dl (70-99); Potassium 4.2 mmol/L (3.5-5.1); Sodium 132 mmol/L (135-145); Total Protein 5.8 g/dl (6.3-8.2); eGFR > 60.00
--- NOTE | 2025-08-13 05:41 | PTCARENOTE ---
Pt AFib on monitor, VSS Pt denies pain or any discomfort. Pt refused to get out of bed, Stated that he was out of bed all day, and now he's tired. Refused to eat his dinner, stated that he'll try to eat in the morning. Call breen within reach. pt
advised to use call breen when need assistance.
--- NOTE | 2025-08-13 07:54 | W.PN.HOSP.TC ---
Today's Communication/Plan
-
head CT
fioricet
TOV today as patient more ambulatory
passing gas, no abd pain noted
replete calcium
Assessment / Plan
Assessment / Plan
70yo Taiwanese speaking M with PMHX of HTN, HLD, Afib, insomnia, GERD, BPH, CAD s/p CABG x4 on 07/31/25 with postOP course compliacted by pneumonia, atelectasis with hypoxemia, suspected new diagnosis of NICOLAS that required prolonged intubation,
discharged to acute rehab and sent back same day with worsening abdominal distention with concern for recurrent ileus and enterocolitis on CT.
A/P:
#Recurrent adynamic ileus
#Enterocolitis
no diarrhea
NG tube to low intermittent suction
GEnSx eval: NG removed on 08/12/25, since patient with large BM day prior
Encourage ambulation
Advance diet as tolerated
TSH WNL
follow and replete electrolytes
#Intractable headache
With eliquis - reasonable for Head CT
Fioricet
#Acute hypoxic respiratory failure
#NICOLAS
cont NC O2
cont previously ordered Abx - switch to unasyn since NPO, completed on 08/12/25
CPAP at HS
#Hypocalcemia
replete and follow
#Acute urinary retention
#BPH
Mai placed due to inability to void and pain
Most likely 2/2 poor ambulatory status
Tamsulosin/Finasteride
Urology consult: TOV before d/c if ambulatory status improves
#Chronic LLE redness
#New LUE swelling
US LUE and LLE
#mild leukocytosis
most likely 2/2 ileus
resolved
#CAD s/p SD and CABG x4 on 07/31/25
#Troponin elevation most likely 2/2 recent SD
Cardiothoracic surgery
Cardio consult: no further mgmt changes
telemetry
cont DAPT when possible, while NPO - rectal ASA - restarted DAPT on 08/12/25
#Mild lipase elevation
2/2 ileus
#Hypocalcemia
replete
follow
#Alk.phos elevation
no RUQ pain
Patient with PMhx of cholecystectomy
Most liekly 2/2 acute disease
follow
#Afib, unspecified
on Eliquis- switch to Lovenox while NPO
#Acute on chronic anemia
developed after Sx due to periOP blood loss
follow CBC
#Acute on chronic HFpEF
DIuresis as per cardiology
FOllow Cr and electrolytes
DVT ppx Lovenox
Full code
I have spent at least 51min reviewing chart, test results, communication with consultants, bedside and providing direct patient care
Anticipated Discharge: > 48 hours
Subjective/Interval History
-
Date of Service: August 13, 2025
Objective Data
-
Labs:
Laboratory Results
08/13/25
03:57
WBC 8.1
Hgb 8.5 L
Hct 25.2 L
Plt Count 413 H
Sodium 132 L D
Potassium 4.2
Chloride 103
Carbon Dioxide 25
BUN 16
Creatinine 0.8
Glucose 111 H
Calcium 7.6 L
Total Bilirubin 0.9
AST 34
ALT 35
Alkaline Phosphatase 228 H
Vital Signs:
Vital Signs
Temp Pulse Resp BP Pulse Ox
97.5 F 84 22 123/67 96
08/13/25 03:53 08/13/25 06:00 08/13/25 03:53 08/13/25 03:53 08/13/25 03:53
I&O
10/14/25 10/15/25 10/16/25
06:59 06:59 06:59
Intake Total 730 / 730 1740 / 1740
Output Total 1925 / 1925 1400 / 1400
Balance -1195 / -1195 340 / 340
Review of Systems
-
History Source: Patient
All other systems: Reviewed and negative
Neuro: Reports Headache
Physical Exam
-
General: No Apparent Distress
HEENT: Normocephalic
Respiratory: Clear to Auscultation
GI: Soft, Nontender, Nondistended and Normal Bowel Sounds
Genito-urinary: No Costovertebral Tender
Musculoskeletal: No Clubbing, No Cyanosis and No Edema
Skin: Warm and Other (chronic LLE redness)
Neuro: Awake, Alert, Oriented and AO x 3
Psych: Calm
--- NOTE | 2025-08-13 08:58 | W.PN.CRS1 ---
Today's Communication / Plan
-
fulls to regular diet
no plans for surgery
Assessment/Plan
-
Mr Goodman is a 70 yo Maldivian speaking male with a h/o CVA, AFib on Eliquis, CAD and recent NSTEMI s/p CABG on 07/31 with discharge to rehab yesterday. His course of stay was complicated by ileus with NGT placement with subsequent removal and dietary
advancements. He was also treated for aspiration pneumonia during his course of stay d/t ?aspiration while vomiting. He notes that he was initially tolerating a solid diet but then pain and distention returned after about one day. An NGT was placed
in the ED with bilious outputs noted. Leukocytosis, but trended down slightly from prior admission 13.[address] imaging with small and large bowel distention suggesting continued ileus, less likely Olgovie's. Distended on exam with tympany,
no current pain. Afebrile. stable vitals.
Plan:
- Advance to fulls. Possible regular diet later today if tolerating
- Okay to convert to all oral meds.
- Appreciate GI consult.
-If worsens, he will require a decompressive colonoscopy (no plans at this time)
-Okay for plavix/eliquis
-No plans for surgery
Subjective Data
Subjective Data
Date of Service: August 13, 2025
Maldivian beef cattle farmer used.
Patient states he is hungry. He denies pain. He has no complaints.
Objective Data
-
Vital Signs
Temp Pulse Resp BP Pulse Ox
97.6 F 83 17 123/67 95
08/13/25 08:11 08/13/25 08:11 08/13/25 08:11 08/13/25 03:53 08/13/25 08:11
Intake & Output
08/12/25 08/13/25 08/14/25
06:59 06:59 06:59
Intake Total 730 / 730 174 / 1739
Output Total 1925 / 1925 1400 / 1400
Balance -1195 / -1195 340 / 340
Intake:
Oral fluids 1739 / 174
IV fluids (Total) 580 / 580
Unasyn 480 / 480
tylenol 100 / 100
Amount instilled into GI Tube ( 150 / 150
Total)
[place] Sump 150 / 150
Output:
Gastrointestinal tube output ( 350 / 350
Total)
[place] Sump 350 / 350
Urine, [place] 1575 / 1575 200 / 200
Urine, Voided 1200 / 1200
Other:
How many times incontinent 1
MODERATE amount urine
Lab Results
08/13/25 03:57
08/13/25 03:57
Physical Exam
-
General: No Acute Distress and AOx3
Abdomen: Soft, Non Distended and Non Tender
Skin: Warm and Dry
[2025-08-13] MEDS: FIORICET 1 TAB PO (09:17)
[2025-08-13] MEDS: PLAVIX 75 MG PO (09:17)
[2025-08-13] MEDS: FLOMAX 0.8 MG PO (09:17)
[2025-08-13] MEDS: PROSCAR 5 MG PO (09:17)
[2025-08-13] MEDS: TOPROL XL 25 MG PO (09:17)
[2025-08-13] MEDS: CALCIUM GLUCONATE 100 IV (09:17)
[2025-08-13] MEDS: LASIX 40 MG IV ×2 (09:17→19:43)
[2025-08-13] MEDS: ELIQUIS 5 MG PO (09:18)
[2025-08-13] MEDS: FLUSH (NSS) 3 FLUSH IV (09:18)
--- NOTE | 2025-08-13 09:46 | W.PN.CD ---
Addendum entered and electronically signed by Ketan Wasserman MD 08/13/25 13:56:
Procalcitonin negative and chest x-ray stable.
Patient had a large maroon-colored bowel movement. Hemoglobin stable. Evaluated by GI. Pt would like to hold off on EGD/colo and monitor for recurrent bleeding.
We will hold Eliquis for now and continue Plavix given recent NSTEMI/CABG. If he requires EGD/colonoscopy, we could switch Plavix to aspirin.
Original Note:
Today's Communication / Plan
-
Check CXR and procalcitonin
Increase Lasix to twice daily
Trend sodium
Impression / Plan
-
70-year-old man with recent NSTEMI from multivessel CAD s/p CABG x4 (07/31/25), hypertension, hyperlipidemia, stroke, and atrial fibrillation on Eliquis who re-presented on same day of discharge for post-op ileus s/p NGT now with hypoxic respiratory
failure due to L pleural effusion, pulmonary edema and possible pneumonia.
Acute hypoxic resp failure
- Multifactorial due to pleural effusion, volume overload, and possible pneumonia
- No WBC or fevers so monitoring off antibiotics.
- Repeat chest x-ray today and add on procalcitonin
- Increase Lasix to 40 mg IV twice daily now that he is advanced to full liquid diet
Acute on chronic HFpEF
- Severe exacerbation requiring IV diuresis and close monitoring of labs and telemetry
- Increase Lasix to twice daily as above. Will need to watch sodium
- Monitor BMP, daily weights, and strict I/Os
- Case management to brady SGLT2 inhibitor
Hyponatremia
- Trend with diuresis. We may need to back off if it gets worse.
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 Sanchez).
- Complicated post op course due to aspiration, CAROL and ileus.
- returned on the same day of D/c with ileus
- Plavix resumed now that able to take PO. No ASA due to systemic AC.
Post Op Ileus, resolving
- initially thought to have resolved, returned the same day of discharge with acute abdominal pain and CT showing diffuse distention of small and large bowel with air-fluid levels without discrete transition suggestive of adynamic ileus.
- NGT removed 08/12. Having BMs and passing gas
- no plan for surgery
AFIB, paroxysmal
- rate controlled
- resume Eliquis now that taking PO and no plan for surgery
LUE swelling
- US with superficial venous thrombosis; no DVT
HTN: bb
Hx CVA:
- on Eliquis as OP and statin
Subjective: Complaining of headache. No chest pain or SOB but breathing looks labored.
echo 08/04/25
1. Normal left ventricular size and systolic function without regional wall motion abnormality. LVEF 60-65%.
2. No pericardial effusion.
3. No change compared to prior echocardiogram on 07/28/2025
Physical Exam
Vital Signs/Labs
Vital Signs
Temp Pulse Resp BP Pulse Ox
97.6 F 86 17 121/56 95
08/13/25 08:11 08/13/25 08:11 08/13/25 08:11 08/13/25 08:11 08/13/25 08:11
08/12/25 08/13/25 08/14/25
06:59 06:59 06:59
Actual Weight 240 lb 4.862 oz 240 lb 8.389 oz
08/13/25 03:57
08/13/25 03:57
Magnesium 2.2 mg/dl (1.6-2.3) 08/11/25 04:35
08/12/25
06:08
Qwc-[id number]-Ahvuktjhlhb Pept 1870
LAB Results
08/10/25 08/10/25
10:46 16:33
Troponin I 0.301 H* 0.291 H*
Physical Exam
Constitutional: Other (breathing looks labored)
Cardiovascular: Rhythm/rate is irregular, Pedal edema present, S1S2 is normal and Murmur/rub/gallop absent
Respiratory: Other (increased work of breathing, decreased breath sounds at bilateral bases)
Data Reviewed
-
Date of Service: August 13, 2025
Medical Decision Making: Reviewed Test Results, Independent Historian Assessment, Test Interpretation and Review of Case with other Provider
EKG: Tracing Personally Visualized and interpreted
Echo: Report Reviewed by me
X-Ray/CT/US/MRI/NUC/PET: Image Personally Visualized and interpreted
Labs: Labs Reviewed by me
--- NOTE | 2025-08-13 11:24 | W.PN.UPDATE ---
Update Note
Progress Note Update
Large maroon colored BM - hold Dianelys, GI consult, serial H&H and T&S
--- NOTE | 2025-08-13 11:28 | CM ---
Reviewed chart. Met with Mr. and Mrs. Goodman to review discharge plans. Telephone call to [employer], ([phone]) to check on co-pay for Jardiance and Farxiga. His co-pay fo Farxiga 10 mg po is zero and the same for Jardiance 10 mg po is
zero. [facility] [place] [facility]. Medical work in progress. The discharge plan is [facility] [place] when medically stable.
--- NOTE | 2025-08-13 11:43 | W.PN.GI.CBS2 ---
Addendum entered and electronically signed by Heidy Hager MD 08/13/25 19:15:
I saw and examined the patient.
The ADVERTISING LAYOUT WORKER or PA's note was reviewed and I agree with the note.
Comment: GI reconsulted for episode of maroon stool today. Communication with the patient and through Malagasy furnace mechanic helper
Status post CABG 07/31, postop ileus requiring NG decompression, which seems to have improved and was tolerating diet but abdominal distention continued and maroon stool today. Denies abdominal pain, nausea or vomiting. No heartburn or trouble
swallowing. No previous constipation. No previous history of GI bleeding, never had colonoscopy, no family history of colon cancer or polyps. History of endoscopy 30 years ago and had ulcers in the stomach as per patient. Currently on Plavix and
Eliquis. Hemoglobin stable in the last week between 8.2 and 8.8. No previous history of anemia.
- Given significant drop in hemoglobin compared to admission and maroon stool, discussed regarding upper endoscopy and colonoscopy to evaluate.
Patient and agreeable, last Plavix dose was 08/13/2025 and last Eliquis dose was this morning as well.
Discussed with cardiology/hospitalist team, okay for aspirin but Eliquis and Plavix and EGD and colonoscopy planned for 08/18/2025
Currently on full liquid diet, if no further bleeding, could give a trial of low residue diet in the interim prior to colonoscopy prep.
Original Note:
Today's Communication / Plan
-
noted with large burgundy stool this am
Etiology upper bleeding ? PUD with hx NGT from trauma (though BUN normal) vs SB vs colonic bleed
distant hx EGD and no prior colonoscopy
monitor stools and hbg
will add iron studies
Eliquis hold-- last dose 1015 AM and also remain on Plavix with dose 08/10 then resumed 08/13 -- medical team reviewing with CT surgery for hold
if continued bleeding discussed with patient for EGD- if neg colonoscopy - he wishes to hold off if able with recent cardiac surgery but aware if increased bleeding may need to proceed
decreased to clear diet
family updated at bedside
use of Malagasy furnace mechanic helper to assist with evaluation
Assessment / Plan
-
70-year-old Malagasy-speaking male past medical history of A-fib on Eliquis, CVA with left-sided weakness, hyperlipidemia, GERD, recent non-STEMI status post CABGx 4 07/31/2025 with recent postop ileus requiring NG tube (08/04/2025-08/06/25), aspiration
pneumonia, remote history of gastric ulcer (30 years ago treated at [facility]) patient was discharged to [facility] re[facility] on 08/09/2025. The patient presented to the emergency room on 08/10/2025 with abdominal distention. GI was following with
concern for ileus. CT on 08/10/2025 showing prominent air and fluid filled small and large bowel loops throughout the abdomen without discrete transition point. No evidence of obstruction or adjacent inflammatory changes. s/p NG decompression and
colorectal surgical follow up with diet advancement. Pt noted 08/13 wtih large burgundy stool. Hx EGD many years ago and no prior colonoscopy.
Impression:
-large maroon burgundy stool 08/13
-anemia
-Abd distention, most likely ileus s/p decompression
Remote hx 'ulcer' while at [facility]
A-fib on Eliquis
recent non-STEMI status post CABGx 4 07/31/2025 with recent postop ileus requiring NG tube (08/04/2025-08/06/25)
other med problems:
CVA with left-sided weakness, hyperlipidemia, GERD, recent non-STEMI status post CABGx 4 07/31/2025 with recent postop ileus requiring NG tube (08/04/2025-08/06/25)
Plan:
noted with large burgundy stool this am
Etiology upper bleeding ? PUD with hx NGT from trauma (though BUN normal) vs SB vs colonic bleed
distant hx EGD and no prior colonoscopy
monitor stools and hbg
will add iron studies
Eliquis hold-- last dose 08/13 AM and also remain on Plavix with dose 08/10 then resumed 08/13 -- medical team reviewing with CT surgery for hold
if continued bleeding discussed with patient for EGD- if neg colonoscopy - he wishes to hold off if able with recent cardiac surgery but aware if increased bleeding may need to proceed
decreased to clear diet
family updated at bedside
use of Malagasy furnace mechanic helper to assist with evaluation
Subjective
Subjective
Date of Service: August 13, 2025
call back to see for rectal bleeding note with large burgundy stool when working with PT, denies dizziness with mild nausea but ate breakfast this am
Objective
Data Reviewed
Laboratory Data:
Laboratory Results
08/13/25 03:57
Laboratory Results
Phosphorus 3.4 mg/dl (2.5-4.5) 08/11/25 04:35
Magnesium 2.2 mg/dl (1.6-2.3) 08/11/25 04:35
Total Bilirubin 0.9 mg/dl (0.2-1.3) 08/13/25 03:57
AST 34 U/L (17-59) 08/13/25 03:57
ALT 35 U/L (0-50) 08/13/25 03:57
Alkaline Phosphatase 228 U/L (38-126) H 08/13/25 03:57
Lipase 305 U/L (23-300) H 08/10/25 01:12
Vital Signs and I&O:
Vital Signs
Temp Pulse Resp BP Pulse Ox
97.6 F 80 16 131/78 100
08/13/25 11:01 08/13/25 11:01 08/13/25 11:01 08/13/25 10:30 08/13/25 11:01
I&O
08/12/25 08/13/25 08/14/25
06:59 06:59 06:59
Intake Total 730 / 730 1740 / 1740
Output Total 1924 1400 / 1400
Balance -1195 / -1195 340 / 340
Physical Exam
Physical Exam
HEENT: Anicteric and Moist mucous membranes
Cardiology: Normal Sinus Rhythm
Pulmonary: Other (chest incision)
GI: Soft, Distended and Non Tender
Neuro: Non Focal
[2025-08-13 12:50] LABS: Hematocrit 27.0 % (39.0-52.0); Hemoglobin 8.8 g/dL (13.0-18.0)
[2025-08-13 12:51] LABS: Iron 34 ug/dl (49-181)
[2025-08-13 13:00] LABS: Total Iron Binding Capacity 225 ug/dl (261-462)
[2025-08-13 13:16] LABS: Procalcitonin 0.08 ng/ml (0.0-0.25)
--- NOTE | 2025-08-13 13:33 | PN.CDI ---
CDI
- -
CDI:
Physician Documentation Request
Admit Date: 08/10/25 05:38
Dear Doctor Niels,
ER Physician Documentation: 'Adynamic ileus status post-CABG with abdominal distension.'
HP: 'hospital course was complicated by postoperative ileus without SBO on postop day #4 requiring NG tube placement with drainage of 1.7 L of bilious fluid...After arrival at rehab patient had worsening abdominal pain and distention...CT of the
abdomen and pelvis showed diffuse distention of small and large bowel with air-fluid levels without discrete transition suggestive of adynamic ileus.'
08/13 Hospitalist PN: 'Recurrent adynamic ileus'
08/13 Colorectal PN: 'recent NSTEMI s/p CABG on 07/31 with discharge to rehab yesterday.'
Please clarify the following:
Recurrent adynamic ileus is a complication of the surgery
Recurrent adynamic ileus is unexpected but is NOT a complication of the surgery
Recurrent adynamic ileus is an expected occurrence and is not a complication of surgery
Recurrent adynamic ileus is inherent to/unavoidable during the surgery and is not a complication
Other
Use of terms such as suspected, likely, concern for, or probable (associated with a specific diagnosis that is being evaluated, monitored, or treated as if it exists) are acceptable and can be coded in the inpatient setting, when documented at the
time of discharge.
Thank you,
Sandy Goodman RN, BSN
CDI Specialist
Available via [place] text
Please use your independent medical judgment in providing your response.
[2025-08-13 14:25] LABS: Ferritin 362.0 ng/ml (17.9-464.0)
[2025-08-13] MEDS: LIPITOR 40 MG PO (19:43)
[2025-08-13 19:50] LABS: Hematocrit 24.2 % (39.0-52.0); Hemoglobin 8.1 g/dL (13.0-18.0)
--- NOTE | 2025-08-13 22:43 | PTCARENOTE ---
Patient received at change of shift resting in the bed. Ordered H&H drawn and sent. Patient DTV by 194, patient expressed no need to void, bladder scan resulted 176cc of urine. Patient later had one incontinent episode, unable to measure urine,
post void residual 304cc. The patient initially declined to urinate but later voided 200cc of kiki urine. Patient afib on the monitor. Oxygen saturation 94-97% on 3L NC. Declined to wear CPAP tonight. Patient to bathroom for BM, smear of brown
stool. Discussed plan of care, utilized language line services. Call breen within reach. Care ongoing.
[2025-08-13] MEDS: OFIRMEV 100 IV (23:49)
[2025-08-13] MEDS: MELATONIN 5 MG PO (23:49)
[2025-08-14] VITALS (7 sets, daily range): BP systolic 94–128; BP diastolic 55–70; BMI 38.6
[2025-08-14 03:55] LABS: Hematocrit 24.2 % (39.0-52.0); Hemoglobin 8.2 g/dL (13.0-18.0)
[2025-08-14 03:57] LABS: Hematocrit 24.4 % (39.0-52.0); Hemoglobin 7.9 g/dL (13.0-18.0); Mean Corp Hgb Conc. 32.4 g/dL (33.0-37.0); Mean Corpuscular Volume 84.7 fL (80.0-94.0); Nucleated Red Blood Cells % 0 % (-); Platelet Count 385 10^3/uL (130-400); Red Cell Dist. Width 14.5 % (11.5-14.5)
[2025-08-14 04:19] LABS: ALT (SGPT) 42 U/L (0-50); AST (SGOT) 38 U/L (17-59); Albumin 2.9 g/dl (3.5-5.0); Alkaline Phosphatase 239 U/L (38-126); Blood Urea Nitrogen 14 mg/dl (9-20); Calcium 7.9 mg/dl (8.4-10.2); Carbon Dioxide 27 mmol/L (22-30); Chloride 100 mmol/L (98-107); Estimated Creatinine Clearance 79 ml/min; Glucose 111 mg/dl (70-99); Magnesium 1.7 mg/dl (1.6-2.3); Potassium 3.9 mmol/L (3.5-5.1); Sodium 133 mmol/L (135-145); Total Protein 5.8 g/dl (6.3-8.2); eGFR > 60.00
--- NOTE | 2025-08-14 07:54 | W.PN.CD ---
Today's Communication / Plan
-
coninue to monitor labs, sodium, potassium , creatinine with diuretics
- Continue IV Lasix but monitor closely particular since patient had some GI bleeding yesterday.
- Patient on 2 L at rest 4 L with activity. Wean as tolerated.
-- Maroon stool reported 08/13/2025. No further bleeding overnight
- Plavix and Eliquis on hold.
- Gastroenterology consultants following.
- Monitor hemoglobin closely and assess need for PRBC.
- If bleeding issues remain stable, as Plavix washes out would consider initiation of aspirin 81 mg a day since patient with recent NSTEMI and CABG. This was reviewed with CT surgery. Can assess resumption of aspirin over the weekend.
Impression / Plan
-
70-year-old man with recent NSTEMI from multivessel CAD s/p CABG x4 (07/31/25), hypertension, hyperlipidemia, stroke, and atrial fibrillation on Eliquis who re-presented on same day of discharge for post-op ileus s/p NGT now with hypoxic respiratory
failure due to L pleural effusion, pulmonary edema and possible pneumonia.
Acute hypoxic resp failure
- Multifactorial due to pleural effusion, volume overload, and possible pneumonia
- No WBC or fevers so monitoring off antibiotics.
- Repeat chest x-ray 08/13/25 Improving aeration of the right upper lobe compared to the chest radiograph from 08/10/2025.
Stable left basilar opacity again most suggestive of pleural fluid and adjacent atelectasis and/or pneumonia.
- Continue IV Lasix but monitor closely particular since patient had some GI bleeding yesterday.
- Patient on 2 L at rest 4 L with activity. Wean as tolerated.
Acute on chronic HFpEF
- Severe exacerbation requiring IV diuresis and close monitoring of labs and telemetry
- continue lasix
- Monitor BMP, daily weights, and strict I/Os
- Case management to brady SGLT2 inhibitor
.
GI bleed.
- Maroon stool reported 08/13/2025
- Plavix and Eliquis on hold.
- Gastroenterology consultants following.
- Monitor hemoglobin closely and assess need for PRBC.
- If bleeding issues remain stable, as Plavix washes out would consider initiation of aspirin 81 mg a day since patient with recent NSTEMI and CABG. This was reviewed with CT surgery. Can assess risk of resumption of aspirin over the weekend.
.
Hyponatremia
- monitor with diuresis.
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 Sanchez).
- Complicated post op course due to aspiration, CAROL and ileus.
-
Post Op Ileus, resolving
- initially thought to have resolved, returned the same day of discharge with acute abdominal pain and CT showing diffuse distention of small and large bowel with air-fluid levels without discrete transition suggestive of adynamic ileus.
- NGT removed 08/12.
- Abdomen soft with positive bowel sounds
AFIB, paroxysmal
- s/pLAA ligation
- rate controlled
- Eliquis on hold due to maroon stool on 08/13/2025
LUE swelling
- US with superficial venous thrombosis; no DVT
HTN: bb
Hx CVA:
- on Eliquis as OP and statin
echo 08/04/25
1. Normal left ventricular size and systolic function without regional wall motion abnormality. LVEF 60-65%.
2. No pericardial effusion.
3. No change compared to prior echocardiogram on 07/28/2025
Physical Exam
Vital Signs/Labs
Vital Signs
Temp Pulse Resp BP Pulse Ox
97.8 F 77 20 128/59 97
08/14/25 03:33 08/14/25 07:00 08/14/25 03:33 08/14/25 03:32 08/14/25 03:33
08/13/25 08/14/25 08/15/25
06:59 06:59 06:59
Actual Weight 109.1 kg
08/14/25 03:43
08/14/25 03:43
Magnesium 1.7 mg/dl (1.6-2.3) 08/14/25 03:43
08/12/25
06:08
Evo-L-Oqgpeydtasb Pept 1869
Physical Exam
Constitutional: No acute distress
Cardiovascular: Rhythm & rate is regular
Respiratory: Wheeze Absent and Rhonchi Absent
GI: Soft and Distention present
Neuro/Psych: Alert
Data Reviewed
-
Date of Service: August 14, 2025
Medical Decision Making: Reviewed Test Results
Echo: Report Reviewed by me
Medical Tests (PFT, Pathology etc): Report Reviewed by me
Labs: Labs Reviewed by me
--- NOTE | 2025-08-14 08:00 | PTCARENOTE ---
Addendum entered by Dorothea Cortez RN 08/14/25 09:19:
Pt is not NPO this AM. Pt & spouse need freq reminding of pt's full liquid diet restrictions.
Original Note:
Assumed care of pt from prev nsg shift; Pt AAOx3 w/no c/o CP but does c/o 'mild SOB'. 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 VSS w/HR in the 70's & BP 122/60 this AM. Pt is Afib at a controlled rate on
telemetry monitoring. Pt OOB to [facility] & this RN assisted pt to BSC. Pt & spouse need freq reminders of NPO status. Pt w/no addtl needs at this time. Plan of care ongoing.
--- NOTE | 2025-08-14 08:13 | W.PN.UPDATE ---
Update Note
Progress Note Update
Recommend resuming low dose ASA by the weekend
--- NOTE | 2025-08-14 09:32 | W.PN.CRS1 ---
Today's Communication / Plan
-
okay for a LR diet from our perspective
doing well, no surgery at this time
will s/o
Assessment/Plan
-
Mr Goodman is a 70 yo Niuean speaking male with a h/o CVA, AFib on Eliquis, CAD and recent NSTEMI s/p CABG on 07/31 with discharge to rehab yesterday. His course of stay was complicated by ileus with NGT placement with subsequent removal and dietary
advancements. He was also treated for aspiration pneumonia during his course of stay d/t ?aspiration while vomiting. He notes that he was initially tolerating a solid diet but then pain and distention returned after about one day. An NGT was placed
in the ED with bilious outputs noted. Leukocytosis, but trended down slightly from prior admission 13.[address] imaging with small and large bowel distention suggesting continued ileus, less likely Olgovie's. Distended on exam with tympany,
no current pain. Afebrile. stable vitals.
Plan:
- We are okay with low residue diet
- Okay to convert to all oral meds.
- Appreciate GI consult.
-If worsens, he will require a decompressive colonoscopy (no plans at this time)
-Okay for plavix/eliquis
-No plans for surgery. Will sign off. Please contact if further issues arise.
-Blood stool w/u per GI.
Subjective Data
Subjective Data
Date of Service: August 14, 2025
Niuean oracle database administrator used. Patient states he is not any pain. No longer has any bleeding. He is not that hungry. He is having gas and bowel movements.
Objective Data
-
Vital Signs
Temp Pulse Resp BP Pulse Ox
98.2 F 78 24 116/70 98
08/14/25 08:24 08/14/25 08:23 08/14/25 08:24 08/14/25 08:23 08/14/25 08:24
Intake & Output
08/13/25 08/14/25 08/15/25
06:59 06:59 06:59
Intake Total 1740 / 1740 1100 / 1100
Output Total 1400 / 1400 1050 / 1050
Balance 340 / 340 50 / 50
Intake:
Oral fluids 1740 / 1740 1100 / 1100
Output:
Urine, Aguilar 200 / 200 850 / 850
Urine, Voided 1200 / 1200 200 / 200
Other:
How many times incontinent 1
SATURATED amount urine
Lab Results
08/14/25 03:43
08/14/25 03:43
Physical Exam
-
General: No Acute Distress and AOx3
Abdomen: Soft, Non Distended and Non Tender
Skin: Warm and Dry
[2025-08-14] MEDS: FLOMAX 0.8 MG PO (10:01)
[2025-08-14] MEDS: LASIX 40 MG IV ×2 (10:01→20:51)
[2025-08-14] MEDS: TOPROL XL 25 MG PO (10:01)
[2025-08-14] MEDS: PROSCAR 5 MG PO (10:01)
[2025-08-14] MEDS: FLUSH (NSS) 1 FLUSH IV (10:02)
--- NOTE | 2025-08-14 10:31 | W.PN.HOSP.TC ---
Today's Communication/Plan
-
hold ELiquis, Plavix
follow H7H - no more bleeding episodes as per patient
passed TOV
Assessment / Plan
Assessment / Plan
70yo Costa Rican speaking M with PMHX of HTN, HLD, Afib, insomnia, GERD, BPH, CAD s/p CABG x4 on 07/31/25 with postOP course complicated by pneumonia, atelectasis with hypoxemia, suspected new diagnosis of NICOLAS that required prolonged intubation,
discharged to acute rehab and sent back same day with worsening abdominal distention with concern for recurrent ileus and enterocolitis on CT.
A/P:
#Acute on chronic anemia blood loss anemia
#Hematochezia on 08/13/25
PPI
FOllow CBC and transfuse as needed
GI for EGD and/or colonoscopy
ASA to continue, Plavix and Eliquis held as per discussion between card and GI
developed after Sx due to periOP blood loss
follow CBC
#Recurrent adynamic ileus, possibly 2/2 poor ambulation in PostOP period, not due to surgery itself
#Enterocolitis
no diarrhea
NG tube to low intermittent suction
GEnSx eval: NG removed on 08/12/25, since patient with large BM day prior
Encourage ambulation
Advance diet as tolerated
TSH WNL
follow and replete electrolytes
#Intractable headache
With eliquis - reasonable for Head CT
Fioricet
#Acute hypoxic respiratory failure
#NICOLAS
cont NC O2
cont previously ordered Abx - switch to unasyn since NPO, completed on 08/12/25
CPAP at HS
#Hypocalcemia
replete and follow
#Acute urinary retention
#BPH
Mai placed due to inability to void and pain, TOV passed on 08/13/25
Most likely 2/2 poor ambulatory status
Tamsulosin/Finasteride
Urology consult
#Chronic LLE redness
#New LUE swelling 2/2 superficial vein thrombosis
remove LUE IV
US LUE and LLE without DVT
#mild leukocytosis
most likely 2/2 ileus
resolved
#CAD s/p KY and CABG x4 on 07/31/25
#Troponin elevation most likely 2/2 recent KY
Cardiothoracic surgery
Cardio consult: no further mgmt changes
telemetry
With acute bleeding - might be a candidate for early cessation of Plavix
#Mild lipase elevation
2/2 ileus
#Hypocalcemia
replete
follow
#Alk.phos elevation
no RUQ pain
Patient with PMhx of cholecystectomy
Most liekly 2/2 acute disease
follow
#Afib, unspecified
on Eliquis- when possible
rate controlled
#Acute on chronic HFpEF
Diuresis as per cardiology
Follow Cr and electrolytes
DVT ppx Lovenox
Full code
I have spent at least 55min reviewing chart, test results, communication with consultants, bedside and providing direct patient care
Anticipated Discharge: > 48 hours
Subjective/Interval History
-
Date of Service: August 14, 2025
Objective Data
-
Labs:
Laboratory Results
08/14/25 08/14/25 08/14/25
03:43 03:43 03:43
WBC 7.7
Hgb 7.9 L 8.2 L
Hct 24.4 L 24.2 L
Plt Count 385
Sodium 133 L
Potassium 3.9
Chloride 100
Carbon Dioxide 27
BUN 14
Creatinine 1.0
Glucose 111 H
Calcium 7.9 L
Total Bilirubin 0.6
AST 38
ALT 42
Alkaline Phosphatase 239 H
Vital Signs:
Vital Signs
Temp Pulse Resp BP Pulse Ox
98.2 F 78 24 116/70 98
08/14/25 08:24 08/14/25 08:23 08/14/25 08:24 08/14/25 08:23 08/14/25 08:30
I&O
08/13/25 08/14/25 08/15/25
06:59 06:59 06:59
Intake Total 1740 / 1740 1100 / 1100
Output Total 1400 / 1400 1050 / 1050
Balance 340 / 340 50 / 50
--- NOTE | 2025-08-14 11:53 | CM ---
Reviewed chart. Met with Mr. and Mrs. Goodman to review discharge plans. Mrs. Goodman states he is doing much better. [facility] Telephone call to [facility] Liaison to give her an update. She
will review his referral early next week and make the decision regarding accepting home and when bed available. Medical work-up in progress. [facility] [place] if approved for admission and bed available when
medically s table.
--- NOTE | 2025-08-14 17:23 | W.PN.GI.CBS2 ---
Addendum entered and electronically signed by Heidy Hager MD 08/14/25 20:04:
I saw and examined the patient.
The DISTRIBUTION OPERATION SUPERVISOR or PA's note was reviewed and I agree with the note.
Comment: No events overnight
Hemoglobin stable, tolerating low residue diet
Currently on Plavix washout
EGD/colonoscopy planned 08/18
Original Note:
Today's Communication / Plan
-
stools now brown
will allow low residue diet
hbg stable no transfusion needed during admission
Etiology upper bleeding ? PUD with hx NGT from trauma (though BUN normal) vs SB vs colonic bleed - / ischemic event vs cannot rule out colonic issue
distant hx EGD and no prior colonoscopy
monitor stools and hbg
iron studies more chronic disease
Eliquis and Plavix hold last dose 08/13
tentative plan for EGD/colon 08/18
use of Cambodian deputy editor in chief to assist with evaluation
reviewed with nursing staff as pt asking to ambulate
colorectal following with recent ileus
Assessment / Plan
-
70-year-old Cambodian-speaking male past medical history of A-fib on Eliquis, CVA with left-sided weakness, hyperlipidemia, GERD, recent non-STEMI status post CABGx 4 07/31/2025 with recent postop ileus requiring NG tube (08/04/2025-08/06/25), aspiration
pneumonia, remote history of gastric ulcer (30 years ago treated at [facility]) patient was discharged to [facility] on 08/09/2025. The patient presented to the emergency room on 08/10/2025 with abdominal distention. GI was following with
concern for ileus. CT on 08/10/2025 showing prominent air and fluid filled small and large bowel loops throughout the abdomen without discrete transition point. No evidence of obstruction or adjacent inflammatory changes. s/p NG decompression and
colorectal surgical follow up with diet advancement. Pt noted 08/13 wtih large burgundy stool. Hx EGD many years ago and no prior colonoscopy.
Impression:
-large maroon burgundy stool 08/13
-anemia
-Abd distention, most likely ileus s/p decompression
Remote hx 'ulcer' while at [facility]
A-fib on Eliquis
recent non-STEMI status post CABGx 4 07/31/2025 with recent postop ileus requiring NG tube (08/04/2025-08/06/25)
other med problems:
CVA with left-sided weakness, hyperlipidemia, GERD, recent non-STEMI status post CABGx 4 07/31/2025 with recent postop ileus requiring NG tube (08/04/2025-08/06/25)
Plan:
stools now brown
will allow low residue diet
hbg stable no transfusion needed during admission
Etiology upper bleeding ? PUD with hx NGT from trauma (though BUN normal) vs SB vs colonic bleed - / ischemic event vs cannot rule out colonic issue
distant hx EGD and no prior colonoscopy
monitor stools and hbg
iron studies more chronic disease
Eliquis and Plavix hold last dose 08/13
tentative plan for EGD/colon 08/18
use of Cambodian deputy editor in chief to assist with evaluation
reviewed with nursing staff as pt asking to ambulate
colorectal following with recent ileus
Subjective
Subjective
Date of Service: August 14, 2025
08/14 brown stool no futher bleeding, bloating improved no vomiting, asking to walk around
Objective
Data Reviewed
Laboratory Data:
Laboratory Results
08/14/25 03:43
08/14/25 03:43
Laboratory Results
Phosphorus 3.4 mg/dl (2.5-4.5) 08/11/25 04:35
Magnesium 1.7 mg/dl (1.6-2.3) 08/14/25 03:43
Total Bilirubin 0.6 mg/dl (0.2-1.3) 08/14/25 03:43
AST 38 U/L (17-59) 08/14/25 03:43
ALT 42 U/L (0-50) 08/14/25 03:43
Alkaline Phosphatase 239 U/L (38-126) H 08/14/25 03:43
Lipase 305 U/L (23-300) H 08/10/25 01:12
Vital Signs and I&O:
Vital Signs
Temp Pulse Resp BP Pulse Ox
98.4 F 73 24 121/59 99
08/14/25 15:02 08/14/25 15:02 08/14/25 15:02 08/14/25 15:02 08/14/25 15:02
I&O
08/13/25 08/14/25 08/15/25
06:59 06:59 06:59
Intake Total 1740 / 1740 1100 / 1100 720 / 720
Output Total 1400 / 1400 1050 / 1050 450 / 450
Balance 340 / 340 50 / 50 270 / 270
Physical Exam
Physical Exam
HEENT: Anicteric and Moist mucous membranes
Cardiology: Normal Sinus Rhythm
Pulmonary: Clear
GI: Soft, Distended (minimal ) and Non Tender
Extremities: Edema (with redness )
Neuro: Non Focal
[2025-08-14] MEDS: LIPITOR 40 MG PO (18:36)
[2025-08-14] MEDS: TYLENOL 650 MG PO (20:51)
--- NOTE | 2025-08-14 21:45 | PTCARENOTE ---
Patient received at change of shift out of bed to the chair. Reports a mild posterior headache but otherwise offers no complaints. PRN acetaminophen give, see MAR. Patient requesting PRN Ambien at bedtime to help him sleep. Afib/flutter with
occasional PVCs on telemetry. Oxygen saturation 95-97% on 2L NC. Language line services utilized for translation as the patient is primarily Finnish speaking. Plan of care discussed. Patient maintaining Sternal precautions. Call breen within reach.
Care ongoing.
[2025-08-14] MEDS: AMBIEN 5 MG PO (22:44)
--- NOTE | 2025-08-14 23:30 | RESPNOTE ---
PT has been refusing and doesnt want to wear the CPAP. HE doesnt want to wear it again, so, the order was D/C ed and the BIPAP was pulled.
[2025-08-15] VITALS (10 sets, daily range): BP systolic 93–123; BP diastolic 54–73; PULSE 67; O2SAT 99; BMI 38.4
[2025-08-15 04:39] LABS: Hematocrit 26.2 % (39.0-52.0); Hemoglobin 8.7 g/dL (13.0-18.0); Mean Corp Hgb Conc. 33.2 g/dL (33.0-37.0); Mean Corpuscular Volume 84.8 fL (80.0-94.0); Nucleated Red Blood Cells % 0 % (-); Platelet Count 433 10^3/uL (130-400); Red Cell Dist. Width 14.6 % (11.5-14.5)
[2025-08-15 05:14] LABS: Albumin 3.0 g/dl (3.5-5.0); Blood Urea Nitrogen 14 mg/dl (9-20); Carbon Dioxide 27 mmol/L (22-30); Chloride 99 mmol/L (98-107); Estimated Creatinine Clearance 78 ml/min; Total Protein 6.1 g/dl (6.3-8.2); eGFR > 60.00
[2025-08-15 05:24] LABS: ALT (SGPT) 43 U/L (0-50); AST (SGOT) 37 U/L (17-59); Alkaline Phosphatase 208 U/L (38-126); Calcium 8.3 mg/dl (8.4-10.2); Glucose 106 mg/dl (70-99); Potassium 4.1 mmol/L (3.5-5.1); Sodium 133 mmol/L (135-145)
--- NOTE | 2025-08-15 08:15 | W.PN.GI.CBS2 ---
Addendum entered and electronically signed by Asya Zamora DO 08/15/25 08:53:
The patient was seen and examined by me independently in collaboration with the nurse practitioner.
Past medical history/social history/medications/allergies/family history reviewed.
Lab data and imaging data reviewed.
Patient seen in follow-up with [facility] Gasca. at bedside. Translation provided by Djiboutian conference interpreter, Amina #[id number].
No bloody BMs overnight. Patient reports feeling well. Moving his bowels and passing flatus.
Currently on low residue diet, plan to prep over the weekend and proceed with EGD/Colonoscopy on Monday, allowing for plavix/eliquis washout.
Addendum entered and electronically signed by DARRIUS Cade 08/15/25 08:48:
some persistent elevated alk phos trend down cont to follow - was normal prior to 08/04
Original Note:
Today's Communication / Plan
-
Etiology of bleeding related to upper bleeding ? PUD with hx NGT from trauma (though BUN normal) vs SB vs colonic bleed - ischemic event vs cannot rule out colonic issue
stools now brown
cont low residue diet
hbg stable no transfusion needed during admission
distant hx EGD and no prior colonoscopy
monitor stools and hbg
Eliquis and Plavix hold last dose 08/13
tentative plan for EGD/colon 08/18 with prep over weekend
discussed with patient and despite bleeding now improved pt had 2 episode of ileus, large amount of burgundy stools ideally will need to go back on anticoagulation would continued to proceed with GI work up after wash out as not prior
colonoscopy and last EGD 40 years ago. Pt and spouse agreeable to proceed.
use of Djiboutian conference interpreter to assist with evaluation
Assessment / Plan
-
70-year-old Djiboutian-speaking male past medical history of A-fib on Eliquis, CVA with left-sided weakness, hyperlipidemia, GERD, recent non-STEMI status post CABGx 4 07/31/2025 with recent postop ileus requiring NG tube (08/04/2025-08/06/25), aspiration
pneumonia, remote history of gastric ulcer (30 years ago treated at [facility]) patient was discharged to [place] [facility] on 08/09/2025. The patient presented to the emergency room on 08/10/2025 with abdominal distention. GI was following with
concern for ileus. CT on 08/10/2025 showing prominent air and fluid filled small and large bowel loops throughout the abdomen without discrete transition point. No evidence of obstruction or adjacent inflammatory changes. s/p NG decompression and
colorectal surgical follow up with diet advancement. Pt noted 08/13 wtih large burgundy stool. Hx EGD many years ago and no prior colonoscopy.
Impression:
-large maroon burgundy stool 08/13
-anemia
-Abd distention, most likely ileus s/p decompression
Remote hx 'ulcer' while at [facility]
A-fib on Eliquis
recent non-STEMI status post CABGx 4 07/31/2025 with recent postop ileus requiring NG tube (08/04/2025-08/06/25)
other med problems:
CVA with left-sided weakness, hyperlipidemia, GERD, recent non-STEMI status post CABGx 4 07/31/2025 with recent postop ileus requiring NG tube (08/04/2025-08/06/25)
Plan:
Etiology of bleeding related to upper bleeding ? PUD with hx NGT from trauma (though BUN normal) vs SB vs colonic bleed - ischemic event vs cannot rule out colonic issue
stools now brown
cont low residue diet
hbg stable no transfusion needed during admission
distant hx EGD and no prior colonoscopy
monitor stools and hbg
Eliquis and Plavix hold last dose 08/13
tentative plan for EGD/colon 08/18 with prep over weekend
discussed with patient and despite bleeding now improved pt had 2 episode of ileus, large amount of burgundy stools ideally will need to go back on anticoagulation would continued to proceed with GI work up after wash out as not prior
colonoscopy and last EGD 40 years ago. Pt and spouse agreeable to proceed.
use of [place]ib[place]ian conference interpreter to assist with evaluation
Subjective
Subjective
Date of Service: August 15, 2025
08/14 brown stool on low residue diet no recurrent distention, feeling well, asking about need to still proceed with EGD/colon
Objective
Data Reviewed
Laboratory Data:
Laboratory Results
08/15/25 04:18
08/15/25 04:18
Laboratory Results
Phosphorus 3.4 mg/dl (2.5-4.5) 08/11/25 04:35
Magnesium 1.7 mg/dl (1.6-2.3) 08/14/25 03:43
Total Bilirubin 0.6 mg/dl (0.2-1.3) 08/15/25 04:18
AST 37 U/L (17-59) 08/15/25 04:18
ALT 43 U/L (0-50) 08/15/25 04:18
Alkaline Phosphatase 208 U/L (38-126) H 08/15/25 04:18
Lipase 305 U/L (23-300) H 08/10/25 01:12
Vital Signs and I&O:
Vital Signs
Temp Pulse Resp BP Pulse Ox
98.5 F 65 20 113/63 97
08/15/25 04:06 08/15/25 07:00 08/15/25 04:06 08/15/25 04:06 08/15/25 04:06
I&O
08/14/25 08/15/25 08/16/25
06:59 06:59 06:59
Intake Total 1100 / 1100 720 / 720
Output Total 1050 / 1050 925 / 925
Balance 50 / 50 -205 / -205
Physical Exam
Physical Exam
HEENT: Anicteric and Moist mucous membranes
Cardiology: Normal Sinus Rhythm and Other (mid sternal incision intact )
Pulmonary: Clear
GI: Soft and Non Distended (large abdomen but improved from prior ileus )
Extremities: No Edema
Neuro: Non Focal and Other (mosotho speaking with use of conference interpreter )
[2025-08-15] MEDS: LASIX 40 MG IV ×2 (08:43→19:36)
[2025-08-15] MEDS: TYLENOL 650 MG PO ×2 (08:44→18:33)
[2025-08-15] MEDS: PROSCAR 5 MG PO (08:45)
[2025-08-15] MEDS: FLOMAX 0.8 MG PO (08:45)
[2025-08-15] MEDS: TOPROL XL 25 MG PO (08:45)
--- NOTE | 2025-08-15 08:45 | W.PN.HOSP.TC ---
Today's Communication/Plan
-
cont diuresis and wean off O2
Physiatry consult
Assessment / Plan
Assessment / Plan
70yo Japanese speaking M with PMHX of HTN, HLD, Afib, insomnia, GERD, BPH, CAD s/p CABG x4 on 07/31/25 with postOP course complicated by pneumonia, atelectasis with hypoxemia, suspected new diagnosis of NICOLAS that required prolonged intubation,
discharged to acute rehab and sent back same day with worsening abdominal distention with concern for recurrent ileus and enterocolitis on CT.
A/P:
#Acute hypoxic respiratory failure
#NICOLAS
cont NC O2
cont previously ordered Abx - switch to unasyn since NPO, completed on 08/12/25
CPAP at HS
#Acute on chronic anemia blood loss anemia
#Hematochezia on 08/13/25
PPI
FOllow CBC and transfuse as needed
GI for EGD and/or colonoscopy on 08/18/25 after Plavix washout
ASA to continue, Plavix and Eliquis held as per discussion between card and GI
developed after Sx due to periOP blood loss
follow CBC
#Recurrent adynamic ileus, possibly 2/2 poor ambulation in PostOP period, not due to surgery itself
#Enterocolitis
no diarrhea
NG tube to low intermittent suction
GEnSx eval: NG removed on 08/12/25, since patient with large BM day prior
Encourage ambulation
Advance diet as tolerated
TSH WNL
follow and replete electrolytes
#Intractable chronic headache
Head CT neg for acute findings
Managed with neurologist as outpatient
#Ambulatory deficiency
PT/OT
Physiatry consult for acute rehab
#Hypocalcemia
replete and follow
#Acute urinary retention
#BPH
Mai placed due to inability to void and pain, TOV passed on 08/13/25
Most likely 2/2 poor ambulatory status
Tamsulosin/Finasteride
Urology consult
#Chronic LLE redness
#New LUE swelling 2/2 superficial vein thrombosis
remove LUE IV
US LUE and LLE without DVT
#mild leukocytosis
most likely 2/2 ileus
resolved
#CAD s/p SC and CABG x4 on 07/31/25
#Troponin elevation most likely 2/2 recent SC
Cardiothoracic surgery
Cardio consult: no further mgmt changes
telemetry
With acute bleeding - might be a candidate for early cessation of Plavix
#Mild lipase elevation
2/2 ileus
#Hypocalcemia
replete
follow
#Alk.phos elevation
no RUQ pain
Patient with PMhx of cholecystectomy
Most likely 2/2 acute disease
follow
#Afib, unspecified
on Eliquis- when possible
rate controlled
#Acute on chronic HFpEF
Diuresis as per cardiology
Follow Cr and electrolytes
DVT ppx Lovenox
Full code
I have spent at least 51min reviewing chart, test results, communication with consultants, bedside and providing direct patient care
Anticipated Discharge: > 48 hours
Subjective/Interval History
-
Date of Service: August 15, 2025
Objective Data
-
Labs:
Laboratory Results
08/15/25
04:18
WBC 7.9
Hgb 8.7 L
Hct 26.2 L
Plt Count 433 H
Sodium 133 L
Potassium 4.1
Chloride 99
Carbon Dioxide 27
BUN 14
Creatinine 1.0
Glucose 106 H
Calcium 8.3 L
Total Bilirubin 0.6
AST 37
ALT 43
Alkaline Phosphatase 208 H
Vital Signs:
Vital Signs
Temp Pulse Resp BP Pulse Ox
98.5 F 65 20 113/63 97
08/15/25 04:06 08/15/25 07:00 08/15/25 04:06 08/15/25 04:06 08/15/25 04:06
I&O
08/14/25 08/15/25 08/16/25
06:59 06:59 06:59
Intake Total 1100 / 1100 720 / 720
Output Total 1050 / 1050 925 / 925
Balance 50 / 50 -205 / -205
Review of Systems
-
History Source: Patient
All other systems: Reviewed and negative
Physical Exam
-
General: No Apparent Distress
HEENT: Normocephalic
Cardiac: Regular Rhythm
GI: Soft, Nontender and Nondistended
Neuro: Awake, Alert, Oriented and AO x 3
Psych: Calm
[2025-08-15] MEDS: LOW STRENGTH ASPIRIN 81 MG PO (08:46)
--- NOTE | 2025-08-15 11:27 | CM ---
Reviewed chart. Met with Mr. and Mrs. Goodman to review discharge plans. Medical work-up in progress. [facility] to update them. The discharge plan [facility] to [facility] at [place] when medically stable.
--- NOTE | 2025-08-15 13:43 | W.PN.CD ---
Addendum entered and electronically signed by Chano Cevallos MD 08/15/25 17:20:
I saw and examined the patient independently and performed majority of MDM.
The RAND SEWER's note was reviewed and I agree with the note with changes/additions as noted below.
Comment: 70 yo male with recent CABG 07/31/25, atrial fibrillation is admitted with heart failure and suspected GI bleed. 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 Edema is better. SOB is better. Exam with irregular rhythm, no murmurs, 1+ LE edema. Cr 1.0. Tele: A
fib 60s, AIVR.
GI bleed
-plavix, eliquis held
-stable from cardiac perspective for endoscopy on Mon
A fib
-seems persistent now
-rate control: Toprol XL 25mg daily
Acute on chronic HFPEF
-cont IV lasix
Original Note:
Today's Communication / Plan
-
Follow telemetry for AIVR
Continue diuresis
Impression / Plan
-
70-year-old man with recent NSTEMI from multivessel CAD s/p CABG x4 (07/31/25), hypertension, hyperlipidemia, stroke, and atrial fibrillation on Eliquis who re-presented on same day of discharge for post-op ileus s/p NGT now with hypoxic respiratory
failure due to L pleural effusion, pulmonary edema and possible pneumonia.
Acute hypoxic resp failure
- In the setting of pleural effusion & volume overload
- No WBC or fevers so monitoring off antibiotics.
- Repeat chest x-ray 08/13/25 improving aeration of the right upper lobe compared to the chest radiograph from 08/10/2025.
- Stable left basilar opacity again most suggestive of pleural fluid and adjacent atelectasis and/or pneumonia.
- Continue IV Lasix but monitor closely particular since patient had some GI bleeding yesterday.
Acute on chronic HFpEF
- Severe exacerbation requiring IV diuresis and close monitoring of labs and telemetry
- Continue furosemide 40mg IV BID
- Monitor BMP, daily weights, and strict I/Os
- SGLT2 inhibitor $0 per Case Mgmt
.
GI bleed
- Maroon stool reported 08/13/2025 - clopidogrel & apixaban held since episode
- Plavix and Eliquis on hold, continuing ASA
- Gastroenterology planning for colonoscopy 07/2025
- Monitor hemoglobin closely and assess need for PRBC.
- On aspirin 81 mg a day since patient with recent NSTEMI and CABG with clopidogrel & apixaban hold
AIVR
- Ventricular escape
- Follow telemetry
Hyponatremia, monitor with diuresis.
NSTEMI 07/26/25
Multivessel CAD s/p CABGx4 07/31/25 (DAMON-LAD, SVG-OM1-OM3 sequential, SVG-RPDA; DALLAS ligation / MAZE; Dr. Sanchez).
- Complicated post op course due to aspiration, CAROL and ileus.
Post Op Ileus, resolving
- Initially thought to have resolved, returned the same day of discharge with acute abdominal pain and CT showing diffuse distention of small and large bowel with air-fluid levels without discrete transition suggestive of adynamic ileus.
- NGT removed 08/12.
Paroxysmal atrial fibrillation
- s/p DALLAS ligation
- Rate controlled
- Eliquis on hold due to maroon stool on 08/13/2025
LUE swelling, US with superficial venous thrombosis; no DVT
HTN
Hx CVA
DATA:
TTE 08/04/25
1. Normal left ventricular size and systolic function without regional wall motion abnormality. LVEF 60-65%.
2. No pericardial effusion.
3. No change compared to prior echocardiogram on 07/28/2025
Physical Exam
Vital Signs/Labs
Vital Signs
Temp Pulse Resp BP Pulse Ox
97.8 F 66 18 114/61 100
08/15/25 11:22 08/15/25 11:23 08/15/25 11:22 08/15/25 11:23 08/15/25 11:22
08/14/25 08/15/25 08/16/25
06:59 06:59 06:59
Actual Weight 107.8 kg
08/15/25 04:18
08/15/25 04:18
Magnesium 1.7 mg/dl (1.6-2.3) 08/14/25 03:43
08/12/25
06:08
Jnm-P-Liapcvtrhkp Pept 0
Physical Exam
Constitutional: No acute distress and Comfortable
EENT: Anicteric and Moist mucous membranes
Cardiovascular: Rhythm & rate is regular and Pedal edema is absent
Respiratory: Respiratory effort normal and Lungs clear to auscul.
GI: Soft, Distention absent, Flat, Non tender and Normal bowel sounds
Neuro/Psych: Alert and Oriented
Other: Skin (warm and dry)
Data Reviewed
-
Date of Service: August 15, 2025
--- NOTE | 2025-08-15 16:15 | PTCARENOTE ---
pt continues to be sr on the monitor w/ PVCs, hr in the 60s, vss. pt offers no complaints at this time. pt c/o headache this am, Tylenol given for pain and relief found. pt offers no other complaints at this time. pt has been OOB to the chair for
most of the day. ambulating to the bathroom and tolerating. pt continues to need 2LO2 NC. pt FIELDS and needs ample amount of time to recover. pt educated on plan of care and pt verbalized understanding of plan. call breen within reach.
--- NOTE | 2025-08-15 16:23 | PTCARENOTE ---
pt continues to be afib/flutter on the monitor w/ PVCs, hr in the 60s, vss. pt offers no complaints at this time. pt c/o headache this am, Tylenol given for pain and relief found. pt offers no other complaints at this time. pt has been OOB to the
chair for most of the day. ambulating to the bathroom and tolerating. pt continues to need 2LO2 NC. pt FIELDS and needs ample amount of time to recover. pt educated on plan of care and pt verbalized understanding of plan. call breen within reach.
[2025-08-15] MEDS: LIPITOR 40 MG PO (18:33)
[2025-08-15] MEDS: DILAUDID 0.25 MG IV (21:07)
--- NOTE | 2025-08-15 22:06 | PTCARENOTE ---
Pt rec'd at change of shift eyes closed snoring, awakens easily. At 2100 pt c/o H/A unrelieved by Tylenol earlier. Medicated with Dilaudid.
Lungs diminished on 2 lit n/c. Abd large with + BS noted. Pt denied abd pain or bloating to [place] Islander primary care md. Aflutter on telemetry
[2025-08-15] MEDS: DILAUDID 0.5 MG IV (23:59)
--- NOTE | 2025-08-16 00:12 | PTCARENOTE ---
At 2300 pt called nursing to room c/o stabbing headache in back of his head rating it at 7 out of 10. Pt also found to be grossly incont . Bladder scan performed and pt found to have 773 ml in bladder at 2315. Pt then assisted to bathroom to void.
Pt scanned once back to bed and found to have
372 ml still in bladder. At that time pt c/o chest pressure 2 out of 10 ' feels like cat sitting on his chest'. ecg completed , no new changes noted by [facility] [employer]. Levy MCINTYRE made aware of pt's c/o h/a. reviewed recent ct of head. No c/o stroke like
symptoms. Pt then medicated with Dilaudid. call breen within reach.
[2025-08-16 00:59] LABS: Hematocrit 24.8 % (39.0-52.0); Hemoglobin 8.2 g/dL (13.0-18.0); Mean Corp Hgb Conc. 33.1 g/dL (33.0-37.0); Mean Corpuscular Volume 86.1 fL (80.0-94.0); Nucleated Red Blood Cells % 0 % (-); Platelet Count 402 10^3/uL (130-400); Red Cell Dist. Width 14.2 % (11.5-14.5)
[2025-08-16 01:18] LABS: ALT (SGPT) 49 U/L (0-50); AST (SGOT) 40 U/L (17-59); Albumin 3.0 g/dl (3.5-5.0); Alkaline Phosphatase 244 U/L (38-126); Blood Urea Nitrogen 13 mg/dl (9-20); Calcium 8.0 mg/dl (8.4-10.2); Carbon Dioxide 30 mmol/L (22-30); Chloride 99 mmol/L (98-107); Estimated Creatinine Clearance 78 ml/min; Glucose 112 mg/dl (70-99); Magnesium 1.5 mg/dl (1.6-2.3); Potassium 3.8 mmol/L (3.5-5.1); Sodium 133 mmol/L (135-145); Total Protein 5.9 g/dl (6.3-8.2); eGFR > 60.00
[2025-08-16 01:32] LABS: Troponin I 0.074 ng/ml
[2025-08-16 05:01] VITALS: BP 119/81
--- NOTE | 2025-08-16 05:21 | PTCARENOTE ---
pt reports feeling a little better after sleeping. oob at present. bladder scan showed 500 ml at 0515. 364 residual after voiding in toilet.
[2025-08-16 05:29] VITALS: BMI 38.2
[2025-08-16 07:02] VITALS: BP 104/62
[2025-08-16] MEDS: MAGNESIUM SULFATE 100 IV (08:41)
[2025-08-16] MEDS: TOPROL XL 25 MG PO (08:43)
[2025-08-16] MEDS: PROSCAR 5 MG PO (08:44)
[2025-08-16] MEDS: FLOMAX 0.8 MG PO (08:44)
[2025-08-16] MEDS: LOW STRENGTH ASPIRIN 81 MG PO (08:44)
[2025-08-16] MEDS: LASIX 40 MG IV ×2 (08:45→19:18)
--- NOTE | 2025-08-16 09:11 | W.PN.CD ---
Today's Communication / Plan
-
IV lasix
endoscopy Monday (cont ASA 81mg; hold eliquis/Plavix)
Impression / Plan
-
70-year-old man with recent NSTEMI from multivessel CAD s/p CABG x4 (07/31/25), hypertension, hyperlipidemia, stroke, and atrial fibrillation on Eliquis who re-presented on same day of discharge for post-op ileus s/p NGT now with acute HF and GI
bleed.
Acute on chronic HFpEF
- Severe exacerbation requiring IV diuresis and close monitoring of labs and telemetry
- Continue furosemide 40mg IV BID
- Monitor BMP, daily weights, and strict I/Os
- SGLT2 inhibitor $0 per Case Mgmt
.
GI bleed
- Maroon stool reported 08/13/2025 - clopidogrel & apixaban held since episode
- Plavix and Eliquis on hold; continuing ASA
- Gastroenterology planning for colonoscopy and EGD Monday
-stable from cardiac perspective
- Monitor hemoglobin closely and assess need for PRBC.
- On aspirin 81 mg a day since patient with recent NSTEMI and CABG, with clopidogrel & apixaban hold
Paroxysmal atrial fibrillation: now seems persistent
- s/p DALLAS ligation
- Rate controlled
- Eliquis on hold due to maroon stool on 08/13/2025
AIVR
- Ventricular escape
- Follow telemetry
Hyponatremia, monitor with diuresis.
NSTEMI 07/26/25
Multivessel CAD s/p CABGx4 07/31/25 (DAMON-LAD, SVG-OM1-OM3 sequential, SVG-RPDA; DALLAS ligation / MAZE; Dr. Sanchez).
- Complicated post op course due to aspiration, CAROL and ileus.
Post Op Ileus, resolving
- Initially thought to have resolved, returned the same day of discharge with acute abdominal pain and CT showing diffuse distention of small and large bowel with air-fluid levels without discrete transition suggestive of adynamic ileus.
- NGT removed 08/12.
LUE swelling, US with superficial venous thrombosis; no DVT
HTN
Hx CVA
DATA:
TTE 08/04/25
1. Normal left ventricular size and systolic function without regional wall motion abnormality. LVEF 60-65%.
2. No pericardial effusion.
3. No change compared to prior echocardiogram on 07/28/2025
Physical Exam
Vital Signs/Labs
Vital Signs
Temp Pulse Resp BP Pulse Ox
98.4 F 67 22 104/62 98
08/16/25 07:03 08/16/25 08:43 08/16/25 07:03 08/16/25 08:43 08/16/25 07:03
08/15/25 08/16/25 08/17/25
06:59 06:59 06:59
Actual Weight 107.8 kg 107.3 kg
08/16/25 00:50
08/16/25 00:50
Magnesium 1.5 mg/dl (1.6-2.3) L 08/16/25 00:50
08/12/25
06:08
Efh-M-Fcfmbowlbep Pept 1870
LAB Results
08/16/25
00:50
Troponin I 0.074 H*
Physical Exam
Constitutional: No acute distress and Comfortable
EENT: Moist mucous membranes
Cardiovascular: Systolic murmur absent, Rhythm/rate is irregular, Pedal edema present and JVD present
Respiratory: Respiratory effort normal and Lungs clear to auscul.
Neuro/Psych: AO x 3
Data Reviewed
-
Date of Service: August 16, 2025
EKG: Other (Tele: A fib 60s)
Labs: Labs Reviewed by me
--- NOTE | 2025-08-16 10:56 | W.PN.HOSP.TC ---
Today's Communication/Plan
-
pending EGD/COlnoscopy
Ambien at HS
attempt gabapentin
MAgnesium
follow labs
Attempt NEurontin for acute on chronic headache
Assessment / Plan
Assessment / Plan
70yo Fijian speaking M with PMHX of HTN, HLD, Afib, insomnia, GERD, BPH, CAD s/p CABG x4 on 07/31/25 with postOP course complicated by pneumonia, atelectasis with hypoxemia, suspected new diagnosis of NICOLAS that required prolonged intubation,
discharged to acute rehab and sent back same day with worsening abdominal distention with concern for recurrent ileus and enterocolitis on CT, that later resolved. Had episode of hematochezia so pending EGD/Colonoscopy while holding Eliquis and
Plavix
A/P:
#Acute hypoxic respiratory failure
#NICOLAS
cont NC O2
cont previously ordered Abx - switch to unasyn since NPO, completed on 08/12/25
CPAP at HS
Acapella
#Acute on chronic anemia blood loss anemia
#Hematochezia on 08/13/25
PPI
FOllow CBC and transfuse as needed
GI for EGD and/or colonoscopy on 08/18/25 after Plavix washout
ASA to continue, Plavix and Eliquis held as per discussion between card and GI
developed after Sx due to periOP blood loss
follow CBC
#Recurrent adynamic ileus, possibly 2/2 poor ambulation in PostOP period, not due to surgery itself
#Enterocolitis
no diarrhea
NG tube to low intermittent suction
GEnSx eval: NG removed on 08/12/25, since patient with large BM day prior
Encourage ambulation
Advance diet as tolerated
TSH WNL
follow and replete electrolytes
#Intractable chronic headache
#Insomnia worsening headaches
Head CT neg for acute findings
Managed with neurologist as outpatient
Ambien while in hospital
ty low dose neurontin
#Ambulatory deficiency
PT/OT
Physiatry consult for acute rehab
#Hypocalcemia
#Hypomagnesemia
replete and follow
#Acute urinary retention
#BPH
Mai placed due to inability to void and pain, TOV passed on 08/13/25
Most likely 2/2 poor ambulatory status
Tamsulosin/Finasteride
Urology consult
#Chronic LLE redness
#New LUE swelling 2/2 superficial vein thrombosis
remove LUE IV
US LUE and LLE without DVT
#mild leukocytosis
most likely 2/2 ileus
resolved
#CAD s/p MO and CABG x4 on 07/31/25
#Troponin elevation most likely 2/2 recent MO
Cardiothoracic surgery
Cardio consult: no further mgmt changes
telemetry
With acute bleeding - might be a candidate for early cessation of Plavix
#Mild lipase elevation
2/2 ileus
#Hypocalcemia
replete
follow
#Alk.phos elevation
no RUQ pain
Patient with PMhx of cholecystectomy
Most likely 2/2 acute disease
follow
#Afib, unspecified
on Eliquis- when possible
rate controlled
#Acute on chronic HFpEF
Diuresis as per cardiology
Follow Cr and electrolytes
DVT ppx Lovenox
Full code
I have spent at least 51min reviewing chart, test results, communication with consultants, bedside and providing direct patient care
Anticipated Discharge: > 48 hours
Subjective/Interval History
-
Date of Service: August 16, 2025
Objective Data
-
Labs:
Laboratory Results
08/16/25
00:50
WBC 7.2
Hgb 8.2 L
Hct 24.8 L
Plt Count 402 H
Sodium 133 L
Potassium 3.8
Chloride 99
Carbon Dioxide 30
BUN 13
Creatinine 1.0
Glucose 112 H
Calcium 8.0 L
Total Bilirubin 0.5
AST 40
ALT 49
Alkaline Phosphatase 244 H
Vital Signs:
Vital Signs
Temp Pulse Resp BP Pulse Ox
98.4 F 67 22 104/62 98
08/16/25 07:03 08/16/25 08:43 08/16/25 07:03 08/16/25 08:43 08/16/25 07:03
I&O
08/15/25 08/16/25 08/17/25
06:59 06:59 06:59
Intake Total 720 / 720 480 / 480
Output Total 925 / 925 530 / 530
Balance -205 / -205 -50 / -50
Review of Systems
-
History Source: Patient
All other systems: Reviewed and negative
Neuro: Reports Headache
Physical Exam
-
General: No Apparent Distress
HEENT: Normocephalic
Neuro: Awake, Alert, AO x 3 and Other (residual R face droop from previous stroke, chronic)
Psych: Calm
[2025-08-16 11:22] VITALS: BP 100/61
[2025-08-16] MEDS: MIRALAX 51 GRAMS PO ×3 (13:50→19:18)
[2025-08-16 15:03] VITALS: BP 126/65
[2025-08-16] MEDS: LIPITOR 40 MG PO (17:25)
--- NOTE | 2025-08-16 19:02 | PTCARENOTE ---
Pt received at 1600 sitting oob in the chair. No change in status from am assessment. No c/o offered.
[2025-08-16 19:04] VITALS: BP 115/57
[2025-08-16] MEDS: DILAUDID 0.25 MG IV (19:38)
[2025-08-16 23:40] VITALS: BP 95/52
--- NOTE | 2025-08-16 23:56 | PTCARENOTE ---
Pt rec'd at beginning of shift calling for nurse looking to get back to bed. 1 person guided assist to bed using heart pillow. Once back to bed pt assessed. lungs diminished 1/2 way up on left, clear on right. Dyspneic with activity. RR 20-24 at
rest. Evening dose of Miralax given to pt. Pt noted to only take a sip and put it down. I encouraged pt to drink more and he shook his head and said yes but didn't drink any more. Language line called. Nursing asked press service reader to relay to pt that he
needed to drink the whole cup since their is medicine in there to start his prep. Pt stated he understood but has yet to finish despite best nursing effort. Pt also with c/o coughing and H/A. medicated with Dilaudid early on shift and Tylenol just
now. Pt also given cough medicine per pt request for non productive cough. oob twice to void. Pt sits on toilet with seat up therefore difficult to get accurate I@O. Aflutter on telemetry.
[2025-08-17] VITALS (7 sets, daily range): BP systolic 100–151; BP diastolic 48–74; BMI 38.2
[2025-08-17] MEDS: ROBITUSSIN 200 MG PO (00:05)
[2025-08-17] MEDS: AMBIEN 5 MG PO (00:11)
[2025-08-17] MEDS: TYLENOL 650 MG PO ×2 (00:11→16:09)
--- NOTE | 2025-08-17 05:10 | PTCARENOTE ---
No bm's noted during the night. wt unchanged from previous day. Audible bowel sounds heard from bedside.
[2025-08-17 05:39] LABS: Hematocrit 26.8 % (39.0-52.0); Hemoglobin 8.6 g/dL (13.0-18.0); Mean Corp Hgb Conc. 32.1 g/dL (33.0-37.0); Mean Corpuscular Volume 87.6 fL (80.0-94.0); Nucleated Red Blood Cells % 0 % (-); Platelet Count 417 10^3/uL (130-400); Red Cell Dist. Width 14.4 % (11.5-14.5)
[2025-08-17 06:00] LABS: ALT (SGPT) 44 U/L (0-50); AST (SGOT) 36 U/L (17-59); Albumin 3.2 g/dl (3.5-5.0); Alkaline Phosphatase 242 U/L (38-126); Blood Urea Nitrogen 14 mg/dl (9-20); Calcium 8.1 mg/dl (8.4-10.2); Carbon Dioxide 29 mmol/L (22-30); Chloride 97 mmol/L (98-107); Estimated Creatinine Clearance 78 ml/min; Glucose 115 mg/dl (70-99); Magnesium 2.0 mg/dl (1.6-2.3); Potassium 4.1 mmol/L (3.5-5.1); Sodium 132 mmol/L (135-145); Total Protein 6.2 g/dl (6.3-8.2); eGFR > 60.00
[2025-08-17] MEDS: TOPROL XL 25 MG PO (08:09)
[2025-08-17] MEDS: LASIX 40 MG IV ×2 (08:09→19:35)
[2025-08-17] MEDS: FLOMAX 0.8 MG PO (08:09)
[2025-08-17] MEDS: NEURONTIN 100 MG PO ×3 (08:09→22:20)
[2025-08-17] MEDS: LOW STRENGTH ASPIRIN 81 MG PO (08:09)
[2025-08-17] MEDS: PROSCAR 5 MG PO (08:10)
--- NOTE | 2025-08-17 08:30 | W.PN.GI.CBS2 ---
Today's Communication / Plan
-
Clear liquid diet. Prep today. NPO PMN for EGD and Colonoscopy tomorrow. Holding plavix and eliquis
Assessment / Plan
-
70-year-old Kosovan-speaking male past medical history of A-fib on Eliquis, CVA with left-sided weakness, hyperlipidemia, GERD, recent non-STEMI status post CABGx 4 07/31/2025 with recent postop ileus requiring NG tube (08/04/2025-08/06/25), aspiration
pneumonia, remote history of gastric ulcer (30 years ago treated at [facility]) patient was discharged to [facility] on 08/09/2025. The patient presented to the emergency room on 08/10/2025 with abdominal distention. GI was following with
concern for ileus. CT on 08/10/2025 showing prominent air and fluid filled small and large bowel loops throughout the abdomen without discrete transition point. No evidence of obstruction or adjacent inflammatory changes. s/p NG decompression and
colorectal surgical follow up with diet advancement. Pt noted 08/13 wtih large burgundy stool. Hx EGD many years ago and no prior colonoscopy.
Impression:
-large maroon burgundy stool 08/13
-anemia
-Abd distention, most likely ileus s/p decompression
Remote hx 'ulcer' while at [facility]
A-fib on Eliquis
recent non-STEMI status post CABGx 4 07/31/2025 with recent postop ileus requiring NG tube (08/04/2025-08/06/25)
other med problems:
CVA with left-sided weakness, hyperlipidemia, GERD, recent non-STEMI status post CABGx 4 07/31/2025 with recent postop ileus requiring NG tube (08/04/2025-08/06/25)
Plan:
Etiology of bleeding related to upper bleeding ? PUD with hx NGT from trauma (though BUN normal) vs SB vs colonic bleed - ischemic event vs cannot rule out colonic issue
stools now brown
cont low residue diet
hbg stable no transfusion needed during admission
distant hx EGD and no prior colonoscopy
monitor stools and hbg
Eliquis and Plavix hold last dose 08/13
Plan for EGD and Colonoscopy tomorrow, on clear liquids today, NPO PMN
Subjective
Subjective
Date of Service: August 16, 2025
Patient seen in follow-up, no overnight events. Hemoglobin stable.
Objective
Data Reviewed
Laboratory Data:
Laboratory Results
08/16/25 00:50
08/16/25 00:50
Laboratory Results
Phosphorus 3.4 mg/dl (2.5-4.5) 08/11/25 04:35
Magnesium 1.5 mg/dl (1.6-2.3) L 08/16/25 00:50
Total Bilirubin 0.5 mg/dl (0.2-1.3) 08/16/25 00:50
AST 40 U/L (17-59) 08/16/25 00:50
ALT 49 U/L (0-50) 08/16/25 00:50
Alkaline Phosphatase 244 U/L (38-126) H 08/16/25 00:50
Lipase 305 U/L (23-300) H 08/10/25 01:12
Vital Signs and I&O:
Vital Signs
Temp Pulse Resp BP Pulse Ox
98.4 F 67 22 104/62 98
08/16/25 07:03 08/16/25 08:43 08/16/25 07:03 08/16/25 08:43 08/16/25 07:03
I&O
08/15/25 08/16/25 08/17/25
06:59 06:59 06:59
Intake Total 720 / 720 480 / 480
Output Total 925 / 925 530 / 530
Balance -205 / -205 -50 / -50
Physical Exam
Physical Exam
HEENT: Anicteric and Moist mucous membranes
Cardiology: Normal Sinus Rhythm and Other (mid sternal incision intact )
Pulmonary: Clear
GI: Soft and Non Distended (large abdomen but improved from prior ileus )
Extremities: No Edema
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
--- NOTE | 2025-08-17 08:38 | W.PN.CD ---
Today's Communication / Plan
-
endoscopy tomorrow
IV lasix
Impression / Plan
-
70-year-old man with recent NSTEMI from multivessel CAD s/p CABG x4 (07/31/25), hypertension, hyperlipidemia, stroke, and atrial fibrillation on Eliquis who re-presented on same day of discharge for post-op ileus s/p NGT now with acute HF and GI
bleed.
Acute on chronic HFpEF
- Severe exacerbation requiring IV diuresis and close monitoring of labs and telemetry
- Continue furosemide 40mg IV BID
- Monitor BMP, daily weights, and strict I/Os
- SGLT2 inhibitor $0 per Case Mgmt
.
GI bleed
- Maroon stool reported 08/13/2025 - clopidogrel & apixaban held since episode
- Plavix and Eliquis on hold; continuing ASA
- Gastroenterology planning for colonoscopy and EGD Monday
-stable from cardiac perspective
- Monitor hemoglobin closely and assess need for PRBC.
- On aspirin 81 mg a day since patient with recent NSTEMI and CABG, with clopidogrel & apixaban hold
Paroxysmal atrial fibrillation: now seems persistent
- s/p DALLAS ligation
- Rate controlled
- Eliquis on hold due to maroon stool on 08/13/2025
AIVR
- Ventricular escape
- Follow telemetry
Hyponatremia, monitor with diuresis.
NSTEMI 07/26/25
Multivessel CAD s/p CABGx4 07/31/25 (DAMON-LAD, SVG-OM1-OM3 sequential, SVG-RPDA; DALLAS ligation / MAZE; Dr. Sanchez).
- Complicated post op course due to aspiration, CAROL and ileus.
Post Op Ileus, resolving
- Initially thought to have resolved, returned the same day of discharge with acute abdominal pain and CT showing diffuse distention of small and large bowel with air-fluid levels without discrete transition suggestive of adynamic ileus.
- NGT removed 08/12.
LUE swelling, US with superficial venous thrombosis; no DVT
HTN
Hx CVA
DATA:
TTE 08/04/25
1. Normal left ventricular size and systolic function without regional wall motion abnormality. LVEF 60-65%.
2. No pericardial effusion.
3. No change compared to prior echocardiogram on 07/28/2025
Physical Exam
Vital Signs/Labs
Vital Signs
Temp Pulse Resp BP Pulse Ox
98 F 72 15 100/60 93
08/17/25 07:38 08/17/25 07:38 08/17/25 07:38 08/17/25 04:53 08/17/25 07:38
08/16/25 08/17/25 08/18/25
06:59 06:59 06:59
Actual Weight 107.3 kg 107.3 kg
08/17/25 05:08
08/17/25 05:08
Magnesium 2.0 mg/dl (1.6-2.3) 08/17/25 05:08
08/12/25
06:08
Amw-G-Vurtrwcqhah Pept 1870
LAB Results
08/16/25
00:50
Troponin I 0.074 H*
Physical Exam
Constitutional: No acute distress and Comfortable
EENT: Moist mucous membranes
Cardiovascular: Systolic murmur absent, Rhythm/rate is irregular, Pedal edema present and JVD present
Respiratory: Respiratory effort normal and Lungs clear to auscul.
Neuro/Psych: AO x 3
Data Reviewed
-
Date of Service: August 17, 2025
EKG: Other (Tele: A fib 50s-60s)
Labs: Labs Reviewed by me
--- NOTE | 2025-08-17 09:30 | W.PN.HOSP.TC ---
Today's Communication/Plan
-
weaned off O2
H&H stable
slept better, headache improved. Cont Neurontin low dose
pending GI in AM
Assessment / Plan
Assessment / Plan
70yo Estonian speaking M with PMHX of HTN, HLD, Afib, insomnia, GERD, BPH, CAD s/p CABG x4 on 07/31/25 with postOP course complicated by pneumonia, atelectasis with hypoxemia, suspected new diagnosis of NICOLAS that required prolonged intubation,
discharged to acute rehab and sent back same day with worsening abdominal distention with concern for recurrent ileus and enterocolitis on CT, that later resolved. Had episode of hematochezia so pending EGD/Colonoscopy while holding Eliquis and
Plavix
A/P:
#Acute hypoxic respiratory failure
#NICOLAS
weaned off O2 on 08/17/25
cont previously ordered Abx - switch to unasyn since NPO, completed on 08/12/25
CPAP at HS
Acapella
#Acute on chronic anemia blood loss anemia
#Hematochezia on 08/13/25
PPI
FOllow CBC and transfuse as needed
GI for EGD and/or colonoscopy on 08/18/25 after Plavix washout
ASA to continue, Plavix and Eliquis held as per discussion between card and GI
developed after Sx due to periOP blood loss
follow CBC
#Recurrent adynamic ileus, possibly 2/2 poor ambulation in PostOP period, not due to surgery itself
#Enterocolitis
no diarrhea
NG tube to low intermittent suction
GEnSx eval: NG removed on 08/12/25, since patient with large BM day prior
Encourage ambulation
Advance diet as tolerated
TSH WNL
follow and replete electrolytes
#Intractable chronic headache
#Insomnia worsening headaches
Head CT neg for acute findings
Managed with neurologist as outpatient
Ambien while in hospital
ty low dose neurontin
#Ambulatory deficiency
PT/OT
Physiatry consult for acute rehab
#Hypocalcemia
#Hypomagnesemia
replete and follow
#Acute urinary retention
#BPH
Mai placed due to inability to void and pain, TOV passed on 08/13/25
Most likely 2/2 poor ambulatory status
Tamsulosin/Finasteride
Urology consult
#Chronic LLE redness
#New LUE swelling 2/2 superficial vein thrombosis
remove LUE IV
US LUE and LLE without DVT
Outpatient VascSx eval - patient and verbalized understanding of the instructions
#mild leukocytosis
most likely 2/2 ileus
resolved
#CAD s/p NV and CABG x4 on 07/31/25
#Troponin elevation most likely 2/2 recent NV
Cardiothoracic surgery
Cardio consult: no further mgmt changes
telemetry
With acute bleeding - might be a candidate for early cessation of Plavix
#Mild lipase elevation
2/2 ileus
#Hypocalcemia
replete
follow
#Alk.phos elevation
no RUQ pain
Patient with PMhx of cholecystectomy
Most likely 2/2 acute disease
follow
#Afib, unspecified
on Eliquis- when possible
rate controlled
#Acute on chronic HFpEF
Diuresis as per cardiology
Follow Cr and electrolytes
DVT ppx Lovenox
Full code
I have spent at least 54min reviewing chart, test results, communication with consultants, bedside and providing direct patient care
Anticipated Discharge: 24 - 48 hours
Subjective/Interval History
-
Date of Service: August 17, 2025
Objective Data
-
Labs:
Laboratory Results
08/17/25
05:08
WBC 6.9
Hgb 8.6 L
Hct 26.8 L
Plt Count 417 H
Sodium 132 L
Potassium 4.1
Chloride 97 L
Carbon Dioxide 29
BUN 14
Creatinine 1.0
Glucose 115 H
Calcium 8.1 L
Total Bilirubin 0.5
AST 36
ALT 44
Alkaline Phosphatase 242 H
Vital Signs:
Vital Signs
Temp Pulse Resp BP Pulse Ox
98 F 72 15 100/60 93
08/17/25 07:38 08/17/25 07:38 08/17/25 07:38 08/17/25 04:53 08/17/25 07:38
I&O
08/16/25 08/17/25 08/18/25
06:59 06:59 06:59
Intake Total 480 / 480 630 / 630
Output Total 530 / 530
Balance -50 / -50 630 / 630
Review of Systems
-
Unable to obtain full review of systems at this time due to: Dementia
History Source: Patient
Physical Exam
-
General: No Apparent Distress
HEENT: Normocephalic
Cardiac: Regular Rhythm
Neuro: Awake, Alert, Oriented and AO x 3
Psych: Calm
[2025-08-17] MEDS: GAVILAX 238 GM PO (15:58)
[2025-08-17] MEDS: LIPITOR 40 MG PO (17:16)
--- NOTE | 2025-08-17 18:00 | PTCARENOTE ---
Pt received this am with no c/o of any pain or sob. No rectal bleeding noted. Pt assisted oob to the chair with the walker, gait steady. Medicated with Tylenol 650 mg for c/o of a headache with relief. Tolerating GI prep for colonoscopy. Stool still
yellow not clear.
[2025-08-17] MEDS: TIGAN 200 MG IM (19:35)
--- NOTE | 2025-08-17 21:17 | PTCARENOTE ---
Received pt finishing off bowel prep, pt had multiple BMs, watery yellow stool. FIELDS, 95% on room air. VSS. Accessed buncher machine phone to go over plan and assessment with patient. Plan for NPO after midnight for colonoscopy.
[2025-08-18] VITALS (18 sets, daily range): BP systolic 20–129; BP diastolic 43–75; PULSE 61–65; O2SAT 97–98; BMI 38.0
[2025-08-18] MEDS: TYLENOL 650 MG PO ×2 (01:25→20:13)
[2025-08-18 03:58] LABS: Hematocrit 27.8 % (39.0-52.0); Hemoglobin 8.7 g/dL (13.0-18.0)
[2025-08-18 04:25] LABS: ALT (SGPT) 45 U/L (0-50); AST (SGOT) 39 U/L (17-59); Albumin 3.1 g/dl (3.5-5.0); Alkaline Phosphatase 241 U/L (38-126); Blood Urea Nitrogen 11 mg/dl (9-20); Calcium 8.1 mg/dl (8.4-10.2); Carbon Dioxide 29 mmol/L (22-30); Chloride 98 mmol/L (98-107); Estimated Creatinine Clearance 86 ml/min; Glucose 111 mg/dl (70-99); Magnesium 1.8 mg/dl (1.6-2.3); Potassium 3.8 mmol/L (3.5-5.1); Sodium 131 mmol/L (135-145); Total Protein 6.2 g/dl (6.3-8.2); eGFR > 60.00
[2025-08-18] MEDS: TOPROL XL 25 MG PO (09:02)
[2025-08-18] MEDS: FLOMAX 0.8 MG PO (09:02)
[2025-08-18] MEDS: NEURONTIN 100 MG PO ×3 (09:02→22:01)
[2025-08-18] MEDS: LASIX 40 MG IV ×2 (09:03→20:14)
[2025-08-18] MEDS: LOW STRENGTH ASPIRIN 81 MG PO (09:03)
[2025-08-18] MEDS: PROSCAR 5 MG PO (09:03)
[2025-08-18] MEDS: FLUSH (NSS) 1 FLUSH IV (09:04)
--- NOTE | 2025-08-18 09:32 | PTCARENOTE ---
received patient this am, ambulated patient to chair with walker and assist x 1, arun. well. monitor shows Aflutter, VSS. patient remains NPO for colonoscopy this am. assessment was done by interpretor at bedside, patient is Uzbek speaking.
--- NOTE | 2025-08-18 10:34 | W.PN.CD ---
Today's Communication / Plan
-
OK for GI procedures
Will need to decide antiplatelet therapy/anticoagulant therapy for discharge
Impression / Plan
-
70-year-old man with recent NSTEMI from multivessel CAD s/p CABG x4 (07/31/25), hypertension, hyperlipidemia, stroke, and atrial fibrillation on Eliquis who re-presented on same day of discharge for post-op ileus s/p NGT now with acute HF and GI
bleed.
Acute on chronic HFpEF
- Improving, off O2
- Continue furosemide 40mg IV BID
- Monitor BMP, daily weights, and strict I/Os
- SGLT2 inhibitor $0 per Case Mgmt
GI bleed
- Maroon stool reported 08/13/2025 - clopidogrel & apixaban held since episode
- Plavix and Eliquis on hold; continuing ASA
- Gastroenterology planning for colonoscopy and EGD Monday
-stable from cardiac perspective
- Monitor hemoglobin closely and assess need for PRBC.
- On aspirin 81 mg a day since patient with recent NSTEMI and CABG, with clopidogrel & apixaban hold
Paroxysmal atrial fibrillation: now seems persistent
- s/p DALLAS ligation
- Rate controlled
- Eliquis on hold due to maroon stool on 08/13/2025
AIVR
- Ventricular escape
- Follow telemetry
Hyponatremia, monitor with diuresis.
NSTEMI 07/26/25
Multivessel CAD s/p CABGx4 07/31/25 (DAMON-LAD, SVG-OM1-OM3 sequential, SVG-RPDA; DALLAS ligation / MAZE; Dr. Sanchez).
- Complicated post op course due to aspiration, CAROL and ileus.
Post Op Ileus, resolving
- Initially thought to have resolved, returned the same day of discharge with acute abdominal pain and CT showing diffuse distention of small and large bowel with air-fluid levels without discrete transition suggestive of adynamic ileus.
- NGT removed 08/12.
LUE swelling, US with superficial venous thrombosis; no DVT
HTN
Hx CVA
Subjective: Video diplomatic interpreter/translator used 08/18/2025 AM: Dyspnea improved, no CP.
DATA:
TTE 08/04/25
1. Normal left ventricular size and systolic function without regional wall motion abnormality. LVEF 60-65%.
2. No pericardial effusion.
3. No change compared to prior echocardiogram on 07/28/2025
Physical Exam
Vital Signs/Labs
Vital Signs
Temp Pulse Resp BP Pulse Ox
98.2 F 66 20 115/60 91
08/18/25 07:00 08/18/25 09:03 08/18/25 07:00 08/18/25 09:03 08/18/25 07:00
08/17/25 08/18/25 08/19/25
06:59 06:59 06:59
Actual Weight 107.3 kg 106.8 kg
08/18/25 03:33
08/18/25 03:33
Magnesium 1.8 mg/dl (1.6-2.3) 08/18/25 03:33
08/12/25
06:08
Pvf-[id number] Pept 1870
LAB Results
08/16/25
00:50
Troponin I 0.074 H*
Physical Exam
Constitutional: No acute distress
Cardiovascular: Rhythm & rate is regular and Pedal edema is absent
Respiratory: Respiratory effort normal and Lungs clear to auscul.
GI: Soft and Distention absent
Neuro/Psych: Alert
Data Reviewed
-
Date of Service: August 18, 2025
--- NOTE | 2025-08-18 12:54 | PTCARENOTE ---
patient returned from colonoscopy feeling extremely SOB, RA 90%, o2 2LNC applied, o2 sat 98%. patient appears awake and can let means known. language line in room. is helping patient eat.
--- NOTE | 2025-08-18 13:12 | W.PN.UPDATE ---
Update Note
Progress Note Update
with assist of newsperson reviewed results and follow up plan with patient and spouse. All questions answered. Message sent to GI office to arrange follow up.
--- NOTE | 2025-08-18 13:28 | CM ---
Reviewed chart. Met with Mr. and Mrs. Goodman to review discharge plans. He has his procedures today. We reviewed [facility]. Telephone call to [facility]. liaiosn to update her. She will need current physical and occupational therapy to review to
see if he qualifies for inpatient acute rehab. Medical work-up in progress. The discharge plan is to go to [facility]. if approved for admission when medically stable.
--- NOTE | 2025-08-18 16:40 | CON.MD ---
Documented by User: Lin Ying PA-C 08/18/25 18:30
Consultation - Medical
-
Referring Provider:�Ashkan Salazar
Chief Complaint:�Debility
�
History of Present Illness:�70year old Yemeni speaking Male with PMHX of (HTN, HLD, Afib, insomnia, GERD, BPH, CAD s/p CABG x4 on 07/31/25 with postOP course complicated by pneumonia, atelectasis with hypoxemia, suspected new diagnosis of NICOLAS that
required prolonged intubation, discharged to acute rehab and sent back same day with worsening abdominal distention with concern for recurrent ileus and enterocolitis on CT, that later resolved. Had episode of hematochezia so pending EGD/Colonoscopy
while holding Eliquis and Plavix.
08/18/25 patient underwent colonoscopy with biopsy and removal of polyps today. Recommended follow-up with GI as outpatient to see if hemoglobin normalized and discuss if VCE is indicated. He also had an upper endoscopy today with biopsied. Small
hiatal hernia with a single Aubrey ulcer was found. Patchy moderate inflammation characterized by erosions and erythema was found in the gastric body and in the gastric antrum with patchy areas of atrophic mucosa. Biopsies were taken. Z-line
irregular and was biopsied. Recommendation while awaiting pathology results was PPI twice daily x 4 weeks then once daily.
�
Past Medical History:�HTN, HLD, Afib, insomnia, GERD, BPH, CAD , NICOLAS
Procedure History:�CABG x 4
Family History:�Noncontributory
�
Social History:�
Functional Level Premorbidly:�Independent with all activities�
Functional Level Currently:�Eating�set up, grooming�supervision, toileting�min assist, lower extremity self-care�dependent, as of 08/15/2025�transfer�min assist, ambulated 30 feet x 2 reps with min assist, gait belt and 2 L oxygen plus a FIELDS
Tobacco:�Denies�
Alcohol:�Denies�
Drug use:�Denies�
�
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
24-hour assistance available:�
Number of floors:�2nd floor apartment
# steps to enter:�none
# steps to second floor: 13 steps
Potential First floor set up:�no
Driving:�yes
Occupation:�disabled
�
�
Allergies:�
Allergy/AdvReac Type Severity Reaction Status Date / Time
bee venom protein (honey bee) Allergy Unknown Verified 07/25/25 22:47
diphenhydramine Allergy Unknown Verified 07/25/25 22:47
�
Review of Systems:�
Constitutional: (x) Normal _
Eye: (x) Normal _
Ear/Nose/Throat: (x) Normal _
Respiratory: (x) Normal _
Cardiovascular: (x) abNormal _CABG, anemia
Gastrointestinal: (x) abNormal _ileus, GI bleed
Genitourinary: (x) Normal _
Musculoskeletal: (x) Normal _
Integumentary: (x) Normal _
Neurologic: (x) abNormal _previous cva, left weakness
Psychiatric: (x) Normal _
Endocrine: (x) Normal _
Hematologic/Lymphatic: (x) Normal _
Allergic/Immunologic: (x) Normal _
�
Medications:�
Active Current Visit Medication List
Category Date Time Status
Acetaminophen [Tylenol/Feverall] Med 08/10/25 10:42 Active
650 mg RECTAL Q6HPRN PRN
Acetaminophen [Tylenol] Med 08/13/25 23:36 Active
650 mg PO Q4HPRN PRN
Apixaban [Eliquis] Med 08/12/25 20:00 Hold
5 mg PO BID
Aspirin Chewable [Low Strength Aspirin] Med 08/15/25 08:00 Active
81 mg PO DAILY
Atorvastatin [Lipitor] Med 08/12/25 18:00 Active
40 mg PO QPM
Clopidogrel Bisulfate [Plavix] Med 08/13/25 08:00 Hold
75 mg PO DAILY
Cyclobenzaprine HCl [Flexeril] Med 08/10/25 10:42 Active
5 mg PO Q8HPRN PRN muscle spasm
Finasteride [Proscar] Med 08/13/25 08:00 Active
5 mg PO DAILY
Flush (0.9% Sodium Chloride) [Flush (Nss)] Med 08/10/25 10:00 Active
See Dose Instructions IV PER PROTOCOL
Furosemide [Lasix] Med 08/13/25 20:00 Active
40 mg IV BID
Gabapentin [Neurontin] Med 08/17/25 08:00 Active
100 mg PO TID
Guaifenesin Solution [Robitussin] Med 08/16/25 20:00 Active
200 mg PO Q4HPRN PRN
HYDROmorphone [Dilaudid] Med 08/10/25 18:57 Active
0.25 mg IV Q4HPRN PRN
HYDROmorphone [Dilaudid] Med 08/10/25 18:57 Active
0.5 mg IV Q4HPRN PRN
Metoprolol Xl [Toprol Xl] Med 08/10/25 10:42 Active
25 mg PO DAILY
Tamsulosin [Flomax] Med 08/10/25 10:42 Active
0.8 mg PO DAILY
Trimethobenzamide [Tigan] Med 08/11/25 07:47 Active
200 mg IM Q6HPRN PRN
Zolpidem Tartrate [Ambien] Med 08/14/25 07:40 Active
5 mg PO HSPRN PRN
�
Vitals:�
Temp Pulse Resp BP Pulse Ox
98.7 F 59 20 109/59 97
08/18/25 15:06 08/18/25 15:07 08/18/25 15:06 08/18/25 15:07 08/18/25 15:07
Height 5 ft 6 in
Actual Weight 106.8 kg
Body Mass Index (BMI) 38.0
�
Physical Exam:�
General Appearance/Observation: Well-developed, well-nourished individual in no apparent distress.�
Pain/Comfort Assessment: Headache
Mood/Affect: Appropriate�
�
Integumentary/Operative Site:�Healed sternal and drain site incisions, healed incision�left medial leg
�� Pressure Ulcer Evaluation: absent over heels.�
��
�� Other Type of Wound: hyperemic slightly rough rash�left echevarria
��
�
Eyes: Conjunctiva/Lids: normal���� Pupils: pupils equal round and reactive to light and Accommodation, mild ptosis right eyelid
Ears/Nose/Throat: oral mucosa moist,� throat clear.������������ Lips/Teeth/Gums: normal�
Neck: No muscle spasm or tenderness�
Cardiovascular: Heart: irregular, no murmur�
Pulses: dorsalis pedis 2+ bilaterally�
Respiratory: Respiratory Effort/Chest Expansion: normal������� Auscultation: diminished BS bilaterally, Clear to auscultation bilaterally�
Gastrointestinal: abdomen not tender, no distension, diminished abdominal bowel sounds
Genitourinary: No Aguilar�
Extremities:�Edema: left 2+ more than right1+ - pitting Cyanosis: None�Trophic�changes: left echevarria dermatitis
�
Neurology Exam:
Orientation: Alert, Oriented to self, Time, Place�
Memory: Intact for immediate medical concerns
Comprehension: Intact
Two step command: Intact
Naming: Intact
Cranial Nerves:
�� CNII:�Pupillary light reflex: Intact����Visual Field: Intact
�� CN III, IV, : Extraocular muscles: Intact�
�� CN V:�Facial Sensation�at�Forehead: Intact,�Maxilla: Intact,�Mandible: Intact
�� CN VII:�Facial movement: Symmetric
�� CN VIII:�Hearing: Normal
�� CN IX/X:�Speech & swallow: Normal,�Position of Uvula: Midline
�� CN XI:�Shoulder shrug: Symmetric
�� CN XII:�Tongue protrusion: Midline
Sensory:
�� Light touch: Intact in bilateral upper and lower extremities
��
Reflexes:
�� Biceps: 2+ bilaterally
�� Brachioradialis: 2+ bilaterally
�� Triceps: 2+ bilaterally
�� Patellar: 2+ bilaterally
�� Achilles: Absent bilaterally
�� Babinski: Down going bilaterally
�� Clonus: None
�� Cornelius: Negative bilaterally�
Cerebellar: Dysmetria/Ataxia: Impaired [id number] coordination on the left, intact on the right
Musculoskeletal:
Motor: (Manual muscle scale 0-5)�
Muscle SA EF WE EE FF FA HF KE DF EHL PF
Right� 5 5 5 5 5 5 5 5 5 5 5
Left 5 5 5 4 4 4- 4+ 4+ 5 5 5
�
Tone: Normal in all extremities�
Range of Motion: Passively within normal limits in all extremities�
�
Lab Results
Labs
WBC 6.9 10^3/uL (4.8-10.8) 08/17/25 05:08
RBC 3.06 10^6/uL (4.70-6.10) L 08/17/25 05:08
Hgb 8.7 g/dL (13.0-18.0) L 08/18/25 03:33
Hct 27.8 % (39.0-52.0) L 08/18/25 03:33
MCV 87.6 fL (80.0-94.0) 08/17/25 05:08
MCH 28.1 pg (27.0-31.0) 08/17/25 05:08
MCHC 32.1 g/dL (33.0-37.0) L 08/17/25 05:08
RDW 14.4 % (11.5-14.5) 08/17/25 05:08
Plt Count 417 10^3/uL (130-400) H 08/17/25 05:08
MPV 9.9 fL (7.4-10.4) 08/17/25 05:08
Abs Immat Gran (auto) 0.0 10^3/uL (0-0.05) 08/17/25 05:08
Absolute Neuts (auto) 4.5 10^3/uL (1.4-6.5) 08/17/25 05:08
Absolute Lymphs (auto) 1.6 10^3/uL (1.2-3.4) 08/17/25 05:08
Absolute Monos (auto) 0.6 10^3/uL (0.1-0.6) 08/17/25 05:08
Absolute Eos (auto) 0.1 10^3/uL (0-0.7) 08/17/25 05:08
Absolute Basos (auto) 0.0 10^3/uL (0-0.2) 08/17/25 05:08
Immature Gran % 0.6 % (0-0.5) H 08/17/25 05:08
Neutrophils % 65.3 % (42.2-75.2) 08/17/25 05:08
Lymphocytes % 23.3 % (20.5-51.1) 08/17/25 05:08
Monocytes % 9.1 % (1.7-9.3) 08/17/25 05:08
Eosinophils % 1.3 % (0-6) 08/17/25 05:08
Basophils % 0.4 % (0-2) 08/17/25 05:08
Nucleated RBC % 0 % (-) 08/17/25 05:08
Sodium 131 mmol/L (135-145) L 08/18/25 03:33
Potassium 3.8 mmol/L (3.5-5.1) 08/18/25 03:33
Chloride 98 mmol/L (98-107) 08/18/25 03:33
Carbon Dioxide 29 mmol/L (22-30) 08/18/25 03:33
BUN 11 mg/dl (9-20) 08/18/25 03:33
Creatinine 0.9 mg/dL (0.7-1.3) 08/18/25 03:33
Estimated Creat Clear 86 ml/min 08/18/25 03:33
eGFR > 60.00 08/18/25 03:33
Glucose 111 mg/dl (70-99) H 08/18/25 03:33
Lactic Acid Cancelled 08/10/25 05:30
Calcium 8.1 mg/dl (8.4-10.2) L 08/18/25 03:33
Phosphorus 3.4 mg/dl (2.5-4.5) 08/11/25 04:35
Magnesium 1.8 mg/dl (1.6-2.3) 08/18/25 03:33
Iron 34 ug/dl (49-181) L 08/13/25 03:57
TIBC 225 ug/dl (261-462) L 08/13/25 03:57
% Saturation 15 % (20-50) L 08/13/25 03:57
Ferritin 362.0 ng/ml (17.9-464.0) 08/13/25 03:57
Total Bilirubin 0.6 mg/dl (0.2-1.3) 08/18/25 03:33
Direct Bilirubin 0.2 mg/dl (0.0-0.4) 08/18/25 03:33
AST 39 U/L (17-59) 08/18/25 03:33
ALT 45 U/L (0-50) 08/18/25 03:33
Alkaline Phosphatase 241 U/L (38-126) H 08/18/25 03:33
Troponin I 0.074 ng/ml H* 08/16/25 00:50
Lbw-W-Dwhpudnpiuk Pept 1870 pg/ml 08/12/25 06:08
Total Protein 6.2 g/dl (6.3-8.2) L 08/18/25 03:33
Albumin 3.1 g/dl (3.5-5.0) L 08/18/25 03:33
Lipase 305 U/L (23-300) H 08/10/25 01:12
Procalcitonin 0.08 ng/ml (0.0-0.25) 08/13/25 12:34
TSH (Reflex) 1.02 uIU/ml (0.47-4.68) 08/10/25 10:46
Blood Type O NEG 08/13/25 12:34
Antibody Screen Negative (Negative) 08/13/25 12:34
�
Diagnostic Results:�as per HPI�
�
Assessment: 70-year-old man with recent NSTEMI from multivessel CAD s/p CABG x4 (07/31/25), hypertension, hyperlipidemia, stroke, and atrial fibrillation on Eliquis who re-presented on same day of discharge for post-op ileus s/p NGT now with acute HF
and GI bleed.
Plan�
PM&R�PT/OT to increase independence with ADLs, improve balance, coordination, endurance, strength, mobility, community reintegration, decreased burden of care on others and family education.�
�
Acute on chronic anemia: post op blood loss. Transfuse as needed
Hematochezia:on 08/13/25. PPI. EGD and/or colonoscopy on 08/18/25 after Plavix washout. ASA to continue, Plavix and Eliquis held as per card and GI.
Recurrent adynamic ileus/Enterocolitis: possibly 2/2 poor ambulation in Post-oP period, not due to surgery itself
S/P CABG x 4: Sternal precautions.� Aspirin, statin, BP control.�anticoag- on hold. Monitor incision, pain control.�
Coronary artery disease�: Aspirin, statin, beta-joseluis�
HTN: continue medications, monitor closely�
HLD: Statin�
Atrial fibrillation:� Continue anticoagulation and rate control medications.�������������������������������������������
NICOLAS: possible CPAP use.�
Insomnia: Ambien 5mg HS
Bilateral lower extremity edema: Consider TEDS as able. Increased fluid will cause more force requirement to move lower extremities which requires more strength and increases fatigue.�
Psych: Psychology consult.� Monitor mood, adjust medications as needed.�
Skin: monitor for pressure sores/rashes/lesions.�
Pain: acetaminophen as needed. Gabapentin 100 mg 3 times daily, Flexeril 5 mg Q8 as needed, hydromorphone 0.5 mg, 0.25 mg IV every 4 as needed, Tigan 200 mg IM every 6 as neededBowel: Colace and Senna, PRN bisacodyl.�
Bladder/BPH: Time void, PVRs, PRN straight cath. Proscar 5mg daily and Tamsulosin 0.8mg�
GI Prophylaxis: GI recommended after upper endoscopy PPI twice daily x 4 weeks then outpatient follow-up with GI
DVT Prophylaxis: Eliquis-to be resume when appropriate
Pulmonary: Incentive spirometry�
Morbid obesity: Continue to service counselor patient about diet adjustments to control obesity. Body habitus and increased force to move body and extremities causes further difficulty with functional tasks.�
Safety: Continue to reinforce assistance with all transfers.�
Code Status:� Full code
Dispo�(date/plan/equipment needs): Home with family care.� Social history reviewed.�
�
Functional and Medical Goals:�Modified Independent with ADL�s, ambulation, transfers�
�
-�Discharge Destination:�Patient would benefit from acute inpatient rehabilitation once hemoglobin has stabilized for at least 24 hours with resuming antiplatelet/anticoagulant post EGD and colonoscopy, GI recommendations have been implemented and
patient is medically cleared from cardiac and GI, and stable on po diuretics
�

Documented by User: Carlos Yadav MD 08/18/25 22:20
Consultation - Medical
-
Referring Provider:�Ashkan Salazar
Chief Complaint:�Debility
�
History of Present Illness:�70 year old left-handed Yemeni speaking Male PMH (HTN, HLD, Afib, insomnia, GERD, BPH, CVA with left hemiparesis, CAD) with recent chest pain and left heart cath with multivessel disease s/p CABG x4 on 07/31/25 with
postOP course complicated by pneumonia, atelectasis with hypoxemia, suspected new diagnosis of NICOLAS that required prolonged intubation, discharged to acute rehab and sent back same day with worsening abdominal distention with concern for recurrent
ileus and enterocolitis on CT, that later resolved. Had episode of hematochezia so pending EGD/Colonoscopy while holding Eliquis and Plavix.
08/18/25 patient underwent colonoscopy with biopsy and removal of polyps today. Recommended follow-up with GI as outpatient to see if hemoglobin normalized and discuss if VCE is indicated. He also had an upper endoscopy today with biopsied. Small
hiatal hernia with a single Aubrey ulcer was found. Patchy moderate inflammation characterized by erosions and erythema was found in the gastric body and in the gastric antrum with patchy areas of atrophic mucosa. Biopsies were taken. Z-line
irregular and was biopsied. Recommendation while awaiting pathology results was PPI twice daily x 4 weeks then once daily.
�
Past Medical History:�HTN, HLD, Afib, insomnia, GERD, BPH, CAD , NICOLAS
Procedure History:�CABG x 4, cholecystectomy
Family History:�Noncontributory
�
Social History:�
Functional Level Premorbidly:�Independent with all activities�
Functional Level Currently:�Eating�set up, grooming�supervision, toileting�min assist, lower extremity self-care�dependent, as of 08/15/2025�transfer�min assist, ambulated 30 feet x 2 reps with min assist, gait belt and 2 L oxygen plus a FIELDS
Tobacco:�Former smoker
Alcohol:�Former
Drug use:�Denies�
�
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
24-hour assistance available:�Yes
Number of floors:�2nd floor apartment
# steps to enter:�none
# steps to second floor: 13 steps
Potential First floor set up:�no
Driving:�No, has not driven in a few years because of his stroke. drives
Occupation:�disabled, former
�
�
Allergies:�
Allergy/AdvReac Type Severity Reaction Status Date / Time
bee venom protein (honey bee) Allergy Unknown Verified 09/26/25 22:47
diphenhydramine Allergy Unknown Verified 07/25/25 22:47
�
Review of Systems:�
Constitutional: (x) abNormal _tired
Eye: (x) Normal _
Ear/Nose/Throat: (x) Normal _
Respiratory: (x) Normal _
Cardiovascular: (x) abNormal _CABG, anemia
Gastrointestinal: (x) abNormal _ileus, GI bleed
Genitourinary: (x) Normal _
Musculoskeletal: (x) Normal _
Integumentary: (x) Normal _
Neurologic: (x) abNormal _previous cva, left weakness
Psychiatric: (x) Normal _
Endocrine: (x) Normal _
Hematologic/Lymphatic: (x) Normal _
Allergic/Immunologic: (x) Normal _
�
Medications:�
Active Current Visit Medication List
Category Date Time Status
Acetaminophen [Tylenol/Feverall] Med 08/10/25 10:42 Active
650 mg RECTAL Q6HPRN PRN
Acetaminophen [Tylenol] Med 08/13/25 23:36 Active
650 mg PO Q4HPRN PRN
Apixaban [Eliquis] Med 08/12/25 20:00 Hold
5 mg PO BID
Aspirin Chewable [Low Strength Aspirin] Med 08/15/25 08:00 Active
81 mg PO DAILY
Atorvastatin [Lipitor] Med 08/12/25 18:00 Active
40 mg PO QPM
Clopidogrel Bisulfate [Plavix] Med 08/13/25 08:00 Hold
75 mg PO DAILY
Cyclobenzaprine HCl [Flexeril] Med 08/10/25 10:42 Active
5 mg PO Q8HPRN PRN muscle spasm
Finasteride [Proscar] Med 08/13/25 08:00 Active
5 mg PO DAILY
Flush (0.9% Sodium Chloride) [Flush (Nss)] Med 08/10/25 10:00 Active
See Dose Instructions IV PER PROTOCOL
Furosemide [Lasix] Med 08/13/25 20:00 Active
40 mg IV BID
Gabapentin [Neurontin] Med 08/17/25 08:00 Active
100 mg PO TID
Guaifenesin Solution [Robitussin] Med 08/16/25 20:00 Active
200 mg PO Q4HPRN PRN
HYDROmorphone [Dilaudid] Med 08/10/25 18:57 Active
0.25 mg IV Q4HPRN PRN
HYDROmorphone [Dilaudid] Med 08/10/25 18:57 Active
0.5 mg IV Q4HPRN PRN
Metoprolol Xl [Toprol Xl] Med 08/10/25 10:42 Active
25 mg PO DAILY
Tamsulosin [Flomax] Med 08/10/25 10:42 Active
0.8 mg PO DAILY
Trimethobenzamide [Tigan] Med 08/11/25 07:47 Active
200 mg IM Q6HPRN PRN
Zolpidem Tartrate [Ambien] Med 08/14/25 07:40 Active
5 mg PO HSPRN PRN
�
Vitals:�
Temp Pulse Resp BP Pulse Ox
98.7 F 59 20 109/59 97
08/18/25 15:06 08/18/25 15:07 08/18/25 15:06 08/18/25 15:07 08/18/25 15:07
Height 5 ft 6 in
Actual Weight 106.8 kg
Body Mass Index (BMI) 38.0
�
Physical Exam:�
General Appearance/Observation: Well-developed, well-nourished male in no apparent distress.�
Pain/Comfort Assessment: Headache
Mood/Affect: Appropriate�
�
Integumentary/Operative Site:�Healed sternal and drain site incisions, healed incision�left medial leg
�� Pressure Ulcer Evaluation: absent over heels.�
�� Other Type of Wound: Purple lesion left anterolateral echevarria
��
�
Eyes: Conjunctiva/Lids: normal���� Pupils: pupils equal round and reactive to light and Accommodation
Ears/Nose/Throat: oral mucosa moist,� throat clear.������������ Lips/Teeth/Gums: normal�
Neck: No muscle spasm or tenderness�
Cardiovascular: Heart: irregular, no murmur�
Pulses: dorsalis pedis 2+ bilaterally�
Respiratory: Respiratory Effort/Chest Expansion: normal������� Auscultation: diminished BS bilaterally, Clear to auscultation bilaterally�
Gastrointestinal: abdomen not tender, no distension, diminished abdominal bowel sounds
Genitourinary: No Aguilar�
Extremities:�Edema: left 2+ more than right 1+ - pitting Cyanosis: None�Trophic�changes: left echevarria dermatitis
�
Neurology Exam:
Orientation: Alert, Oriented to self, Time, Place�
Memory: Intact for immediate medical concerns
Comprehension: Intact
Two step command: Intact
Naming: Intact
Cranial Nerves:
�� CNII:�Pupillary light reflex: Intact����Visual Field: Intact
�� CN III, IV, : Extraocular muscles: Intact�
�� CN V:�Facial Sensation�at�Forehead: Decreased on left,�Maxilla: Decreased on left,�Mandible: Decreased on left
�� CN VII:�Facial movement: Mild left facial weakness
�� CN VIII:�Hearing: Normal
�� CN IX/X:�Speech & swallow: Normal,�Position of Uvula: Midline
�� CN XI:�Shoulder shrug: Slight decreased on the left
�� CN XII:�Tongue protrusion: Midline
Sensory:
�� Light touch: Intact in right upper and lower extremities. Impaired left upper and lower extremities
��
Reflexes:
�� Biceps: 2+ bilaterally
�� Brachioradialis: 2+ bilaterally
�� Triceps: 2+ bilaterally
�� Patellar: 2+ bilaterally
�� Achilles: Absent bilaterally
�� Babinski: Down going bilaterally
�� Clonus: None
�� Cornelius: Negative right, positive left
Cerebellar: Dysmetria/Ataxia: Impaired etwhts-ma-gdkn coordination on the left, intact on the right
Musculoskeletal: Motor: (Manual muscle scale 0-5)�
Muscle SA EF WE EE FF FA HF KE DF EHL PF
Right� >3 >3 5 >3 5 5 4 5 5 5 5
Left >3 >3 5 >3 4 3+ 2+ 4 4 4 4
�
Tone: Normal in all extremities�
Range of Motion: Passively within normal limits in all extremities�
�
Lab Results
Labs
WBC 6.9 10^3/uL (4.8-10.8) 08/17/25 05:08
RBC 3.06 10^6/uL (4.70-6.10) L 08/17/25 05:08
Hgb 8.7 g/dL (13.0-18.0) L 08/18/25 03:33
Hct 27.8 % (39.0-52.0) L 08/18/25 03:33
MCV 87.6 fL (80.0-94.0) 08/17/25 05:08
MCH 28.1 pg (27.0-31.0) 08/17/25 05:08
MCHC 32.1 g/dL (33.0-37.0) L 08/17/25 05:08
RDW 14.4 % (11.5-14.5) 08/17/25 05:08
Plt Count 417 10^3/uL (130-400) H 08/17/25 05:08
MPV 9.9 fL (7.4-10.4) 08/17/25 05:08
Abs Immat Gran (auto) 0.0 10^3/uL (0-0.05) 08/17/25 05:08
Absolute Neuts (auto) 4.5 10^3/uL (1.4-6.5) 08/17/25 05:08
Absolute Lymphs (auto) 1.6 10^3/uL (1.2-3.4) 08/17/25 05:08
Absolute Monos (auto) 0.6 10^3/uL (0.1-0.6) 08/17/25 05:08
Absolute Eos (auto) 0.1 10^3/uL (0-0.7) 08/17/25 05:08
Absolute Basos (auto) 0.0 10^3/uL (0-0.2) 08/17/25 05:08
Immature Gran % 0.6 % (0-0.5) H 08/17/25 05:08
Neutrophils % 65.3 % (42.2-75.2) 08/17/25 05:08
Lymphocytes % 23.3 % (20.5-51.1) 08/17/25 05:08
Monocytes % 9.1 % (1.7-9.3) 08/17/25 05:08
Eosinophils % 1.3 % (0-6) 08/17/25 05:08
Basophils % 0.4 % (0-2) 08/17/25 05:08
Nucleated RBC % 0 % (-) 08/17/25 05:08
Sodium 131 mmol/L (135-145) L 08/18/25 03:33
Potassium 3.8 mmol/L (3.5-5.1) 08/18/25 03:33
Chloride 98 mmol/L (98-107) 08/18/25 03:33
Carbon Dioxide 29 mmol/L (22-30) 08/18/25 03:33
BUN 11 mg/dl (9-20) 08/18/25 03:33
Creatinine 0.9 mg/dL (0.7-1.3) 08/18/25 03:33
Estimated Creat Clear 86 ml/min 08/18/25 03:33
eGFR > 60.00 08/18/25 03:33
Glucose 111 mg/dl (70-99) H 08/18/25 03:33
Lactic Acid Cancelled 08/10/25 05:30
Calcium 8.1 mg/dl (8.4-10.2) L 08/18/25 03:33
Phosphorus 3.4 mg/dl (2.5-4.5) 08/11/25 04:35
Magnesium 1.8 mg/dl (1.6-2.3) 08/18/25 03:33
Iron 34 ug/dl (49-181) L 08/13/25 03:57
TIBC 225 ug/dl (261-462) L 08/13/25 03:57
% Saturation 15 % (20-50) L 08/13/25 03:57
Ferritin 362.0 ng/ml (17.9-464.0) 08/13/25 03:57
Total Bilirubin 0.6 mg/dl (0.2-1.3) 08/18/25 03:33
Direct Bilirubin 0.2 mg/dl (0.0-0.4) 08/18/25 03:33
AST 39 U/L (17-59) 08/18/25 03:33
ALT 45 U/L (0-50) 08/18/25 03:33
Alkaline Phosphatase 241 U/L (38-126) H 08/18/25 03:33
Troponin I 0.074 ng/ml H* 08/16/25 00:50
Tgm-K-Vkomdhtgfki Pept 1870 pg/ml 08/12/25 06:08
Total Protein 6.2 g/dl (6.3-8.2) L 08/18/25 03:33
Albumin 3.1 g/dl (3.5-5.0) L 08/18/25 03:33
Lipase 305 U/L (23-300) H 08/10/25 01:12
Procalcitonin 0.08 ng/ml (0.0-0.25) 08/13/25 12:34
TSH (Reflex) 1.02 uIU/ml (0.47-4.68) 08/10/25 10:46
Blood Type O NEG 08/13/25 12:34
Antibody Screen Negative (Negative) 08/13/25 12:34
�
Diagnostic Results:�as per HPI�
�
Assessment:
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
for post-op ileus s/p NGT now with acute HF and GI bleed resulting in ADL and ambulatory dysfunction.
Plan�
PM&R�PT/OT to increase independence with ADLs, improve balance, coordination, endurance, strength, mobility, community reintegration, decreased burden of care on others and family education.�
�
CAD S/P CABG x 4: Sternal precautions.� Aspirin, statin, beta-joseluis. BP control. Monitor incision, pain control.�
Recurrent adynamic ileus/Enterocolitis: possibly 2/2 poor ambulation in Post-oP period, not due to surgery itself
Acute on chronic anemia: post op blood loss. Transfuse as needed
Hematochezia:on 08/13/25. PPI. EGD and/or colonoscopy on 08/18/25 after Plavix washout. ASA to continue, Plavix and Eliquis held as per card and GI.
Acute CHF: Metoprolol, Lasix 40 mg IV twice daily. Monitor weight
HTN: Metoprolol XL 25 mg daily, Lasix 40 mg IV twice daily, monitor closely�
HLD: Statin�
Atrial fibrillation:�Holding Eliquis anticoagulation and rate control with metoprolol.�������������������������������������������
Insomnia: Ambien 5 mg HS
Psych: Psychology consult.� Monitor mood, adjust medications as needed.�
Skin: monitor for pressure sores/rashes/lesions.�
Pain: acetaminophen as needed. Gabapentin 100 mg 3 times daily, Flexeril 5 mg Q8 as needed, hydromorphone 0.25-0.5 mg IV every 4 hours as needed.
Bladder/BPH: Time void, PVRs, PRN straight cath. Proscar 5mg daily and Tamsulosin 0.8mg�
GI Prophylaxis: GI recommended after upper endoscopy PPI twice daily x 4 weeks then outpatient follow-up with GI
DVT Prophylaxis: Eliquis-to be resume when appropriate, mechanical
Pulmonary: Incentive spirometry�
Morbid obesity: Continue to service counselor patient about diet adjustments to control obesity. Body habitus and increased force to move body and extremities causes further difficulty with functional tasks.�
Safety: Continue to reinforce assistance with all transfers.�
Code Status:� Full code
Dispo�(date/plan/equipment needs): Home with family care.� Social history reviewed.�
Functional and Medical Goals:�Modified Independent with ADL�s, ambulation, transfers�
Discharge Destination:�Patient would benefit from acute inpatient rehabilitation once hemoglobin has stabilized for at least 24 hours with resuming antiplatelet/anticoagulant post EGD and colonoscopy, GI recommendations have been implemented and
patient is medically cleared from cardiac and GI, and stable on po diuretics
Attending Statement:
I saw and examined the patient today. Reviewed care plan with patient, therapy, nursing, and physician procurement assistant. I agree with the above subjective and physical exam, and plan as documented by NORM Ying with adjustments made as necessary. A
total of 60 minutes were spent with the patient preparing for the evaluation, obtaining history, performing examination and evaluation, counseling, data review, case management, care coordination, reproduction order processor, and EMR documentation.
Consultation
-
Date/Time Consultation Performed: 08/18/25
Performing Provider: Lin Ying/Dr. Carlos Yadav
Reason for Consultation: Debility
[2025-08-18] MEDS: LIPITOR 40 MG PO (17:42)
[2025-08-18] MEDS: ROBITUSSIN 200 MG PO (20:13)
--- NOTE | 2025-08-18 23:39 | PTCARENOTE ---
Assumed care at 1900. Management Trainee utilized for assessment. Patient alert and oriented x3. Patient denies any chest pain. Patient reports shortness of breath at times. Remains on room air. Denies any dizziness. Patient reports headache rating it a
5/10. PRN Tylenol given. Patient with cough that patient states is chronic. PRN Robitussin given. Patient ambulating to bathroom with assist x1 with walker. Patient remains in controlled aflutter on tele. Patient aware of plan of care. Call breen and
personal belongings within reach.
[2025-08-19] VITALS (10 sets, daily range): BP systolic 92–157; BP diastolic 54–79; BMI 37.6
--- NOTE | 2025-08-19 00:17 | PTCARENOTE ---
patient called RN to go to the bathroom. sat at the edge of the bed. assisted to standing maintaining sternal precautions. walker used. patient walked about 3/4 steps and stopped. started to sway. blank stare. forced patient into chair. pale face.
bp 157/79. HR 86. 95% on RA. patient states feeling lightheaded/dizzy. attempted to get patient to use bedside urinal or commode and refused. patient insisted on getting into the bathroom. stood patient at chair- bp 122/64. patient states feeling
better. ambulated to bathroom and back to bed with no further issues.
[2025-08-19 04:47] LABS: Hematocrit 26.6 % (39.0-52.0); Hemoglobin 8.6 g/dL (13.0-18.0); Mean Corp Hgb Conc. 32.3 g/dL (33.0-37.0); Mean Corpuscular Volume 89.0 fL (80.0-94.0); Nucleated Red Blood Cells % 0 % (-); Platelet Count 360 10^3/uL (130-400); Red Cell Dist. Width 14.4 % (11.5-14.5)
[2025-08-19 05:12] LABS: Blood Urea Nitrogen 14 mg/dl (9-20); Calcium 8.2 mg/dl (8.4-10.2); Carbon Dioxide 27 mmol/L (22-30); Chloride 100 mmol/L (98-107); Estimated Creatinine Clearance 86 ml/min; Glucose 112 mg/dl (70-99); Potassium 3.8 mmol/L (3.5-5.1); Sodium 131 mmol/L (135-145); eGFR > 60.00
[2025-08-19] MEDS: TOPROL XL 25 MG PO (08:19)
[2025-08-19] MEDS: LOW STRENGTH ASPIRIN 81 MG PO (08:22)
[2025-08-19] MEDS: NEURONTIN 100 MG PO ×3 (08:22→23:19)
[2025-08-19] MEDS: LASIX 40 MG IV (08:22)
[2025-08-19] MEDS: PROSCAR 5 MG PO (08:22)
[2025-08-19] MEDS: FLOMAX 0.8 MG PO (08:22)
[2025-08-19] MEDS: FLUSH (NSS) 1 FLUSH IV (08:24)
[2025-08-19] MEDS: ROBITUSSIN 200 MG PO ×2 (08:37→20:57)
--- NOTE | 2025-08-19 08:49 | PTCARENOTE ---
received patient this am sitting up in chair, language line used, patient is Urugu[place] speaking, patient c/o productive cough, sore throat, Robitussin po given as ordered. also patient c/o feeling dizzy when he gets up off of the chair,Dr. Sher
aware. orthostatic BP taken last night , no change. left leg is reddened, warm to touch will put in wound consult. +2 pitting edema bilat. weak pulses but palpable. lung narvaez diminished, 94% on RA.
--- NOTE | 2025-08-19 11:00 | W.PN.HOSP.TC ---
Today's Communication/Plan
-
Late entry for encounter of 08/18
Assessment / Plan
Assessment / Plan
70yo [place] Rican speaking M with PMHX of HTN, HLD, Afib, insomnia, GERD, BPH, CAD s/p CABG x4 on 07/31/25 with postOP course complicated by pneumonia, atelectasis with hypoxemia, suspected new diagnosis of NICOLAS that required prolonged intubation,
discharged to acute rehab and sent back same day with worsening abdominal distention with concern for recurrent ileus and enterocolitis on CT, that later resolved. Had episode of hematochezia so pending EGD/Colonoscopy while holding Eliquis and
Plavix
A/P:
#Acute hypoxic respiratory failure
#NICOLAS
weaned off O2 on 08/17/25
cont previously ordered Abx - switch to unasyn since NPO, completed on 08/12/25
CPAP at HS
Acapella
#Acute on chronic anemia blood loss anemia
#Hematochezia on 08/13/25
PPI
FOllow CBC and transfuse as needed
GI for EGD and/or colonoscopy on 08/18/25 after Plavix washout
ASA to continue, Plavix and Eliquis held as per discussion between card and GI
EGD with gastritis without active bleeding. Colonoscopy with multiple polypectomy per
Diet has been advanced.
Plan is to resume anticoagulation on 08/19
#Recurrent adynamic ileus, possibly 2/2 poor ambulation in PostOP period, not due to surgery itself
#Enterocolitis
no diarrhea
NG tube to low intermittent suction
GEnSx eval: NG removed on 08/12/25, since patient with large BM day prior
Encourage ambulation
Advance diet as tolerated
TSH WNL
follow and replete electrolytes
#Intractable chronic headache
#Insomnia worsening headaches
Head CT neg for acute findings
Managed with neurologist as outpatient
Ambien while in hospital
ty low dose neurontin
#Ambulatory deficiency
PT/OT
Physiatry consult for acute rehab
#Hypocalcemia
#Hypomagnesemia
replete and follow
#Acute urinary retention
#BPH
Mai placed due to inability to void and pain, TOV passed on 08/13/25
Most likely 2/2 poor ambulatory status
Tamsulosin/Finasteride
Urology consult
#Chronic LLE redness
#New LUE swelling 2/2 superficial vein thrombosis
remove LUE IV
US LUE and LLE without DVT
Outpatient VascSx eval - patient and verbalized understanding of the instructions
#mild leukocytosis
most likely 2/2 ileus
resolved
#CAD s/p ND and CABG x4 on 07/31/25
#Troponin elevation most likely 2/2 recent ND
Cardiothoracic surgery
Cardio consult: no further mgmt changes
telemetry
With acute bleeding - might be a candidate for early cessation of Plavix
#Mild lipase elevation
2/2 ileus
#Hypocalcemia
replete
follow
#Alk.phos elevation
no RUQ pain
Patient with PMhx of cholecystectomy
Most likely 2/2 acute disease
follow
#Afib, unspecified
on Eliquis- when possible
rate controlled
#Acute on chronic HFpEF
Diuresis as per cardiology
Follow Cr and electrolytes
DVT ppx Lovenox
Full code
I have spent at least 54min reviewing chart, test results, communication with consultants, bedside and providing direct patient care
Anticipated Discharge: 24 - 48 hours
Subjective/Interval History
-
Date of Service: August 19, 2025
Objective Data
-
Labs:
Laboratory Results
08/19/25
04:27
WBC 5.9
Hgb 8.6 L
Hct 26.6 L
Plt Count 360
Sodium 131 L
Potassium 3.8
Chloride 100
Carbon Dioxide 27
BUN 14
Creatinine 0.9
Glucose 112 H
Calcium 8.2 L
Vital Signs:
Vital Signs
Temp Pulse Resp BP Pulse Ox
97.6 F 63 16 104/60 94
08/19/25 08:38 08/19/25 08:38 08/19/25 08:38 08/19/25 08:38 08/19/25 08:38
I&O
08/18/25 08/19/25 08/20/25
06:59 06:59 06:59
Intake Total 960 / 960 480 / 480
Output Total 600 / 600
Balance 960 / 960 -120 / -120
Physical Exam
-
General: Well Developed and No Apparent Distress
HEENT: Normocephalic, Atraumatic and Moist Mucous Membranes
Respiratory: Clear to Auscultation
Cardiac: Regular Rhythm and S1/S2; Negative Murmur, Rub or Gallop
GI: Soft, Nontender, Nondistended and Normal Bowel Sounds; Negative Organomegaly
Rectal: Deferred by Provider
Musculoskeletal: No Clubbing, No Cyanosis and No Edema
Skin: Negative Rash
Neuro: Nonfocal/Grossly Intact
--- NOTE | 2025-08-19 11:41 | W.PN.CD ---
Addendum entered and electronically signed by Ishmael Sher MD 08/19/25 11:53:
Reviewed with CT surgery. Dr. Merritt and Dr. Sanchez in agreement with single agent Eliquis for this particular patient given high risk for recurrent bleeding.
Original Note:
Today's Communication / Plan
-
Heart failure:
- Move to furosemide 40mg PO BID
- I added Farxiga and Aldactone 12.5 daily
GI bleed:
- Plan per GI BID PPI then daily
Antiplatelet/anticoagulant management
- I prefer home on just Eliquis but adding one antiplatelet med may be needed/preferred => await CT surgery comment
- Avoid triple therapy
Impression / Plan
-
70-year-old man with recent NSTEMI from multivessel CAD s/p CABG x4 (07/31/25), hypertension, hyperlipidemia, stroke, and atrial fibrillation on Eliquis who re-presented on same day of discharge for post-op ileus s/p NGT now with acute HF and GI
bleed.
Acute on chronic HFpEF
- Improving, off O2
- Move to furosemide 40mg PO BID
- Monitor BMP, daily weights, and strict I/Os
- I added Farxiga and Aldactone 12.5 daily
GI bleed
- S/p EGD/colo: polyps removed, ulcer treated => Plan per GI BID PPI then daily
- Maroon stool reported 08/13/2025 - clopidogrel & apixaban held since episode
- On aspirin 81 mg a day since patient with recent NSTEMI and CABG, with clopidogrel & apixaban hold
- I prefer home on just Eliquis but adding one antiplatelet med may be needed/preferred => await CT surgery comment.
- Avoid triple therapy
Paroxysmal atrial fibrillation: now seems persistent
- s/p DALLAS ligation
- Rate controlled
- Eliquis on hold due to maroon stool on 08/13/2025
AIVR
Hyponatremia, monitor with diuresis.
NSTEMI 07/26/25
Multivessel CAD s/p CABGx4 07/31/25 (DAMON-LAD, SVG-OM1-OM3 sequential, SVG-RPDA; DALLAS ligation / MAZE; Dr. Sanchez).
- Complicated post op course due to aspiration, CAROL and ileus.
Post Op Ileus, resolving
- Initially thought to have resolved, returned the same day of discharge with acute abdominal pain and CT showing diffuse distention of small and large bowel with air-fluid levels without discrete transition suggestive of adynamic ileus.
- NGT removed 08/12.
LUE swelling, US with superficial venous thrombosis; no DVT
HTN
Hx CVA
Subjective: Video healthcare management consultant used 08/18/2025 AM: Dyspnea improved, no CP. Today Google frame fixer: Feels OK
DATA:
TTE 08/04/25
1. Normal left ventricular size and systolic function without regional wall motion abnormality. LVEF 60-65%.
2. No pericardial effusion.
3. No change compared to prior echocardiogram on 07/28/2025
Physical Exam
Vital Signs/Labs
Vital Signs
Temp Pulse Resp BP Pulse Ox
97.6 F 67 16 104/60 94
08/19/25 08:38 08/19/25 11:00 08/19/25 08:38 08/19/25 08:38 08/19/25 08:38
08/18/25 08/19/25 08/20/25
06:59 06:59 06:59
Actual Weight 106.8 kg 105.7 kg
08/19/25 04:27
08/19/25 04:27
Magnesium 1.8 mg/dl (1.6-2.3) 08/18/25 03:33
08/12/25
06:08
Yly-I-Mmbomtyqzlr Pept 1870
Physical Exam
Constitutional: No acute distress
Cardiovascular: Rhythm/rate is irregular and Rub absent
Respiratory: Respiratory effort normal and Lungs clear to auscul.
GI: Soft and Distention absent
Neuro/Psych: AO x 3
Data Reviewed
-
Date of Service: August 19, 2025
--- NOTE | 2025-08-19 11:44 | W.PN.HOSP.TC ---
Today's Communication/Plan
-
Check chest x-ray for subjective dyspnea.
Transition to oral Lasix.
Hopefully restart anticoagulation today/double therapy with aspirin. Most likely no need for triple therapy post CABG
Discharge planing to acute rehab
Assessment / Plan
Assessment / Plan
70yo Haitian speaking M with PMHX of HTN, HLD, Afib, insomnia, GERD, BPH, CAD s/p CABG x4 on 07/31/25 with postOP course complicated by pneumonia, atelectasis with hypoxemia, suspected new diagnosis of NICOLAS that required prolonged intubation,
discharged to acute rehab and sent back same day with worsening abdominal distention with concern for recurrent ileus and enterocolitis on CT, that later resolved. Had episode of hematochezia so pending EGD/Colonoscopy while holding Eliquis and
Plavix
A/P:
#Acute hypoxic respiratory failure
#NICOLAS
weaned off O2 on 08/17/25
cont previously ordered Abx - switch to unasyn since NPO, completed on 08/12/25
CPAP at HS
Acapella
Subjectively short of breath as of 08/19, although with stable respiratory status off oxygen and clear lungs on exam.
Chest x-ray pending
#Acute on chronic anemia blood loss anemia
#Hematochezia on 08/13/25
PPI
FOllow CBC and transfuse as needed
GI for EGD and/or colonoscopy on 08/18/25 after Plavix washout
ASA to continue, Plavix and Eliquis held as per discussion between card and GI
EGD with gastritis without active bleeding. Colonoscopy with multiple polypectomy per
Diet has been advanced.
Plan is to resume anticoagulation on 08/19
#Recurrent adynamic ileus, possibly 2/2 poor ambulation in PostOP period, not due to surgery itself
#Enterocolitis
no diarrhea
NG tube to low intermittent suction
GEnSx eval: NG removed on 08/12/25, since patient with large BM day prior
Encourage ambulation
Advance diet as tolerated
TSH WNL
follow and replete electrolytes
#Intractable chronic headache
#Insomnia worsening headaches
Head CT neg for acute findings
Managed with neurologist as outpatient
Ambien while in hospital
ty low dose neurontin
#Ambulatory deficiency
PT/OT
Physiatry consult for acute rehab
#Hypocalcemia
#Hypomagnesemia
replete and follow
#Acute urinary retention
#BPH
Aguilar placed due to inability to void and pain, TOV passed on 08/13/25
Most likely 2/2 poor ambulatory status
Aguilar catheter removed
Tamsulosin/Finasteride
Urology consult appreciated
#Chronic LLE redness
#New LUE swelling 2/2 superficial vein thrombosis
remove LUE IV
US LUE and LLE without DVT
Outpatient VascSx eval - patient and verbalized understanding of the instructions
#mild leukocytosis
most likely 2/2 ileus
resolved
#CAD s/p OK and CABG x4 on 07/31/25
#Troponin elevation most likely 2/2 recent OK
Cardiothoracic surgery
Cardio consult: no further mgmt changes
telemetry
With acute bleeding - might be a candidate for early cessation of Plavix
#Mild lipase elevation
2/2 ileus
#Hypocalcemia
replete
follow
#Alk.phos elevation
no RUQ pain
Patient with PMhx of cholecystectomy
Most likely 2/2 acute disease
follow
# Paroxysmal Afib, unspecified
on Eliquis- when possible
rate controlled
#Acute on chronic HFpEF
Good response to diuresis.
Close to dry weight at 105 kg.
Transition to oral Lasix
DVT ppx Lovenox
Full code
I have spent at least 54min reviewing chart, test results, communication with consultants, bedside and providing direct patient care
Anticipated Discharge: 24 - 48 hours
Subjective/Interval History
-
Date of Service: August 19, 2025
Objective Data
-
Labs:
Laboratory Results
08/19/25
04:27
WBC 5.9
Hgb 8.6 L
Hct 26.6 L
Plt Count 360
Sodium 131 L
Potassium 3.8
Chloride 100
Carbon Dioxide 27
BUN 14
Creatinine 0.9
Glucose 112 H
Calcium 8.2 L
Vital Signs:
Vital Signs
Temp Pulse Resp BP Pulse Ox
97.6 F 67 16 104/60 94
08/19/25 08:38 08/19/25 11:00 08/19/25 08:38 08/19/25 08:38 08/19/25 08:38
I&O
08/18/25 08/19/25 08/20/25
06:59 06:59 06:59
Intake Total 960 / 960 480 / 480
Output Total 600 / 600
Balance 960 / 960 -120 / -120
Physical Exam
-
General: Well Developed and No Apparent Distress
HEENT: Normocephalic, Atraumatic and Moist Mucous Membranes
Respiratory: Clear to Auscultation
Cardiac: Regular Rhythm and S1/S2; Negative Murmur, Rub or Gallop
GI: Soft, Nontender, Nondistended and Normal Bowel Sounds; Negative Organomegaly
Rectal: Deferred by Provider
Musculoskeletal: No Clubbing, No Cyanosis and No Edema
Skin: Negative Rash
Neuro: Nonfocal/Grossly Intact
--- NOTE | 2025-08-19 13:25 | CM ---
Reviewed chart and with attending physician. [facility] to check on st[facility] of bed at [facility] [place]. [facility] would like to have his Eliquis restarted. His Eliquis will be restarted tomorrow and [facility] would
like a Hbg blood draw on and if the Hbg is stable [facility] accept on 08/21/25. Met with Mr. and Mrs. Goodman to update them regarding discharge plans. Medical work-up in progress. The dischafrge plan [facility] [place] on 08/21/25 if medically stable.
[2025-08-19] MEDS: TYLENOL 650 MG PO ×2 (14:29→20:57)
--- NOTE | 2025-08-19 14:33 | PTCARENOTE ---
patient c/o headache, Tylenol po given as ordered. patient went for chest xray via stretcher accompanied by vol. services.
--- NOTE | 2025-08-19 15:01 | PTCARENOTE ---
left LE reddened, warm to touch, angry looking, it is marked with a marker by previous RN. TT Dr. Elliott and wound consult placed by nursing.
[2025-08-19] MEDS: LASIX 40 MG PO (15:43)
--- NOTE | 2025-08-19 16:05 | W.PN.UPDATE ---
Update Note
Progress Note Update
Mr. Goodman continues improving and doing well. Appreciate GI evaluation for bleed and appears we have a reasonable cause with intervention. Agree that single agent therapy is ok for him. If he fails eliquis trial and has issues with bleeding again,
may need to consider ASA only.
[2025-08-19] MEDS: LIPITOR 40 MG PO (17:37)
--- NOTE | 2025-08-19 23:32 | PTCARENOTE ---
Pt rec'd at change of shift in bed. C/O h/a medicated with Tylenol. Afl on telemetry. resting at present with call breen within reach.
[2025-08-20] VITALS (13 sets, daily range): BP systolic 95–135; BP diastolic 53–68; PULSE 62–68; BMI 36.7
[2025-08-20] MEDS: AMBIEN 5 MG PO ×2 (01:05→22:14)
--- NOTE | 2025-08-20 02:27 | DOWNTIME ---
There was a [employer] Downtime on 08/20/2025 from 0100 to 08/20/2025 at 0215. Downtime documentation of patient's care, including medication administrations, has been reconciled in the electronic record per guidelines. Refer to the
patient's paper chart under the miscellaneous tab to see printed paper medication records and downtime forms.
[2025-08-20] MEDS: NEURONTIN 100 MG PO ×3 (08:28→22:14)
[2025-08-20] MEDS: LASIX 40 MG PO ×2 (08:28→16:02)
[2025-08-20] MEDS: FLOMAX 0.8 MG PO (08:28)
[2025-08-20] MEDS: ALDACTONE 12.5 MG PO (08:28)
[2025-08-20] MEDS: FARXIGA 10 MG PO (08:28)
[2025-08-20] MEDS: TOPROL XL 25 MG PO (08:28)
[2025-08-20] MEDS: PROSCAR 5 MG PO (08:28)
--- NOTE | 2025-08-20 10:54 | WOUNDNOTE ---
BILATERAL LOWER EXTREMITIES
--- NOTE | 2025-08-20 10:54 | WOUNDNOTE ---
RIGHT ANTEROLATERAL LOWER LEG
--- NOTE | 2025-08-20 10:55 | WOUNDNOTE ---
RIGHT MEDIAL LOWER LEG
--- NOTE | 2025-08-20 10:56 | WOUNDNOTE ---
RIGHT ANTEROMEDIAL LOWER LEG
--- NOTE | 2025-08-20 10:58 | WOUNDNOTE ---
LEFT ANTEROMEDIAL LOWER LEG
--- NOTE | 2025-08-20 10:58 | WOUNDNOTE ---
LEFT MEDIAL LOWER LEG
--- NOTE | 2025-08-20 11:03 | WOUNDNOTE ---
WON RN NOTE: Followed up today for new L echevarria red/purple area reported. No induration and minimal pain, L leg weakness from previous stroke. Ultrasound negative for DVT per nurse Restrepo. + pedal pulses palpable. Heels intact, foams changed. Had
patient stand with walker, buttocks much improved, no longer open, Calazime applied. Using air chair cushion in recliner chair, encouraged leg elevation when sitting. ABD over red area on L leg then knee high carloz wrap applied per Dr. Sow.
[place] senior solutions engineer used for directions and plan of care. at bedside updated on care. Nurse Restrepo updated and will update care plan and sign off.
--- NOTE | 2025-08-20 12:07 | W.PN.CD ---
Today's Communication / Plan
-
Single agent Eliquis chosen in collaboration with CT Surgery, if bleeds on Eliquis may need to move to just ASA 81 daily (DALLAS has been ligated)
HFpEF therapy has been advanced
Will need BMP in 2 and 4 weeks (new Aldactone)
I updated his Outpatient Card Rizwan Collado MD via [employer] message.
Impression / Plan
-
70-year-old man with recent NSTEMI from multivessel CAD s/p CABG x4 (07/31/25), hypertension, hyperlipidemia, stroke, and atrial fibrillation on Eliquis who re-presented on same day of discharge for post-op ileus s/p NGT now with acute HF and GI
bleed.
Acute on chronic HFpEF
- Improving, off O2
- Move to furosemide 40mg PO BID
- Monitor BMP, daily weights, and strict I/Os
- I added Farxiga and Aldactone 12.5 daily
GI bleed
- S/p EGD/colo: polyps removed, ulcer treated => Plan per GI BID PPI then daily
- Maroon stool reported 08/13/2025 - clopidogrel & apixaban held since episode
- On aspirin 81 mg a day since patient with recent NSTEMI and CABG, with clopidogrel & apixaban hold
- Home on single agent Eliquis, no antiplatelet meds
Paroxysmal atrial fibrillation: now seems persistent
- s/p DALLAS ligation
- Rate controlled
- Eliquis on hold due to maroon stool on 08/13/2025 => resuming tonight (08/20/2025)
AIVR
Hyponatremia, monitor with diuresis.
NSTEMI 07/26/25
Multivessel CAD s/p CABGx4 07/31/25 (DAMON-LAD, SVG-OM1-OM3 sequential, SVG-RPDA; DALLAS ligation / MAZE; Dr. Sanchez).
- Complicated post op course due to aspiration, CAROL and ileus.
Post Op Ileus, resolving
- Initially thought to have resolved, returned the same day of discharge with acute abdominal pain and CT showing diffuse distention of small and large bowel with air-fluid levels without discrete transition suggestive of adynamic ileus.
- NGT removed 08/12.
LUE swelling, US with superficial venous thrombosis; no DVT
HTN
Hx CVA
Subjective: Video staff interpreter used 08/18/2025 AM: Dyspnea improved, no CP. Today served as staff interpreter and pt feeling better again
DATA:
TTE 08/04/25
1. Normal left ventricular size and systolic function without regional wall motion abnormality. LVEF 60-65%.
2. No pericardial effusion.
3. No change compared to prior echocardiogram on 07/28/2025
Physical Exam
Vital Signs/Labs
Vital Signs
Temp Pulse Resp BP Pulse Ox
98.8 F 66 18 129/68 96
08/20/25 11:21 08/20/25 10:00 08/20/25 11:21 08/20/25 09:13 08/20/25 11:21
08/19/25 08/20/25 08/21/25
06:59 06:59 06:59
Actual Weight 105.7 kg 103 kg
08/19/25 04:27
08/19/25 04:27
Magnesium 1.8 mg/dl (1.6-2.3) 08/18/25 03:33
08/12/25
06:08
Wyy-M-Xuhqjildfkr Pept 1870
Physical Exam
Constitutional: No acute distress
EENT: Anicteric
Cardiovascular: Rhythm/rate is irregular and Systolic murmur present
Respiratory: Respiratory effort normal and Lungs clear to auscul.
GI: Soft and Distention absent
Neuro/Psych: AO x 3
Data Reviewed
-
Date of Service: August 20, 2025
--- NOTE | 2025-08-20 13:31 | CM ---
Reviewed chart. [facility]. Reviewed Eliquis is to start tonight at 8:00 p.m. Will need to see if they will be able to accept tomorrow if HBG stable. Awaiting [facility]. [email or web address]. Medical work-up
in progress. The discharge plan is to go to [facility]. if approved for admission when medically stable.
--- NOTE | 2025-08-20 14:17 | W.PN.HOSP.TC ---
Today's Communication/Plan
-
Resume Eliquis
Monitor hemoglobin
Oral antibiotics for left lower extremity cellulitis
Discharge planning
Assessment / Plan
Assessment / Plan
70yo Venezuelan speaking M with PMHX of HTN, HLD, Afib, insomnia, GERD, BPH, CAD s/p CABG x4 on 07/31/25 with postOP course complicated by pneumonia, atelectasis with hypoxemia, suspected new diagnosis of NICOLAS that required prolonged intubation,
discharged to acute rehab and sent back same day with worsening abdominal distention with concern for recurrent ileus and enterocolitis on CT, that later resolved. Had episode of hematochezia so pending EGD/Colonoscopy while holding Eliquis and
Plavix
A/P:
#Acute hypoxic respiratory failure
#NICOLAS
weaned off O2 on 08/17/25
cont previously ordered Abx - switch to unasyn since NPO, completed on 08/12/25
CPAP at HS
Acapella
Subjectively short of breath as of 08/19, although with stable respiratory status off oxygen and clear lungs on exam.
Chest x-ray pending
#Acute on chronic anemia blood loss anemia
#Hematochezia on 08/13/25
PPI
FOllow CBC and transfuse as needed
GI for EGD and/or colonoscopy on 08/18/25 after Plavix washout
ASA to continue, Plavix and Eliquis held as per discussion between card and GI
EGD with gastritis without active bleeding. Colonoscopy with multiple polypectomy per
Diet has been advanced.
Eliquis resumed on 08/20
#Recurrent adynamic ileus, possibly 2/2 poor ambulation in PostOP period, not due to surgery itself
#Enterocolitis
no diarrhea
NG tube to low intermittent suction
GEnSx eval: NG removed on 08/12/25, since patient with large BM day prior
Encourage ambulation
Advance diet as tolerated
TSH WNL
follow and replete electrolytes
#Intractable chronic headache
#Insomnia worsening headaches
Head CT neg for acute findings
Managed with neurologist as outpatient
Ambien while in hospital
ty low dose neurontin
#Ambulatory deficiency
PT/OT
Physiatry consult for acute rehab
#Hypocalcemia
#Hypomagnesemia
replete and follow
#Acute urinary retention
#BPH
Aguilar placed due to inability to void and pain, TOV passed on 08/13/25
Most likely 2/2 poor ambulatory status
Aguilar catheter removed
Tamsulosin/Finasteride
Urology consult appreciated
# Acute on chronic left lower extremity cellulitis. Nonpurulent
No evidence of systemic symptoms. Afebrile
#New LUE swelling 2/2 superficial vein thrombosis
remove LUE IV
US LUE and LLE without DVT
Initiated on Keflex on 08/20. Expect 3 to 5 days of therapy.
#mild leukocytosis
most likely 2/2 ileus
resolved
#CAD s/p MN and CABG x4 on 07/31/25
#Troponin elevation most likely 2/2 recent MN
At this point no indication for triple therapy.
DAPT has been discontinued and Eliquis resumed.
#Mild lipase elevation
2/2 ileus
#Hypocalcemia
replete
follow
#Alk.phos elevation
no RUQ pain
Patient with PMhx of cholecystectomy
Most likely 2/2 acute disease
follow
# Paroxysmal Afib, unspecified
Anticoagulation with Eliquis
rate controlled
#Acute on chronic HFpEF
Good response to diuresis.
Close to dry weight at 105 kg.
Transition to oral Lasix
DVT ppx Lovenox
Full code
I have spent at least 54min reviewing chart, test results, communication with consultants, bedside and providing direct patient care
Anticipated Discharge: Within 24 hours
Subjective/Interval History
-
Date of Service: August 20, 2025
Objective Data
-
Vital Signs:
Vital Signs
Temp Pulse Resp BP Pulse Ox
98.8 F 66 18 129/68 96
08/20/25 11:21 08/20/25 10:00 08/20/25 11:21 08/20/25 09:13 08/20/25 11:21
I&O
08/19/25 08/20/25 08/21/25
06:59 06:59 06:59
Intake Total 480 / 480 480 / 480
Output Total 600 / 600 600 / 600
Balance -120 / -120 -120 / -120
Physical Exam
-
General: Well Developed and No Apparent Distress
HEENT: Normocephalic, Atraumatic and Moist Mucous Membranes
Respiratory: Clear to Auscultation
Cardiac: Regular Rhythm and S1/S2; Negative Murmur, Rub or Gallop
GI: Soft, Nontender, Nondistended and Normal Bowel Sounds; Negative Organomegaly
Rectal: Deferred by Provider
Musculoskeletal: No Clubbing, No Cyanosis and No Edema
Skin: Negative Rash
Neuro: Nonfocal/Grossly Intact
[2025-08-20] MEDS: KEFLEX 500 MG PO ×2 (17:27→22:14)
[2025-08-20] MEDS: LIPITOR 40 MG PO (17:27)
[2025-08-20] MEDS: ROBITUSSIN 200 MG PO (19:44)
[2025-08-20] MEDS: ELIQUIS 5 MG PO (19:44)
[2025-08-20] MEDS: TYLENOL 650 MG PO (19:46)
--- NOTE | 2025-08-20 22:46 | PTCARENOTE ---
Pt received at change of shift, aaox3, c/o HULL, medicated with Tylenol with + effect. Aflutter on tele, HR 70's. Ambulating with x1 assist to bathroom, sternal precautions maintained, steady gait. Ambien PRN given for insomnia at HS. Call breen within
reach.
[2025-08-21 02:55] VITALS: BP 116/63
[2025-08-21 03:44] LABS: Hematocrit 27.9 % (39.0-52.0); Hemoglobin 8.7 g/dL (13.0-18.0); Mean Corp Hgb Conc. 31.2 g/dL (33.0-37.0); Mean Corpuscular Volume 89.1 fL (80.0-94.0); Nucleated Red Blood Cells % 0 % (-); Platelet Count 311 10^3/uL (130-400); Red Cell Dist. Width 14.5 % (11.5-14.5)
[2025-08-21 04:09] LABS: Blood Urea Nitrogen 12 mg/dl (9-20); Calcium 8.2 mg/dl (8.4-10.2); Carbon Dioxide 27 mmol/L (22-30); Chloride 102 mmol/L (98-107); Estimated Creatinine Clearance 76 ml/min; Glucose 105 mg/dl (70-99); Potassium 3.7 mmol/L (3.5-5.1); Sodium 132 mmol/L (135-145); eGFR > 60.00
[2025-08-21 06:00] VITALS: BMI 36.6
[2025-08-21 07:20] VITALS: BP 98/57
[2025-08-21] MEDS: KEFLEX 500 MG PO ×2 (08:29→12:04)
[2025-08-21] MEDS: ALDACTONE 12.5 MG PO (08:29)
[2025-08-21] MEDS: FLOMAX 0.8 MG PO (08:29)
[2025-08-21] MEDS: NEURONTIN 100 MG PO ×2 (08:29→16:10)
[2025-08-21] MEDS: PROSCAR 5 MG PO (08:29)
[2025-08-21] MEDS: FARXIGA 10 MG PO (08:30)
[2025-08-21] MEDS: ELIQUIS 5 MG PO (08:30)
[2025-08-21] MEDS: TOPROL XL 25 MG PO (08:30)
[2025-08-21] MEDS: LASIX 40 MG PO ×3 (08:30→16:10)
[2025-08-21 08:32] VITALS: BP 103/64
--- NOTE | 2025-08-21 08:55 | W.PN.CD ---
Today's Communication / Plan
-
patient is on oral diuretic lasix and also on spronolacotne
will need follow up renal profile in one week and then again in 3 weeks with diuretics and new spironolacotne
Eliquis resumed yesterday Plan for Eliquis and no antiplatelet therapy.
Impression / Plan
-
70-year-old man with recent NSTEMI from multivessel CAD s/p CABG x4 (07/31/25), hypertension, hyperlipidemia, stroke, and atrial fibrillation on Eliquis who re-presented on same day of discharge for post-op ileus s/p NGT now with acute HF and GI
bleed.
Acute on chronic HFpEF
- Improving, off O2
- Furosemide 40mg PO BID
- Monitor BMP, daily weights, and strict I/Os
- I added Farxiga and Aldactone 12.5 daily
GI bleed
- S/p EGD/colo: polyps removed, ulcer treated => Plan per GI BID PPI then daily
- Maroon stool reported 08/13/2025 - clopidogrel & apixaban held since episode
- On aspirin 81 mg a day since patient with recent NSTEMI and CABG, with clopidogrel & apixaban hold
- Home on single agent Eliquis, no antiplatelet meds
Paroxysmal atrial fibrillation: now seems persistent
- s/p DALLAS ligation
- Rate controlled
- Eliquis on hold due to maroon stool on 08/13/2025 => resumed(08/20/2025)
AIVR
Hyponatremia, monitor with diuresis.
NSTEMI 07/26/25
Multivessel CAD s/p CABGx4 07/31/25 (DAMON-LAD, SVG-OM1-OM3 sequential, SVG-RPDA; DALLAS ligation / MAZE; Dr. Sanchez).
- Complicated post op course due to aspiration, CAROL and ileus.
Post Op Ileus, resolving
- Initially thought to have resolved, returned the same day of discharge with acute abdominal pain and CT showing diffuse distention of small and large bowel with air-fluid levels without discrete transition suggestive of adynamic ileus.
- NGT removed 08/12.
LUE swelling, US with superficial venous thrombosis; no DVT
HTN
Hx CVA
Subjective: Video economic development director used 08/18/2025 AM: Dyspnea improved, no CP. Today served as economic development director and pt feeling better again
DATA:
TTE 08/04/25
1. Normal left ventricular size and systolic function without regional wall motion abnormality. LVEF 60-65%.
2. No pericardial effusion.
3. No change compared to prior echocardiogram on 07/28/2025
Physical Exam
Vital Signs/Labs
Vital Signs
Temp Pulse Resp BP Pulse Ox
98 F 61 20 98/57 95
08/21/25 07:19 08/21/25 07:20 08/21/25 07:19 08/21/25 07:20 08/21/25 07:19
08/20/25 08/21/25 08/22/25
06:59 06:59 06:59
Actual Weight 103 kg 102.9 kg
08/21/25 03:02
08/21/25 03:02
Magnesium 1.8 mg/dl (1.6-2.3) 08/18/25 03:33
08/12/25
06:08
Jkz-H-Vyfhjjtjhnq Pept 1870
Physical Exam
Constitutional: No acute distress and Other (ppears comfortable in a chair on room air)
Cardiovascular: Rhythm/rate is irregular
Respiratory: Wheeze Absent and Rhonchi Absent
GI: Soft and Non tender
Neuro/Psych: Alert
Data Reviewed
-
Date of Service: August 21, 2025
Medical Decision Making: Reviewed Test Results
--- NOTE | 2025-08-21 11:01 | W.DS.TRANS ---
DC Summary - Last Model Maker
-
Discharge Instructions:
Discharge Diagnosis/Procedures CAD, post CABG
Afib
Ileus
GI bleed/Gastritis
Diet Low Cholesterol
Blood Work BMP in 10 days
Instructions:
Stand-Alone Forms:
Changes to Home Medications: No
Discharge Medications:
DC Medications w/original date entered in [facility]
apixaban 5 mg tablet (Eliquis) 5 mg PO BID Blood Clot Prevention/Tx 07/26/25
nortriptyline 10 mg capsule 10 mg PO HS Mental Health/Anxiety 07/26/25
atorvastatin 40 mg tablet 40 mg PO QPM High cholesterol #0 tabs 08/08/25
cyclobenzaprine 10 mg tablet 5 mg (1/2 x 10 mg) PO Q8HPRN PRN muscle spasm #0 tabs 08/08/25
metoprolol succinate 25 mg tablet,extended release 24 hr 25 mg PO DAILY Blood pressure #0 tabs 08/08/25
furosemide 40 mg tablet 40 mg PO BID AT 0800,1600 #0 tabs 08/09/25
potassium chloride 20 mEq tablet,extended release(part/cryst) 20 meq PO BID #0 tabs 08/09/25
sennosides 8.6 mg tablet (Tennille-naveed) 8.6 mg PO Q12 Constipation #0 tabs 08/09/25
tamsulosin 0.4 mg capsule 0.8 mg (2 x 0.4 mg) PO DAILY Urinary issue #0 caps 08/09/25
cephalexin 500 mg capsule 500 mg PO QID #16 caps 08/21/25
dapagliflozin propanediol 10 mg tablet 10 mg PO DAILY #30 tabs 08/21/25
finasteride 5 mg tablet 5 mg PO DAILY #30 tabs 08/21/25
gabapentin 100 mg capsule 100 mg PO TID #60 caps 08/21/25
pantoprazole 40 mg tablet,delayed release (Protonix) 40 mg PO BID Gastrointestinal Issue #0 tabs 08/21/25
spironolactone 25 mg tablet 12.5 mg (1/2 x 25 mg) PO DAILY #30 tabs 08/21/25
zolpidem 5 mg tablet 5 mg PO HSPRN PRN insomnia #15 tabs 08/21/25
Home Medication Changes
Antibiotics for LLE cellulites for additional 4 days
PPI bid
DAPT discontinued as patient is on Eliquis
Proscar added
Farxiga added
Pending Results: No
--- NOTE | 2025-08-21 11:03 | CM ---
Reviewed chart and with attending MNeetu. Mr. Goodman is ready for transfer to [facility] today. Telephone call to [facility] Liaison to confirm ability to accept today. [facility] at [place] can accept today in the afternoon. The report number
is ([phone]). Met with and Mrs. Goodman to review discharge plan to [facility] today. They are agreeable to transfer to [facility] today. Updated his R.N. Medical work-up in progress. The discharge plan is to go to [facility] at
[place] when medically stable.
[2025-08-21 11:40] VITALS: BP 89/48
[2025-08-21 11:42] VITALS: BP 97/50
[2025-08-21 14:44] VITALS: BP 104/57
--- NOTE | 2025-08-21 15:14 | PTCARENOTE ---
Pt received this am with no c/o of any pain, sob or dizziness. Assisted oob to the BR and the chair with 1 assist and the walker. Room air sat 95%. Aflutter, rate in the 70's to 80's.
--- NOTE | 2025-08-21 16:30 | PTCARENOTE ---
Pt discharged to [facility] at 1630. Report called to nurse receiving pt.
== END 2025-08-21 18:47 | DRG 347 ==
LOC: IVU 05:38
PROVIDERS: Internal Medicine; Nurse Practitioner Adult Health; Nurse Practitioner Primary Care; ADMITTING PHYSICIAN Internal Medicine; ATTENDING PHYSICIAN Internal Medicine; CONSULT PHYSICIAN Internal Medicine Gastroenterology; CONSULT PHYSICIAN Physical Medicine & Rehabilitation; CONSULT PHYSICIAN Surgery; CONSULT PHYSICIAN Urology; EMERGENCY PHYSICIAN Student in an Organized Health Care Education/Training Program; OTHER PHYSICIAN Clinical Nurse Specialist Acute Care
PROC: 0DBL8ZZ Excision of Transverse Colon, Via Natural or Artificial Opening Endoscopic (ICD-10-PCS; 2025-08-18)
PROC: 0DBP8ZZ Excision of Rectum, Via Natural or Artificial Opening Endoscopic (ICD-10-PCS; 2025-08-18)
PROC: 0W3P8ZZ Control Bleeding in Gastrointestinal Tract, Via Natural or Artificial Opening Endoscopic (ICD-10-PCS; 2025-08-18)
PROC: 0DBM8ZZ Excision of Descending Colon, Via Natural or Artificial Opening Endoscopic (ICD-10-PCS; 2025-08-18)
PROC: 0DBN8ZZ Excision of Sigmoid Colon, Via Natural or Artificial Opening Endoscopic (ICD-10-PCS; 2025-08-18)
PROC: 0DB68ZX Excision of Stomach, Via Natural or Artificial Opening Endoscopic, Diagnostic (ICD-10-PCS; 2025-08-18)
PROC: 0DBC8ZZ Excision of Ileocecal Valve, Via Natural or Artificial Opening Endoscopic (ICD-10-PCS; 2025-08-18)
PROC: 0DB58ZX Excision of Esophagus, Via Natural or Artificial Opening Endoscopic, Diagnostic (ICD-10-PCS; 2025-08-18)
PROC: 0D558ZZ Destruction of Esophagus, Via Natural or Artificial Opening Endoscopic (ICD-10-PCS; 2025-08-18)
DX: K56.7 Ileus, unspecified (principal); I50.33 Acute on chronic diastolic (congestive) heart failure; K29.61 Other gastritis with bleeding; K91.89 Other postprocedural complications and disorders of digestive system; L03.116 Cellulitis of left lower limb; I80.292 Phlebitis and thrombophlebitis of other deep vessels of left lower extremity; I48.92 Unspecified atrial flutter; D62 Acute posthemorrhagic anemia; I69.354 Hemiplegia and hemiparesis following cerebral infarction affecting left non-dominant side; I25.10 Atherosclerotic heart disease of native coronary artery without angina pectoris; Z95.1 Presence of aortocoronary bypass graft; I48.0 Paroxysmal atrial fibrillation; Z79.01 Long term (current) use of anticoagulants; I11.0 Hypertensive heart disease with heart failure; K21.9 Gastro-esophageal reflux disease without esophagitis; E66.812 Obesity, class 2; Z68.36 Body mass index [BMI] 36.0-36.9, adult; Z87.891 Personal history of nicotine dependence; Z79.82 Long term (current) use of aspirin; Z79.02 Long term (current) use of antithrombotics/antiplatelets; Z79.899 Other long term (current) drug therapy; K52.9 Noninfective gastroenteritis and colitis, unspecified; E83.51 Hypocalcemia; G47.33 Obstructive sleep apnea (adult) (pediatric); E83.42 Hypomagnesemia; I25.2 Old myocardial infarction; Z88.8 Allergy status to other drugs, medicaments and biological substances; D12.0 Benign neoplasm of cecum; D12.3 Benign neoplasm of transverse colon; D12.4 Benign neoplasm of descending colon; D12.5 Benign neoplasm of sigmoid colon; D12.7 Benign neoplasm of rectosigmoid junction; E78.00 Pure hypercholesterolemia, unspecified; K22.89 Other specified disease of esophagus; K44.9 Diaphragmatic hernia without obstruction or gangrene; K57.30 Diverticulosis of large intestine without perforation or abscess without bleeding; K62.1 Rectal polyp; K64.8 Other hemorrhoids; N40.1 Benign prostatic hyperplasia with lower urinary tract symptoms; R33.8 Other retention of urine; Z87.11 Personal history of peptic ulcer disease
CPT/HCPCS: 70450; 71045; 71046; 74018; 74019; 74177; 80048; 80053; 82248; 82728; 83540; 83550; 83605; 83690; 83735; 83880; 84100; 84145; 84443; 84484; 85014; 85018; 85025; 86850; 86900; 86901; 87040; 88305; 88342; 93005; 93971; 94660; 97116; 97163; 97167; 97530; 97535; 99285; Q9967

== ENCOUNTER → 2025-09-11 14:07 | Outpatient (REF) | payer MEDICARE, OTHER, SELFPAY | LOC: RAD 14:07 | PROVIDERS: ATTENDING PHYSICIAN Nurse Practitioner Acute Care; FAMILY PHYSICIAN Internal Medicine | DX: Z95.1 Presence of aortocoronary bypass graft (principal); R06.02 Shortness of breath | CPT/HCPCS: 71046 ==

== ENCOUNTER 2025-10-20 21:58 | Inpatient (IN) | payer MEDICARE, OTHER, SELFPAY ==
[2025-10-20 16:31] VITALS: BP 108/70
[2025-10-20 19:08] LABS: Hematocrit 42.4 % (39.0-52.0); Hemoglobin 13.4 g/dL (13.0-18.0); Mean Corp Hgb Conc. 31.6 g/dL (33.0-37.0); Mean Corpuscular Volume 76.7 fL (80.0-94.0); Nucleated Red Blood Cells % 0 % (-); Platelet Count 243 10^3/uL (130-400); Red Cell Dist. Width 14.3 % (11.5-14.5)
[2025-10-20 19:19] LABS: INR 1.24; PT 15.7 Sec (11.4-14.6)
[2025-10-20 19:31] LABS: ALT (SGPT) 49 U/L (0-50); AST (SGOT) 32 U/L (17-59); Albumin 4.3 g/dl (3.5-5.0); Alkaline Phosphatase 175 U/L (38-126); Blood Urea Nitrogen 17 mg/dl (9-20); Calcium 9.5 mg/dl (8.4-10.2); Carbon Dioxide 25 mmol/L (22-30); Chloride 104 mmol/L (98-107); Glucose 88 mg/dl (70-99); Potassium 4.7 mmol/L (3.5-5.1); Sodium 137 mmol/L (135-145); Total Protein 7.8 g/dl (6.3-8.2); eGFR > 60.00
[2025-10-20 19:43] LABS: Troponin I 0.013 ng/ml
[2025-10-20 20:00] VITALS: BP 127/57
--- NOTE | 2025-10-20 20:39 | ED.GENMED ---
History of Present Illness
General
Chief Complaint: Heart Rate Problem
Source: patient
Exam Limitations: none
Time Seen by Provider: 10/20/25 20:14
History of Present Illness
History of Present Illness:
See MDM
Past History
Past History
ED Past Medical History: Arrthythmia, CAD and HTN
ED Past Surgical History: Cardiac
Social History
Tobacco: Non-smoker
Alcohol: None
Phy Exam
Physical Exam
Physical Exam:
See MDM
Course
Orders/Labs/Results
Orders:
Orders
10/20/25 16:21
EKG [Electrocardiogram (*1)] Urgent
Reason for Study: Abnormal EKG
EKG- Treatment ONCE
10/20/25 18:55
Complete Blood Count/With Diff Urgent
Comprehensive Metabolic Panel Urgent
PT/INR [Prothrombin Time] Urgent
Troponin I Urgent
10/20/25 20:36
Consult Cardiology [CARDIOLOGY CONSULT] Routine
Consulting Provider: Chano Cevallos
Was physician already notified: Yes
Abnormal Lab Results
10/20/25
18:55
MCV 76.7 L fL
(80.0-94.0)
MCH 24.2 L pg
(27.0-31.0)
MCHC 31.6 L g/dL
(33.0-37.0)
Absolute Monos (auto) 0.7 H 10^3/uL
(0.1-0.6)
PT 15.7 H Sec
(11.4-14.6)
Alkaline Phosphatase 175 H U/L
(38-126)
10/20/25 18:55
10/20/25 18:55
Vital Signs
Initial and Last Documented VS:
Initial Vital Signs
Temp Pulse Resp BP Pulse Ox
98 F 67 16 108/70 99
10/20/25 16:31 10/20/25 16:31 10/20/25 16:31 10/20/25 16:31 10/20/25 16:31
Last Documented Vital Signs
Temp Pulse Resp BP Pulse Ox
98 F 68 23 127/57 99
10/20/25 16:31 10/20/25 20:01 10/20/25 20:01 10/20/25 20:00 10/20/25 20:01
MDM/Problems Addressed
Differential Diagnosis Includes:
Note:
VECTOR CONTROL ASSISTANT
Sophisticated Percussion Welding Machine Operator used.
CHIEF COMPLAINT(S)
The patients chief complaint was not explicitly mentioned.
PHYSICAL EXAM
General: Alert, no acute distress.
Skin: Warm, dry.
Head: Normocephalic, atraumatic
Neck: Appears supple, trachea midline.
Eyes, Ears, Nose, Mouth, and Throat: Moist mucous membranes
Cardiovascular: No signs of cyanosis. Irregular rhythm
Respiratory: Respirations are non-labored.
Abdomen: Non-distended
Musculoskeletal: +1 pitting edema bilateral lower extremities
Neurological: No focal neurological deficit observed.
Psychiatric: Cooperative, appropriate mood and affect.
HISTORY OF PRESENT ILLNESS
The patient is a 70-year-old male with a history of atrial fibrillation. There was a discussion about being in atrial fibrillation and potential pauses in his heart rhythm, which raised concerns. The patients heart condition is described as
irregular, and the plan is to keep him overnight for cardiology evaluation. There is mention of possible need for a pacemaker. It was noted that the patient has been compliant with a blood thinner medication, Apixaban, 5 mg twice daily. Further
assessment by a sample hand is planned.
CHRONIC MEDICAL CONDITIONS SIGNIFICANTLY AFFECTING CARE
Chronic conditions affecting care include a history of atrial fibrillation.
DISPOSITION
The decision was to admit the patient for overnight observation and evaluation by a sample hand.
MANAGEMENT OF THE PATIENTS CARE WAS DISCUSSED WITH
Management discussed with the general medical hospitalist team and a sample hand was consulted for evaluation the following morning.
SUMMARY OF ENCOUNTER
The patient was admitted to the emergency department with concerns regarding his irregular heart rhythm, specifically atrial fibrillation and potential pauses. The plan is to have the patient observed overnight for cardiology evaluation to determine
if additional interventions, such as a pacemaker, may be necessary. Compliance with Apixaban was confirmed, and a sample hand consultation is arranged.
DIFFERENTIAL DIAGNOSIS
The Differential Diagnosis includes, in no particular order and is not limited to:
- Atrial Fibrillation
- Arrhythmia
- Heart Failure
- Myocardial Infarction
- Cerebrovascular Accident
- Transient Ischemic Attack
- Sick Sinus Syndrome
- Cardiomyopathy
- Hyperthyroidism
- Pulmonary Embolism
DIAGNOSIS
- Atrial Fibrillation (I48.0)
Note: The absence of explicit information on certain sections means they are omitted from the final note.
SUMMARY OF ENCOUNTER
The patient, a 70-year-old male with a history of atrial fibrillation, presented to the emergency department with palpitations. He had been previously monitored with a Holter monitor, which indicated pauses in his heart rhythm, lasting up to four
seconds. After consultation with his sample hand, he was advised to visit the emergency department. Despite appearing non-toxic, the patients history and the presence of these pauses warranted an overnight admission for telemetry monitoring and
evaluation by a sample hand in the morning. The potential need for a pacemaker was discussed as part of the management plan.
DISPOSITION
Admit for overnight observation.
ASSESSMENT
This patient with known atrial fibrillation and recent Holter monitor findings of significant pauses is at risk for further arrhythmic events. Further cardiology evaluation is necessary to determine the need for potential interventions like a
pacemaker.
MANAGEMENT OF THE PATIENTS CARE WAS DISCUSSED WITH
The patients management plan, including overnight admission, was discussed with and directed by the patients sample hand.
PLAN
The patient will be admitted for overnight telemetry monitoring. A sample hand will evaluate him in the morning to determine the necessity of a pacemaker and adjust his treatment plan as needed.
MEDICAL DECISION MAKING
1. Number and Complexity of Problems Addressed: Chronic conditions affecting care include a history of atrial fibrillation. Differential Diagnosis includes: Atrial Fibrillation, Arrhythmia, Heart Failure, Myocardial Infarction, Cerebrovascular
Accident, Transient Ischemic Attack, Sick Sinus Syndrome, Cardiomyopathy, Hyperthyroidism, Pulmonary Embolism.
2. Data:
- Clinical information obtained from a sample hand, confirming the patients paroxysmal atrial fibrillation and contributing to the decision for overnight telemetry monitoring.
3. Risk: Prescription drug management or therapy requiring monitoring for toxicity. Decisions to escalate care, hospitalization for overnight observation due to potential cardiac risk associated with pauses in heart rhythm.
DIAGNOSIS
- Atrial Fibrillation (I48.0)
- Suspected Sick Sinus Syndrome (R00.1)
*Pulse Oximetry
SaO2: 99
Oxygen Mode of Delivery: Room air
Patient hypoxic: no
*EKG
Interpretation: abnormal (A flutter at 4-1 conduction at 66 bpm, normal axis, no STEMI)
*Critical Care Note
Total Time (30-74mins, 75-104mins- exclusive of procedures): Not Applicable
ED Attending Note
-
Portions of this chart may have been created with voice recognition software.� Occasional wrong word or��sound alike� substitutions may have occurred due to the inherent limitations of voice recognition software.
Discharge Plan
Departure
Patient Disposition: Admit
Date of Disposition: 10/20/25
Time of Disposition: 20:39
Admit to: Telemetry
Presentation/result/management discussed w/ accepting MD/DO: Hospitalist
Discharge Problem:
Heart palpitations
Prescriptions:
No Action
sennosides [Tennille-naveed] 8.6 mg Tablet
8.6 mg PO Q12 Qty: 0 0RF
spironolactone 25 mg Tablet
12.5 mg PO DAILY Qty: 30 0RF
dapagliflozin propanediol 10 mg Tablet
10 mg PO DAILY Qty: 30 0RF
gabapentin 100 mg Capsule
100 mg PO TID Qty: 60 0RF
Critic-Aid Clear AF(miconazol) 2 % Ointment
1 applic topical BID PRN (Reason: skin- rash-buttocks) 30 Days Qty: 15 0RF
Analgesic Sarver (m.salic-menth) 15-10 % Cream
1 applic topical TID 30 Days Qty: 15 0RF
docusate sodium 100 mg Capsule
100 mg PO BID 30 Days Qty: 60 0RF
magnesium oxide 400 mg (241.3 mg magnesium) Tablet
400 mg PO DAILY 30 Days Qty: 30 0RF
melatonin 5 mg Tablet
5 mg PO HS 30 Days Qty: 30 0RF
midodrine 2.5 mg Tablet
2.5 mg PO Q6HPRN PRN (Reason: hypotension) 30 Days Qty: 30 0RF
acetaminophen 325 mg Tablet
650 mg PO Q6HPRN PRN (Reason: pain) 30 Days Qty: 100 0RF
dextromethorphan-guaifenesin 10-100 mg/5 mL Syrup
10 ml PO Q4HPRN PRN (Reason: cough) 30 Days Qty: 50 0RF
atorvastatin 40 mg Tablet
40 mg PO QPM 30 Days Qty: 30 0RF
pantoprazole [Protonix] 40 mg Tablet,Delayed Release (Dr/Ec)
40 mg PO BID 30 Days Qty: 60 0RF
nortriptyline 10 mg Capsule
10 mg PO HS 30 Days Qty: 30 0RF
metoprolol succinate 25 mg Tablet Extended Release 24 Hr
25 mg PO DAILY 30 Days Qty: 30 0RF
finasteride 5 mg Tablet
5 mg PO DAILY 30 Days Qty: 30 0RF
Eliquis 5 mg Tablet
5 mg PO BID 30 Days Qty: 60 0RF
cyclobenzaprine 10 mg Tablet
5 mg PO HS 30 Days Qty: 30 0RF
potassium chloride 20 mEq Tablet,Er Particles/Crystals
20 meq PO DAILY 30 Days Qty: 30 0RF
tamsulosin 0.4 mg Capsule
0.4 mg PO DAILY 30 Days Qty: 30 0RF
furosemide 40 mg Tablet
40 mg PO DAILY 30 Days Qty: 30 0RF
Referrals:
UNKNOWN - PT DOES,NOT KNOW [Family Provider]
Interventions
Interventions:
*General Assessment Last Done: 10/20/25 16:31
*Neglect/Abuse Screening Last Done: 10/20/25 16:31
*ED COVID-19 Vaccine History Last Done: 10/20/25 16:31
*ED Influenza Vaccine History Last Done: 10/20/25 16:31
[facility] Fall Risk Assessment Tool Last Done: 10/20/25 20:02
*Risk Screen - Suicide (C-SSRS) Last Done: 10/20/25 16:31
ED- Cardiac Assessment Last Done: 10/20/25 20:04
ED- Pulmonary Assessment Last Done: 10/20/25 20:04
Discharge Date and Time
Print Language: BULGARIAN
--- NOTE | 2025-10-20 20:48 | W.PN.UPDATE ---
Update Note
Progress Note Update
Information gathered by chart review and speaking with the ER attd Dr Izquierdo
This note serves as an addendum to the H&P by pulling unit floorhand Luba ALEXANDER
HPI
70M Montenegrin speaker
HX A Fib, Accelerated idioventricular Rhythm, NSTEMI( 07/26/25) multivessel CAD s/p CABGx 4(07/31/25)
- Tool Polishing Machine Operator concern about A Fib and potential pauses in Holtor monitor
- Per ER dw mastic sprayer plan is to keep him overnight for cardiology evaluation
- also possible need for a pacemaker.
- compliant with a blood thinner medication, Apixaban, 5 mg twice daily.
Relevant VS
Temp Pulse Resp BP Pulse Ox
98 F 68 23 127/57 99
10/20/25 16:31 10/20/25 20:01 10/20/25 20:01 10/20/25 20:00 10/20/25 20:41
PE
Gen: stoic , unfazed
HEENT: anicteric
Neck: supple
Lungs: CTA
Cor: Irregular
Abdomen:�soft NT NG NRT
OCCUPATIONAL HEALTH SPECIALIST: AAO3
MS: no edema
Relevant data�
10/20/25
18:55
WBC 8.8
Hgb 13.4
MCV 76.7 L
Plt Count 243
INR 1.24
Sodium 137
Potassium 4.7
Carbon Dioxide 25
Creatinine 0.9
eGFR > 60.00
Troponin I 0.013
Albumin 4.3
EKG
ATRIAL FLUTTER WITH 4:1 A-V CONDUCTION
ABNORMAL ECG
WHEN COMPARED WITH ECG OF 15-Aug-2025 23:33,
ST NOW DEPRESSED IN INFERIOR LEADS
T WAVE INVERSION NO LONGER EVIDENT IN LATERAL LEADS
Confirmed by BRIGIDO RAMON MD ([id number]) on 10/20/2025 4:53:25 PM
Last hospitalist admission:08/10/2025 -08/21/2025
DISCHARGE DIAGNOSES:
1. Postoperative ileus.
2. Gastrointestinal hemorrhage secondary to gastritis.
3. Coronary artery disease with recent coronary artery bypass graft.
4. Hypertension.
5. Paroxysmal atrial fibrillation. Patient is on Eliquis.
6. Benign prostatic hyperplasia with urinary retention, resolved and Aguilar catheter removed.
7. Left lower extremity cellulitis with superficial thrombophlebitis.
ASSESSMENT & PLAN
Pending Rx reconciliation
Per Card concern with 4 sec pauses in EKG
Controlled A Flutter at ER
Hemodynamically stable
Paroxysmal AF
- Hold Metoprolol
- s/p DALLAS ligation
- on Eliquis
- CBC card consult
NSTEMI 07/26/25
Multivessel CAD s/p CABGx4 07/31/25 (DAMON-LAD, SVG-OM1-OM3 sequential, SVG-RPDA; DALLAS ligation / MAZE; Dr. Sanchez).HX complicated post op course due to aspiration, CAROL and ileus.
HX CVA
- on Plavix
chronic HFpEF
- clinically not in acute HF
- on PO furosemide 40mg PO BID
- Monitor BMP, daily weights, and strict I/Os
- on Farxiga and Aldactone 12.5 daily
AIVR HX
DVT Px: Eliquis
Full code Code:
IP TLM
--- NOTE | 2025-10-20 20:54 | HPS.HSE ---
Family Physician
-
Family Physician: NOT KNOW UNKNOWN - PT DOES
Chief Complaint
-
Palpitations
History of Present Illness
Patient is a 70 y/o male past medical history of CAD, CVA, A-Fib, and CHF who presents with palpitations. Additional history is obtained from family at the bedside. Patient has been reporting palpitations, and underwent a recent Holter monitoring.
Results revealed episodes of atrial fibrillation with a noted 4 second pause prompting his pin inserter to send him to the emergency department for evaluation.
Medical History
Past Medical History
Past Medical History: Reports Other
Additional Past Medical History:
CVA with Left Hemiparesis
Left Carotid Artery Stenosis
Coronary Artery Disease s/p CABG
Chronic HFpEF
Atrial Fibrillation
Essential Hypertension
Hyperlipidemia
BPH
Past Surgical History: Reports Other
Additional Past Surgical History:
CABG
Cholecystectomy
Social History
Tobacco: Former Smoker
Alcohol: Former
Drug: None
Living: With Family
Family History
Family History: Other
Allergies / Home Medications
Allergies reflects when Allergies were last updated in [facility].
Home Medications with original date entered in [facility]
Allergy/Medication List:
Medications on admission are unable to be verified or confirmed at this time.
If medication reconciliation has not been performed, why?: Medication List N/A
Review of Systems
-
Unable to obtain full review of systems at this time due to: Language Barrier
Physical Exam
Vital Signs
Vital Signs
Temp Pulse Resp BP Pulse Ox
98 F 68 23 127/57 99
10/20/25 16:31 10/20/25 20:01 10/20/25 20:01 10/20/25 20:00 10/20/25 20:41
Physical Exam
General: Comfortable and Conversant
HEENT: Anicteric and Moist mucous membranes
Respiratory: Clear and Non Labored Respirations
Cardiac: S1/S2 and Irregular Rhythm
GI: Soft and Non Tender
Rectal: Deferred by Provider
Genito-urinary: Deferred by me
Musculoskeletal: No Clubbing and No Cyanosis
Skin: Warm and Dry
Neuro: Awake, Alert, Oriented and Nonfocal/grossly intact
Psych: Calm
Laboratory Results
-
10/20/25 18:55
10/20/25 18:55
Laboratory Results
PT 15.7 Sec (11.4-14.6) H 10/20/25 18:55
INR 1.24 10/20/25 18:55
Total Bilirubin 0.6 mg/dl (0.2-1.3) 10/20/25 18:55
AST 32 U/L (17-59) 10/20/25 18:55
ALT 49 U/L (0-50) 10/20/25 18:55
Alkaline Phosphatase 175 U/L (38-126) H 10/20/25 18:55
Troponin I 0.013 ng/ml 10/20/25 18:55
Data Reviewed
-
Lab Data: Labs Reviewed by me
Impression/Plan
-
Atrial Fibrillation/Flutter with 4 second pause
-Consult Cardiology
-Keep NPO after midnight as there has been some discussion about possible pacemaker
-Continue Eliquis for anticoagulation
-Hold metoprolol with reported pauses
Multi-Vessel Coronary Artery Disease s/p CABG in Jul 2025
-Continue Plavix
Hx CVA with Residual Left Hemiparesis
-Continue Plavix
Chronic HFpEF
-Continue furosemide
-Unclear if patient is taking dapagliflozin or spironolactone - Will need to confirm mediation list in AM
-Monitor Daily Weights
Essential Hypertension
-Metoprolol on hold for possible pauses
-Unclear which anti-hypertensives he is currently taking
-Monitor blood pressure closely
Hyperlipidemia
-Continue atorvastatin
BPH
-Continue finasteride and tamsulosin
DVT proph: Eliquis
Code Status: Full Code
[2025-10-20 21:00] VITALS: BP 125/57
[2025-10-20 22:00] VITALS: BP 120/61
--- NOTE | 2025-10-20 22:15 | PTCARENOTE ---
Updated ER that Room ready for the patient
[2025-10-20 22:39] VITALS: BP 114/103; BMI 33.0
[2025-10-20 22:40] VITALS: BP 122/90
--- NOTE | 2025-10-20 22:40 | PTCARENOTE ---
Rec'd patient from ER. stable vitals. Burmese speaking/ utilized language line. AAOx3. No complaints of pain. c/o dizziness with position changes. Aflutter on tele in 40s-60s. POC reviewed with patient
[2025-10-20] MEDS: PAMELOR 10 MG PO (23:26)
[2025-10-20 23:41] VITALS: BMI 33.0
[2025-10-21] VITALS (11 sets, daily range): BP systolic 106–147; BP diastolic 62–78; BMI 32.8
[2025-10-21 03:48] LABS: Hematocrit 40.3 % (39.0-52.0); Hemoglobin 12.9 g/dL (13.0-18.0); Mean Corp Hgb Conc. 32.0 g/dL (33.0-37.0); Mean Corpuscular Volume 76.6 fL (80.0-94.0); Platelet Count 222 10^3/uL (130-400); Red Cell Dist. Width 14.2 % (11.5-14.5)
[2025-10-21 04:10] LABS: Blood Urea Nitrogen 18 mg/dl (9-20); Calcium 9.2 mg/dl (8.4-10.2); Carbon Dioxide 21 mmol/L (22-30); Chloride 104 mmol/L (98-107); Estimated Creatinine Clearance 86 ml/min; Glucose 90 mg/dl (70-99); Sodium 135 mmol/L (135-145); eGFR > 60.00
[2025-10-21 04:15] LABS: Potassium 4.3 mmol/L (3.5-5.1)
[2025-10-21] MEDS: ELIQUIS PO (07:52)
[2025-10-21 07:54] LABS: Iron 37 ug/dl (49-181)
[2025-10-21 08:03] LABS: Total Iron Binding Capacity 413 ug/dl (261-462)
[2025-10-21] MEDS: FLOMAX 0.4 MG PO (08:05)
[2025-10-21] MEDS: LASIX 40 MG PO (08:05)
[2025-10-21] MEDS: PROSCAR 5 MG PO (08:05)
[2025-10-21] MEDS: PLAVIX 75 MG PO (08:05)
[2025-10-21] MEDS: PROTONIX 40 MG PO (08:05)
--- NOTE | 2025-10-21 08:06 | W.PN.HOSP.TC ---
Today's Communication/Plan
-
ablation
IV iron
check GGT
might be for home in AM
Assessment / Plan
Assessment / Plan
70yo M with PMHx of FAWN s/p NSTEMI in Jun 2025, Afib on ELiquis, bradycardia, CABG x4 on 07.31.25 (In situ DAMON to LAD, Ao to RSVG to OM 1 and OM 3 in sequence, Ao to RSVG to RPDA), HLD, Hx of CVA, GIB sent by hiscardiologist after Holter showed
couple of the pauses with 4sec length, however patient remained asymptomatic.
A/P:
#Afib, permanet
#A.flutter
#Cardiac pauses
Induication for PPM as per cardiology. Since patient missed dose of ELiquis day prior the procedure -defer ablation to the later date
Cont anticoagulation post-procedure
telemetry
TSH WNL
#ROHAN
recheck iron studies with microcytosis - persistent deficiency
Iron IV
#perisstent Alk.phos elevation
Hx of cholecystectomy
check GGT
outpatient GI - will need MRCP
#NICOLAS
outpatient sleep study
#CAD s/p CABG
stable
cont Plavix
#Hx of chronic headaches
Previously exacerbaed by insomnia
#BPH
outpatient urology
watch for retention
Tamsulosin/Finasteride
#Chronic HFpEF
not in exacerbation
cont home meds
Hx of thoracentesis
watch for fluid retention
#GERD
#Hx of gastritis
#Neuropathy
#Hx of CVA
cont home meds
DVT ppx - SCDS, restart Eliquis when Ok by card
Full code
I have spent at least 59min reviewing chart, test results, communication with consultants, providing translation and direct patient care
Anticipated Discharge: 24 - 48 hours
Subjective/Interval History
-
Date of Service: October 21, 2025
Objective Data
-
Labs:
Laboratory Results
10/21/25
03:37
WBC 8.3
Hgb 12.9 L
Hct 40.3
Plt Count 222
Sodium 135
Potassium 4.3
Chloride 104
Carbon Dioxide 21 L
BUN 18
Creatinine 0.9
Glucose 90
Calcium 9.2
Vital Signs:
Vital Signs
Temp Pulse Resp BP Pulse Ox
98.4 F 66 18 110/69 96
10/21/25 07:00 10/21/25 07:00 10/21/25 07:00 10/21/25 07:00 10/21/25 07:00
I&O
10/20/25 10/21/25 10/22/25
06:59 06:59 06:59
Intake Total 480 / 480
Balance 480 / 480
Review of Systems
-
History Source: Patient
All other systems: Reviewed and negative
Physical Exam
-
General: No Apparent Distress
HEENT: Normocephalic
Respiratory: Clear to Auscultation
Cardiac: Regular Rhythm
Musculoskeletal: No Clubbing, No Cyanosis and No Edema
Neuro: Awake, Alert, Oriented, AO x 3 and Slurred Speech (chronic)
Psych: Calm
[2025-10-21 08:31] LABS: Ferritin 22.1 ng/ml (17.9-464.0)
[2025-10-21 08:49] LABS: GGTP 69 U/L (15-73)
--- NOTE | 2025-10-21 09:08 | CON.CAR ---
Translation Services
-
Preferred Language: Cook Islander
[employer] Worker service via: In Person
Comment: Patient was interviewed with the help of Dr. Perfecto Bowser
Consultation
Consultation Request
Date/Time Consultation Requested: 10/21/2025
Reason for Consultation: Long pauses with asystole
Medical History
-
Chief Complaint: Palpitations
History of Present Illness:
70 y/o male past medical history of CAD -recent NSTEMI from multivessel CAD s/p CABG x4 (07/31/25), CVA (left hemiparesis), left carotid artery stenosis, A-Fib, and CHF -HFpEF, more recently identified as typical atrial flutter who underwent Holter
monitor by his primary electrical subcontractor Dr. Rizwan Collado. Patient was noted to have significant long pauses with slow ventricular response with atrial flutter has underlying rhythm.
Patient is symptomatic with those pauses and was noted to have as long as 7-8 seconds. He continues to have slow ventricular response on metoprolol of 25 mg once a day. His metoprolol has been held.
Patient was sent here for evaluation for pacemaker. At this time patient has missed doses of Eliquis yesterday but reports good compliance before that.
[id number] score: 6 (Age, HTN, CHF, CVA, CAD)
ECHO-10/10/2025
1. Normal BiV systolic function.
2. Aortic valve sclerosis.
3. Mild AR, MR and TR.
4. Ectasia of proximal ascending aorta, 36 mm.
Past Medical History
Past Medical History: Arrhythmias (A-fib/flutter-persistent), CAD (Status post CABG), CHF (HFpEF-echo 10/10/2025-LVEF 65%.), CVA (Left hemiparesis, left carotid artery stenosis), HTN and Hypercholesterolemia
Past Surgical History: Cardiac (Status post CABG) and Cholecystectomy
Social History
Tobacco: Former Smoker
Alcohol: Former
Drug: None
Living: With Family
Family History
Family History: Reviewed & Not Pertinent
Allergies / Home Medications
Allergy/AdvReac Type Severity Reaction Status Date / Time
bee venom protein (honey bee) Allergy Unknown Verified 07/25/25 22:47
diphenhydramine Allergy Unknown Verified 07/25/25 22:47
�Medication �Instructions �Recorded �Confirmed �Type
dapagliflozin propanediol 10 mg 10 mg PO DAILY #30 tabs 08/21/25 08/21/25 Rx
tablet
Held on 09/03/25.
Instructions: See your
primary care physician as to
when this medication can be
resumed based on your blood
pressure as they have been
soft
gabapentin 100 mg capsule 100 mg PO TID #60 caps 08/21/25 08/21/25 Rx
Held on 09/03/25.
Instructions: See PCP as to
when this medication can be
resumed based on your blood
pressure and kidney functions
spironolactone 25 mg tablet 12.5 mg (1/2 x 25 mg) PO DAILY #30 08/21/25 08/21/25 Rx
Held on 09/03/25. tabs
Instructions: see PCP as to
when you can resume this
medication based on your
blood pressure
apixaban 5 mg tablet (Eliquis) 5 mg PO BID Blood Clot 09/03/25 Rx
Prevention/Tx 30 days #60 tabs
atorvastatin 40 mg tablet 40 mg PO QPM High cholesterol 30 09/03/25 Rx
days #30 tabs
finasteride 5 mg tablet 5 mg PO DAILY Urinary issue 30 09/03/25 Rx
days #30 tabs
furosemide 40 mg tablet 40 mg PO DAILY Fluid 09/03/25 Rx
retention/Swelling 30 days #30 tabs
magnesium oxide 400 mg (241.3 mg 400 mg PO DAILY Supplement 30 days 09/03/25 Rx
magnesium) tablet #30 tabs
melatonin 5 mg tablet 5 mg PO HS sleep 30 days #30 tabs 09/03/25 Rx
metoprolol succinate 25 mg 25 mg PO DAILY Blood pressure 30 09/03/25 Rx
tablet,extended release 24 hr days #30 tabs
midodrine 2.5 mg tablet 2.5 mg PO Q6HPRN PRN hypotension 09/03/25 Rx
30 days #30 tabs
nortriptyline 10 mg capsule 10 mg PO HS Mental Health/Anxiety 09/03/25 Rx
30 days #30 caps
pantoprazole 40 mg tablet,delayed 40 mg PO BID Gastrointestinal 09/03/25 Rx
release (Protonix) Issue 30 days #60 tabs
potassium chloride 20 mEq 20 meq PO DAILY supplement 30 days 09/03/25 Rx
tablet,extended release(part/cryst) #30 tabs
tamsulosin 0.4 mg capsule 0.4 mg PO DAILY Urinary issue 30 09/03/25 Rx
days #30 caps
amlodipine 10 mg tablet 10 mg PO DAILY 10/20/25 History
clopidogrel 75 mg tablet 75 mg PO DAILY 10/20/25 History
losartan 100 mg tablet 100 mg PO DAILY 10/20/25 History
Review of Systems
-
All other systems: Negative unless noted
Physical Exam
Vital Signs
Temp Pulse Resp BP Pulse Ox
98.4 F 66 18 110/69 96
10/21/25 07:00 10/21/25 08:05 10/21/25 07:00 10/21/25 08:05 10/21/25 07:00
Lab Results
10/21/25 03:37
10/21/25 03:37
Troponin I 0.013 ng/ml 10/20/25 18:55
Physical Exam
General: Well Developed, Well Nourished and No Apparent Distress
HEENT: Normocephalic, Anicteric and Moist Mucous Membranes
Respiratory: Clear, Rhonchi and Non Labored Respirations
Cardiac: S1/S2 and Irregular Rhythm; Negative Murmur or Peripheral Edema
GI: Soft, Non Distended and Normal Bowel Sounds
Skin: Warm and Dry
Neuro: Awake, Alert, Oriented and AO x 3
Hematologic/Lymphatic: Lymphadenopathy
Psych: Calm
Impression / Plan
-
70-year-old gentleman with history of HTN, CAD, NSTEMI status post CABG 07/2025, left carotid artery stenosis, chronic HFpEF, CVA with left hemiparesis, with persistent atrial fibrillation/flutter presented with slow ventricle response and episodes
of asystole with significant pauses.
Symptomatic bradycardia/asystole
- Holter reported multiple episodes of 7 to 8-second pauses
- Symptomatic�associated with dizziness and palpitations.
- On low-dose metoprolol 25 mg once a day�unlikely to cause pauses.
- In need for beta-blockers for his tachybradycardia syndrome
- Discussed need for pacemaker. Patient was sent for pacemaker implantation.
- He is in agreement and is anticipating a pacemaker during this hospitalization
- Risks, benefits, associated complications and alternatives were discussed in detail.
- After discussion, we will proceed with implantation of dual-chamber pacemaker.
Persistent atrial fibrillation
- History of A-fib/flutter. The patient appears to be in typical flutter at this time.
- Will need an ablation for typical flutter and atrial fibrillation
- With missing Eliquis yesterday, we will proceed with pacemaker implantation at this time.
- Will plan for A-fib flutter ablation at a later date.
- s/p DALLAS ligation
- Plan is to make sure the pacemaker is mature before proceeding with an ablation
- Currently rate controlled with pauses.
- Plan for pacemaker.
HTN
- Blood pressure is controlled at this time.
CVA
- Residual left hemiparesis
- Currently on Plavix and Eliquis.
- Eliquis was held. Will resume Eliquis after the pacemaker implantation.
- Continue Plavix
CAD
-NSTEMI 07/26/25
- s/p CABG July 2025- (DAMON-LAD, SVG-OM1-OM3 sequential, SVG-RPDA; DALLAS ligation / MAZE; Dr. Sanchez)
Data Reviewed
-
EKG: Tracing Personally Visualized and interpreted
Radiology: Report Reviewed by me
Medical Tests (Nuc Med, Echo etc): Image Personally Visualized and interpreted
Labs: Labs Reviewed by me
Old Records: Reviewed
--- NOTE | 2025-10-21 09:45 | PTCARENOTE ---
pt went to orthodontic lab technician for pacemaker. report given to KESHAWN.
--- NOTE | 2025-10-21 11:48 | ITS.CL.PACE ---
[facility] - Pacemaker Implant
Pacemaker Implant
Procedure Report:
Conduction system pacing Permanent Pacemaker Placement:
Mr. Goodman is a 70-year-old gentleman with history of HTN, CAD, NSTEMI status post CABG 07/2025, left carotid artery stenosis, chronic HFpEF, CVA with left hemiparesis, with persistent atrial fibrillation/flutter with slow ventricle response and
episodes of asystole with significant pauses is recommended a pacemaker.
Indications:
Persistent atrial fibrillation / flutter with slow ventricular response with symptomatic bradycardia and long pauses.
Date of the Procedure:
10/21/25
Pre-Operative Diagnosis: Persistent atrial fibrillation with slow ventricular response with symptomatic bradycardia
Post-Operative Diagnosis: Persistent atrial fibrillation with slow ventricular response with symptomatic bradycardia
Procedure Performed: Conduction system pacing permanent pacemaker
Surgeon:
Arcadio Kaminski MD
Anesthesia:
See anesthesia records
Detailed Description of the Procedure:
The patient was identified using hospital identification and informed consent obtained for the procedure. The risks were explained to the patient and the family including, but not limited to: Bleeding, infection, arrhythmia, stroke,
vascular/cardiac/lung puncture, surgery, pacemaker dependency/device malfunction. All questions were answered.
A surgical pause was performed in accordance with hospital regulations. Anesthesia service provided sedation as reported separately. Antibiotics administered IV for risk of bacterial colonization. After obtaining informed and written consent, the
patient was brought to the electrophysiology laboratory.
The initial rhythm was atrial flutter.
The procedure site was meticulously prepared with surgical scrub and allowed to dry with no pooling. Sterile draping was applied to cover the procedure site. The image intensifier was draped with sterile bag and positioned over the patient.
A surgical pause and time out was performed immediately prior to the procedure with review of her medical history, recent labs, allergies and medications with site of procedure identified and consent noted in the chart. Antibiotics pre operatively
given. All team members concurred.
The left infraclavicular region was prepped and draped in the usual sterile fashion. Local anesthesia was administered subcutaneously using 1% lidocaine / Bupivacaine. The left cephalic vein cutdown was performed with an incision at the
delto-pectoral groove, and vascular sheath was introduced for lead access.
A subcutaneous pocket was created with blunt dissection and use of electrocautery. Hemostasis was excellent.
The guide wire was advanced to the RA and was advanced to the RV. The preformed curved long hemostatic peel away HIS sheath was advanced into the RV cavity. A left bundle pacing wire was advanced into the sheath to the tip with ventricular signals
noted with unipolar manner. The HIS location was identified under guidance of the flouroscopy and the pacing wire signals. The sheath with the pacing lead was moved deeper into the RV cavity on the septum at a more inferior and distal to the HIS
signals.
Once adequate signals were noted on the electrograms of the pacing lead in the sheath with W pattern signals on the RV septum, the lead was advanced and clockwise turns were done under fluoroscopic guidance. The septum was engaged and the lead was
paced intermittently after every 2-3 turns. The Impedance of the lead was measured that remained stable around 800 Ohm and the lead was not able to advance into the septum. The pacing signals from the lead showed only RV septal pacing, though narrow
but not left bundle pacing. This was thought to be due to the entanglement effect of the lead to the septal endocardium. The decision was made to remove the lead and relocate to another locations.
A different location was tested for LBB pacing with either high threshold or poor pacing morphology with failure to advance the pacing lead deep into the septum.
Finally another septal location was identified with adequate signals noted on the pacing leads and good flouroscopic location. There was sheath approximation conformed on DIDI view and the pacing lead was advanced with clockwise turns into the septal
location. The septum was successfully engaged. The lead was paced and septal pacing was noted. The sheath was placed again to the septum and the lead was advanced 2-3 turns with pacing with each advancement. The ventricualr capture was monitored
throughout and the captures gradually changed from RV pacing to non-selective pacing to LBB pacing with small R wave on V1 with favorable qrs complex morphology that was so far better than the previous tested.
The long guiding sheath was cut and removed from the RV without change in lead position, impedance, sensing, or capture.
Then the attention was given to atrial lead and an atrial lead was placed in the RAA and was deployed using active fixation. There was excellent sensing and threshold noted. There was good injury on the atrial lead.
The lead was sutured to the underlying pectoralis fascia with 2-0 TiCron stitches.
The leads were attached to the pulse generator in standard configuration with acceptable sensing and threshold parameters. The pocket was irrigated with antibiotic solution; the pocket was inspected with no active bleeding noted. The device and the
leads were placed in the pocket.
Deep subcutaneous tissues were closed with 2-0 V lock sutures; intermediate subcutaneous tissue was reopposed using a running 4-0 Biosyn suture, and the dermis was reopposed using a running 4-0 Biosyn subcuticular suture.
Sponge counts / sharp counts were appropriate.
Procedure End:
The procedure was tolerated well. Aquacel bandaged was applied. A pressure dressing was applied.
Estimated Blood loss:
5 cc
Specimens Removed:
No cultures and no specimens were obtained. No intraoperative pathology was identified.
Urine output:
None
Packs / Drains/ Tubes:
None
Instrument / Sponge Count Correct:
Yes
Flouro time:
5.7min / 6.97Fryx3
Complications of the Procedure:
None
Condition of Patient at Time of Transfer:
Hemodynamically stable with no neurological or vascular compromise.
Device information:�
Generator: Alloy Digital; Model: [id number]; Serial # [id number]�
Right atrial pacing lead: Gozenttronic; Model: 5076-52; Serial # [id number]
Measured data on the RA lead was sensing of 2.2 mV of flutter waves, impedance of 513 ohms and threshold of <5.0 V at 0.4ms�
RV LBB pacing lead: Medtronic; Model: 3830-69; Serial # [id number]
Measured data on the RV lead was sensing of 12.8 mVdance of 798 ohms and threshold of 1.0 V at 0.4ms�
PROGRAMMING PARAMETERS:�
Romaine parameter settings were AAIR <=> DDDR (60 -130 bpm)�
Paced AV interval: 180ms
Sensed AV interval: 150 ms.
Rate Adaptive A-V Interval: on
Summary:
Successful implantation of MRI compatible conduction system pacing permanent pacemaker.
Results/Recommendations:
-Please follow up CXR�
1. Please provide patient with adequate pain control�
Instructions to be given to patient:�
- Please follow up with [facility] at [address] [place] [address] ([phone]) to get your wound checked in 2 weeks of your discharge. Then follow with
- Do not wet incision site until after it is evaluated at cardiology clinic. No baths or showers until then. Sponge baths / showers are OK but dab dry the dressing after it is wet.�
- Allow 'steri strips' to fall off on their own�
- Do not lift left elbow above shoulder, particularly with sudden jerking movements, for 1 month�
- Do not lift anything weighing more than 5 pounds with the left arm for 1 month�
- If you notice any fevers, shortness of breath, lightheadedness, chest pain, or worsening swelling in the wound site, please contact the arrhythmia clinic, contact your depalletizer operator, or present to the hospital for evaluation.�
Arcadio Kaminski MD
Electrophysiology
--- NOTE | 2025-10-21 12:10 | PTCARENOTE ---
received pt back from label cutter. left chest wall dressing CDI. Left arm immobilizer intact. Pt educated on restrictions, at bedside and updated. Aflutter with V-pacing on tele monitor. Call breen within reach.
[2025-10-21] MEDS: FERRLECIT 110 MG IV (15:05)
--- NOTE | 2025-10-21 16:21 | CM ---
spoke to pt in room, his answered questions, he lives with his in a 2 story home with 12 steps to enter. he has a walker and a wc at home. he denies any dc planning needs. plan is for dc to home when medically stable.
[2025-10-21] MEDS: LIPITOR 40 MG PO (17:36)
[2025-10-21] MEDS: ANCEF 5 IV (17:36)
--- NOTE | 2025-10-21 19:00 | PTCARENOTE ---
report received from previous RN, walking rounds done. pt in bed, AAOx4. pt denies any pain. VSS. Aflutter on monitor, HR 60s. +peripheral pulses. B/L breath sounds present. POX 95% on room air. L chest wall pacer site dressing CDI. L arm
immobilizer in place. PIV intact and patent. see worklist for full assessment, VS, and interventions.
[2025-10-21] MEDS: TYLENOL 650 MG PO (21:07)
[2025-10-21] MEDS: PAMELOR 10 MG PO (21:08)
[2025-10-22] MEDS: ANCEF 5 IV (01:49)
[2025-10-22 02:44] VITALS: BP 144/75
--- NOTE | 2025-10-22 03:00 | PTCARENOTE ---
no changes in assessment. VSS. pt oriented, denies any pain. Aflutter 60s-70s. POX 98% on room air. AM labs drawn and sent. AM EKG done. all surgical sites stable. L arm immobilizer remains in place. pt sleeping between care.
[2025-10-22 03:06] LABS: Hematocrit 39.1 % (39.0-52.0); Hemoglobin 12.5 g/dL (13.0-18.0); Mean Corp Hgb Conc. 32.0 g/dL (33.0-37.0); Mean Corpuscular Volume 74.3 fL (80.0-94.0); Platelet Count 252 10^3/uL (130-400); Red Cell Dist. Width 14.2 % (11.5-14.5)
[2025-10-22 03:16] VITALS: BMI 32.5
[2025-10-22 03:29] LABS: Blood Urea Nitrogen 24 mg/dl (9-20); Calcium 9.2 mg/dl (8.4-10.2); Carbon Dioxide 21 mmol/L (22-30); Chloride 104 mmol/L (98-107); Estimated Creatinine Clearance 69 ml/min; Glucose 130 mg/dl (70-99); Potassium 4.8 mmol/L (3.5-5.1); Sodium 134 mmol/L (135-145); eGFR > 60.00
[2025-10-22 08:27] VITALS: BP 119/76
--- NOTE | 2025-10-22 08:35 | W.PN.CD ---
Translation Services
-
Preferred Language: Albanian
Hotel Reservation Agent service via: In Person
Today's Communication / Plan
-
- restart Eliquis
- Continue Plavix.
- Restart Metoprolol
Impression / Plan
-
70-year-old gentleman with history of HTN, CAD, NSTEMI status post CABG 07/2025, left carotid artery stenosis, chronic HFpEF, CVA with left hemiparesis, with persistent atrial fibrillation/flutter presented with slow ventricle response and episodes
of asystole with significant pauses.
Symptomatic bradycardia/asystole s/p PPM
- Holter reported multiple episodes of 7 to 8-second pauses
- Symptomatic�associated with dizziness and palpitations.
- s/p dual chamber PPM - [employer] 10/21/25
- restart low-dose metoprolol 25 mg once a day
- Telemetry showed demand Pacer spikes since the implant without any pause.
Persistent atrial fibrillation
- History of A-fib/flutter. The patient appears to be in typical flutter at this time.
- Will need an ablation for typical flutter and atrial fibrillation
- With missing Eliquis yesterday, we will proceed with pacemaker implantation at this time.
- Will plan for A-fib flutter ablation at a later date.
- s/p DALLAS ligation
- Plan is to make sure the pacemaker is mature before proceeding with an ablation
- follow up for incision check in 1-2 weeks
- Then routine follow up with Dr. Rizwan Collado.
HTN
- Blood pressure is controlled at this time.
CVA
- Residual left hemiparesis
- Currently on Plavix and Eliquis.
- Eliquis was held. Will resume Eliquis after the pacemaker implantation.
- Continue Plavix
CAD
-NSTEMI 07/26/25
- s/p CABG July 2025- (DAMON-LAD, SVG-OM1-OM3 sequential, SVG-RPDA; DALLAS ligation / MAZE; Dr. Sanchez)
Physical Exam
Vital Signs/Labs
Vital Signs
Temp Pulse Resp BP Pulse Ox
98.5 F 68 18 119/76 98
10/22/25 08:31 10/22/25 08:27 10/22/25 08:31 10/22/25 08:27 10/22/25 08:31
10/21/25 10/22/25 10/23/25
06:59 06:59 06:59
Actual Weight 97.7 kg 96.8 kg
10/22/25 02:49
10/22/25 02:49
PT 15.7 Sec (11.4-14.6) H 10/20/25 18:55
INR 1.24 10/20/25 18:55
LAB Results
10/20/25
18:55
Troponin I 0.013
Physical Exam
Constitutional: No acute distress and Comfortable
EENT: Anicteric and Moist mucous membranes
Cardiovascular: Rhythm & rate is regular, Pedal edema is absent and JVD pressure is normal
Respiratory: Respiratory effort normal, Lungs clear to auscul. and Wheeze Absent
GI: Soft, Non tender and Normal bowel sounds
Neuro/Psych: Alert, Oriented, AO x 3 and Motor deficits absent
Other: Cardiac Device Site
Data Reviewed
-
Date of Service: October 22, 2025
Medical Decision Making: Reviewed Test Results, Test Interpretation and Review of Case with other Provider
EKG: Tracing Personally Visualized and interpreted (atrial flutter with slow AV conduction. )
Echo: Tracing Personally Visualized and interpreted
X-Ray/CT/US/MRI/NUC/PET: Image Personally Visualized and interpreted
Labs: Labs Reviewed by me
Old Records: Reviewed
[2025-10-22] MEDS: PLAVIX 75 MG PO (10:13)
[2025-10-22] MEDS: PROSCAR 5 MG PO (10:14)
[2025-10-22] MEDS: FLOMAX 0.4 MG PO (10:14)
[2025-10-22] MEDS: TYLENOL 650 MG PO (10:14)
[2025-10-22] MEDS: PROTONIX 40 MG PO (10:14)
[2025-10-22] MEDS: TOPROL XL 25 MG PO (10:14)
[2025-10-22] MEDS: ELIQUIS 5 MG PO (10:14)
--- NOTE | 2025-10-22 10:14 | W.PN.HOSP.TC ---
Today's Communication/Plan
-
dc
Assessment / Plan
Assessment / Plan
70yo M with PMHx of FAWN s/p NSTEMI in Jun 2025, Afib on ELiquis, bradycardia, CABG x4 on 07.31.25 (In situ DAMON to LAD, Ao to RSVG to OM 1 and OM 3 in sequence, Ao to RSVG to RPDA), HLD, Hx of CVA, GIB sent by hiscardiologist after Holter showed
couple of the pauses with 4sec length, however patient remained asymptomatic. s/p PPM implantation on 10/21/25. BP well controlled off Losarta and Amlodipine. As per Card - restarted Metoprolol. Advised to stop Norvasc and hold Losartan until seen
by mirror specialist. LUE precautions (avoid driving, lifting heavy, raising arm above shoulder) for 1 week - patient verbalized understanding. Medcially stable to be d/c home as per agreement with card
A/P:
#Afib, permanent
#A.flutter
#Cardiac pauses
Induication for PPM as per cardiology. Since patient missed dose of ELiquis day prior the procedure -defer ablation to the later date
Cont anticoagulation post-procedure
telemetry
TSH WNL
#Mild leukocytosis
2/2 recent procedure
nno signs of infection at this time, no respiratory, urinary, GI symptoms.
#ROHAN
recheck iron studies with microcytosis - persistent deficiency
Iron IV
#persistent Alk.phos elevation
Hx of cholecystectomy
check GGT
outpatient GI - will need MRCP
#NICOLAS
outpatient sleep study
#CAD s/p CABG
stable
cont Plavix
#Hx of chronic headaches
Previously exacerbated by insomnia
#BPH
outpatient urology
watch for retention
Tamsulosin/Finasteride
#Chronic HFpEF
not in exacerbation
cont home meds
Hx of thoracentesis
watch for fluid retention
#GERD
#Hx of gastritis
#Neuropathy
#Hx of CVA
cont home meds
DVT ppx - SCDS, restart Eliquis when Ok by card
Full code
I have spent at least 36min reviewing chart, test results, communication with consultants, providing translation and direct patient care
Anticipated Discharge: Today
Subjective/Interval History
-
Date of Service: October 22, 2025
Objective Data
-
Labs:
Laboratory Results
10/22/25
02:49
WBC 14.0 H
Hgb 12.5 L
Hct 39.1
Plt Count 252
Sodium 134 L
Potassium 4.8
Chloride 104
Carbon Dioxide 21 L
BUN 24 H
Creatinine 1.1
Glucose 130 H
Calcium 9.2
Vital Signs:
Vital Signs
Temp Pulse Resp BP Pulse Ox
98.5 F 68 18 119/76 98
10/22/25 08:31 10/22/25 08:27 10/22/25 08:31 10/22/25 08:27 10/22/25 08:37
I&O
10/21/25 10/22/25 10/23/25
06:59 06:59 06:59
Intake Total 480 / 480
Output Total 450 / 450
Balance 480 / 480 -450 / -450
Review of Systems
-
History Source: Patient
All other systems: Reviewed and negative
Physical Exam
-
General: No Apparent Distress
HEENT: Normocephalic
Respiratory: Clear to Auscultation
Cardiac: Irregular Rhythm
Skin: Warm
Neuro: Awake, Alert, Oriented and AO x 3
Psych: Calm
[2025-10-22] MEDS: LASIX PO (10:15)
--- NOTE | 2025-10-22 10:19 | W.DCSUMMARY ---
Addendum entered and electronically signed by Perfecto Bowser MD 10/22/25 11:53:
Correction: Persistent, not a permanent A.fib
Original Note:
Discharge Summary
Discharge Data
Date of Admission: 10/20/25
Date of Discharge: 10/22/25
-
Pending Results: No
Hospital Course
70yo M with PMHx of FAWN s/p NSTEMI in Jun 2025, Afib on ELiquis, bradycardia, CABG x4 on 07.31.25 (In situ DAMON to LAD, Ao to RSVG to OM 1 and OM 3 in sequence, Ao to RSVG to RPDA), HLD, Hx of CVA, GIB sent by his lead burner helper after Holter showed
couple of the pauses with 4sec length, however patient remained asymptomatic. s/p PPM implantation on 10/21/25. BP well controlled off Losarta and Amlodipine. As per Card - restarted Metoprolol. Advised to stop Norvasc and hold Losartan until seen
by lead burner helper. LUE precautions (avoid driving, lifting heavy, raising arm above shoulder) for 1 week - patient verbalized understanding. Medcially stable to be d/c home as per agreement with card
I have spent at least 36min reviewing chart, test results, communication with consultants, providing translation and direct patient care
I have spent at least 36min reviewing chart, test results, communication with consultants, providing translation and direct patient care
Patient was managed for:
#Afib, permanent
#A.flutter
#Cardiac pauses
#Mild leukocytosis
#ROHAN
#persistent Alk.phos elevation
#NICOLAS
#CAD s/p CABG
#Hx of chronic headaches
#BPH
#Chronic HFpEF
#GERD
#Hx of gastritis
#Neuropathy
#Hx of CVA
Discharge Plan
-
Patient Disposition: Home (Routine Discharge)
Discharge Diagnosis/Procedures: Pacemaker implant
Diet: Low Cholesterol
Driving Restrictions: No driving for 1 week
Stand Alone Forms: DC Inst - Implanted Device
Referrals:
[facility] [Provider Group] - 10/29/25 1:40 pm
Referral Note: Post device incision check appointment
Jose G Curry MD [Non-Admitting Privileges, Internal Medicine]
Referral Note: Follow alk.phos elevation, consider DEXA as GGT normal
Rizwan Collado MD [Active, Cardiology] - 11/21/25 9:00 am
Prescriptions:
New
pantoprazole 40 mg Tablet,Delayed Release (Dr/Ec)
40 mg PO DAILY Qty: 30 0RF
ferrous sulfate 325 mg (65 mg iron) tablet
325 mg PO DAILY Qty: 30 0RF
Continued
spironolactone 25 mg Tablet
12.5 mg PO DAILY Qty: 30 0RF
dapagliflozin propanediol 10 mg Tablet
10 mg PO DAILY Qty: 30 0RF
gabapentin 100 mg Capsule
100 mg PO TID Qty: 60 0RF
clopidogrel 75 mg tablet
75 mg PO DAILY
magnesium oxide 400 mg (241.3 mg magnesium) Tablet
400 mg PO DAILY 30 Days Qty: 30 0RF
melatonin 5 mg Tablet
5 mg PO HS 30 Days Qty: 30 0RF
atorvastatin 40 mg Tablet
40 mg PO QPM 30 Days Qty: 30 0RF
nortriptyline 10 mg Capsule
10 mg PO HS 30 Days Qty: 30 0RF
metoprolol succinate 25 mg Tablet Extended Release 24 Hr
25 mg PO DAILY 30 Days Qty: 30 0RF
finasteride 5 mg Tablet
5 mg PO DAILY 30 Days Qty: 30 0RF
Eliquis 5 mg Tablet
5 mg PO BID 30 Days Qty: 60 0RF
potassium chloride 20 mEq Tablet,Er Particles/Crystals
20 meq PO DAILY 30 Days Qty: 30 0RF
tamsulosin 0.4 mg Capsule
0.4 mg PO DAILY 30 Days Qty: 30 0RF
furosemide 40 mg Tablet
40 mg PO DAILY 30 Days Qty: 30 0RF
Held
losartan 100 mg tablet
100 mg PO DAILY
Hold Instructions: until restarted by your doctor
Discontinued
amlodipine 10 mg tablet
10 mg PO DAILY
midodrine 2.5 mg Tablet
2.5 mg PO Q6HPRN PRN (Reason: hypotension) 30 Days Qty: 30 0RF
pantoprazole [Protonix] 40 mg Tablet,Delayed Release (Dr/Ec)
40 mg PO BID 30 Days Qty: 60 0RF
Care Plan Goals
Care Plan Goals:
Problem: Readiness for enhanced knowledge related to diagnosis and treatment plan
Goal: Understand your diagnosis and treatment plan needs, including medications if applicable.
Instructions: Know your diagnosis, underlying causes and treatment plan options, including medications if applicable. Consult with your health care team to learn about your diagnosis and treatment plan, including medications if applicable.
Discharge Date and Time
Print Language: FRISIAN
--- NOTE | 2025-10-22 10:50 | PN.CDI ---
CDI
- -
CDI:
Physician Documentation Request
Admit Date: 10/20/25 21:58
Dear Doctor Niels,
Please review the following and provide your response in the progress notes.
Clinical Indicators:
Pt admitted with cardiac pauses/bradycardia now s/p PPM
There is potentially conflicting documentation in the record regarding the type of afib.
Progress notes 10/21 &10/22, ' Afib, permanent...'
Cardiology consult and notes , ' Persistent atrial fibrillation History of A-fib/flutter. The patient appears to be in typical flutter at this time....'
Due to potentially conflicting documentation please provide further specificity regarding atrial fibrillation, such as:
Persistent atrial fibrillation - episodes of continuous AF that last more than 7 days and do not self-terminate
Permanent atrial fibrillation - when a decision has been made to accept the presence of AF and there is no further attempt to restore or maintain sinus rhythm
Other - please specify
Use of terms such as suspected, likely, concern for, or probable (associated with a specific diagnosis that is being evaluated, monitored, or treated as if it exists) are acceptable and can be coded in the inpatient setting, when documented at the
time of discharge.
Thank you,
Elizabeth Mclean RN
CDI Specialist
[place] [facility]
Please use your independent medical judgment in providing your response.
[2025-10-22 11:21] VITALS: BP 147/85
[2025-10-22] MEDS: FERRLECIT 110 MG IV (13:24)
--- NOTE | 2025-10-22 15:24 | PTCARENOTE ---
Pt seen by . Pt c/o minimal incisional discomfort. Pt walking in halls with RN without problem. Venofer infusion to left hand IV with small infiltrate, swollen 2 inch diameter. IV removed, ice applied with resolution . IV team notified and
, no further treatment ordered. Telemetry and other IV device removed. Discharge instructions reviewed with pt and his with help of senior informatica developer regarding medications and their possible side effects, pain management, wound care,
activity and driving restrictions, reporting cares and concerns and follow up appt's. Good understanding verbalized by pt's and pt. Pt escorted out via wheelchair and discharged to home.
== END 2025-10-22 14:59 | disposition home or self-care (01) | DRG 242 ==
LOC: IVU 21:58
PROVIDERS: Emergency Medicine; Nurse Practitioner; Physician Assistant Medical; ADMITTING PHYSICIAN Internal Medicine; ATTENDING PHYSICIAN Internal Medicine; EMERGENCY PHYSICIAN Student in an Organized Health Care Education/Training Program; OTHER PHYSICIAN Internal Medicine Cardiovascular Disease
PROC: 0JH606Z Insertion of Pacemaker, Dual Chamber into Chest Subcutaneous Tissue and Fascia, Open Approach (ICD-10-PCS; 2025-10-21)
PROC: 02HK3JZ Insertion of Pacemaker Lead into Right Ventricle, Percutaneous Approach (ICD-10-PCS; 2025-10-21)
PROC: 02H63JZ Insertion of Pacemaker Lead into Right Atrium, Percutaneous Approach (ICD-10-PCS; 2025-10-21)
DX: I49.5 Sick sinus syndrome (principal); I46.2 Cardiac arrest due to underlying cardiac condition; I48.19 Other persistent atrial fibrillation; I50.32 Chronic diastolic (congestive) heart failure; I69.354 Hemiplegia and hemiparesis following cerebral infarction affecting left non-dominant side; I48.92 Unspecified atrial flutter; G47.33 Obstructive sleep apnea (adult) (pediatric); I25.10 Atherosclerotic heart disease of native coronary artery without angina pectoris; Z95.1 Presence of aortocoronary bypass graft; I11.0 Hypertensive heart disease with heart failure; K21.9 Gastro-esophageal reflux disease without esophagitis; G62.9 Polyneuropathy, unspecified; Z87.891 Personal history of nicotine dependence; Z79.02 Long term (current) use of antithrombotics/antiplatelets; E78.00 Pure hypercholesterolemia, unspecified; I25.2 Old myocardial infarction; N40.0 Benign prostatic hyperplasia without lower urinary tract symptoms; Z79.01 Long term (current) use of anticoagulants; Z88.8 Allergy status to other drugs, medicaments and biological substances
CPT/HCPCS: 33208; 71045; 80048; 80053; 82728; 82977; 83540; 83550; 84443; 84484; 85025; 85027; 85610; 93005; 99285; C1785; C1887; C1898; J2916